=== PATIENT | male | born 1955 | race Caucasian/White ===

== ENCOUNTER 2016-07-15 00:33 | Inpatient (IN) | payer OTHER ==
[~2016-07-15] VITALS: Ht 180.3 cm; Wt 75.6 kg
[~2016-07-15 00:33] MED LIST: DOCU-216; FURO40TA4; HUMALOG; LANTUS; LORA1TAB; LOSA100T7; PANT40TA4; ZOLP10TA5
[2016-07-15 04:20] VITALS: BP 115/73; PULSE 69; RESP 20
[2016-07-15 04:40] VITALS: Ht 180.3 cm; Wt 75.6 kg
--- NOTE | 2016-07-15 04:53 | HP ---
Date/Time of Note Date/Time of Note DATE: 07/15/16 TIME: 04:50 Assessment/Plan VTE Prophylaxis VTE Prophylaxis Intervention: heparin Assessment/Plan Assessment/Plan 61 yo male with a past medical history of Type II DM, Essential Hypertension, Hepatitis C, Stage IV CKD, BPH, SCC previous, Plaque Psoriasis, ETOH abuse, Inguinal hernia, who presents with intractable diarrhea and malaise. 1. Diarrhea - infectious vs other - will admit the patient to med/surg, consult GI - no white count, will hold off on antibiotics, check stool blood, leukocytes , culture, ova and parasites, c diff. 2. Hyponatremia - 2/2 to liver cirrhosis and dehydration - gentle hydration 3. Acute on Chronic renal failure - dehydration - continue with IVF, consult nephro 4. Liver mass with METS - check CT chest, consult hem/onc, surgery, will check AFP, Hepatitis panel, ca 125, ca 19-9, CEA levels, possible bx for definitive diagnosis 5. Type II DM - ISS, lantus/novolog, check hgba1c 6. Essential HTN - hold losartan, IV hydralazine, if cleared by GI - consider aldactone 7. Hepatitis C - standard precautions, viral load 8. Right inguinal hernia - reducible, surgery consult 9. Liver Cirrhosis - with abnormal LFT's - RUQ US, monitor trend 10. GI ppx - protonix 11. DVT ppx - heparin answered all of his questions. as per clinical course. this history and physical took greater then 45 minutes to complete HPI/ROS Admit Date/Time Admit Date/Time Jul 15, 2016 at 04:07 Hx of Present Illness 61 yo male with a past medical history of Type II DM, Essential Hypertension, Hepatitis C, Stage IV CKD, BPH, SCC previous, Plaque Psoriasis, ETOH abuse, Inguinal hernia, who presents with intractable diarrhea and malaise. He states that over the last 3 weeks, he has had > 10 episodes of diarrhea, non bloody, no recent antibiotic use, with 25 lb weight loss, decreased appetite, and generalized abdominal pain. Does have malaise, dizziness, 2 episodes of vomitus NBNB, with nausea. He denies any recent travel, but lives in a sober living, and states that other residents have similar symptoms. He denies any chest pain , shortness of breath, loss of consciousness, fevers/chills, or other constitutional symptoms. He had gone to [facility] for initial work- up, but was transferred here for insurance purposes. Labs: Na+: 130, BUN/Cr: 60/2.85, AST: 79/ALT:28, Alk Phos: 306, T bili :0.6 CT abd/pelvis: Multiple nodules within the lung bases most likely compatible with metastatic disease. Mass-like lesion within the right hepatic lobe which is not well seen without contrast. The density is most suggestive of a solid lesion. Cirrhotic liver with associated upper abdominal varices and splenomegaly as well as moderate intra-abdominal ascites. Large right inguinal hernia which contains ascites. ROS 14 point review of systems completed, please refer to HPI for any positive findings PMH/Family/Social Past Medical History Hep C, BPH, SCC, psoriasis Medical History: diabetes, hypertension, renal disease Past Surgical History multiple skin grafts Family History Significant Family History: diabetes (mother), hypertension (mother) Social History Alcohol Use: sober Smoking Status: Current every day smoker (50 ppd hx) Drug Use: cocaine (previously) Exam/Review of Systems Vital Signs Vitals Vital Signs Date Time Temp Pulse Resp B/P Pulse Ox O2 Delivery O2 Flow Rate FiO2 07/15/16 04:20 97.6 69 20 115/73 98 Room Air Exam Exam Gen Jatin: mild distress 2/2 to abdominal pain, AAOx4 HEENT: left frontotemporal region skin graft noted, PERRLA, EOMI, no pharyngeal erythema, no tonsillar exudates, no lymphadenopathy, no JVD, no carotid bruits NECK: supple, no thyromegaly THORAX: symmetrical, no obvious deformities CV: S1S2, RRR, no M/G/R Lungs: bibasilar crackles, no wheezing or rhonchi appreciated Abd: soft, tenderness diffusely to deep palpation, hyperactive bowel sounds, no rebound, no guarding, distended, + fluid wave noted EXT: trace bilateral lower extremity edema, no ecchymosis, no clubbing, FROM Neuro: CN II-XII grossly intact, no focal deficits Psych: good mentation, alert and oriented, good mood and affect Skin: scattered skin grafts PEG GUNTER MD Jul 15, 2016 04:53
[2016-07-15] MEDS ORDERED: SOD CHLORIDE 0.9% 1,000 ML IV SCH (04:57)
[2016-07-15] MEDS ORDERED: DOCUSATE SODIUM 100 MG CAP PO PRN (05:00)
[2016-07-15] MEDS ORDERED: ONDANSETRON 4 MG INJ IV PRN (05:00)
[2016-07-15] MEDS ORDERED: NACL 0.9% 3 ML SYG IV SCH (05:00)
[2016-07-15] MEDS ORDERED: morphine 2 MG INJ IV PRN (05:00)
[2016-07-15] MEDS ORDERED: hydrALAzine 20 MG INJ IV PRN (05:30)
[2016-07-15] MEDS ORDERED: GLUCOSE GEL 15 GRAM TUBE BUCCAL PRN (06:30)
[2016-07-15] MEDS ORDERED: GLUCOSE GEL 15 GRAM TUBE PO PRN ×2 (06:30)
[2016-07-15] MEDS ORDERED: GLUCAGON 1 MG INJ IM PRN (06:30)
[2016-07-15] MEDS ORDERED: DEXTROSE 50% 50 ML SYRINGE IV PRN ×2 (06:30)
[2016-07-15 06:39] LABS: HAAIG REFLEX REFLEX FILED
[2016-07-15 06:49] LABS: ALBUMIN 3.2 g/dl (3.3-4.9); POTASSIUM 4.6 mmol/L (3.5-5.1)
[2016-07-15 06:52] LABS: ALBUMIN/GLOBULIN RATIO 0.68; BILIRUBIN,INDIRECT 0.2 mg/dl (0-1.1); BILIRUBIN,TOTAL 0.2 mg/dl (0.2-1.3); CALCIUM 8.3 mg/dl (8.4-10.2); CREATININE 2.87 mg/dl (0.61-1.24); TOTAL PROTEIN 7.9 g/dl (6.1-8.1)
[2016-07-15 07:04] LABS: CHOLESTEROL 113 mg/dl (100-200)
[2016-07-15 07:05] LABS: CHOL/HDL RATIO 5.6 RATIO; HDL CHOLESTEROL 20 mg/dl (30-78); MAGNESIUM 3.1 mg/dl (1.7-2.5); TRIGLYCERIDES 200 mg/dl (0-149)
[2016-07-15 07:10] LABS: BASOPHILS % 0.5 % (0.0-2.0); EOSINOPHILS # 0.2 10^3/ul (0.0-0.5); EOSINOPHILS % 2.4 % (0.0-7.0); HEMATOCRIT 39.9 % (42.0-52.0); LYMPHOCYTES # 2.1 10^3/ul (0.8-2.9); LYMPHOCYTES % 23.9 % (15.0-51.0); MEAN CORPUSCULAR HEMOGLOBIN 30.1 pg (29.0-33.0); MEAN CORPUSCULAR HGB CONC 35.1 g/dl (32.0-37.0); MEAN CORPUSCULAR VOLUME 85.9 fl (82.0-101.0); MEAN PLATELET VOLUME 8.5 fl (7.4-10.4); MONOCYTE # 0.7 10^3/ul (0.3-0.9); MONOCYTES % 7.8 % (0.0-11.0); NEUTROPHIL # 5.8 10^3/ul (1.6-7.5); NEUTROPHILS % 65.4 % (39.0-77.0); PLATELET COUNT 135 10^3/UL (140-440); RED BLOOD COUNT 4.65 10^6/ul (4.70-6.10); RED CELL DISTRIBUTION WIDTH 13.8 % (11.5-14.5); UNCORRECTED WBC 8.8 10^3/ul (4.8-10.8); WHITE BLOOD COUNT 8.8 10^3/ul (4.8-10.8)
[2016-07-15 07:14] LABS: CONDITION 1
[2016-07-15 07:28] LABS: CARCINOEMBRYONIC ANTIGEN 4.1 ng/ml (0.0-5.0)
[2016-07-15 07:29] VITALS: BP 113/64; RESP 18
[2016-07-15 07:32] LABS: CANCER ANTIGEN 19-9 30.6 U/ml (0.0-37.0)
[2016-07-15 07:48] LABS: HEPATITIS B CORE ANTIBODY REACTIVE (NEGATIVE)
[2016-07-15] MEDS: INSULIN ASPART [NOVOLOG] 3 ML PEN SC SCH ×7 (08:15→20:39)
[2016-07-15] MEDS: FAMOTIDINE 20 MG INJ IV SCH ×2 (10:09→20:27)
[2016-07-15] MEDS: HEPARIN 5,000 UNIT/0.5 ML SYG SC SCH ×2 (10:11→20:27)
--- NOTE | 2016-07-15 11:22 | EN ---
Date/Time of Note Date/Time of Note DATE: 07/15/16 TIME: 11:16 Event Note Medicine [facility] Denies chest pain palpitations No shortness of breath but no significant vomiting Vital signs within normal limits GENERAL: Elderly gentleman awake alert oriented comfortable at rest VITAL SIGNS: per chart NECK: Supple. No JVD or lymphadenopathy. CARDIAC EXAM: S1, S2. No added sounds or murmurs. CHEST: clear bilaterally, No added sounds, rales or wheezes ABDOMEN: Soft, nontender. No guarding or rebound. Mildly distended EXTREMITIES: No cyanosis, clubbing or edema. NEUROLOGIC: Generalized weakness. No focal deficits. Assessment and plan 1. Diarrhea - infectious vs other - - Infectious etiology workup in place. Antibiotics on hold. GI evaluation with Dr. Hoffman and Dr. Ohara. Possible underlying malignant process given her description of CT findings of liver metastases and pulmonary lesions. Patient reports over 30 pound weight loss. Will likely need CT-guided biopsy of liver mass for staging and diagnosis. We'll check coags prior to biopsy. 2. Hyponatremia - - 2/2 to liver cirrhosis and dehydration - gentle hydration repeat labs in a.m. 3. Acute on Chronic renal failure - dehydration - continue with IVF, Dr. Acosta contacted. 4. Liver mass with METS - check CT chest, consult hem/onc, surgery, will check AFP, Hepatitis panel, ca 125, ca 19-9, CEA levels, possible bx for definitive diagnosis 5. Type II DM - ISS, lantus/novolog, check hgba1c 6. Essential HTN - hold losartan, IV hydralazine, if cleared by GI - consider aldactone 7. Hepatitis C - standard precautions, viral load 8. Right inguinal hernia - reducible, surgery consult 9. GI ppx - protonix 10.. DVT ppx - heparin KINJAL CR MD[facility] Jul 15, 2016 11:22
--- NOTE | 2016-07-15 13:13 | CONS ---
Date/Time of Note Date/Time of Note DATE: 07/15/16 TIME: 13:03 Assessment/Plan Assessment/Plan Problems: (1) Liver mass Comment: With underlying cirrhosis will need to evaluate for primary liver HCC vs metastatic disease and will complete tumor marker analysis. check ldh, psa as well. Agree with either liver or lung lesion biopsy by IR for tissue diagnosis (2) Lesion of lung Comment: doing CT chest today to better evaluate extent of disease and to determine lesion that can be safely biopsied. (3) Cirrhosis Comment: likely secondary to etoh and hepatitis C Qualifiers: (4) Thrombocytopenia Comment: mild, secondary to BM suppression with underlying hep C cirrhosis and safe for biopsy but check pt/inr and fibrinogen because of liver cirrhosis. Consultation Date/Type/Reason Admit Date/Time Jul 15, 2016 at 04:07 Date of Consultation: Jul 15, 2016 Type of Consultation: oncology for Dr Bearden Reason for Consultation liver mass with lung lesions Referring Provider: PEG GUNTER MD Hx of Present Illness Patient 61 y/o with hx of etoh, liver cirrhosis and hepatitis C was admitted for malaise, decreased po, diarrhea and weight loss and was evaluated with CT scan. CT abdomen showed multiple nodules within the lung bases most likely compatible with metastatic disease. Mass-like lesion within the right hepatic lobe and cirrhotic liver with associated upper abdominal varices and splenomegaly as well as moderate intra-abdominal ascites. Pulmonary has already seen patient and heme/onc evaluation to r/o malignancy. Constitutional: poor po Respiratory: shortness of breath Cardiovascular: lightheadedness Gastrointestinal: decreased appetite, diarrhea, pain Musculoskeletal: bone/joint pain Past Medical History Medical History: diabetes, hypertension, renal disease Family History Significant Family History: no pertinent family hx Social History Alcohol Use: sober Smoking Status: Current every day smoker (50 ppd hx) Drug Use: cocaine (previously) Exam/Review of Systems Vital Signs Vitals Vital Signs Date Time Temp Pulse Resp B/P Pulse Ox O2 Delivery O2 Flow Rate FiO2 07/15/16 07:29 97.7 67 18 113/64 97 07/15/16 04:20 Room Air Intake and Output 07/14/16 07/14/16 07/15/16 15:00 23:00 07:00 Output Total 151 ml Balance -151 ml Exam Constitutional: alert, oriented Psych: nl mood/affect Eyes: icteric, nl conjunctiva Neck: supple Respiratory: normal air movement Cardiovascular: regular rate and rhythm Gastrointestinal: hepatomegaly, soft Musculoskeletal: nl extremities to inspection Results Result Diagram: 07/15/16 0540 07/15/16 0540 Results 24 hrs Laboratory Tests Test 07/15/16 04:22 07/15/16 05:20 07/15/16 05:40 07/15/16 08:06 Bedside Glucose 103 109 Stool Occult Blood NEGATIVE Alanine Aminotransferase (ALT/SGPT) 42 Albumin 3.2 L Albumin/Globulin Ratio 0.68 Alkaline Phosphatase 287 H Alpha Fetoprotein 36.40 H Anion Gap 17 H Aspartate Amino Transf (AST/SGOT) 122 H Basophils # 0.0 Basophils % 0.5 Blood Urea Nitrogen 57 H CA 125 Antigen 763.0 H CA 19-9 Antigen 30.6 Calcium Level 8.3 L Carbon Dioxide Level 22 Carcinoembryonic Antigen 4.1 Chloride Level 103 Cholesterol Level 113 Cholesterol/HDL Ratio 5.6 Creatinine 2.87 H Direct Bilirubin 0.00 Eosinophils # 0.2 Eosinophils % 2.4 Globulin 4.70 H Glucose Level 98 HDL Cholesterol 20 L Hematocrit 39.9 L Hemoglobin 14.0 Hemoglobin A1c 7.4 H Hepatitis B Core Total Antibody REACTIVE H Hepatitis B Surface Antigen NEGATIVE Hepatitis C Antibody REACTIVE H Indirect Bilirubin 0.2 LDL Cholesterol, Calculated 53 Lymphocytes # 2.1 Lymphocytes % 23.9 Magnesium Level 3.1 H Mean Corpuscular Hemoglobin 30.1 Mean Corpuscular Hemoglobin Concent 35.1 Mean Corpuscular Volume 85.9 Mean Platelet Volume 8.5 Monocytes # 0.7 Monocytes % 7.8 Neutrophils # 5.8 Neutrophils % 65.4 Nucleated Red Blood Cells # 0.0 Nucleated Red Blood Cells % 0.0 Platelet Count 135 L Potassium Level 4.6 Red Blood Count 4.65 L Red Cell Distribution Width 13.8 Sodium Level 137 Thyroid Stimulating Hormone (TSH) 7.030 H Total Bilirubin 0.2 Total Protein 7.9 Triglycerides Level 200 H White Blood Count 8.8 Test 07/15/16 10:07 07/15/16 12:15 Bedside Glucose 111 110 Medications Medications Current Medications Sodium Chloride (NS) 1,000 ml @ 50 mls/hr Q20H IV Last administered on t 05:51; Admin Dose 50 MLS/HR; Start 07/15/16 at 04:57; Stop 07/16/16 at 00: 56 Ondansetron HCl (Zofran Inj) 4 mg Q6H PRN IV NAUSEA AND/OR VOMITING; Start at 05:00 Acetaminophen (Tylenol Tab) 650 mg Q6H PRN PO PAIN LEVEL 1-3 OR FEVER; Start at 05:00 Morphine Sulfate (morphine) 2 mg Q4H PRN IV SEVERE PAIN LEVEL 7-10; Start 07/15 at 05:00 Docusate Sodium (Colace) 100 mg Q12H PRN PO CONSTIPATION; Start 07/15/16 at 05: 00 Famotidine (Pepcid Iv) 20 mg Q12 IV Last administered on 07/15/16 10:09; Admin Dose 20 MG; Start 07/15/16 at 09:00 Heparin Sodium (Porcine) (Heparin (5000 Units/0.5 ml)) 5,000 unit Q12 SC Last administered on 07/15/16 10:11; Admin Dose 5,000 UNIT; Start 07/15/16 at 09:00 Hydralazine HCl (Apresoline) 10 mg Q6H PRN IV sbp > 160; Start 07/15/16 at 05: 30 Insulin Glargine (Lantus) 10 unit HS SC ; Start 07/15/16 at 21:00 Diagnostic Test (Pha) (Accucheck) 1 ea 02 XX ; Start 07/16/16 at 02:00 Miscellaneous Information 1 ea NOTE XX ; Start 07/15/16 at 06:30 Glucose (Glutose) 15 gm Q15M PRN PO DECREASED GLUCOSE; Start 07/15/16 at 06:30 Glucose (Glutose) 22.5 gm Q15M PRN PO DECREASED GLUCOSE; Start 07/15/16 at 06: 30 Dextrose (D50w Syringe) 25 ml Q15M PRN IV DECREASED GLUCOSE; Start 07/15/16 at 06:30 Dextrose (D50w Syringe) 50 ml Q15M PRN IV DECREASED GLUCOSE; Start 07/15/16 at 06:30 Glucagon (Glucagen) 1 mg Q15M PRN IM DECREASED GLUCOSE; Start 07/15/16 at 06:30 Glucose (Glutose) 15 gm Q15M PRN BUCCAL DECREASED GLUCOSE; Start 07/15/16 at 06 :30 DEACON TENORIO MD Jul 15, 2016 13:13
--- NOTE | 2016-07-15 13:29 | CONS ---
Date/Time of Note Date/Time of Note DATE: 07/15/16 TIME: 13:15 Assessment/Plan Assessment/Plan Additional Assessment/Plan Assessment: * Liver mass on cirrhotic liver * Rule out hepatocellular carcinoma versus metastatic disease * Lung masses rule out metastatic disease/ * Cirrhosis of the liver/ Alcohol/HCV * Small amount of ascites * Rule out esophageal varices * Mild thrombocytopenia * Chronic diarrhea * Rule out inflammatory versus visceral diabetic neuropathy * Malnutrition/likely underlying malignancy * Diabetes mellitus type 2 * Hypertension * Alcohol abuse Plan: * IR tissue diagnosis * Stool studies * Close observation * May need colonoscopy and endoscopy Consultation Date/Type/Reason Admit Date/Time Jul 15, 2016 at 04:07 Date of Consultation: Jul 15, 2016 Hx of Present Illness 61-year-old male with significant history of HCV infection. The patient presented to the hospital complaining of episodes of diarrhea which are nonbloody significant weight loss decreased appetite, increasing abdominal girth. Evaluation included a CT of the abdomen and pelvis showing multiple nodules in the lung bases consistent with metastatic disease, cirrhotic liver with a masslike lesion in the right lobe. There is splenomegaly, ascites and evidence of intra-abdominal varices. The patient has seen wardrobe consultant and recommendation for INR tissue diagnosis either long or liver has been advised. The patient is evasive as to the source of his HCV infection and initially he denied alcohol use but later on admitted to alcohol abuse. At the present time the patient appears comfortable he has had no episodes of diarrhea and reported today. I would at this point agree with the need for tissue diagnosis clearly hepatitis C and a mass in the liver even though alpha-fetoprotein is only mildly elevated suggest possibility of hepatocellular carcinoma. I will also request stool studies to rule out inflammatory diarrhea. Constitutional: poor po Eyes: no complaints ENT: no complaints Respiratory: shortness of breath Cardiovascular: lightheadedness Gastrointestinal: decreased appetite, diarrhea, pain Genitourinary: no complaints Musculoskeletal: bone/joint pain Skin: no complaints Neurologic: no complaints Endocrine: no complaints Lymphatic: no complaints Psychological: nl mood/affect Immunologic: no complaints Past Medical History * Diabetes mellitus type 2 * Hypertension * Chronic HCV infection * BPH * Alcohol abuse * Renal failure Medical History: diabetes, hypertension, renal disease Past Surgical History Past Surgical Hx: no surgical history Family History Significant Family History: no pertinent family hx Social History Alcohol Use: sober Smoking Status: Current every day smoker (50 ppd hx) Drug Use: cocaine (previously) Exam/Review of Systems Vital Signs Vitals Vital Signs Date Time Temp Pulse Resp B/P Pulse Ox O2 Delivery O2 Flow Rate FiO2 07/15/16 07:29 97.7 67 18 113/64 97 07/15/16 04:20 Room Air Intake and Output 07/14/16 07/14/16 07/15/16 15:00 23:00 07:00 Output Total 151 ml Balance -151 ml Exam Constitutional: alert, oriented, No well developed (Undernourished cachectic/) Psych: anxiety, nl mood/affect, no complaints Head: atraumatic, normocephalic Eyes: EOMI, PERRL, nl conjunctiva, nl lids, nl sclera ENMT: nl external ears & nose, nl lips & teeth, nl nasal mucosa & septum Neck: non-tender, supple Respiratory: clear to auscultation, normal air movement Cardiovascular: nl pulses, regular rate and rhythm Gastrointestinal: ascites (Small amount of ascites), bowel sounds, distended, nl liver, spleen, non-tender, soft Musculoskeletal: nl extremities to inspection Extremities: normal pulses Skin: nl turgor, other (Stigmata of liver disease), No rash or lesions Lymph: nl lymph nodes Results Result Diagram: 07/15/16 0540 07/15/16 0540 Results 24 hrs Laboratory Tests Test 07/15/16 04:22 07/15/16 05:20 07/15/16 05:40 07/15/16 08:06 Bedside Glucose 103 109 Stool Occult Blood NEGATIVE Alanine Aminotransferase (ALT/SGPT) 42 Albumin 3.2 L Albumin/Globulin Ratio 0.68 Alkaline Phosphatase 287 H Alpha Fetoprotein 36.40 H Anion Gap 17 H Aspartate Amino Transf (AST/SGOT) 122 H Basophils # 0.0 Basophils % 0.5 Blood Urea Nitrogen 57 H CA 125 Antigen 763.0 H CA 19-9 Antigen 30.6 Calcium Level 8.3 L Carbon Dioxide Level 22 Carcinoembryonic Antigen 4.1 Chloride Level 103 Cholesterol Level 113 Cholesterol/HDL Ratio 5.6 Creatinine 2.87 H Direct Bilirubin 0.00 Eosinophils # 0.2 Eosinophils % 2.4 Globulin 4.70 H Glucose Level 98 HDL Cholesterol 20 L Hematocrit 39.9 L Hemoglobin 14.0 Hemoglobin A1c 7.4 H Hepatitis B Core Total Antibody REACTIVE H Hepatitis B Surface Antigen NEGATIVE Hepatitis C Antibody REACTIVE H Indirect Bilirubin 0.2 LDL Cholesterol, Calculated 53 Lymphocytes # 2.1 Lymphocytes % 23.9 Magnesium Level 3.1 H Mean Corpuscular Hemoglobin 30.1 Mean Corpuscular Hemoglobin Concent 35.1 Mean Corpuscular Volume 85.9 Mean Platelet Volume 8.5 Monocytes # 0.7 Monocytes % 7.8 Neutrophils # 5.8 Neutrophils % 65.4 Nucleated Red Blood Cells # 0.0 Nucleated Red Blood Cells % 0.0 Platelet Count 135 L Potassium Level 4.6 Red Blood Count 4.65 L Red Cell Distribution Width 13.8 Sodium Level 137 Thyroid Stimulating Hormone (TSH) 7.030 H Total Bilirubin 0.2 Total Protein 7.9 Triglycerides Level 200 H White Blood Count 8.8 Test 07/15/16 10:07 07/15/16 12:15 Bedside Glucose 111 110 Medications Medications Current Medications Sodium Chloride (NS) 1,000 ml @ 50 mls/hr Q20H IV Last administered on 05:51; Admin Dose 50 MLS/HR; Start 07/15/16 at 04:57; Stop 07/16/16 at 00: 56 Ondansetron HCl (Zofran Inj) 4 mg Q6H PRN IV NAUSEA AND/OR VOMITING; Start at 05:00 Acetaminophen (Tylenol Tab) 650 mg Q6H PRN PO PAIN LEVEL 1-3 OR FEVER; Start at 05:00 Morphine Sulfate (morphine) 2 mg Q4H PRN IV SEVERE PAIN LEVEL 7-10; Start 07/15 at 05:00 Docusate Sodium (Colace) 100 mg Q12H PRN PO CONSTIPATION; Start 07/15/16 at 05: 00 Famotidine (Pepcid Iv) 20 mg Q12 IV Last administered on 07/15/16 10:09; Admin Dose 20 MG; Start 07/15/16 at 09:00 Heparin Sodium (Porcine) (Heparin (5000 Units/0.5 ml)) 5,000 unit Q12 SC Last administered on 07/15/16 10:11; Admin Dose 5,000 UNIT; Start 07/15/16 at 09:00 Hydralazine HCl (Apresoline) 10 mg Q6H PRN IV sbp > 160; Start 07/15/16 at 05: 30 Insulin Glargine (Lantus) 10 unit HS SC ; Start 07/15/16 at 21:00 Diagnostic Test (Pha) (Accucheck) 1 ea 02 XX ; Start 07/16/16 at 02:00 Miscellaneous Information 1 ea NOTE XX ; Start 07/15/16 at 06:30 Glucose (Glutose) 15 gm Q15M PRN PO DECREASED GLUCOSE; Start 07/15/16 at 06:30 Glucose (Glutose) 22.5 gm Q15M PRN PO DECREASED GLUCOSE; Start 07/15/16 at 06: 30 Dextrose (D50w Syringe) 25 ml Q15M PRN IV DECREASED GLUCOSE; Start 07/15/16 at 06:30 Dextrose (D50w Syringe) 50 ml Q15M PRN IV DECREASED GLUCOSE; Start 07/15/16 at 06:30 Glucagon (Glucagen) 1 mg Q15M PRN IM DECREASED GLUCOSE; Start 07/15/16 at 06:30 Glucose (Glutose) 15 gm Q15M PRN BUCCAL DECREASED GLUCOSE; Start 07/15/16 at 06 :30 TIMMY SORIANO MD Jul 15, 2016 13:26
--- NOTE | 2016-07-15 14:33 | RADRPT ---
PROCEDURE: CT Chest without contrast. CLINICAL INDICATION: Hepatitis C with liver mass. Cough. TECHNIQUE: Helical axial sections were obtained through the chest without intravenous contrast enh ancement. Coronal and sagittal reformatted images were obtained from the axial source images. Total exam DLP is 531.16 mGy-cm. CTDIvol is 13.25 mGy. One or more of the following dose reduction servando hniques were used: Automated exposure control, adjustment of the mA and/or kV according to patient s ize, use of iterative reconstruction technique. COMPARISON: None FINDINGS: There is mild atelectasis in the left lower lobe posteriorly and laterally. There is no other pulmo nary airspace or interstitial disease. There are multiple bilateral pulmonary nodules ranging in size from the smallest in the left lower l obe posteriorly measuring 0.4 cm and the largest in the right lower lobe posteriorly measuring 1.5 c m. These number approximately 10 on the right and 9 on the left. The nodules are noncalcified or ca vitated. There is mediastinal lymphadenopathy posterior to the esophagus measuring approximately 2.1 x 2.5 cm . There is no hilar lymphadenopathy. There is right retrocrural lymphadenopathy measuring 0.9 x 1. 8 cm. There is no axillary, supraclavicular, or internal mammary lymphadenopathy. The thoracic aorta is not dilated. There is calcification in the aorta consistent with atherosclero sis. The heart size is normal. There is no pleural effusion or pericardial effusion. Images through the upper abdomen demonstrate moderate ascites. There is a mass in the segment 7 or 8 superiorly in the liver measuring approximately 5.3 x 5.8 cm. The liver has a nodular surface con sistent with cirrhosis and there is enlargement of the caudate lobe and left lobe consistent with ci rrhosis. There is probable recanalization of the umbilical vein. Multiple dilated veins are presen t in the upper abdomen, also consistent with portal hypertension. The spleen is enlarged. There are mild degenerative changes of the spine. There is no fracture or lytic lesion. IMPRESSION: 1. Mild atelectasis at the left lung base. 2. Multiple bilateral pulmonary nodules, suspicious for neoplasm. 3. Mediastinal lymphadenopathy anterior to the mid esophagus, suspicious for neoplasm. 4. Right retrocrural lymphadenopathy, suspicious for neoplasm. 5. Atherosclerosis. 6. Ascites. 7. Cirrhotic liver with portal hypertension. 8. Splenomegaly. 9. Mild degenerative changes of the spine. RPTAT: QQ .Jose F Knox MD, MD Date Time Electronically viewed and signed by .Jose F Knox MD, on 07/15/2016 14:33 .R/
--- NOTE | 2016-07-15 15:26 | RADRPT ---
PROCEDURE: US Abdomen (right upper quadrant). CLINICAL INDICATION: Right upper quadrant abdomen pain. TECHNIQUE: Multiple real-time longitudinal and transverse images of the right upper quadrant of th e abdomen were acquired utilizing a curved array transducer. Images were reviewed on a high-resoluti on PACS workstation. COMPARISON: None FINDINGS: The liver is diffusely heterogeneous and has a nodular surface consistent with cirrhosis. There is a solid hyperechoic mass in the right hepatic lobe measuring 4.5 x 5.7 x 6.1 cm, suspicious for neoplasm. There is no other focal hepatic lesion. The main portal vein is completely thrombos ed with no flow visualized with color Doppler or pulsed Doppler sonography. The hepatic veins and he patic artery demonstrate normal flow with color Doppler and pulsed Doppler sonography. There is sludge in the gallbladder. There are no gallstones. The bile ducts are normal with the common bile duct measuring 6.9 mm in diameter. The visualized portions of the pancreas are unremarkable with obscuration of the tail of the pancrea s. There is moderate ascites. The right kidney measures 9.1 cm. There is normal echogenicity of the right kidney. There is no p erinephric fluid collection. No hydronephrosis, mass, or calculus is seen. IMPRESSION: 1. Cirrhotic liver. 2. Mass in the right hepatic lobe measuring up to 6.1 cm suspicious for neoplasm. 3. Portal vein thrombosis. 4. Sludge in the gallbladder. 5. Moderate ascites. 6. Otherwise unremarkable study. RPTAT: QQ .Jose F Knox MD, Date Time Electronically viewed and signed by .Jose F Knox MD, MD on 07/15/2016 15:26 .R/
--- NOTE | 2016-07-15 15:42 | CONS ---
Date/Time of Note Date/Time of Note DATE: 07/15/16 TIME: 15:33 Assessment/Plan Assessment/Plan Additional Assessment/Plan Unfortunate 61 m with MMP including dm/ htn/ long standing hep c with underlying cirrhosis/ polysubstance abuse and ckd 4 with baseline cr 2.5 presumably due to DN. he is admitted with increased wekaness/ diarrhea that is non bloddy and weight loss. his na was 130 on admission and has improved to [address] shows liver mass and he is currently undergoing w/u for underlying malgnancy as well as evaluation of ongoing diarrhea. I was asked to see him regarding evaluation of arf on ckd which is likley due to prerenal azotemia on ckd vs mild atn. he is euvolemic and lytes are better with ivf * cont ivf * check urine lytes and ptn:cr ratio * am labs * renal dose all meds * further recs pending above Consultation Date/Type/Reason Admit Date/Time Jul 15, 2016 at 04:07 Reason for Consultation evaluation of acute on chronic renal failure and hyponatremia Hx of Present Illness 61 m with mmp as outlined below. he has known hep c and resides in a sober living facility. he was admitted with a 2 week h/o severe diarrhea and weight loss. labs revealed cr 2.[address] done showed liver mass and w/u ongoing r/o ca/ he has been seeing dr aldana for ckd 4 for several months. his baseline cr 2.5. he states he feels better today and his diarrhea has improved with ivf hydartion. he denies any f/s/c/ abd pain/ n/ vomiting Constitutional: poor po Eyes: no complaints ENT: no complaints Respiratory: no complaints, shortness of breath Cardiovascular: lightheadedness, no complaints Gastrointestinal: decreased appetite, diarrhea, pain Genitourinary: no complaints Musculoskeletal: bone/joint pain, no complaints Skin: no complaints Neurologic: no complaints Endocrine: no complaints (weight loss) Lymphatic: no complaints Psychological: anxiety, nl mood/affect, no complaints Immunologic: no complaints Past Medical History Medical History: diabetes, hepatitis, hypertension, renal disease Past Surgical History Past Surgical Hx: no surgical history, noncontributory Family History Significant Family History: no pertinent family hx Social History Alcohol Use: sober Smoking Status: Current every day smoker (50 ppd hx) Drug Use: cocaine (previously) Exam/Review of Systems Vital Signs Vitals Vital Signs Date Time Temp Pulse Resp B/P Pulse Ox O2 Delivery O2 Flow Rate FiO2 07/15/16 07:29 97.7 67 18 113/64 97 07/15/16 04:20 Room Air Intake and Output 07/14/16 07/14/16 07/15/16 15:00 23:00 07:00 Output Total 151 ml Balance -151 ml Exam Constitutional: alert, frail Psych: no complaints Head: atraumatic, normocephalic Eyes: nl conjunctiva ENMT: nl external ears & nose Neck: non-tender, supple Respiratory: clear to auscultation, diminished breath sounds Cardiovascular: edema, nl pulses, regular rate and rhythm Gastrointestinal: distended, non-tender, soft Genitourinary - Male: nl scrotum Extremities: normal pulses Neurological: nl speech, nl strength Skin: nl turgor Results Result Diagram: 07/15/16 0540 07/15/16 0540 Results 24 hrs Laboratory Tests Test 07/15/16 04:22 07/15/16 05:20 07/15/16 05:40 07/15/16 08:06 Bedside Glucose 103 109 Stool Occult Blood NEGATIVE Alanine Aminotransferase (ALT/SGPT) 42 Albumin 3.2 L Albumin/Globulin Ratio 0.68 Alkaline Phosphatase 287 H Alpha Fetoprotein 36.40 H Anion Gap 17 H Aspartate Amino Transf (AST/SGOT) 122 H Basophils # 0.0 Basophils % 0.5 Blood Urea Nitrogen 57 H CA 125 Antigen 763.0 H CA 19-9 Antigen 30.6 Calcium Level 8.3 L Carbon Dioxide Level 22 Carcinoembryonic Antigen 4.1 Chloride Level 103 Cholesterol Level 113 Cholesterol/HDL Ratio 5.6 Creatinine 2.87 H Direct Bilirubin 0.00 Eosinophils # 0.2 Eosinophils % 2.4 Globulin 4.70 H Glucose Level 98 HDL Cholesterol 20 L Hematocrit 39.9 L Hemoglobin 14.0 Hemoglobin A1c 7.4 H Hepatitis B Core Total Antibody REACTIVE H Hepatitis B Surface Antigen NEGATIVE Hepatitis C Antibody REACTIVE H Indirect Bilirubin 0.2 LDL Cholesterol, Calculated 53 Lymphocytes # 2.1 Lymphocytes % 23.9 Magnesium Level 3.1 H Mean Corpuscular Hemoglobin 30.1 Mean Corpuscular Hemoglobin Concent 35.1 Mean Corpuscular Volume 85.9 Mean Platelet Volume 8.5 Monocytes # 0.7 Monocytes % 7.8 Neutrophils # 5.8 Neutrophils % 65.4 Nucleated Red Blood Cells # 0.0 Nucleated Red Blood Cells % 0.0 Platelet Count 135 L Potassium Level 4.6 Red Blood Count 4.65 L Red Cell Distribution Width 13.8 Sodium Level 137 Thyroid Stimulating Hormone (TSH) 7.030 H Total Bilirubin 0.2 Total Protein 7.9 Triglycerides Level 200 H White Blood Count 8.8 Test 07/15/16 10:07 07/15/16 12:15 Bedside Glucose 111 110 Medications Medications Current Medications Sodium Chloride (NS) 1,000 ml @ 50 mls/hr Q20H IV Last administered on 05:51; Admin Dose 50 MLS/HR; Start 07/15/16 at 04:57; Stop 07/16/16 at 00: 56 Ondansetron HCl (Zofran Inj) 4 mg Q6H PRN IV NAUSEA AND/OR VOMITING; Start at 05:00 Acetaminophen (Tylenol Tab) 650 mg Q6H PRN PO PAIN LEVEL 1-3 OR FEVER; Start at 05:00 Morphine Sulfate (morphine) 2 mg Q4H PRN IV SEVERE PAIN LEVEL 7-10; Start 07/15 at 05:00 Docusate Sodium (Colace) 100 mg Q12H PRN PO CONSTIPATION; Start 07/15/16 at 05: 00 Famotidine (Pepcid Iv) 20 mg Q12 IV Last administered on 07/15/16 10:09; Admin Dose 20 MG; Start 07/15/16 at 09:00 Heparin Sodium (Porcine) (Heparin (5000 Units/0.5 ml)) 5,000 unit Q12 SC Last administered on 07/15/16 10:11; Admin Dose 5,000 UNIT; Start 07/15/16 at 09:00 Hydralazine HCl (Apresoline) 10 mg Q6H PRN IV sbp > 160; Start 07/15/16 at 05: 30 Insulin Glargine (Lantus) 10 unit HS SC ; Start 07/15/16 at 21:00 Diagnostic Test (Pha) (Accucheck) 1 ea 02 XX ; Start 07/16/16 at 02:00 Miscellaneous Information 1 ea NOTE XX ; Start 07/15/16 at 06:30 Glucose (Glutose) 15 gm Q15M PRN PO DECREASED GLUCOSE; Start 07/15/16 at 06:30 Glucose (Glutose) 22.5 gm Q15M PRN PO DECREASED GLUCOSE; Start 07/15/16 at 06: 30 Dextrose (D50w Syringe) 25 ml Q15M PRN IV DECREASED GLUCOSE; Start 07/15/16 at 06:30 Dextrose (D50w Syringe) 50 ml Q15M PRN IV DECREASED GLUCOSE; Start 07/15/16 at 06:30 Glucagon (Glucagen) 1 mg Q15M PRN IM DECREASED GLUCOSE; Start 07/15/16 at 06:30 Glucose (Glutose) 15 gm Q15M PRN BUCCAL DECREASED GLUCOSE; Start 07/15/16 at 06 :30 SERGEI BARRAGAN MD Jul 15, 2016 15:42
[2016-07-15] MEDS: SOD CHLORIDE 0.9% 1,000 ML IV SCH (16:00)
[2016-07-15 18:49] LABS: ADD UMIC YES; URINE BILIRUBIN (Dip) NEGATIVE (NEGATIVE); URINE BLOOD (Dip) TRACE (NEGATIVE); URINE COLOR LT. YELLOW (YELLOW); URINE GLUCOSE (Dip) NEGATIVE (NEGATIVE); URINE KETONES (Dip) NEGATIVE (NEGATIVE); URINE LEUKOCYTE ESTERASE (Dip) NEGATIVE (NEGATIVE); URINE NITRITE (Dip) NEGATIVE (NEGATIVE); URINE TOTAL PROTEIN (Dip) TRACE (NEGATIVE); URINE UROBILINOGEN (Dip) 0.2 E.U./dL (0.1-1.0)
[2016-07-15 19:33] LABS: SQUAMOUS EPITHELIAL CELL,UR RARE; URINE RBCS 0-2 /HPF (0)
[2016-07-15 19:58] VITALS: BP 111/61; RESP 20
[2016-07-15] MEDS: ACETAMINOPHEN 325 MG TAB PO PRN (20:17)
[2016-07-15] MEDS: INSULIN GLARGINE [LANtus] 3 ML PEN SC SCH (20:26)
[2016-07-16] MEDS: ACCUCHECK XX SCH (02:00)
[2016-07-16] MEDS: ACETAMINOPHEN 325 MG TAB PO PRN (04:15)
[2016-07-16] MEDS: SOD CHLORIDE 0.9% 1,000 ML IV SCH ×2 (04:16→12:00)
[2016-07-16 05:36] LABS: ALBUMIN 2.8 g/dl (3.3-4.9)
[2016-07-16 05:37] LABS: POTASSIUM 4.6 mmol/L (3.5-5.1)
[2016-07-16 05:39] LABS: ALBUMIN/GLOBULIN RATIO 0.68; BILIRUBIN,INDIRECT 0.1 mg/dl (0-1.1); BILIRUBIN,TOTAL 0.1 mg/dl (0.2-1.3); CREATININE 2.68 mg/dl (0.61-1.24); TOTAL PROTEIN 6.9 g/dl (6.1-8.1)
[2016-07-16 05:40] LABS: CALCIUM 7.8 mg/dl (8.4-10.2)
[2016-07-16 05:47] LABS: INR 1.27; PT RATIO 1.3
[2016-07-16 05:48] LABS: INR 1.32; PARTIAL THROMBOPLASTIN TIME 38.3 Sec (25.0-35.0); PROTIME 16.5 Sec (12.2-14.2); PT RATIO 1.3
[2016-07-16 05:49] LABS: PARTIAL THROMBOPLASTIN TIME 36.6 Sec (25.0-35.0)
[2016-07-16 05:53] LABS: THROMBIN TIME 16.4 SEC (13.8-19.1)
[2016-07-16 06:12] LABS: PROSTATE SPECIFIC ANTIGEN 0.4 ng/ml (0.0-4.0)
[2016-07-16 06:26] LABS: BASOPHILS % 0.4 % (0.0-2.0); EOSINOPHILS # 0.1 10^3/ul (0.0-0.5); EOSINOPHILS % 2.1 % (0.0-7.0); HEMATOCRIT 36.2 % (42.0-52.0); HEMOGLOBIN 12.7 g/dl (14.0-18.0); LYMPHOCYTES # 1.6 10^3/ul (0.8-2.9); LYMPHOCYTES % 26.6 % (15.0-51.0); MEAN CORPUSCULAR HEMOGLOBIN 30.1 pg (29.0-33.0); MEAN CORPUSCULAR VOLUME 85.9 fl (82.0-101.0); MEAN PLATELET VOLUME 8.2 fl (7.4-10.4); MONOCYTE # 0.6 10^3/ul (0.3-0.9); MONOCYTES % 8.9 % (0.0-11.0); NEUTROPHIL # 3.9 10^3/ul (1.6-7.5); PLATELET COUNT 99 10^3/UL (140-440); RED BLOOD COUNT 4.21 10^6/ul (4.70-6.10); RED CELL DISTRIBUTION WIDTH 13.7 % (11.5-14.5); UNCORRECTED WBC 6.2 10^3/ul (4.8-10.8); WHITE BLOOD COUNT 6.2 10^3/ul (4.8-10.8)
[2016-07-16 06:38] LABS: CONDITION 1; LH ANALYZER COMMENTS 1; SUSPECT 1
[2016-07-16 07:20] VITALS: BP 111/63; RESP 18
[2016-07-16] MEDS: INSULIN ASPART [NOVOLOG] 3 ML PEN SC SCH ×7 (08:15→21:00)
[2016-07-16] MEDS: HEPARIN 5,000 UNIT/0.5 ML SYG SC SCH (09:00)
[2016-07-16] MEDS: FAMOTIDINE 20 MG INJ IV SCH (09:14)
--- NOTE | 2016-07-16 12:57 | PN ---
Date/Time of Note Date/Time of Note DATE: 07/16/16 TIME: 12:39 Assessment/Plan VTE Prophylaxis VTE Prophylaxis Intervention: SCD's Lines/Catheters IV Catheter Type (from Nrs): Peripheral IV Urinary Cath still in place: No Assessment/Plan Assessment/Plan 1. Liver mass with multiple lung mass/lymphadenopathy, consider malignancy, CT- guided liver mass biopsy 2. Hepatitis B and C, follow up with GI 3. Liver Cirrhosis, alcoholic and hep B and C 4. Alcohol abuse 5. Chronic Diarrhea, imodium prn 6. Hyponatremia, follow up with Na 7. Acute on Chronic renal failure, dehydration, follow up with BMP 8. Type II DM - ISS, lantus/novolog, check [id number] 9. Essential HTN, stable 10. Thrombocytopenia, due to splenomegaly from liver cirrhosis related 11. Right inguinal hernia - reducible, surgery consult 12. GI ppx - protonix 13. DVT ppx - heparin Subjective 24 Hr Interval Summary Free Text/Dictation no event Exam/Review of Systems Vital Signs Vitals Vital Signs Date Time Temp Pulse Resp B/P Pulse Ox O2 Delivery O2 Flow Rate FiO2 07/16/16 09:21 98 Room Air 07/16/16 07:20 97.8 61 18 111/63 Intake and Output 07/15/16 07/15/16 07/16/16 15:00 23:00 07:00 Intake Total 1530 ml 2240 ml Output Total 100 ml 670 ml Balance 1430 ml 1570 ml Exam Constitutional: alert, oriented, well developed Psych: nl mood/affect, no complaints Head: atraumatic, normocephalic Eyes: EOMI, nl conjunctiva, nl lids ENMT: mucosa pink and moist, nl external ears & nose, nl lips & teeth, nl nasal mucosa & septum Neck: non-tender, supple Respiratory: clear to auscultation, normal air movement, No congested cough, No crackles/rales, No diminished breath sounds, No intercostal retraction, No labored breathing, No respirations, No tactile fremitus, No wheezing Cardiovascular: nl pulses, regular rate and rhythm, No S3, No S4, No bruits, No diastolic murmur, No edema, No gallop, No irregular rhythm, No jugular venous distention (JVD), No murmurs/extra sounds, No rub, No systolic murmur Gastrointestinal: ascites, bowel sounds, distended, soft, splenomegaly, No firm, No hepatomegaly, No mass, No nl liver, spleen, No non-tender, No rebound or guarding, No surgical scars, No tender Musculoskeletal: nl extremities to inspection Extremities: normal pulses Neurological: SELF RISING FLOUR MIXER II-XII intact, nl mental status, nl speech, nl strength Skin: nl turgor, rash or lesions Lymph: nl lymph nodes Results Result Diagram: 07/16/161 07/16/16 0441 Results 24 hrs Laboratory Tests Test 07/15/16 17:22 07/15/16 17:25 07/15/16 20:19 07/16/16 04:41 Bedside Glucose 85 153 Urine Bilirubin NEGATIVE Urine Clarity CLEAR Urine Color LT. YELLOW Urine Glucose NEGATIVE Urine Hemoglobin TRACE Urine Ketones NEGATIVE Urine Leukocyte Esterase NEGATIVE Urine Microscopic RBC 0-2 Urine Microscopic WBC NONE SEEN Urine Nitrite NEGATIVE Urine Random Creatinine 78.53 Urine Random Sodium < 13 L Urine Specific [place] 1.015 Urine Squamous Epithelial Cells RARE Urine Total Protein Urine Urobilinogen 0.2 E.U./dL Urine pH 5.0 Activated Partial Thromboplast Time 36.6 H Alanine Aminotransferase (ALT/SGPT) 48 Albumin 2.8 L Albumin/Globulin Ratio 0.68 Alkaline Phosphatase 232 H Anion Gap 13 Aspartate Amino Transf (AST/SGOT) 196 #H Basophils # 0.0 Basophils % 0.4 Blood Morphology Comment Blood Urea Nitrogen 51 H Calcium Level 7.8 L Carbon Dioxide Level 22 Chloride Level 101 Creatinine 2.68 H Direct Bilirubin 0.00 Eosinophils # 0.1 Eosinophils % 2.1 Fibrinogen 324.0 Globulin 4.10 H Glucose Level 106 Hematocrit 36.2 L Hemoglobin 12.7 L INR International Normalized Ratio 1.32 Indirect Bilirubin 0.1 Lactate Dehydrogenase 1566 H Lymphocytes # 1.6 Lymphocytes % 26.6 Mean Corpuscular Hemoglobin 30.1 Mean Corpuscular Hemoglobin Concent 35.0 Mean Corpuscular Volume 85.9 Mean Platelet Volume 8.2 Monocytes # 0.6 Monocytes % 8.9 Neutrophils # 3.9 Neutrophils % 62.0 Nucleated Red Blood Cells # 0.0 Nucleated Red Blood Cells % 0.0 Platelet Count 96 L Potassium Level 4.6 Prostate Specific Antigen 0.4 Prothrombin Time 16.5 H Prothrombin Time Ratio 1.3 Red Blood Count 4.21 L Red Cell Distribution Width 13.7 Sodium Level 131 L Thrombin Time Pending Total Bilirubin 0.1 L Total Protein 6.9 # White Blood Count 6.2 # Test 07/16/16 07:54 07/16/16 12:03 Bedside Glucose 118 155 Medications Medications Current Medications Ondansetron HCl (Zofran Inj) 4 mg Q6H PRN IV NAUSEA AND/OR VOMITING; Start at 05:00 Acetaminophen (Tylenol Tab) 650 mg Q6H PRN PO PAIN LEVEL 1-3 OR FEVER Last administered on 07/16/16 04:15; Admin Dose 650 MG; Start 07/15/16 at 05:00 Morphine Sulfate (morphine) 2 mg Q4H PRN IV SEVERE PAIN LEVEL 7-10; Start 07/15 at 05:00 Docusate Sodium (Colace) 100 mg Q12H PRN PO CONSTIPATION; Start 07/15/16 at 05: 00 Famotidine (Pepcid Iv) 20 mg Q12 IV Last administered on 07/16/16 09:14; Admin Dose 20 MG; Start 07/15/16 at 09:00 Heparin Sodium (Porcine) (Heparin (5000 Units/0.5 ml)) 5,000 unit Q12 SC Last administered on 07/15/16 20:27; Admin Dose 5,000 UNIT; Start 07/15/16 at 09:00 Hydralazine HCl (Apresoline) 10 mg Q6H PRN IV sbp > 160; Start 07/15/16 at 05: 30 Insulin Glargine (Lantus) 10 unit HS SC Last administered on 07/15/16 20:26; Admin Dose 10 UNIT; Start 07/15/16 at 21:00 Diagnostic Test (Pha) (Accucheck) 1 ea 02 XX ; Start 07/16/16 at 02:00 Miscellaneous Information 1 ea NOTE XX ; Start 07/15/16 at 06:30 Glucose (Glutose) 15 gm Q15M PRN PO DECREASED GLUCOSE; Start 07/15/16 at 06:30 Glucose (Glutose) 22.5 gm Q15M PRN PO DECREASED GLUCOSE; Start 07/15/16 at 06: 30 Dextrose (D50w Syringe) 25 ml Q15M PRN IV DECREASED GLUCOSE; Start 07/15/16 at 06:30 Dextrose (D50w Syringe) 50 ml Q15M PRN IV DECREASED GLUCOSE; Start 07/15/16 at 06:30 Glucagon (Glucagen) 1 mg Q15M PRN IM DECREASED GLUCOSE; Start 07/15/16 at 06:30 Glucose 15 gm 15 gm Q15M PRN BUCCAL DECREASED GLUCOSE; Start 07/15/16 at 06:30 Sodium Chloride (NS) 1,000 ml @ 50 mls/hr Q20H IV Last administered on 04:16; Admin Dose 50 MLS/HR; Start 07/15/16 at 16:00 LIZ GUERRA MD Jul 16, 2016 12:51
--- NOTE | 2016-07-16 14:26 | CONS ---
Date/Time of Note Date/Time of Note DATE: 07/16/16 TIME: 14:23 Assessment/Plan Assessment/Plan Chief Complaint/Hosp Course 1) Liver mass - With underlying cirrhosis will need to evaluate for primary liver HCC vs metastatic disease and will complete tumor marker analysis. check ldh, psa as well. -pt to have paracentesis today. will order cytology (2) Lesion of lung -Chest CT demonstrates multiple lung nodules (3) Cirrhosis - likely secondary to etoh and hepatitis C (4) Thrombocytopenia mild, secondary to BM suppression with underlying hep C cirrhosis and safe for biopsy but check pt/inr and fibrinogen because of liver cirrhosis. Problems: Consultation Date/Type/Reason Admit Date/Time Jul 15, 2016 at 04:07 Initial Consult Date 07/15/16 Type of Consultation: oncology Reason for Consultation liver mass Referring Provider: PEG GUNTER MD 24 HR Interval Summary Free Text/Dictation no acute overnight events. pt to get ultrasound guided paracentesis today. Exam/Review of Systems Vital Signs Vitals Vital Signs Date Time Temp Pulse Resp B/P Pulse Ox O2 Delivery O2 Flow Rate FiO2 07/16/16 09:21 98 Room Air 07/16/16 07:20 97.8 61 18 111/63 Intake and Output 07/15/16 07/15/16 07/16/16 15:00 23:00 07:00 Intake Total 1530 ml 2240 ml Output Total 100 ml 670 ml Balance 1430 ml 1570 ml Exam Constitutional: alert, oriented Psych: no complaints Head: atraumatic, normocephalic Eyes: nl conjunctiva ENMT: nl external ears & nose Neck: non-tender, supple Respiratory: clear to auscultation Cardiovascular: regular rate and rhythm Gastrointestinal: ascites Musculoskeletal: nl extremities to inspection, nl gait and stance Extremities: normal pulses Results Result Diagram: 07/16/16 0441 07/16/16 0441 Results 24 hrs Laboratory Tests Test 07/15/16 17:22 07/15/16 17:25 07/15/16 20:19 07/16/16 04:41 Bedside Glucose 85 153 Urine Bilirubin NEGATIVE Urine Clarity CLEAR Urine Color LT. YELLOW Urine Glucose NEGATIVE Urine Hemoglobin TRACE Urine Ketones NEGATIVE Urine Leukocyte Esterase NEGATIVE Urine Microscopic RBC 0-2 Urine Microscopic WBC NONE SEEN Urine Nitrite NEGATIVE Urine Random Creatinine 78.53 Urine Random Sodium < 13 L Urine Specific [place] 1.015 Urine Squamous Epithelial Cells RARE Urine Total Protein Urine Urobilinogen 0.2 E.U./dL Urine pH 5.0 Activated Partial Thromboplast Time 36.6 H Alanine Aminotransferase (ALT/SGPT) 48 Albumin 2.8 L Albumin/Globulin Ratio 0.68 Alkaline Phosphatase 232 H Anion Gap 13 Aspartate Amino Transf (AST/SGOT) 196 #H Basophils # 0.0 Basophils % 0.4 Blood Morphology Comment Blood Urea Nitrogen 51 H Calcium Level 7.8 L Carbon Dioxide Level 22 Chloride Level 101 Creatinine 2.68 H Direct Bilirubin 0.00 Eosinophils # 0.1 Eosinophils % 2.1 Fibrinogen 324.0 Globulin 4.10 H Glucose Level 106 Hematocrit 36.2 L Hemoglobin 12.7 L INR International Normalized Ratio 1.32 Indirect Bilirubin 0.1 Lactate Dehydrogenase 1566 H Lymphocytes # 1.6 Lymphocytes % 26.6 Mean Corpuscular Hemoglobin 30.1 Mean Corpuscular Hemoglobin Concent 35.0 Mean Corpuscular Volume 85.9 Mean Platelet Volume 8.2 Monocytes # 0.6 Monocytes % 8.9 Neutrophils # 3.9 Neutrophils % 62.0 Nucleated Red Blood Cells # 0.0 Nucleated Red Blood Cells % 0.0 Platelet Count 96 L Potassium Level 4.6 Prostate Specific Antigen 0.4 Prothrombin Time 16.5 H Prothrombin Time Ratio 1.3 Red Blood Count 4.21 L Red Cell Distribution Width 13.7 Sodium Level 131 L Thrombin Time Pending Total Bilirubin 0.1 L Total Protein 6.9 # White Blood Count 6.2 # Test 07/16/16 07:54 07/16/16 12:03 Bedside Glucose 118 155 Medications Medications Current Medications Ondansetron HCl (Zofran Inj) 4 mg Q6H PRN IV NAUSEA AND/OR VOMITING; Start at 05:00 Acetaminophen (Tylenol Tab) 650 mg Q6H PRN PO PAIN LEVEL 1-3 OR FEVER Last administered on 07/16/16 04:15; Admin Dose 650 MG; Start 07/15/16 at 05:00 Morphine Sulfate (morphine) 2 mg Q4H PRN IV SEVERE PAIN LEVEL 7-10; Start 07/15 at 05:00 Docusate Sodium (Colace) 100 mg Q12H PRN PO CONSTIPATION; Start 07/15/16 at 05: 00 Famotidine (Pepcid Iv) 20 mg Q12 IV Last administered on 07/16/16 09:14; Admin Dose 20 MG; Start 07/15/16 at 09:00 Hydralazine HCl (Apresoline) 10 mg Q6H PRN IV sbp > 160; Start 07/15/16 at 05: 30 Insulin Glargine (Lantus) 10 unit HS SC Last administered on 07/15/16 20:26; Admin Dose 10 UNIT; Start 07/15/16 at 21:00 Diagnostic Test (Pha) (Accucheck) 1 ea 02 XX ; Start 07/16/16 at 02:00 Miscellaneous Information 1 ea NOTE XX ; Start 07/15/16 at 06:30 Glucose (Glutose) 15 gm Q15M PRN PO DECREASED GLUCOSE; Start 07/15/16 at 06:30 Glucose (Glutose) 22.5 gm Q15M PRN PO DECREASED GLUCOSE; Start 07/15/16 at 06: 30 Dextrose (D50w Syringe) 25 ml Q15M PRN IV DECREASED GLUCOSE; Start 07/15/16 at 06:30 Dextrose (D50w Syringe) 50 ml Q15M PRN IV DECREASED GLUCOSE; Start 07/15/16 at 06:30 Glucagon (Glucagen) 1 mg Q15M PRN IM DECREASED GLUCOSE; Start 07/15/16 at 06:30 Glucose 15 gm 15 gm Q15M PRN BUCCAL DECREASED GLUCOSE; Start 07/15/16 at 06:30 Sodium Chloride (NS) 1,000 ml @ 50 mls/hr Q20H IV Last administered on 04:16; Admin Dose 50 MLS/HR; Start 07/15/16 at 16:00 ROWAN GARCIA M.D. Jul 16, 2016 14:26
[2016-07-16] MEDS ORDERED: LIDOCAINE 1% (MPF) 5 ML VIAL ONE (14:57)
--- NOTE | 2016-07-16 16:01 | RADRPT ---
PROCEDURE: Ultrasound guided paracentesis. CLINICAL INDICATION: Ascites and shortness of breath. COMPARISON: No prior studies are available for comparison. TECHNIQUE: The risks, benefits, and alternatives were explained to the patient, including but not limited to bl eeding, infection, pain, visceral or vascular damage, shock, and . The patient understood the risks and the alternatives and wished to proceed with the procedure. Informed written consent was o btained. A procedural time out was performed. The patient's name, date of , and procedure to b e performed were verified. Utilizing ultrasound guidance, optimal location for entry to the peritoneal cavity was ascertained. The overlying skin was prepped and draped in the usual sterile fashion. Approximately 10 ml of 1% Xylocaine was injected locally for pain control. Using ultrasound guidance, an 8 [place] catheter wa s introduced into the peritoneal cavity in the right lower quadrant without difficulty. FINDINGS: Initial images demonstrate ascites. Approximately 6.25 liters of serous fluid was aspirated and dis carded. The patient tolerated the procedure well without complication. IMPRESSION: 1. Successful ultrasound-guided paracentesis. RPTAT: QQ .Jose F Knox MD, Date Time Electronically viewed and signed by .Jose F Knox MD, MD on 07/16/2016 16:01 .R/
[2016-07-16] MEDS: AL HYDROX/MG HYDROX/SIMETH 30 ML CUP PO PRN (16:14)
[2016-07-16 16:24] LABS: BASOPHILS % 0.4 % (0.0-2.0); EOSINOPHILS # 0.1 10^3/ul (0.0-0.5); EOSINOPHILS % 1.3 % (0.0-7.0); HEMATOCRIT 41.4 % (42.0-52.0); HEMOGLOBIN 13.8 g/dl (14.0-18.0); LYMPHOCYTES # 1.6 10^3/ul (0.8-2.9); LYMPHOCYTES % 23.6 % (15.0-51.0); MEAN CORPUSCULAR HEMOGLOBIN 29.6 pg (29.0-33.0); MEAN CORPUSCULAR HGB CONC 33.2 g/dl (32.0-37.0); MEAN CORPUSCULAR VOLUME 89.1 fl (82.0-101.0); MONOCYTE # 0.6 10^3/ul (0.3-0.9); MONOCYTES % 8.9 % (0.0-11.0); NEUTROPHIL # 4.4 10^3/ul (1.6-7.5); NEUTROPHILS % 65.8 % (39.0-77.0); PLATELET COUNT 93 10^3/UL (140-440); RED BLOOD COUNT 4.65 10^6/ul (4.70-6.10); RED CELL DISTRIBUTION WIDTH 13.7 % (11.5-14.5); UNCORRECTED WBC 6.7 10^3/ul (4.8-10.8); WHITE BLOOD COUNT 6.7 10^3/ul (4.8-10.8)
[2016-07-16 16:30] LABS: CONDITION 1
--- NOTE | 2016-07-16 16:33 | CONS ---
Date/Time of Note Date/Time of Note DATE: 07/16/16 TIME: 13:28 Assessment/Plan Assessment/Plan Additional Assessment/Plan I attempted to see the patient today, but similar to yesterday's attempt, was unable to connect (not in his room; ? downstairs for a study). D/w Dr. Bearden. Given his renal insufficiency, would be unlikely that we can obtain good quality liver CT. His rather low AFP will also make the need for a liver biopsy more of a requirement in the course of evaluation and management of this nice gentleman. Most likely diagnosis is HCC with metastasis to the lungs given the clinical findings. Treatment options are limited and do not include surgical intervention. We will consider localized treatment to the liver (e.g. TACE) if patient is adequately symptomatic from his liver lesions (doubt it will be needed soon); systemic chemo efficacy is also limited (unless different etiology ; e.g. colon). Will attempt to see the patient again tomorrow. Appreciate the consult. Consultation Date/Type/Reason Admit Date/Time Jul 15, 2016 at 04:07 Constitutional: poor po Eyes: no complaints ENT: no complaints Respiratory: no complaints, shortness of breath Cardiovascular: lightheadedness, no complaints Gastrointestinal: decreased appetite, diarrhea, pain Genitourinary: no complaints Musculoskeletal: bone/joint pain, no complaints Skin: no complaints Neurologic: no complaints Endocrine: no complaints (weight loss) Lymphatic: no complaints Psychological: no complaints Immunologic: no complaints Past Medical History Medical History: diabetes, hepatitis, hypertension, renal disease Past Surgical History Past Surgical Hx: no surgical history, noncontributory Social History Alcohol Use: sober Smoking Status: Current every day smoker (50 ppd hx) Drug Use: cocaine (previously) Exam/Review of Systems Vital Signs Vitals Vital Signs Date Time Temp Pulse Resp B/P Pulse Ox O2 Delivery O2 Flow Rate FiO2 07/16/16 09:21 98 Room Air 07/16/16 07:20 97.8 61 18 111/63 Intake and Output 07/15/16 07/15/16 07/16/16 15:00 23:00 07:00 Intake Total 1530 ml 2240 ml Output Total 100 ml 670 ml Balance 1430 ml 1570 ml Results Result Diagram: 07/16/16 0441 07/16/16 0441 Results 24 hrs Laboratory Tests Test 07/15/16 17:22 07/15/16 17:25 07/15/16 20:19 07/16/16 04:41 Bedside Glucose 85 153 Urine Bilirubin NEGATIVE Urine Clarity CLEAR Urine Color LT. YELLOW Urine Glucose NEGATIVE Urine Hemoglobin TRACE Urine Ketones NEGATIVE Urine Leukocyte Esterase NEGATIVE Urine Microscopic RBC 0-2 Urine Microscopic WBC NONE SEEN Urine Nitrite NEGATIVE Urine Random Creatinine 78.53 Urine Random Sodium < 13 L Urine Specific [place] 1.015 Urine Squamous Epithelial Cells RARE Urine Total Protein Urine Urobilinogen 0.2 E.U./dL Urine pH 5.0 Activated Partial Thromboplast Time 36.6 H Alanine Aminotransferase (ALT/SGPT) 48 Albumin 2.8 L Albumin/Globulin Ratio 0.68 Alkaline Phosphatase 232 H Anion Gap 13 Aspartate Amino Transf (AST/SGOT) 196 #H Basophils # 0.0 Basophils % 0.4 Blood Morphology Comment Blood Urea Nitrogen 51 H Calcium Level 7.8 L Carbon Dioxide Level 22 Chloride Level 101 Creatinine 2.68 H Direct Bilirubin 0.00 Eosinophils # 0.1 Eosinophils % 2.1 Fibrinogen 324.0 Globulin 4.10 H Glucose Level 106 Hematocrit 36.2 L Hemoglobin 12.7 L INR International Normalized Ratio 1.32 Indirect Bilirubin 0.1 Lactate Dehydrogenase 1566 H Lymphocytes # 1.6 Lymphocytes % 26.6 Mean Corpuscular Hemoglobin 30.1 Mean Corpuscular Hemoglobin Concent 35.0 Mean Corpuscular Volume 85.9 Mean Platelet Volume 8.2 Monocytes # 0.6 Monocytes % 8.9 Neutrophils # 3.9 Neutrophils % 62.0 Nucleated Red Blood Cells # 0.0 Nucleated Red Blood Cells % 0.0 Platelet Count 96 L Potassium Level 4.6 Prostate Specific Antigen 0.4 Prothrombin Time 16.5 H Prothrombin Time Ratio 1.3 Red Blood Count 4.21 L Red Cell Distribution Width 13.7 Sodium Level 131 L Thrombin Time 16.4 Total Bilirubin 0.1 L Total Protein 6.9 # White Blood Count 6.2 # Test 07/16/16 07:54 07/16/16 12:03 Bedside Glucose 118 155 Medications Medications Current Medications Ondansetron HCl (Zofran Inj) 4 mg Q6H PRN IV NAUSEA AND/OR VOMITING; Start at 05:00 Acetaminophen (Tylenol Tab) 650 mg Q6H PRN PO PAIN LEVEL 1-3 OR FEVER Last administered on 07/16/16t 04:15; Admin Dose 650 MG; Start 07/15/16 at 05:00 Morphine Sulfate (morphine) 2 mg Q4H PRN IV SEVERE PAIN LEVEL 7-10; Start 07/15 at 05:00 Docusate Sodium (Colace) 100 mg Q12H PRN PO CONSTIPATION; Start 07/15/16 at 05: 00 Hydralazine HCl (Apresoline) 10 mg Q6H PRN IV sbp > 160; Start 07/15/16 at 05: 30 Insulin Glargine (Lantus) 10 unit HS SC Last administered on 07/15/16 20:26; Admin Dose 10 UNIT; Start 07/15/16 at 21:00 Diagnostic Test (Pha) (Accucheck) 1 ea 02 XX ; Start 07/16/16 at 02:00 Miscellaneous Information 1 ea NOTE XX ; Start 07/15/16 at 06:30 Glucose (Glutose) 15 gm Q15M PRN PO DECREASED GLUCOSE; Start 07/15/16 at 06:30 Glucose (Glutose) 22.5 gm Q15M PRN PO DECREASED GLUCOSE; Start 07/15/16 at 06: 30 Dextrose (D50w Syringe) 25 ml Q15M PRN IV DECREASED GLUCOSE; Start 07/15/16 at 06:30 Dextrose (D50w Syringe) 50 ml Q15M PRN IV DECREASED GLUCOSE; Start 07/15/16 at 06:30 Glucagon (Glucagen) 1 mg Q15M PRN IM DECREASED GLUCOSE; Start 07/15/16 at 06:30 Glucose 15 gm 15 gm Q15M PRN BUCCAL DECREASED GLUCOSE; Start 07/15/16 at 06:30 Sodium Chloride (NS) 1,000 ml @ 50 mls/hr Q20H IV Last administered on 04:16; Admin Dose 50 MLS/HR; Start 07/15/16 at 16:00 Famotidine (Pepcid) 20 mg Q12 PO ; Start 07/16/16 at 21:00 Al Hydrox/Mg Hydrox/Simethicone (Mag-Al Plus) 30 ml Q4H PRN PO GASTROINTESTINAL UPSET Last administered on 07/16/16 16:14; Admin Dose 30 ML; Start 07/16/16 at 16:00 YNES PARDO M.D. Jul 16, 2016 16:33
--- NOTE | 2016-07-16 18:52 | CONS ---
Date/Time of Note Date/Time of Note DATE: 07/16/16 TIME: 18:40 Assessment/Plan Assessment/Plan Chief Complaint/Hosp Course 1. Acute Renal failure superimposed on CKD .there was some component of dehydration and his renal function his improved with IV fluids . 2. hyponatremia , will adjust IV fluids . 3. hepatitis C with cirrhosis of the liver 4. liver mass with metastatic disease disease to lungs . Question as to primary source of malignancy 5. HTN 6. type 2 DM 7. diarrhea 8. ascites, he had a paracentesis done today with 6.5 liters of fluid removed Problems: Consultation Date/Type/Reason Admit Date/Time Jul 15, 2016 at 04:07 Initial Consult Date 07/15/16 Type of Consultation: renal Referring Provider: PEG GUNTER MD 24 HR Interval Summary Constitutional: no complaints Exam/Review of Systems Vital Signs Vitals Vital Signs Date Time Temp Pulse Resp B/P Pulse Ox O2 Delivery O2 Flow Rate FiO2 07/16/16 09:21 98 Room Air 07/16/16 07:20 97.8 61 18 111/63 Intake and Output 07/15/16 07/15/16 07/16/16 15:00 23:00 07:00 Intake Total 1530 ml 2240 ml Output Total 100 ml 670 ml Balance 1430 ml 1570 ml Exam Constitutional: alert, oriented, well developed Psych: nl mood/affect, no complaints Respiratory: clear to auscultation, normal air movement Cardiovascular: nl pulses, regular rate and rhythm Gastrointestinal: ascites, distended, soft Extremities: normal pulses Results Result Diagram: 07/16/16 1550 07/16/16 0441 Results 24 hrs Laboratory Tests Test 07/15/16 20:19 07/16/16 04:41 07/16/16 07:54 07/16/16 12:03 Bedside Glucose 153 118 155 Activated Partial Thromboplast Time 36.6 H Alanine Aminotransferase (ALT/SGPT) 48 Albumin 2.8 L Albumin/Globulin Ratio 0.68 Alkaline Phosphatase 232 H Anion Gap 13 Aspartate Amino Transf (AST/SGOT) 196 #H Basophils # 0.0 Basophils % 0.4 Blood Morphology Comment Blood Urea Nitrogen 51 H Calcium Level 7.8 L Carbon Dioxide Level 22 Chloride Level 101 Creatinine 2.68 H Direct Bilirubin 0.00 Eosinophils # 0.1 Eosinophils % 2.1 Fibrinogen 324.0 Globulin 4.10 H Glucose Level 106 Hematocrit 36.2 L Hemoglobin 12.7 L INR International Normalized Ratio 1.32 Indirect Bilirubin 0.1 Lactate Dehydrogenase 1566 H Lymphocytes # 1.6 Lymphocytes % 26.6 Mean Corpuscular Hemoglobin 30.1 Mean Corpuscular Hemoglobin Concent 35.0 Mean Corpuscular Volume 85.9 Mean Platelet Volume 8.2 Monocytes # 0.6 Monocytes % 8.9 Neutrophils # 3.9 Neutrophils % 62.0 Nucleated Red Blood Cells # 0.0 Nucleated Red Blood Cells % 0.0 Platelet Count 96 L Potassium Level 4.6 Prostate Specific Antigen 0.4 Prothrombin Time 16.5 H Prothrombin Time Ratio 1.3 Red Blood Count 4.21 L Red Cell Distribution Width 13.7 Sodium Level 131 L Thrombin Time 16.4 Total Bilirubin 0.1 L Total Protein 6.9 # White Blood Count 6.2 # Test 07/16/16 15:50 07/16/16 17:08 Basophils # 0.0 Basophils % 0.4 Blood Morphology Comment Eosinophils # 0.1 Eosinophils % 1.3 Hematocrit 41.4 L Hemoglobin 13.8 L Lymphocytes # 1.6 Lymphocytes % 23.6 Mean Corpuscular Hemoglobin 29.6 Mean Corpuscular Hemoglobin Concent 33.2 Mean Corpuscular Volume 89.1 Mean Platelet Volume 8.0 Monocytes # 0.6 Monocytes % 8.9 Neutrophils # 4.4 Neutrophils % 65.8 Nucleated Red Blood Cells # 0.0 Nucleated Red Blood Cells % 0.0 Platelet Count 93 L Red Blood Count 4.65 L Red Cell Distribution Width 13.7 White Blood Count 6.7 Bedside Glucose 157 Medications Medications Current Medications Ondansetron HCl (Zofran Inj) 4 mg Q6H PRN IV NAUSEA AND/OR VOMITING; Start at 05:00 Acetaminophen (Tylenol Tab) 650 mg Q6H PRN PO PAIN LEVEL 1-3 OR FEVER Last administered on 07/16/16t 04:15; Admin Dose 650 MG; Start 07/15/16 at 05:00 Morphine Sulfate (morphine) 2 mg Q4H PRN IV SEVERE PAIN LEVEL 7-10; Start 07/15 at 05:00 Docusate Sodium (Colace) 100 mg Q12H PRN PO CONSTIPATION; Start 07/15/16 at 05: 00 Hydralazine HCl (Apresoline) 10 mg Q6H PRN IV sbp > 160; Start 07/15/16 at 05: 30 Insulin Glargine (Lantus) 10 unit HS SC Last administered on 07/15/16 20:26; Admin Dose 10 UNIT; Start 07/15/16 at 21:00 Diagnostic Test (Pha) (Accucheck) 1 ea 02 XX ; Start 07/16/16 at 02:00 Miscellaneous Information 1 ea NOTE XX ; Start 07/15/16 at 06:30 Glucose (Glutose) 15 gm Q15M PRN PO DECREASED GLUCOSE; Start 07/15/16 at 06:30 Glucose (Glutose) 22.5 gm Q15M PRN PO DECREASED GLUCOSE; Start 07/15/16 at 06: 30 Dextrose (D50w Syringe) 25 ml Q15M PRN IV DECREASED GLUCOSE; Start 07/15/16 at 06:30 Dextrose (D50w Syringe) 50 ml Q15M PRN IV DECREASED GLUCOSE; Start 07/15/16 at 06:30 Glucagon (Glucagen) 1 mg Q15M PRN IM DECREASED GLUCOSE; Start 07/15/16 at 06:30 Glucose 15 gm 15 gm Q15M PRN BUCCAL DECREASED GLUCOSE; Start 07/15/16 at 06:30 Sodium Chloride (NS) 1,000 ml @ 50 mls/hr Q20H IV Last administered on 04:16; Admin Dose 50 MLS/HR; Start 07/15/16 at 16:00 Famotidine (Pepcid) 20 mg Q12 PO ; Start 07/16/16 at 21:00 Al Hydrox/Mg Hydrox/Simethicone (Mag-Al Plus) 30 ml Q4H PRN PO GASTROINTESTINAL UPSET Last administered on 07/16/16 16:14; Admin Dose 30 ML; Start 07/16/16 at 16:00 HOPE MARKS MD Jul 16, 2016 18:51
[2016-07-16 19:27] VITALS: BP 144/79; RESP 20
[2016-07-16 19:54] LABS: FLUID APPEARANCE HAZY; FLUID TYPE ASCITES
[2016-07-16 19:55] LABS: FLUID LYMPHOCYTES 79 %; FLUID MONOCYTES 11 %; FLUID NEUTROPHILS 5 %; FLUID RBC EST 2+; FLUID WBC'S 164 /cmm
[2016-07-16] MEDS: FAMOTIDINE 20 MG TAB PO SCH (21:05)
[2016-07-16] MEDS: INSULIN GLARGINE [LANtus] 3 ML PEN SC SCH (21:14)
[2016-07-17] MEDS: ACCUCHECK XX SCH (02:00)
[2016-07-17] MEDS: SOD CHLORIDE 0.9% 1,000 ML IV SCH ×2 (03:39→08:00)
[2016-07-17 05:53] LABS: ALBUMIN 2.8 g/dl (3.3-4.9)
[2016-07-17 05:54] LABS: POTASSIUM 4.3 mmol/L (3.5-5.1)
[2016-07-17 05:56] LABS: ALBUMIN/GLOBULIN RATIO 0.71; BILIRUBIN,INDIRECT 0.2 mg/dl (0-1.1); BILIRUBIN,TOTAL 0.2 mg/dl (0.2-1.3); CREATININE 2.63 mg/dl (0.61-1.24); TOTAL PROTEIN 6.7 g/dl (6.1-8.1)
[2016-07-17 05:57] LABS: CALCIUM 7.8 mg/dl (8.4-10.2)
[2016-07-17 06:20] LABS: BASOPHILS % 0.4 % (0.0-2.0); EOSINOPHILS # 0.1 10^3/ul (0.0-0.5); EOSINOPHILS % 1.3 % (0.0-7.0); HEMATOCRIT 36.4 % (42.0-52.0); HEMOGLOBIN 12.5 g/dl (14.0-18.0); LYMPHOCYTES # 1.6 10^3/ul (0.8-2.9); LYMPHOCYTES % 29.8 % (15.0-51.0); MEAN CORPUSCULAR HEMOGLOBIN 30.4 pg (29.0-33.0); MEAN CORPUSCULAR HGB CONC 34.4 g/dl (32.0-37.0); MEAN CORPUSCULAR VOLUME 88.3 fl (82.0-101.0); MONOCYTE # 0.6 10^3/ul (0.3-0.9); MONOCYTES % 10.5 % (0.0-11.0); PLATELET COUNT 84 10^3/UL (140-440); RED BLOOD COUNT 4.13 10^6/ul (4.70-6.10); RED CELL DISTRIBUTION WIDTH 13.4 % (11.5-14.5); UNCORRECTED WBC 5.2 10^3/ul (4.8-10.8); WHITE BLOOD COUNT 5.2 10^3/ul (4.8-10.8)
[2016-07-17 06:53] LABS: CONDITION 1
[2016-07-17 07:37] VITALS: BP 104/61; RESP 20
[2016-07-17] MEDS: FAMOTIDINE 20 MG TAB PO SCH ×2 (08:03→21:40)
[2016-07-17] MEDS: INSULIN ASPART [NOVOLOG] 3 ML PEN SC SCH ×7 (08:05→21:00)
--- NOTE | 2016-07-17 10:30 | CONS ---
Date/Time of Note Date/Time of Note DATE: 07/17/16 TIME: 10:21 Assessment/Plan Assessment/Plan Additional Assessment/Plan * Liver mass on cirrhotic liver * Rule out hepatocellular carcinoma versus metastatic disease * Lung masses rule out metastatic disease/ * Cirrhosis of the liver/ Alcohol/HCV * Small amount of ascites * Rule out esophageal varices * Mild thrombocytopenia * Chronic diarrhea, improving * Rule out inflammatory versus visceral diabetic neuropathy * Malnutrition/likely underlying malignancy * Diabetes mellitus type 2 * Hypertension * Alcohol abuse Plan: * IR tissue diagnosis * Stool studies * Close observation * May need colonoscopy and endosc Consultation Date/Type/Reason Admit Date/Time Jul 15, 2016 at 04:07 Initial Consult Date 07/15/16 Type of Consultation: Gastroenterology Referring Provider: PEG GUNTER MD 24 HR Interval Summary Free Text/Dictation Tolerating diet HCV serology in process No bedside report of diarrhea C diff and stool OB negative s/p paracentesis 6.25 07-16-16 Exam/Review of Systems Vital Signs Vitals Vital Signs Date Time Temp Pulse Resp B/P Pulse Ox O2 Delivery O2 Flow Rate FiO2 07/17/16 07:37 98.2 61 20 104/61 98 07/16/16 09:21 Room Air Intake and Output 07/16/16 07/16/16 07/17/16 15:00 23:00 07:00 Intake Total 1200 ml 1585 ml Output Total 290 ml Balance 910 ml 1585 ml Exam Constitutional: alert, oriented, well developed Psych: nl mood/affect Head: atraumatic Eyes: EOMI ENMT: nl external ears & nose, nl lips & teeth, nl nasal mucosa & septum Respiratory: normal air movement Cardiovascular: regular rate and rhythm Gastrointestinal: non-tender, soft Neurological: [employer] EDUCATION DIRECTOR II-XII intact Results Result Diagram: 07/17/16 0441 07/17/16 0451 Results 24 hrs Laboratory Tests Test 07/16/16 12:03 07/16/16 14:20 07/16/16 15:50 07/16/16 17:08 Bedside Glucose 155 157 Body Fluid Appearance HAZY Body Fluid Color MELANY Body Fluid Lymphocytes (%) 79 Body Fluid Monocytes % 11 Body Fluid Neutrophils % 5 Body Fluid Other Cells (%) Body Fluid RBC 2+ Body Fluid Type ASCITES Body Fluid Volume 1100.0 Body Fluid WBC 164 Basophils # 0.0 Basophils % 0.4 Blood Morphology Comment Eosinophils # 0.1 Eosinophils % 1.3 Hematocrit 41.4 L Hemoglobin 13.8 L Lymphocytes # 1.6 Lymphocytes % 23.6 Mean Corpuscular Hemoglobin 29.6 Mean Corpuscular Hemoglobin Concent 33.2 Mean Corpuscular Volume 89.1 Mean Platelet Volume 8.0 Monocytes # 0.6 Monocytes % 8.9 Neutrophils # 4.4 Neutrophils % 65.8 Nucleated Red Blood Cells # 0.0 Nucleated Red Blood Cells % 0.0 Platelet Count 93 L Red Blood Count 4.65 L Red Cell Distribution Width 13.7 White Blood Count 6.7 Test 07/16/16 21:06 07/17/16 04:41 07/17/16 04:51 07/17/16 07:46 Bedside Glucose 156 144 Basophils # 0.0 Basophils % 0.4 Blood Morphology Comment Eosinophils # 0.1 Eosinophils % 1.3 Hematocrit 36.4 L Hemoglobin 12.5 L Lymphocytes # 1.6 Lymphocytes % 29.8 Mean Corpuscular Hemoglobin 30.4 Mean Corpuscular Hemoglobin Concent 34.4 Mean Corpuscular Volume 88.3 Mean Platelet Volume 8.0 Monocytes # 0.6 Monocytes % 10.5 Neutrophils # 3.0 Neutrophils % 58.0 Nucleated Red Blood Cells # 0.0 Nucleated Red Blood Cells % 0.0 Platelet Count 84 L Red Blood Count 4.13 L Red Cell Distribution Width 13.4 White Blood Count 5.2 # Alanine Aminotransferase (ALT/SGPT) 47 Albumin 2.8 L Albumin/Globulin Ratio 0.71 Alkaline Phosphatase 283 H Anion Gap 15 Aspartate Amino Transf (AST/SGOT) 229 H Blood Urea Nitrogen 45 H Calcium Level 7.8 L Carbon Dioxide Level 18 L Chloride Level 105 Creatinine 2.63 H Direct Bilirubin 0.00 Globulin 3.90 H Glucose Level 112 Indirect Bilirubin 0.2 Potassium Level 4.3 Sodium Level 134 L Total Bilirubin 0.2 Total Protein 6.7 Medications Medications Current Medications Ondansetron HCl (Zofran Inj) 4 mg Q6H PRN IV NAUSEA AND/OR VOMITING; Start at 05:00 Acetaminophen (Tylenol Tab) 650 mg Q6H PRN PO PAIN LEVEL 1-3 OR FEVER Last administered on 07/16/16t 04:15; Admin Dose 650 MG; Start 07/15/16 at 05:00 Morphine Sulfate (morphine) 2 mg Q4H PRN IV SEVERE PAIN LEVEL 7-10; Start 07/15 at 05:00 Docusate Sodium (Colace) 100 mg Q12H PRN PO CONSTIPATION; Start 07/15/16 at 05: 00 Hydralazine HCl (Apresoline) 10 mg Q6H PRN IV sbp > 160; Start 07/15/16 at 05: 30 Insulin Glargine (Lantus) 10 unit HS SC Last administered on 07/16/16 21:14; Admin Dose 10 UNIT; Start 07/15/16 at 21:00 Diagnostic Test (Pha) (Accucheck) 1 ea 02 XX ; Start 07/16/16 at 02:00 Miscellaneous Information 1 ea NOTE XX ; Start 07/15/16 at 06:30 Glucose (Glutose) 15 gm Q15M PRN PO DECREASED GLUCOSE; Start 07/15/16 at 06:30 Glucose (Glutose) 22.5 gm Q15M PRN PO DECREASED GLUCOSE; Start 07/15/16 at 06: 30 Dextrose (D50w Syringe) 25 ml Q15M PRN IV DECREASED GLUCOSE; Start 07/15/16 at 06:30 Dextrose (D50w Syringe) 50 ml Q15M PRN IV DECREASED GLUCOSE; Start 07/15/16 at 06:30 Glucagon (Glucagen) 1 mg Q15M PRN IM DECREASED GLUCOSE; Start 07/15/16 at 06:30 Glucose 15 gm 15 gm Q15M PRN BUCCAL DECREASED GLUCOSE; Start 07/15/16 at 06:30 Sodium Chloride (NS) 1,000 ml @ 50 mls/hr Q20H IV Last administered on 03:39; Admin Dose 50 MLS/HR; Start 07/15/16 at 16:00 Famotidine (Pepcid) 20 mg Q12 PO Last administered on 07/17/16 08:03; Admin Dose 20 MG; Start 07/16/16 at 21:00 Al Hydrox/Mg Hydrox/Simethicone (Mag-Al Plus) 30 ml Q4H PRN PO GASTROINTESTINAL UPSET Last administered on 07/16/16 16:14; Admin Dose 30 ML; Start 07/16/16 at 16:00 KEVIN CARRINGTON Jul 17, 2016 10:30
--- NOTE | 2016-07-17 10:52 | CONS ---
[facility] INITIAL INPATIENT CONSULTATION NOTE PLACE OF SERVICE: [facility], 6th floor DATE OF CONSULTATION: 07/17/2016 ASSESSMENT AND PLAN: A very pleasant but unfortunate 61-year-old gentleman with multiple comorbid issues including hepatitis C as well as prior exposure to hepatitis B, possibly contributed on by alcohol intake that has led to what appears to be cirrhosis complicated by ascites and portal hypertension and renal insufficiency, and unfortunately what appears to be a primary hepatocellular carcinoma with metastasis to the lungs. Metastatic disease is also in the differential, but not as likely given the clinical picture. Given the patient's renal insufficiency we are unable to do a contrast study to be able to definitively diagnose him for HCC and for this reason, I am recommending a liver biopsy as part of his workup. Regardless of the findings on the biopsy, the patient is not eligible for any surgical intervention given the amount of cirrhosis that he has and likely metastatic disease process. The options of local treatment of liver include transarterial chemoembolization, but should be reserved only if the patient is severely symptomatic from his liver alone. In my opinion, he is not currently. Systemic chemotherapy can be considered, although the efficacy of sorafenib is only approximately 8 weeks of survival advantage in the randomized trial that was done to approve the drug. I explained some of the above to the patient given our lack of full confidence in the diagnosis as of yet and I plan on discussing this in detail with him once we have the biopsy results. I answered all the patient's questions to the best of my ability and I believe that he understands and agrees with the plan. With above assessment, I recommend the followin. Liver biopsy under ultrasound or CT guidance. 2. Supportive care with medical management. 3. Appreciate Dr. Bearden's oncologic input regarding patient's care. 4. We will wait until biopsy results are available prior to revisit with the patient. Thank you again for allowing us to participate in the care of this very pleasant gentleman and I am certain his wonderful family. If there are any questions, please feel free to call me at [phone]. TOTAL VISIT TIME: 45 minutes of which more than half was spent in [id number] discussion with the patient as well as coordination of care between multiple physicians and providers. DATE OF ADMISSION: 07/15/2016 HISTORY OF PRESENT ILLNESS: The patient is a very pleasant 61-year-old gentleman with multiple comorbid issues including hepatitis C and perhaps hepatitis B infection, previous history of drinking, diabetes mellitus, hypertension, and chronic kidney disease and also other problems who was admitted after transfer from an outside hospital that was prompted due to abdominal pain. A mass was seen in the noncontrast CT scan and masses were seen in the lungs concerning for malignant process. I was kindly asked to consult. I attempted to visit with the patient the last 2 days, but both days he was undergoing procedures. Today, I had a chance to meet with him and do a complete history and physical myself. I also had a chance to carefully review all available information and to discuss his case with Dr. Bearden from oncology as well as Dr. Seymour from internal medicine. The patient reports knowing about hepatitis C and recently about perhaps having hepatitis B as well, but is not sure approximately how long ago he might have been infected. He also has a history of alcohol intake that started around 2002 and ended around 2010. Currently, he has no pain complaints. He believes his abdominal pain that led to his initial visit to the hospital was due to ascites and is better after removal of the fluid. No other major complaints. His appetite has been fair to poor and he no longer can eat full meals. PAST MEDICAL HISTORY: 1. History of hepatitis C and perhaps hepatitis B. 2. Diabetes mellitus type 2. 3. Essential hypertension. 4. Stage IV chronic kidney disease. 5. Benign prostatic hypertrophy. 6. Squamous cell carcinoma of the skin previously. 7. Plaque psoriasis. 8. Above-mentioned history of alcohol abuse (potential). 9. Status post inguinal hernia repair. 10. Status post multiple skin grafts. ALLERGIES: NO KNOWN DRUG ALLERGIES. HOME MEDICATIONS: 1. Docusate. 2. Furosemide. 3. Lorazepam. 4. Losartan. 5. Pantoprazole 6. Zolpidem. 7. Humalog. 8. Lantus. SOCIAL HISTORY: The patient reports no current drinking, but did drink in the past. He is an everyday smoker 50-pack per day history and used cocaine previously. FAMILY HISTORY: Mother has diabetes and hypertension. REVIEW OF SYSTEMS: Other than the above-mentioned, there are no other pertinent positives or pertinent negatives in a complete 14-point review of systems. PHYSICAL EXAMINATION: GENERAL: The patient appears to be a very pleasant gentleman of non- descent, appearing older than stated age, lying in bed comfortably and in no acute distress. VITAL SIGNS: BMI is 23.2. He is afebrile and his vital signs are stable. HEENT: Normocephalic and atraumatic. Extraocular muscles and hearing are grossly intact bilaterally and symmetrically. Sclerae are nonicteric. Oral cavity is clear; oral mucosa appeared to be pink and moist. Dentition: fair. NECK: Supple. There is no lymphadenopathy or JVD. There is no submental, submandibular or supraclavicular lymphadenopathy. CHEST: Rises symmetrically with each breath; patient is breathing comfortably. There are no audible wheezes, rales or rhonchi on the gross exam. HEART: HPulse is regular and palpable on the *right wrist. Capillary refill was normal. Carotid pulses are palpable bilaterally and symmetrically in the neck. EXTREMITIES: Lower extremities contain no pitting edema around the ankles bilaterally and symmetrically. ABDOMEN: Soft, somewhat protuberant, but nondistended. No organomegaly noted. Mild evidence of ascites noted. Nontender. No peritoneal signs or guarding. SKIN: Appears to be pink and feels warm to touch. NEUROLOGIC: Awake, alert, and follows commands appropriately. LABORATORY DATA: Platelet count 84 and it was 135 on admission. Creatinine 2.63. Albumin 2.8 after hydration. Alkaline phosphatase 283, bilirubin 0.2. CO2 18. PSA 0.4. Alpha-fetoprotein 36.4. CA 19-9 of 30.6, CA 125 of 763. INR 1.32. Hepatitis B core total antibody reactive. Hepatitis B core immunoglobulin M antibody is pending. Hepatitis C antibody is reactive. Rest of hepatitis C workup pending. Hepatitis A immunoglobulin M is nonreactive. IMAGING: The patient's outside abdominal CT demonstrated above findings. A chest CT was done that showed multiple bilateral pulmonary nodules that were suspicious for neoplasm. There was also mediastinal lymphadenopathy anterior to the mid esophagus, suspicious for neoplasm as well as right retrocrural lymphadenopathy again suspicious for neoplasm. Evidence of ascites noted, cirrhotic liver noted with portal hypertension and splenomegaly, and mild degenerative changes of the spine. Dictated By: YNES VASQUEZ/RAFAEL Conf#: [id number] DID#: [id number] [facility] [place] DIVISIONRadha
--- NOTE | 2016-07-17 12:36 | CONS ---
Date/Time of Note Date/Time of Note DATE: 07/17/16 TIME: 12:32 Assessment/Plan Assessment/Plan Chief Complaint/Hosp Course 1) Liver mass - With underlying cirrhosis will need to evaluate for primary liver HCC vs metastatic disease. AFP not that helpful in diagnosis as it is only 36. Furthermore, given his renal function a contrast study is not able to be done -will discuss doing a liver biopsy with radiology. This is also a risky procedure in this cirrhotic patient with portal hypertension (2) Lesion of lung -Chest CT demonstrates multiple lung nodules (3) Cirrhosis - likely secondary to etoh and hepatitis C (4) Thrombocytopenia mild, secondary to BM suppression with underlying hep C cirrhosis and safe for biopsy. PT INR ok at 1.3 Problems: Consultation Date/Type/Reason Admit Date/Time Jul 15, 2016 at 04:07 Initial Consult Date 07/15/16 Type of Consultation: Hematology Reason for Consultation metastatic cancer Referring Provider: PEG GUNTER MD 24 HR Interval Summary Free Text/Dictation pt had paracentesis done yesterday. pt will small about of pain over the liver Exam/Review of Systems Vital Signs Vitals Vital Signs Date Time Temp Pulse Resp B/P Pulse Ox O2 Delivery O2 Flow Rate FiO2 07/17/16 07:37 98.2 61 20 104/61 98 07/16/16 09:21 Room Air Intake and Output 07/16/16 07/16/16 07/17/16 15:00 23:00 07:00 Intake Total 1200 ml 1585 ml Output Total 290 ml Balance 910 ml 1585 ml Exam Constitutional: alert, frail, oriented Head: atraumatic, normocephalic Eyes: nl conjunctiva ENMT: nl external ears & nose, nl lips & teeth Neck: non-tender, supple Respiratory: clear to auscultation, normal air movement Cardiovascular: regular rate and rhythm Gastrointestinal: ascites, soft Musculoskeletal: nl extremities to inspection, nl gait and stance Extremities: normal pulses Results Result Diagram: 07/17/16 0441 07/17/16 0451 Results 24 hrs Laboratory Tests Test 07/16/16 14:20 07/16/16 15:50 07/16/16 17:08 07/16/16 21:06 Body Fluid Appearance HAZY Body Fluid Color MELANY Body Fluid Lymphocytes (%) 79 Body Fluid Monocytes % 11 Body Fluid Neutrophils % 5 Body Fluid Other Cells (%) Body Fluid RBC 2+ Body Fluid Type ASCITES Body Fluid Volume 1100.0 Body Fluid WBC 164 Basophils # 0.0 Basophils % 0.4 Blood Morphology Comment Eosinophils # 0.1 Eosinophils % 1.3 Hematocrit 41.4 L Hemoglobin 13.8 L Lymphocytes # 1.6 Lymphocytes % 23.6 Mean Corpuscular Hemoglobin 29.6 Mean Corpuscular Hemoglobin Concent 33.2 Mean Corpuscular Volume 89.1 Mean Platelet Volume 8.0 Monocytes # 0.6 Monocytes % 8.9 Neutrophils # 4.4 Neutrophils % 65.8 Nucleated Red Blood Cells # 0.0 Nucleated Red Blood Cells % 0.0 Platelet Count 93 L Red Blood Count 4.65 L Red Cell Distribution Width 13.7 White Blood Count 6.7 Bedside Glucose 157 156 Test 07/17/16 04:41 07/17/16 04:51 07/17/16 07:46 07/17/16 12:01 Basophils # 0.0 Basophils % 0.4 Blood Morphology Comment Eosinophils # 0.1 Eosinophils % 1.3 Hematocrit 36.4 L Hemoglobin 12.5 L Lymphocytes # 1.6 Lymphocytes % 29.8 Mean Corpuscular Hemoglobin 30.4 Mean Corpuscular Hemoglobin Concent 34.4 Mean Corpuscular Volume 88.3 Mean Platelet Volume 8.0 Monocytes # 0.6 Monocytes % 10.5 Neutrophils # 3.0 Neutrophils % 58.0 Nucleated Red Blood Cells # 0.0 Nucleated Red Blood Cells % 0.0 Platelet Count 84 L Red Blood Count 4.13 L Red Cell Distribution Width 13.4 White Blood Count 5.2 # Alanine Aminotransferase (ALT/SGPT) 47 Albumin 2.8 L Albumin/Globulin Ratio 0.71 Alkaline Phosphatase 283 H Anion Gap 15 Aspartate Amino Transf (AST/SGOT) 229 H Blood Urea Nitrogen 45 H Calcium Level 7.8 L Carbon Dioxide Level 18 L Chloride Level 105 Creatinine 2.63 H Direct Bilirubin 0.00 Globulin 3.90 H Glucose Level 112 Indirect Bilirubin 0.2 Potassium Level 4.3 Sodium Level 134 L Total Bilirubin 0.2 Total Protein 6.7 Bedside Glucose 144 207 Medications Medications Current Medications Ondansetron HCl (Zofran Inj) 4 mg Q6H PRN IV NAUSEA AND/OR VOMITING; Start at 05:00 Acetaminophen (Tylenol Tab) 650 mg Q6H PRN PO PAIN LEVEL 1-3 OR FEVER Last administered on 07/16/16 04:15; Admin Dose 650 MG; Start 07/15/16 at 05:00 Morphine Sulfate (morphine) 2 mg Q4H PRN IV SEVERE PAIN LEVEL 7-10; Start 07/15 at 05:00 Docusate Sodium (Colace) 100 mg Q12H PRN PO CONSTIPATION; Start 07/15/16 at 05: 00 Hydralazine HCl (Apresoline) 10 mg Q6H PRN IV sbp > 160; Start 07/15/16 at 05: 30 Insulin Glargine (Lantus) 10 unit HS SC Last administered on 07/16/16 21:14; Admin Dose 10 UNIT; Start 07/15/16 at 21:00 Diagnostic Test (Pha) (Accucheck) 1 ea 02 XX ; Start 07/16/16 at 02:00 Miscellaneous Information 1 ea NOTE XX ; Start 07/15/16 at 06:30 Glucose (Glutose) 15 gm Q15M PRN PO DECREASED GLUCOSE; Start 07/15/16 at 06:30 Glucose (Glutose) 22.5 gm Q15M PRN PO DECREASED GLUCOSE; Start 07/15/16 at 06: 30 Dextrose (D50w Syringe) 25 ml Q15M PRN IV DECREASED GLUCOSE; Start 07/15/16 at 06:30 Dextrose (D50w Syringe) 50 ml Q15M PRN IV DECREASED GLUCOSE; Start 07/15/16 at 06:30 Glucagon (Glucagen) 1 mg Q15M PRN IM DECREASED GLUCOSE; Start 07/15/16 at 06:30 Glucose 15 gm 15 gm Q15M PRN BUCCAL DECREASED GLUCOSE; Start 07/15/16 at 06:30 Sodium Chloride (NS) 1,000 ml @ 50 mls/hr Q20H IV Last administered on 03:39; Admin Dose 50 MLS/HR; Start 07/15/16 at 16:00 Famotidine (Pepcid) 20 mg Q12 PO Last administered on 07/17/16 08:03; Admin Dose 20 MG; Start 07/16/16 at 21:00 Al Hydrox/Mg Hydrox/Simethicone (Mag-Al Plus) 30 ml Q4H PRN PO GASTROINTESTINAL UPSET Last administered on 07/16/16 16:14; Admin Dose 30 ML; Start 07/16/16 at 16:00 ROWAN GARCIA M.D. Jul 17, 2016 12:36
--- NOTE | 2016-07-17 13:05 | PN ---
Date/Time of Note Date/Time of Note DATE: 07/17/16 TIME: 12:58 Assessment/Plan VTE Prophylaxis VTE Prophylaxis Intervention: SCD's Lines/Catheters IV Catheter Type (from Nrs): Peripheral IV Urinary Cath still in place: No Assessment/Plan Assessment/Plan 1. Liver mass with multiple lung mass/lymphadenopathy, consider malignancy, Case was discussed in detail with Dr. Knox yesterday about liver mass biopsy. Dr. Knox is concerned about the risk of bleeding since the lesion is on surface. He recommends check ascites fluid cytology first 2. Hepatitis B and C, follow up with GI 3. Liver Cirrhosis, alcoholic and hep B and C 4. Ascites, s/p paracentesis with removal of 1100 cc fluid on 07/16/2016 5. Chronic Diarrhea, imodium prn 6. Hyponatremia, follow up with Na 7. Acute on Chronic renal failure, dehydration, follow up with BMP 8. Type II DM - ISS, lantus/novolog, check [id number] 9. Essential HTN, stable 10. Thrombocytopenia, due to splenomegaly from liver cirrhosis related 11. Right inguinal hernia - reducible, surgery consult 12. h/o Alcohol abuse 13. GI ppx - protonix 14. DVT ppx - SCD Subjective 24 Hr Interval Summary Free Text/Dictation feels better no diarrhea Exam/Review of Systems Vital Signs Vitals Vital Signs Date Time Temp Pulse Resp B/P Pulse Ox O2 Delivery O2 Flow Rate FiO2 07/17/16 07:37 98.2 61 20 104/61 98 07/16/16 09:21 Room Air Intake and Output 07/16/16 07/16/16 07/17/16 15:00 23:00 07:00 Intake Total 1200 ml 1585 ml Output Total 290 ml Balance 910 ml 1585 ml Exam Constitutional: alert, oriented, well developed Psych: nl mood/affect, no complaints Head: atraumatic, normocephalic Eyes: EOMI, PERRL, nl conjunctiva, nl lids, nl sclera ENMT: mucosa pink and moist, nl external ears & nose, nl lips & teeth, nl nasal mucosa & septum Neck: non-tender, supple Respiratory: clear to auscultation, normal air movement, No congested cough, No crackles/rales, No diminished breath sounds, No intercostal retraction, No labored breathing, No respirations, No tactile fremitus, No wheezing Cardiovascular: nl pulses, regular rate and rhythm, No S3, No S4, No bruits, No diastolic murmur, No edema, No gallop, No irregular rhythm, No jugular venous distention (JVD), No murmurs/extra sounds, No rub, No systolic murmur Gastrointestinal: nl liver, spleen, non-tender, soft, No ascites, No bowel sounds, No distended, No firm, No hepatomegaly, No mass , No rebound or guarding, No splenomegaly, No surgical scars, No tender Musculoskeletal: nl extremities to inspection Extremities: normal pulses, No calf tenderness, No clubbing, No cyanosis, No edema, No palpable cord, No pitting pedal edema, No tenderness Neurological: CLAY BURNER II-XII intact, nl mental status, nl speech, nl strength Skin: nl turgor, rash or lesions Lymph: nl lymph nodes Results Result Diagram: 07/17/16 0441 07/17/16 0451 Results 24 hrs Laboratory Tests Test 07/16/16 14:20 07/16/16 15:50 07/16/16 17:08 07/16/16 21:06 Body Fluid Appearance HAZY Body Fluid Color MELANY Body Fluid Lymphocytes (%) 79 Body Fluid Monocytes % 11 Body Fluid Neutrophils % 5 Body Fluid Other Cells (%) Body Fluid RBC 2+ Body Fluid Type ASCITES Body Fluid Volume 1100.0 Body Fluid WBC 164 Basophils # 0.0 Basophils % 0.4 Blood Morphology Comment Eosinophils # 0.1 Eosinophils % 1.3 Hematocrit 41.4 L Hemoglobin 13.8 L Lymphocytes # 1.6 Lymphocytes % 23.6 Mean Corpuscular Hemoglobin 29.6 Mean Corpuscular Hemoglobin Concent 33.2 Mean Corpuscular Volume 89.1 Mean Platelet Volume 8.0 Monocytes # 0.6 Monocytes % 8.9 Neutrophils # 4.4 Neutrophils % 65.8 Nucleated Red Blood Cells # 0.0 Nucleated Red Blood Cells % 0.0 Platelet Count 93 L Red Blood Count 4.65 L Red Cell Distribution Width 13.7 White Blood Count 6.7 Bedside Glucose 157 156 Test 07/17/16 04:41 07/17/16 04:51 07/17/16 07:46 07/17/16 12:01 Basophils # 0.0 Basophils % 0.4 Blood Morphology Comment Eosinophils # 0.1 Eosinophils % 1.3 Hematocrit 36.4 L Hemoglobin 12.5 L Lymphocytes # 1.6 Lymphocytes % 29.8 Mean Corpuscular Hemoglobin 30.4 Mean Corpuscular Hemoglobin Concent 34.4 Mean Corpuscular Volume 88.3 Mean Platelet Volume 8.0 Monocytes # 0.6 Monocytes % 10.5 Neutrophils # 3.0 Neutrophils % 58.0 Nucleated Red Blood Cells # 0.0 Nucleated Red Blood Cells % 0.0 Platelet Count 84 L Red Blood Count 4.13 L Red Cell Distribution Width 13.4 White Blood Count 5.2 # Alanine Aminotransferase (ALT/SGPT) 47 Albumin 2.8 L Albumin/Globulin Ratio 0.71 Alkaline Phosphatase 283 H Anion Gap 15 Aspartate Amino Transf (AST/SGOT) 229 H Blood Urea Nitrogen 45 H Calcium Level 7.8 L Carbon Dioxide Level 18 L Chloride Level 105 Creatinine 2.63 H Direct Bilirubin 0.00 Globulin 3.90 H Glucose Level 112 Indirect Bilirubin 0.2 Potassium Level 4.3 Sodium Level 134 L Total Bilirubin 0.2 Total Protein 6.7 Bedside Glucose 144 207 Medications Medications Current Medications Ondansetron HCl (Zofran Inj) 4 mg Q6H PRN IV NAUSEA AND/OR VOMITING; Start at 05:00 Acetaminophen (Tylenol Tab) 650 mg Q6H PRN PO PAIN LEVEL 1-3 OR FEVER Last administered on 07/16/16 04:15; Admin Dose 650 MG; Start 07/15/16 at 05:00 Morphine Sulfate (morphine) 2 mg Q4H PRN IV SEVERE PAIN LEVEL 7-10; Start 07/15 at 05:00 Docusate Sodium (Colace) 100 mg Q12H PRN PO CONSTIPATION; Start 07/15/16 at 05: 00 Hydralazine HCl (Apresoline) 10 mg Q6H PRN IV sbp > 160; Start 07/15/16 at 05: 30 Insulin Glargine (Lantus) 10 unit HS SC Last administered on 07/16/16 21:14; Admin Dose 10 UNIT; Start 07/15/16 at 21:00 Diagnostic Test (Pha) (Accucheck) 1 ea 02 XX ; Start 07/16/16 at 02:00 Miscellaneous Information 1 ea NOTE XX ; Start 07/15/16 at 06:30 Glucose (Glutose) 15 gm Q15M PRN PO DECREASED GLUCOSE; Start 07/15/16 at 06:30 Glucose (Glutose) 22.5 gm Q15M PRN PO DECREASED GLUCOSE; Start 07/15/16 at 06: 30 Dextrose (D50w Syringe) 25 ml Q15M PRN IV DECREASED GLUCOSE; Start 07/15/16 at 06:30 Dextrose (D50w Syringe) 50 ml Q15M PRN IV DECREASED GLUCOSE; Start 07/15/16 at 06:30 Glucagon (Glucagen) 1 mg Q15M PRN IM DECREASED GLUCOSE; Start 07/15/16 at 06:30 Glucose 15 gm 15 gm Q15M PRN BUCCAL DECREASED GLUCOSE; Start 07/15/16 at 06:30 Sodium Chloride (NS) 1,000 ml @ 50 mls/hr Q20H IV Last administered on 03:39; Admin Dose 50 MLS/HR; Start 07/15/16 at 16:00 Famotidine (Pepcid) 20 mg Q12 PO Last administered on 07/17/16 08:03; Admin Dose 20 MG; Start 07/16/16 at 21:00 Al Hydrox/Mg Hydrox/Simethicone (Mag-Al Plus) 30 ml Q4H PRN PO GASTROINTESTINAL UPSET Last administered on 07/16/16 16:14; Admin Dose 30 ML; Start 07/16/16 at 16:00 LIZ GUERRA MD Jul 17, 2016 13:05
--- NOTE | 2016-07-17 14:28 | CONS ---
Date/Time of Note Date/Time of Note DATE: 07/17/16 TIME: 14:24 Assessment/Plan Assessment/Plan Chief Complaint/Hosp Course 1. Acute Renal failure superimposed on CKD .there was some component of dehydration and his renal function continues to improve . I will D/C IV fluids . 2. hyponatremia , sodium is correcting . 3. hepatitis C with cirrhosis of the liver 4. liver mass with metastatic disease to lungs . Question as to primary source of malignancy 5. HTN 6. type 2 DM 7. diarrhea 8. ascites, he had a paracentesis done yesterday with 6.5 liters of fluid removed Problems: Consultation Date/Type/Reason Admit Date/Time Jul 15, 2016 at 04:07 Initial Consult Date 07/15/16 Type of Consultation: Hematology Referring Provider: PEG GUNTER MD 24 HR Interval Summary Free Text/Dictation He is 1 day post a paracentesis . He had 6 liters of fluid removed from his abdomen . Constitutional: improved, no complaints Exam/Review of Systems Vital Signs Vitals Vital Signs Date Time Temp Pulse Resp B/P Pulse Ox O2 Delivery O2 Flow Rate FiO2 07/17/16 07:37 98.2 61 20 104/61 98 07/16/16 09:21 Room Air Intake and Output 07/16/16 07/16/16 07/17/16 15:00 23:00 07:00 Intake Total 1200 ml 1585 ml Output Total 290 ml Balance 910 ml 1585 ml Exam Constitutional: alert, oriented Psych: no complaints Respiratory: clear to auscultation, normal air movement Cardiovascular: regular rate and rhythm Gastrointestinal: ascites, soft Musculoskeletal: nl extremities to inspection Results Result Diagram: 07/17/16 0441 07/17/16 0451 Results 24 hrs Laboratory Tests Test 07/16/16 15:50 07/16/16 17:08 07/16/16 21:06 07/17/16 04:41 Basophils # 0.0 0.0 Basophils % 0.4 0.4 Blood Morphology Comment Eosinophils # 0.1 0.1 Eosinophils % 1.3 1.3 Hematocrit 41.4 L 36.4 L Hemoglobin 13.8 L 12.5 L Lymphocytes # 1.6 1.6 Lymphocytes % 23.6 29.8 Mean Corpuscular Hemoglobin 29.6 30.4 Mean Corpuscular Hemoglobin Concent 33.2 34.4 Mean Corpuscular Volume 89.1 88.3 Mean Platelet Volume 8.0 8.0 Monocytes # 0.6 0.6 Monocytes % 8.9 10.5 Neutrophils # 4.4 3.0 Neutrophils % 65.8 58.0 Nucleated Red Blood Cells # 0.0 0.0 Nucleated Red Blood Cells % 0.0 0.0 Platelet Count 93 L 84 L Red Blood Count 4.65 L 4.13 L Red Cell Distribution Width 13.7 13.4 White Blood Count 6.7 5.2 # Bedside Glucose 157 156 Test 07/17/16 04:51 07/17/16 07:46 07/17/16 12:01 Alanine Aminotransferase (ALT/SGPT) 47 Albumin 2.8 L Albumin/Globulin Ratio 0.71 Alkaline Phosphatase 283 H Anion Gap 15 Aspartate Amino Transf (AST/SGOT) 229 H Blood Urea Nitrogen 45 H Calcium Level 7.8 L Carbon Dioxide Level 18 L Chloride Level 105 Creatinine 2.63 H Direct Bilirubin 0.00 Globulin 3.90 H Glucose Level 112 Indirect Bilirubin 0.2 Potassium Level 4.3 Sodium Level 134 L Total Bilirubin 0.2 Total Protein 6.7 Bedside Glucose 144 207 Medications Medications Current Medications Ondansetron HCl (Zofran Inj) 4 mg Q6H PRN IV NAUSEA AND/OR VOMITING; Start at 05:00 Acetaminophen (Tylenol Tab) 650 mg Q6H PRN PO PAIN LEVEL 1-3 OR FEVER Last administered on 07/16/16 04:15; Admin Dose 650 MG; Start 07/15/16 at 05:00 Morphine Sulfate (morphine) 2 mg Q4H PRN IV SEVERE PAIN LEVEL 7-10; Start 07/15 at 05:00 Docusate Sodium (Colace) 100 mg Q12H PRN PO CONSTIPATION; Start 07/15/16 at 05: 00 Hydralazine HCl (Apresoline) 10 mg Q6H PRN IV sbp > 160; Start 07/15/16 at 05: 30 Insulin Glargine (Lantus) 10 unit HS SC Last administered on 07/16/16 21:14; Admin Dose 10 UNIT; Start 07/15/16 at 21:00 Diagnostic Test (Pha) (Accucheck) 1 ea 02 XX ; Start 07/16/16 at 02:00 Miscellaneous Information 1 ea NOTE XX ; Start 07/15/16 at 06:30 Glucose (Glutose) 15 gm Q15M PRN PO DECREASED GLUCOSE; Start 07/15/16 at 06:30 Glucose (Glutose) 22.5 gm Q15M PRN PO DECREASED GLUCOSE; Start 07/15/16 at 06: 30 Dextrose (D50w Syringe) 25 ml Q15M PRN IV DECREASED GLUCOSE; Start 07/15/16 at 06:30 Dextrose (D50w Syringe) 50 ml Q15M PRN IV DECREASED GLUCOSE; Start 07/15/16 at 06:30 Glucagon (Glucagen) 1 mg Q15M PRN IM DECREASED GLUCOSE; Start 07/15/16 at 06:30 Glucose 15 gm 15 gm Q15M PRN BUCCAL DECREASED GLUCOSE; Start 07/15/16 at 06:30 Sodium Chloride (NS) 1,000 ml @ 50 mls/hr Q20H IV Last administered on 03:39; Admin Dose 50 MLS/HR; Start 07/15/16 at 16:00 Famotidine (Pepcid) 20 mg Q12 PO Last administered on 07/17/16 08:03; Admin Dose 20 MG; Start 07/16/16 at 21:00 Al Hydrox/Mg Hydrox/Simethicone (Mag-Al Plus) 30 ml Q4H PRN PO GASTROINTESTINAL UPSET Last administered on 07/16/16 16:14; Admin Dose 30 ML; Start 07/16/16 at 16:00 HOPE MARKS MD Jul 17, 2016 14:28
[2016-07-17 19:35] VITALS: BP 127/73; RESP 20
[2016-07-17] MEDS: AL HYDROX/MG HYDROX/SIMETH 30 ML CUP PO PRN (19:46)
[2016-07-17] MEDS: INSULIN GLARGINE [LANtus] 3 ML PEN SC SCH (21:43)
[2016-07-18] MEDS: ACCUCHECK XX SCH (02:00)
[2016-07-18 06:44] LABS: POTASSIUM 4.7 mmol/L (3.5-5.1)
[2016-07-18 06:47] LABS: CREATININE 2.63 mg/dl (0.61-1.24)
[2016-07-18 06:48] LABS: CALCIUM 7.8 mg/dl (8.4-10.2)
[2016-07-18 07:37] VITALS: BP 118/71; RESP 18
[2016-07-18] MEDS: FAMOTIDINE 20 MG TAB PO SCH ×2 (08:04→20:54)
[2016-07-18] MEDS: INSULIN ASPART [NOVOLOG] 3 ML PEN SC SCH ×7 (08:15→20:58)
--- NOTE | 2016-07-18 09:23 | CONS ---
Date/Time of Note Date/Time of Note DATE: 07/18/16 TIME: 09:18 Assessment/Plan Assessment/Plan Chief Complaint/Hosp Course 1. Acute Renal failure superimposed on CKD . his renal function has stabilized . I will sign off at this point and see again on request . 2. hyponatremia , sodium is stable . 3. hepatitis C with cirrhosis of the liver 4. liver mass with metastatic disease to lungs . Question as to primary source of malignancy 5. HTN 6. type 2 DM 7. diarrhea 8. ascites Problems: Consultation Date/Type/Reason Admit Date/Time Jul 15, 2016 at 04:07 Initial Consult Date 07/15/16 Type of Consultation: renal Referring Provider: PEG GUNTER MD 24 HR Interval Summary Free Text/Dictation He feels like his abdomen is starting to swell again . Exam/Review of Systems Vital Signs Vitals Vital Signs Date Time Temp Pulse Resp B/P Pulse Ox O2 Delivery O2 Flow Rate FiO2 07/18/16 07:37 97.5 61 18 118/71 97 07/16/16 09:21 Room Air Intake and Output 07/17/16 07/17/16 07/18/16 15:00 23:00 07:00 Intake Total 1720 ml 1040 ml Output Total 800 ml Balance 920 ml 1040 ml Exam Constitutional: alert, oriented Psych: no complaints Respiratory: clear to auscultation, normal air movement Cardiovascular: regular rate and rhythm Gastrointestinal: distended, soft Musculoskeletal: nl extremities to inspection Results Result Diagram: 07/17/16 0441 07/18/16 0521 Results 24 hrs Laboratory Tests Test 07/17/16 12:01 07/17/16 16:51 07/17/16 21:37 07/18/16 05:21 Bedside Glucose 207 137 174 Anion Gap 16 Blood Urea Nitrogen 47 H Calcium Level 7.8 L Carbon Dioxide Level 18 L Chloride Level 102 Creatinine 2.63 H Glucose Level 145 Potassium Level 4.7 Sodium Level 131 L Test 07/18/16 07:45 Bedside Glucose 139 Medications Medications Current Medications Ondansetron HCl (Zofran Inj) 4 mg Q6H PRN IV NAUSEA AND/OR VOMITING; Start at 05:00 Acetaminophen (Tylenol Tab) 650 mg Q6H PRN PO PAIN LEVEL 1-3 OR FEVER Last administered on 07/16/16t 04:15; Admin Dose 650 MG; Start 07/15/16 at 05:00 Morphine Sulfate (morphine) 2 mg Q4H PRN IV SEVERE PAIN LEVEL 7-10; Start 07/15 at 05:00 Docusate Sodium (Colace) 100 mg Q12H PRN PO CONSTIPATION; Start 07/15/16 at 05: 00 Hydralazine HCl (Apresoline) 10 mg Q6H PRN IV sbp > 160; Start 07/15/16 at 05: 30 Insulin Glargine (Lantus) 10 unit HS SC Last administered on 07/17/16 21:43; Admin Dose 10 UNIT; Start 07/15/16 at 21:00 Diagnostic Test (Pha) (Accucheck) 1 ea 02 XX ; Start 07/16/16 at 02:00 Miscellaneous Information 1 ea NOTE XX ; Start 07/15/16 at 06:30 Glucose (Glutose) 15 gm Q15M PRN PO DECREASED GLUCOSE; Start 07/15/16 at 06:30 Glucose (Glutose) 22.5 gm Q15M PRN PO DECREASED GLUCOSE; Start 07/15/16 at 06: 30 Dextrose (D50w Syringe) 25 ml Q15M PRN IV DECREASED GLUCOSE; Start 07/15/16 at 06:30 Dextrose (D50w Syringe) 50 ml Q15M PRN IV DECREASED GLUCOSE; Start 07/15/16 at 06:30 Glucagon (Glucagen) 1 mg Q15M PRN IM DECREASED GLUCOSE; Start 07/15/16 at 06:30 Glucose (Glutose) 15 gm Q15M PRN BUCCAL DECREASED GLUCOSE; Start 07/15/16 at 06 :30 Famotidine (Pepcid) 20 mg Q12 PO Last administered on 07/18/16 08:04; Admin Dose 20 MG; Start 07/16/16 at 21:00 Al Hydrox/Mg Hydrox/Simethicone (Mag-Al Plus) 30 ml Q4H PRN PO GASTROINTESTINAL UPSET Last administered on 07/17/16 19:46; Admin Dose 30 ML; Start 07/16/16 at 16:00 HOPE MARKS MD Jul 18, 2016 09:23
--- NOTE | 2016-07-18 09:28 | CONS ---
Date/Time of Note Date/Time of Note DATE: 07/18/16 TIME: 09:26 Assessment/Plan Assessment/Plan Additional Assessment/Plan * Liver mass on cirrhotic liver * Rule out hepatocellular carcinoma versus metastatic disease * Lung masses rule out metastatic disease/ * Cirrhosis of the liver/ Alcohol/HCV * Small amount of ascites * Rule out esophageal varices * Mild thrombocytopenia * Chronic diarrhea, improving * Rule out inflammatory versus visceral diabetic neuropathy * Malnutrition/likely underlying malignancy * Diabetes mellitus type 2 * Hypertension * Alcohol abuse Plan: * IR tissue diagnosis * Stool studies * Close observation * May need colonoscopy and endoscopy * Further considerations depend on clinical course * Patient seen in collaboration with Dr. Hoffman Consultation Date/Type/Reason Admit Date/Time Jul 15, 2016 at 04:07 Initial Consult Date 07/15/16 Type of Consultation: Gastroenterology Referring Provider: PEG GUNTER MD 24 HR Interval Summary Free Text/Dictation Asymptomatic ascites Tolerating diet Denies abdominal pain HCV serology in process No reports of diarrhea Exam/Review of Systems Vital Signs Vitals Vital Signs Date Time Temp Pulse Resp B/P Pulse Ox O2 Delivery O2 Flow Rate FiO2 07/18/16 07:37 97.5 61 18 118/71 97 07/16/16 09:21 Room Air Intake and Output 07/17/16 07/17/16 07/18/16 15:00 23:00 07:00 Intake Total 1720 ml 1040 ml Output Total 800 ml Balance 920 ml 1040 ml Exam Constitutional: alert, oriented, well developed Psych: nl mood/affect Head: atraumatic Eyes: EOMI ENMT: nl external ears & nose, nl lips & teeth, nl nasal mucosa & septum Respiratory: normal air movement Cardiovascular: regular rate and rhythm Gastrointestinal: non-tender, soft Neurological: PHYSICAL BIOCHEMIST II-XII intact Results Result Diagram: 07/17/16 0441 07/18/16 0521 Results 24 hrs Laboratory Tests Test 07/17/16 12:01 07/17/16 16:51 07/17/16 21:37 07/18/16 05:21 Bedside Glucose 207 137 174 Anion Gap 16 Blood Urea Nitrogen 47 H Calcium Level 7.8 L Carbon Dioxide Level 18 L Chloride Level 102 Creatinine 2.63 H Glucose Level 145 Potassium Level 4.7 Sodium Level 131 L Test 07/18/16 07:45 Bedside Glucose 139 Medications Medications Current Medications Ondansetron HCl (Zofran Inj) 4 mg Q6H PRN IV NAUSEA AND/OR VOMITING; Start at 05:00 Acetaminophen (Tylenol Tab) 650 mg Q6H PRN PO PAIN LEVEL 1-3 OR FEVER Last administered on 07/16/16 04:15; Admin Dose 650 MG; Start 07/15/16 at 05:00 Morphine Sulfate (morphine) 2 mg Q4H PRN IV SEVERE PAIN LEVEL 7-10; Start 07/15 at 05:00 Docusate Sodium (Colace) 100 mg Q12H PRN PO CONSTIPATION; Start 07/15/16 at 05: 00 Hydralazine HCl (Apresoline) 10 mg Q6H PRN IV sbp > 160; Start 07/15/16 at 05: 30 Insulin Glargine (Lantus) 10 unit HS SC Last administered on 07/17/16 21:43; Admin Dose 10 UNIT; Start 07/15/16 at 21:00 Diagnostic Test (Pha) (Accucheck) 1 ea 02 XX ; Start 07/16/16 at 02:00 Miscellaneous Information 1 ea NOTE XX ; Start 07/15/16 at 06:30 Glucose (Glutose) 15 gm Q15M PRN PO DECREASED GLUCOSE; Start 07/15/16 at 06:30 Glucose (Glutose) 22.5 gm Q15M PRN PO DECREASED GLUCOSE; Start 07/15/16 at 06: 30 Dextrose (D50w Syringe) 25 ml Q15M PRN IV DECREASED GLUCOSE; Start 07/15/16 at 06:30 Dextrose (D50w Syringe) 50 ml Q15M PRN IV DECREASED GLUCOSE; Start 07/15/16 at 06:30 Glucagon (Glucagen) 1 mg Q15M PRN IM DECREASED GLUCOSE; Start 07/15/16 at 06:30 Glucose (Glutose) 15 gm Q15M PRN BUCCAL DECREASED GLUCOSE; Start 07/15/16 at 06 :30 Famotidine (Pepcid) 20 mg Q12 PO Last administered on 07/18/16 08:04; Admin Dose 20 MG; Start 07/16/16 at 21:00 Al Hydrox/Mg Hydrox/Simethicone (Mag-Al Plus) 30 ml Q4H PRN PO GASTROINTESTINAL UPSET Last administered on 07/17/16 19:46; Admin Dose 30 ML; Start 07/16/16 at 16:00 KEVIN CARRINGTON Jul 18, 2016 09:28
--- NOTE | 2016-07-18 11:37 | CONS ---
Date/Time of Note Date/Time of Note DATE: 07/18/16 TIME: 10:03 Assessment/Plan Assessment/Plan Chief Complaint/Hosp Course 1) Liver mass - With underlying cirrhosis will need to evaluate for primary liver HCC vs metastatic disease. AFP not that helpful in diagnosis as it is only 36. Furthermore, given his renal function a contrast study is not able to be done -will discuss doing a liver biopsy with radiology. This is also a risky procedure in this cirrhotic patient with portal hypertension (2) Lesion of lung -Chest CT demonstrates multiple lung nodules (3) Cirrhosis - likely secondary to etoh and hepatitis C (4) Thrombocytopenia mild, secondary to BM suppression with underlying hep C cirrhosis and safe for biopsy. PT INR ok at 1.3 Problems: Consultation Date/Type/Reason Admit Date/Time Jul 15, 2016 at 04:07 Initial Consult Date 07/15/16 Type of Consultation: Hematology Referring Provider: PEG GUNTER MD Exam/Review of Systems Vital Signs Vitals Vital Signs Date Time Temp Pulse Resp B/P Pulse Ox O2 Delivery O2 Flow Rate FiO2 07/18/16 07:37 97.5 61 18 118/71 97 07/16/16 09:21 Room Air Intake and Output 07/17/16 07/17/16 07/18/16 15:00 23:00 07:00 Intake Total 1720 ml 1040 ml Output Total 800 ml Balance 920 ml 1040 ml Results Result Diagram: 07/17/16 0441 07/18/16 0521 Results 24 hrs Laboratory Tests Test 07/17/16 12:01 07/17/16 16:51 07/17/16 21:37 07/18/16 05:21 Bedside Glucose 207 137 174 Anion Gap 16 Blood Urea Nitrogen 47 H Calcium Level 7.8 L Carbon Dioxide Level 18 L Chloride Level 102 Creatinine 2.63 H Glucose Level 145 Potassium Level 4.7 Sodium Level 131 L Test 07/18/16 07:45 Bedside Glucose 139 Medications Medications Current Medications Ondansetron HCl (Zofran Inj) 4 mg Q6H PRN IV NAUSEA AND/OR VOMITING; Start at 05:00 Acetaminophen (Tylenol Tab) 650 mg Q6H PRN PO PAIN LEVEL 1-3 OR FEVER Last administered on 07/16/16t 04:15; Admin Dose 650 MG; Start 07/15/16 at 05:00 Morphine Sulfate (morphine) 2 mg Q4H PRN IV SEVERE PAIN LEVEL 7-10; Start 07/15 at 05:00 Docusate Sodium (Colace) 100 mg Q12H PRN PO CONSTIPATION; Start 07/15/16 at 05: 00 Hydralazine HCl (Apresoline) 10 mg Q6H PRN IV sbp > 160; Start 07/15/16 at 05: 30 Insulin Glargine (Lantus) 10 unit HS SC Last administered on 07/17/16 21:43; Admin Dose 10 UNIT; Start 07/15/16 at 21:00 Diagnostic Test (Pha) (Accucheck) 1 ea 02 XX ; Start 07/16/16 at 02:00 Miscellaneous Information 1 ea NOTE XX ; Start 07/15/16 at 06:30 Glucose (Glutose) 15 gm Q15M PRN PO DECREASED GLUCOSE; Start 07/15/16 at 06:30 Glucose (Glutose) 22.5 gm Q15M PRN PO DECREASED GLUCOSE; Start 07/15/16 at 06: 30 Dextrose (D50w Syringe) 25 ml Q15M PRN IV DECREASED GLUCOSE; Start 07/15/16 at 06:30 Dextrose (D50w Syringe) 50 ml Q15M PRN IV DECREASED GLUCOSE; Start 07/15/16 at 06:30 Glucagon (Glucagen) 1 mg Q15M PRN IM DECREASED GLUCOSE; Start 07/15/16 at 06:30 Glucose (Glutose) 15 gm Q15M PRN BUCCAL DECREASED GLUCOSE; Start 07/15/16 at 06 :30 Famotidine (Pepcid) 20 mg Q12 PO Last administered on 07/18/16 08:04; Admin Dose 20 MG; Start 07/16/16 at 21:00 Al Hydrox/Mg Hydrox/Simethicone (Mag-Al Plus) 30 ml Q4H PRN PO GASTROINTESTINAL UPSET Last administered on 07/17/16 19:46; Admin Dose 30 ML; Start 07/16/16 at 16:00 ROWAN GARCIA M.D. Jul 18, 2016 10:13
--- NOTE | 2016-07-18 12:57 | CONS ---
Date/Time of Note Date/Time of Note DATE: 07/18/16 TIME: 12:55 Assessment/Plan Assessment/Plan Chief Complaint/Hosp Course 1) Liver mass - With underlying cirrhosis will need to evaluate for primary liver HCC vs metastatic disease. AFP not that helpful in diagnosis as it is only 36. Furthermore, given his renal function a contrast study is not able to be done -will discuss doing a liver biopsy with radiology. This is also a risky procedure in this cirrhotic patient with portal hypertension. if the liver is too risky we will discuss a potential lymph node or lung biopsy (2) Lesion of lung -Chest CT demonstrates multiple lung nodules (3) Cirrhosis - likely secondary to etoh and hepatitis C (4) Thrombocytopenia mild, secondary to BM suppression with underlying hep C cirrhosis and safe for biopsy. PT INR ok at 1.3 Problems: Consultation Date/Type/Reason Admit Date/Time Jul 15, 2016 at 04:07 Initial Consult Date 07/15/16 Type of Consultation: Hematology Reason for Consultation metastatic cancer Referring Provider: PEG GUNTER MD 24 HR Interval Summary Free Text/Dictation no acute overnight events. cytology from ascites fluid was negative Exam/Review of Systems Vital Signs Vitals Vital Signs Date Time Temp Pulse Resp B/P Pulse Ox O2 Delivery O2 Flow Rate FiO2 07/18/16 07:37 97.5 61 18 118/71 97 07/16/16 09:21 Room Air Intake and Output 07/17/16 07/17/16 07/18/16 15:00 23:00 07:00 Intake Total 1720 ml 1040 ml Output Total 800 ml Balance 920 ml 1040 ml Exam Constitutional: alert, oriented Psych: no complaints Head: atraumatic, normocephalic Eyes: nl conjunctiva ENMT: nl external ears & nose Neck: non-tender, supple Respiratory: clear to auscultation Cardiovascular: regular rate and rhythm Gastrointestinal: ascites, distended Musculoskeletal: nl extremities to inspection, nl gait and stance Extremities: normal pulses Results Result Diagram: 07/17/16 0441 07/18/16 0521 Results 24 hrs Laboratory Tests Test 07/17/16 16:51 07/17/16 21:37 07/18/16 05:21 07/18/16 07:45 Bedside Glucose 137 174 139 Anion Gap 16 Blood Urea Nitrogen 47 H Calcium Level 7.8 L Carbon Dioxide Level 18 L Chloride Level 102 Creatinine 2.63 H Glucose Level 145 Potassium Level 4.7 Sodium Level 131 L Test 07/18/16 11:29 07/18/16 11:32 07/18/16 11:48 Lab Scanned Report REFERENCE LAB REFERENCE LAB Bedside Glucose 191 Medications Medications Current Medications Ondansetron HCl (Zofran Inj) 4 mg Q6H PRN IV NAUSEA AND/OR VOMITING; Start at 05:00 Acetaminophen (Tylenol Tab) 650 mg Q6H PRN PO PAIN LEVEL 1-3 OR FEVER Last administered on 07/16/16 04:15; Admin Dose 650 MG; Start 07/15/16 at 05:00 Morphine Sulfate (morphine) 2 mg Q4H PRN IV SEVERE PAIN LEVEL 7-10; Start 07/15 at 05:00 Docusate Sodium (Colace) 100 mg Q12H PRN PO CONSTIPATION; Start 07/15/16 at 05: 00 Hydralazine HCl (Apresoline) 10 mg Q6H PRN IV sbp > 160; Start 07/15/16 at 05: 30 Insulin Glargine (Lantus) 10 unit HS SC Last administered on 07/17/16 21:43; Admin Dose 10 UNIT; Start 07/15/16 at 21:00 Diagnostic Test (Pha) (Accucheck) 1 ea 02 XX ; Start 07/16/16 at 02:00 Miscellaneous Information 1 ea NOTE XX ; Start 07/15/16 at 06:30 Glucose (Glutose) 15 gm Q15M PRN PO DECREASED GLUCOSE; Start 07/15/16 at 06:30 Glucose (Glutose) 22.5 gm Q15M PRN PO DECREASED GLUCOSE; Start 07/15/16 at 06: 30 Dextrose (D50w Syringe) 25 ml Q15M PRN IV DECREASED GLUCOSE; Start 07/15/16 at 06:30 Dextrose (D50w Syringe) 50 ml Q15M PRN IV DECREASED GLUCOSE; Start 07/15/16 at 06:30 Glucagon (Glucagen) 1 mg Q15M PRN IM DECREASED GLUCOSE; Start 07/15/16 at 06:30 Glucose (Glutose) 15 gm Q15M PRN BUCCAL DECREASED GLUCOSE; Start 07/15/16 at 06 :30 Famotidine (Pepcid) 20 mg Q12 PO Last administered on 07/18/16 08:04; Admin Dose 20 MG; Start 07/16/16 at 21:00 Al Hydrox/Mg Hydrox/Simethicone (Mag-Al Plus) 30 ml Q4H PRN PO GASTROINTESTINAL UPSET Last administered on 07/17/16 19:46; Admin Dose 30 ML; Start 07/16/16 at 16:00 ROWAN GARCIA M.D. Jul 18, 2016 12:57
--- NOTE | 2016-07-18 13:56 | PN ---
Date/Time of Note Date/Time of Note DATE: 07/18/16 TIME: 13:53 Assessment/Plan VTE Prophylaxis VTE Prophylaxis Intervention: SCD's Lines/Catheters IV C[facility]ter Type (from [facility]): Saline Lock Urinary Cath still in place: No Assessment/Plan Assessment/Plan 1. Liver mass with multiple lung mass/lymphadenopathy, consider malignancy, ascites fluid cytology negative, will discussed with radiology. I discussed the case with oncology this morning 2. Hepatitis B and C, follow up with GI 3. Liver Cirrhosis, alcoholic and hep B and C 4. Ascites, s/p paracentesis with removal of 1100 cc fluid on 07/16/2016 5. Chronic Diarrhea, imodium prn 6. Hyponatremia, follow up with Na 7. Acute on Chronic renal failure, dehydration, follow up with BMP 8. Type II DM - ISS, lantus/novolog, check [id number] 9. Essential HTN, stable 10. Thrombocytopenia, due to splenomegaly from liver cirrhosis related 11. Right inguinal hernia - reducible, surgery consult 12. h/o Alcohol abuse 13. GI ppx - protonix 14. DVT ppx - SCD Subjective 24 Hr Interval Summary Free Text/Dictation weakness and dizzy Exam/Review of Systems Vital Signs Vitals Vital Signs Date Time Temp Pulse Resp B/P Pulse Ox O2 Delivery O2 Flow Rate FiO2 07/18/16 07:37 97.5 61 18 118/71 97 07/16/16 09:21 Room Air Intake and Output 07/17/16 07/17/16 07/18/16 15:00 23:00 07:00 Intake Total 1720 ml 1040 ml Output Total 800 ml Balance 920 ml 1040 ml Exam Constitutional: alert, oriented, well developed Psych: nl mood/affect, no complaints Head: atraumatic, normocephalic Eyes: EOMI, PERRL, nl conjunctiva, nl lids, nl sclera ENMT: mucosa pink and moist, nl external ears & nose, nl lips & teeth, nl nasal mucosa & septum Neck: non-tender, supple Respiratory: clear to auscultation, normal air movement, No congested cough, No crackles/rales, No diminished breath sounds, No intercostal retraction, No labored breathing, No respirations, No tactile fremitus, No wheezing Cardiovascular: nl pulses, regular rate and rhythm, No S3, No S4, No bruits, No diastolic murmur, No edema, No gallop, No irregular rhythm, No jugular venous distention (JVD), No murmurs/extra sounds, No rub, No systolic murmur Gastrointestinal: ascites, distended, soft, splenomegaly Musculoskeletal: nl extremities to inspection Extremities: normal pulses, No calf tenderness, No clubbing, No cyanosis, No edema, No palpable cord, No pitting pedal edema, No tenderness Neurological: DEPUTY K 9 II-XII intact, nl mental status, nl speech, nl strength Skin: nl turgor, rash or lesions Lymph: nl lymph nodes Results Result Diagram: 07/17/16 0441 07/18/16 0521 Results 24 hrs Laboratory Tests Test 07/17/16 16:51 07/17/16 21:37 07/18/16 05:21 07/18/16 07:45 Bedside Glucose 137 174 139 Anion Gap 16 Blood Urea Nitrogen 47 H Calcium Level 7.8 L Carbon Dioxide Level 18 L Chloride Level 102 Creatinine 2.63 H Glucose Level 145 Potassium Level 4.7 Sodium Level 131 L Test 07/18/16 11:29 07/18/16 11:32 07/18/16 11:48 Lab Scanned Report REFERENCE LAB REFERENCE LAB Bedside Glucose 191 Medications Medications Current Medications Ondansetron HCl (Zofran Inj) 4 mg Q6H PRN IV NAUSEA AND/OR VOMITING; Start at 05:00 Acetaminophen (Tylenol Tab) 650 mg Q6H PRN PO PAIN LEVEL 1-3 OR FEVER Last administered on 07/16/16 04:15; Admin Dose 650 MG; Start 07/15/16 at 05:00 Morphine Sulfate (morphine) 2 mg Q4H PRN IV SEVERE PAIN LEVEL 7-10; Start 07/15 at 05:00 Docusate Sodium (Colace) 100 mg Q12H PRN PO CONSTIPATION; Start 07/15/16 at 05: 00 Hydralazine HCl (Apresoline) 10 mg Q6H PRN IV sbp > 160; Start 07/15/16 at 05: 30 Insulin Glargine (Lantus) 10 unit HS SC Last administered on 07/17/16 21:43; Admin Dose 10 UNIT; Start 07/15/16 at 21:00 Diagnostic Test (Pha) (Accucheck) 1 ea 02 XX ; Start 07/16/16 at 02:00 Miscellaneous Information 1 ea NOTE XX ; Start 07/15/16 at 06:30 Glucose (Glutose) 15 gm Q15M PRN PO DECREASED GLUCOSE; Start 07/15/16 at 06:30 Glucose (Glutose) 22.5 gm Q15M PRN PO DECREASED GLUCOSE; Start 07/15/16 at 06: 30 Dextrose (D50w Syringe) 25 ml Q15M PRN IV DECREASED GLUCOSE; Start 07/15/16 at 06:30 Dextrose (D50w Syringe) 50 ml Q15M PRN IV DECREASED GLUCOSE; Start 07/15/16 at 06:30 Glucagon (Glucagen) 1 mg Q15M PRN IM DECREASED GLUCOSE; Start 07/15/16 at 06:30 Glucose (Glutose) 15 gm Q15M PRN BUCCAL DECREASED GLUCOSE; Start 07/15/16 at 06 :30 Famotidine (Pepcid) 20 mg Q12 PO Last administered on 07/18/16 08:04; Admin Dose 20 MG; Start 07/16/16 at 21:00 Al Hydrox/Mg Hydrox/Simethicone (Mag-Al Plus) 30 ml Q4H PRN PO GASTROINTESTINAL UPSET Last administered on 07/17/16 19:46; Admin Dose 30 ML; Start 07/16/16 at 16:00 LIZ GUERRA MD Jul 18, 2016 13:56
[2016-07-18 19:33] VITALS: BP 135/79; RESP 18
[2016-07-18] MEDS: ZOLPIDEM 5 MG TAB PO PRN (20:55)
[2016-07-18] MEDS: INSULIN GLARGINE [LANtus] 3 ML PEN SC SCH (20:56)
--- NOTE | 2016-07-18 21:02 | PN ---
Date/Time of Note Date/Time of Note DATE: 07/18/16 TIME: 18:53 Assessment/Plan Lines/Catheters IV Catheter Type (from [facility]): Saline Lock [place] in Place (from [facility]): No Assessment/Plan Assessment/Plan [facility] Progress Note Date of Service: 07/18/16 Today's Impression & Plan: Overall stable with likely stage IV HCC. If liver biopsy is not possible, would agree with attempt at lung lesion biopsy. No indication for acute surgical intervention and surgery should be avoided in this clinical setting. With above assessment, I've recommended the following for today: 1. Lung lesion biopsy under ultrasound or CT guidance. 2. Supportive care with medical management. 3. Appreciate Dr. Bearden's oncologic input regarding patient's care. 4. We will wait until biopsy results are available prior to further plans Thank you again for allowing us to participate in the care of this very pleasant gentleman and I am certain his wonderful family. If there are any questions, please feel free to call me at [phone]. TOTAL VISIT TIME: 20 minutes of which more than half was spent in [id number] discussion with the patient as well as coordination of care between multiple physicians and providers. Disclaimer: Inadvertent spelling or grammatical errors are likely due to EHR/ dictation software use and do not reflect on the overall quality of patient care. Updated Clinical Summary: A very pleasant but unfortunate 61-year-old gentleman with multiple comorbid issues including hepatitis C as well as prior exposure to hepatitis B, possibly contributed on by alcohol intake, admitted to [facility] through ED 07/15/16 with what appeared to be cirrhosis complicated by ascites and portal hypertension and renal insufficiency, and unfortunately with primary hepatocellular carcinoma with metastasis to the lungs. Metastatic disease was also in the differential, but not as likely given the clinical picture. Given the patient's renal insufficiency we were unable to do a contrast study to be able to definitively diagnose him for HCC and for this reason, I recommended a liver biopsy, which later was felt to be not possible. Lung lesion biopsy was therefore considered. Regardless of the findings on the biopsy, the patient was not eligible for any surgical intervention given the amount of his cirrhosis and likely metastatic disease process. The options of local treatment of liver included transarterial chemoembolization, but should be reserved only if the patient was severely symptomatic from his liver alone. In my opinion, he was not at the time of his admission. Systemic chemotherapy could also be considered, although the efficacy of sorafenib was only approximately 8 weeks of survival advantage with significant cost to patient. Comorbidities: 1. History of hepatitis C and perhaps hepatitis B. 2. Diabetes mellitus type 2. 3. Essential hypertension. 4. Stage IV chronic kidney disease. 5. Benign prostatic hypertrophy. 6. Squamous cell carcinoma of the skin previously. 7. Plaque psoriasis. 8. Above-mentioned history of alcohol abuse (potential). 9. Status post inguinal hernia repair. 10. Status post multiple skin grafts. Subjective: No major events or complaints; no abd pain and under control with medications; no n/v/d; no sob or cp; + flatus; + BM and normal; + activity Objective: Vitals: See below Exam: GENERAL: On exam, the patient was sitting laying in bed and appeared to be comfortable and in no acute distress. ABDOMEN: Soft, nontender and nondistended. + ascites. There are no peritoneal signs or guarding. SKIN: Skin appears to be pink and feels warm to touch. NEUROLOGIC: Patient is awake, alert, and follows commands appropriately. Exam/Review of Systems Vital Signs Vitals Vital Signs Date Time Temp Pulse Resp B/P Pulse Ox O2 Delivery O2 Flow Rate FiO2 07/18/16 19:33 98.9 70 18 135/79 98 07/16/16 09:21 Room Air Intake and Output 07/17/16 07/17/16 07/18/16 15:00 23:00 07:00 Intake Total 1720 ml 1040 ml Output Total 800 ml Balance 920 ml 1040 ml Results Result Diagram: 07/17/16 0441 07/18/16 0521 YNES PARDO M.D. Jul 18, 2016 21:02
[2016-07-19] MEDS: ACCUCHECK XX SCH (02:00)
[2016-07-19 07:23] VITALS: BP 107/70; RESP 16
[2016-07-19] MEDS: FAMOTIDINE 20 MG TAB PO SCH ×2 (08:26→21:29)
--- NOTE | 2016-07-19 08:32 | CONS ---
Date/Time of Note Date/Time of Note DATE: 07/19/16 TIME: 08:23 Assessment/Plan Assessment/Plan Additional Assessment/Plan Liver mass on cirrhotic liver * Rule out hepatocellular carcinoma versus metastatic disease * Lung masses rule out metastatic disease/ * Cirrhosis of the liver/ Alcohol/HCV * Recurrent ascites, status post paracentesis July 16, fluid drainage at site, collect fluid in the colostomy bag and monitor * Rule out esophageal varices * Mild thrombocytopenia * Chronic diarrhea, improving * Rule out inflammatory versus visceral diabetic neuropathy * Malnutrition/likely underlying malignancy * Diabetes mellitus type 2 * Hypertension * Alcohol abuse Plan: * IR tissue diagnosis * Close observation * May need colonoscopy and endoscopy * Further considerations depend on clinical course * Patient seen in collaboration with Dr. Hoffman Consultation Date/Type/Reason Admit Date/Time Jul 15, 2016 at 04:07 Initial Consult Date 07/15/16 Type of Consultation: Gastroenterology Referring Provider: PEG GUNTER MD 24 HR Interval Summary Free Text/Dictation Hepatitis serology and communicated patient Tolerating diet Colostomy bag currently collecting acetic fluid Will keep colostomy bag in place until site heals Exam/Review of Systems Vital Signs Vitals Vital Signs Date Time Temp Pulse Resp B/P Pulse Ox O2 Delivery O2 Flow Rate FiO2 07/19/16 07:23 97.6 62 16 107/70 98 07/16/16 09:21 Room Air Intake and Output 07/18/16 07/18/16 07/19/16 15:00 23:00 07:00 Intake Total 1080 ml 200 ml Output Total 25 ml 1000 ml Balance 1055 ml -800 ml Exam Constitutional: alert, oriented, well developed Psych: nl mood/affect Head: atraumatic Eyes: EOMI ENMT: nl external ears & nose, nl lips & teeth, nl nasal mucosa & septum Respiratory: normal air movement Cardiovascular: regular rate and rhythm Gastrointestinal: non-tender, soft Neurological: NIGHT COORDINATOR II-XII intact Results Result Diagram: 07/17/16 0441 07/18/16 0521 Results 24 hrs Laboratory Tests Test 07/18/16 11:29 07/18/16 11:32 07/18/16 11:48 07/18/16 17:05 Lab Scanned Report REFERENCE LAB REFERENCE LAB Bedside Glucose 191 151 Test 07/18/16 20:52 07/19/16 01:29 Bedside Glucose 224 H 148 Medications Medications Current Medications Ondansetron HCl (Zofran Inj) 4 mg Q6H PRN IV NAUSEA AND/OR VOMITING; Start at 05:00 Acetaminophen (Tylenol Tab) 650 mg Q6H PRN PO PAIN LEVEL 1-3 OR FEVER Last administered on 07/16/16 04:15; Admin Dose 650 MG; Start 07/15/16 at 05:00 Morphine Sulfate (morphine) 2 mg Q4H PRN IV SEVERE PAIN LEVEL 7-10; Start 07/15 at 05:00 Docusate Sodium (Colace) 100 mg Q12H PRN PO CONSTIPATION; Start 07/15/16 at 05: 00 Hydralazine HCl (Apresoline) 10 mg Q6H PRN IV sbp > 160; Start 07/15/16 at 05: 30 Insulin Glargine (Lantus) 10 unit HS SC Last administered on 07/18/16 20:56; Admin Dose 10 UNIT; Start 07/15/16 at 21:00 Diagnostic Test (Pha) (Accucheck) 1 ea 02 XX ; Start 07/16/16 at 02:00 Miscellaneous Information 1 ea NOTE XX ; Start 07/15/16 at 06:30 Glucose (Glutose) 15 gm Q15M PRN PO DECREASED GLUCOSE; Start 07/15/16 at 06:30 Glucose (Glutose) 22.5 gm Q15M PRN PO DECREASED GLUCOSE; Start 07/15/16 at 06: 30 Dextrose (D50w Syringe) 25 ml Q15M PRN IV DECREASED GLUCOSE; Start 07/15/16 at 06:30 Dextrose (D50w Syringe) 50 ml Q15M PRN IV DECREASED GLUCOSE; Start 07/15/16 at 06:30 Glucagon (Glucagen) 1 mg Q15M PRN IM DECREASED GLUCOSE; Start 07/15/16 at 06:30 Glucose (Glutose) 15 gm Q15M PRN BUCCAL DECREASED GLUCOSE; Start 07/15/16 at 06 :30 Famotidine (Pepcid) 20 mg Q12 PO Last administered on 07/18/16 20:54; Admin Dose 20 MG; Start 07/16/16 at 21:00 Al Hydrox/Mg Hydrox/Simethicone (Mag-Al Plus) 30 ml Q4H PRN PO GASTROINTESTINAL UPSET Last administered on 1/31/17at 19:46; Admin Dose 30 ML; Start 07/16/16 at 16:00 Zolpidem Tartrate (Ambien) 5 mg HS PRN PO INSOMNIA Last administered on t 20:55; Admin Dose 5 MG; Start 07/18/16 at 14:30 KEVIN CARRINGTON Jul 19, 2016 08:32
[2016-07-19] MEDS: INSULIN ASPART [NOVOLOG] 3 ML PEN SC SCH ×7 (08:34→21:00)
--- NOTE | 2016-07-19 09:30 | PN ---
Date/Time of Note Date/Time of Note DATE: 07/19/16 TIME: 09:26 Assessment/Plan VTE Prophylaxis VTE Prophylaxis Intervention: SCD's Lines/Catheters IV Catheter Type (from [facility]): Saline Lock Urinary Cath still in place: No Assessment/Plan Chief Complaint/Hosp Course Assessment/Plan 61 M with: 1. Liver mass with multiple lung mass/lymphadenopathy, consider malignancy, ascites fluid cytology negative -for possible liver (or lung) biopsy to r/o HCC. - f/u Heme/Onc, GI, and surgery rec's 2. Hepatitis B and C, follow up with GI 3. Liver Cirrhosis, alcoholic and hep B and C 4. Ascites, s/p paracentesis with removal of 6000 cc fluid on 07/16/2016 5. Chronic Diarrhea, imodium prn 6. Hyponatremia, follow up with Na 7. Acute on Chronic renal failure, dehydration, follow up with BMP 8. Type II DM - ISS, lantus/novolog, check hgba1c 9. Essential HTN, stable 10. Thrombocytopenia, due to splenomegaly from liver cirrhosis related 11. Right inguinal hernia - reducible, surgery consult 12. h/o Alcohol abuse 13. GI ppx - protonix 14. DVT ppx - SCD Problems: Subjective 24 Hr Interval Summary Free Text/Dictation Pt complaining about renal diet (portions too small), otherwise no acute events overnight. Exam/Review of Systems Vital Signs Vitals Vital Signs Date Time Temp Pulse Resp B/P Pulse Ox O2 Delivery O2 Flow Rate FiO2 07/19/16 07:23 97.6 62 16 107/70 98 07/16/16 09:21 Room Air Intake and Output 07/18/16 07/18/16 07/19/16 15:00 23:00 07:00 Intake Total 1080 ml 200 ml Output Total 25 ml 1000 ml Balance 1055 ml -800 ml Exam Constitutional: alert, oriented, well developed Psych: nl mood/affect, no complaints Head: atraumatic, normocephalic Eyes: EOMI, PERRL, nl conjunctiva, nl lids, nl sclera ENMT: mucosa pink and moist, nl external ears & nose, nl lips & teeth, nl nasal mucosa & septum Neck: non-tender, supple Respiratory: clear to auscultation, normal air movement, No congested cough, No crackles/rales, No diminished breath sounds, No intercostal retraction, No labored breathing, No respirations, No tactile fremitus, No wheezing Cardiovascular: nl pulses, regular rate and rhythm, No S3, No S4, No bruits, No diastolic murmur, No edema, No gallop, No irregular rhythm, No jugular venous distention (JVD), No murmurs/extra sounds, No rub, No systolic murmur Gastrointestinal: ascites, distended, soft, splenomegaly Musculoskeletal: nl extremities to inspection Extremities: normal pulses, No calf tenderness, No clubbing, No cyanosis, No edema, No palpable cord, No pitting pedal edema, No tenderness Neurological: DIGITAL COMMENTATOR II-XII intact, nl mental status, nl speech, nl strength Results Result Diagram: 07/17/16 0441 07/18/16 0521 Results 24 hrs Laboratory Tests Test 07/18/16 11:29 07/18/16 11:32 07/18/16 11:48 07/18/16 17:05 Lab Scanned Report REFERENCE LAB REFERENCE LAB Bedside Glucose 191 151 Test 07/18/16 20:52 07/19/16 01:29 07/19/16 08:24 Bedside Glucose 224 H 148 204 Medications Medications Current Medications Ondansetron HCl (Zofran Inj) 4 mg Q6H PRN IV NAUSEA AND/OR VOMITING; Start at 05:00 Acetaminophen (Tylenol Tab) 650 mg Q6H PRN PO PAIN LEVEL 1-3 OR FEVER Last administered on 07/16/16 04:15; Admin Dose 650 MG; Start 07/15/16 at 05:00 Morphine Sulfate (morphine) 2 mg Q4H PRN IV SEVERE PAIN LEVEL 7-10; Start 07/15 at 05:00 Docusate Sodium (Colace) 100 mg Q12H PRN PO CONSTIPATION; Start 07/15/16 at 05: 00 Hydralazine HCl (Apresoline) 10 mg Q6H PRN IV sbp > 160; Start 07/15/16 at 05: 30 Insulin Glargine (Lantus) 10 unit HS SC Last administered on 07/18/16t 20:56; Admin Dose 10 UNIT; Start 07/15/16 at 21:00 Diagnostic Test (Pha) (Accucheck) 1 ea 02 XX ; Start 07/16/16 at 02:00 Miscellaneous Information 1 ea NOTE XX ; Start 07/15/16 at 06:30 Glucose (Glutose) 15 gm Q15M PRN PO DECREASED GLUCOSE; Start 07/15/16 at 06:30 Glucose (Glutose) 22.5 gm Q15M PRN PO DECREASED GLUCOSE; Start 07/15/16 at 06: 30 Dextrose (D50w Syringe) 25 ml Q15M PRN IV DECREASED GLUCOSE; Start 07/15/16 at 06:30 Dextrose (D50w Syringe) 50 ml Q15M PRN IV DECREASED GLUCOSE; Start 07/15/16 at 06:30 Glucagon (Glucagen) 1 mg Q15M PRN IM DECREASED GLUCOSE; Start 07/15/16 at 06:30 Glucose (Glutose) 15 gm Q15M PRN BUCCAL DECREASED GLUCOSE; Start 07/15/16 at 06 :30 Famotidine (Pepcid) 20 mg Q12 PO Last administered on 07/19/16 08:26; Admin Dose 20 MG; Start 07/16/16 at 21:00 Al Hydrox/Mg Hydrox/Simethicone (Mag-Al Plus) 30 ml Q4H PRN PO GASTROINTESTINAL UPSET Last administered on 07/17/16 19:46; Admin Dose 30 ML; Start 07/16/16 at 16:00 Zolpidem Tartrate (Ambien) 5 mg HS PRN PO INSOMNIA Last administered on 20:55; Admin Dose 5 MG; Start 07/18/16 at 14:30 AMADOR MONGE Jul 19, 2016 09:30
[2016-07-19 12:08] LABS: BASOPHILS % 0.5 % (0.0-2.0); EOSINOPHILS # 0.1 10^3/ul (0.0-0.5); EOSINOPHILS % 2.3 % (0.0-7.0); HEMOGLOBIN 13.6 g/dl (14.0-18.0); LYMPHOCYTES # 1.5 10^3/ul (0.8-2.9); LYMPHOCYTES % 24.5 % (15.0-51.0); MEAN CORPUSCULAR HGB CONC 34.1 g/dl (32.0-37.0); MEAN CORPUSCULAR VOLUME 88.2 fl (82.0-101.0); MEAN PLATELET VOLUME 8.6 fl (7.4-10.4); MONOCYTE # 0.7 10^3/ul (0.3-0.9); MONOCYTES % 11.1 % (0.0-11.0); NEUTROPHIL # 3.9 10^3/ul (1.6-7.5); NEUTROPHILS % 61.6 % (39.0-77.0); PLATELET COUNT 88 10^3/UL (140-440); RED BLOOD COUNT 4.54 10^6/ul (4.70-6.10); RED CELL DISTRIBUTION WIDTH 13.6 % (11.5-14.5); UNCORRECTED WBC 6.3 10^3/ul (4.8-10.8); WHITE BLOOD COUNT 6.3 10^3/ul (4.8-10.8)
[2016-07-19 12:14] LABS: CONDITION 1
[2016-07-19 12:16] LABS: ALBUMIN 2.9 g/dl (3.3-4.9); POTASSIUM 4.5 mmol/L (3.5-5.1)
[2016-07-19 12:18] LABS: BILIRUBIN,INDIRECT 0.4 mg/dl (0-1.1); BILIRUBIN,TOTAL 0.4 mg/dl (0.2-1.3); CREATININE 2.63 mg/dl (0.61-1.24)
[2016-07-19 12:19] LABS: ALBUMIN/GLOBULIN RATIO 0.74; CALCIUM 8.1 mg/dl (8.4-10.2); TOTAL PROTEIN 6.8 g/dl (6.1-8.1)
[2016-07-19 12:41] LABS: INR 1.04; PARTIAL THROMBOPLASTIN TIME 30.5 Sec (25.0-35.0); PROTIME 13.6 Sec (12.2-14.2); PT RATIO 1.1
--- NOTE | 2016-07-19 15:09 | CONS ---
Date/Time of Note Date/Time of Note DATE: 07/19/16 TIME: 15:04 Assessment/Plan Assessment/Plan Chief Complaint/Hosp Course 1) Liver mass - With underlying cirrhosis will need to evaluate for primary liver HCC vs metastatic disease. AFP not that helpful in diagnosis as it is only 36. Furthermore, given his renal function a contrast study is not able to be done -will discuss doing a liver biopsy with radiology. This is also a risky procedure in this cirrhotic patient with portal hypertension. if the liver is too risky we will discuss a potential lymph node or lung biopsy. lung biopsy has been ordered (2) Lesion of lung -Chest CT demonstrates multiple lung nodules (3) Cirrhosis - likely secondary to etoh and hepatitis C (4) Thrombocytopenia mild, secondary to BM suppression with underlying hep C cirrhosis and safe for biopsy. PT INR ok at 1.3 Problems: Consultation Date/Type/Reason Admit Date/Time Jul 15, 2016 at 04:07 Initial Consult Date 07/15/16 Type of Consultation: Gastroenterology Reason for Consultation metastatic cancer Referring Provider: PEG GUNTER MD 24 HR Interval Summary Free Text/Dictation no acute overnight events Exam/Review of Systems Vital Signs Vitals Vital Signs Date Time Temp Pulse Resp B/P Pulse Ox O2 Delivery O2 Flow Rate FiO2 07/19/16 07:23 97.6 62 16 107/70 98 07/16/16 09:21 Room Air Intake and Output 07/18/16 07/18/16 07/19/16 15:00 23:00 07:00 Intake Total 1080 ml 200 ml Output Total 25 ml 1000 ml Balance 1055 ml -800 ml Exam Constitutional: alert, frail, oriented Psych: nl mood/affect, no complaints ENMT: nl external ears & nose, nl lips & teeth Neck: non-tender, supple Respiratory: clear to auscultation Cardiovascular: regular rate and rhythm Gastrointestinal: ascites, distended, firm Musculoskeletal: nl extremities to inspection Results Result Diagram: 07/19/16 1130 07/19/16 1130 Results 24 hrs Laboratory Tests Test 07/18/16 17:05 07/18/16 20:52 07/19/16 01:29 07/19/16 08:24 Bedside Glucose 151 224 H 148 204 Test 07/19/16 11:30 07/19/16 12:04 Activated Partial Thromboplast Time 30.5 Alanine Aminotransferase (ALT/SGPT) 38 Albumin 2.9 L Albumin/Globulin Ratio 0.74 Alkaline Phosphatase 325 H Anion Gap 15 Aspartate Amino Transf (AST/SGOT) 129 H Basophils # 0.0 Basophils % 0.5 Blood Morphology Comment Blood Urea Nitrogen 51 H Calcium Level 8.1 L Carbon Dioxide Level 21 Chloride Level 102 Creatinine 2.63 H Direct Bilirubin 0.00 Eosinophils # 0.1 Eosinophils % 2.3 Globulin 3.90 H Glucose Level 131 Hematocrit 40.0 L Hemoglobin 13.6 L INR International Normalized Ratio 1.04 Indirect Bilirubin 0.4 Lymphocytes # 1.5 Lymphocytes % 24.5 Mean Corpuscular Hemoglobin 30.0 Mean Corpuscular Hemoglobin Concent 34.1 Mean Corpuscular Volume 88.2 Mean Platelet Volume 8.6 Monocytes # 0.7 Monocytes % 11.1 H Neutrophils # 3.9 Neutrophils % 61.6 Nucleated Red Blood Cells # 0.0 Nucleated Red Blood Cells % 0.0 Platelet Count 88 L Potassium Level 4.5 Prothrombin Time 13.6 Prothrombin Time Ratio 1.1 Red Blood Count 4.54 L Red Cell Distribution Width 13.6 Sodium Level 133 L Total Bilirubin 0.4 Total Protein 6.8 White Blood Count 6.3 # Bedside Glucose 127 Medications Medications Current Medications Ondansetron HCl (Zofran Inj) 4 mg Q6H PRN IV NAUSEA AND/OR VOMITING; Start at 05:00 Acetaminophen (Tylenol Tab) 650 mg Q6H PRN PO PAIN LEVEL 1-3 OR FEVER Last administered on 07/16/16 04:15; Admin Dose 650 MG; Start 07/15/16 at 05:00 Morphine Sulfate (morphine) 2 mg Q4H PRN IV SEVERE PAIN LEVEL 7-10; Start 07/15 at 05:00 Docusate Sodium (Colace) 100 mg Q12H PRN PO CONSTIPATION; Start 07/15/16 at 05: 00 Hydralazine HCl (Apresoline) 10 mg Q6H PRN IV sbp > 160; Start 07/15/16 at 05: 30 Insulin Glargine (Lantus) 10 unit HS SC Last administered on 07/18/16 20:56; Admin Dose 10 UNIT; Start 07/15/16 at 21:00 Diagnostic Test (Pha) (Accucheck) 1 ea 02 XX ; Start 07/16/16 at 02:00 Miscellaneous Information 1 ea NOTE XX ; Start 07/15/16 at 06:30 Glucose (Glutose) 15 gm Q15M PRN PO DECREASED GLUCOSE; Start 07/15/16 at 06:30 Glucose (Glutose) 22.5 gm Q15M PRN PO DECREASED GLUCOSE; Start 07/15/16 at 06: 30 Dextrose (D50w Syringe) 25 ml Q15M PRN IV DECREASED GLUCOSE; Start 07/15/16 at 06:30 Dextrose (D50w Syringe) 50 ml Q15M PRN IV DECREASED GLUCOSE; Start 07/15/16 at 06:30 Glucagon (Glucagen) 1 mg Q15M PRN IM DECREASED GLUCOSE; Start 07/15/16 at 06:30 Glucose (Glutose) 15 gm Q15M PRN BUCCAL DECREASED GLUCOSE; Start 07/15/16 at 06 :30 Famotidine (Pepcid) 20 mg Q12 PO Last administered on 07/19/16 08:26; Admin Dose 20 MG; Start 07/16/16 at 21:00 Al Hydrox/Mg Hydrox/Simethicone (Mag-Al Plus) 30 ml Q4H PRN PO GASTROINTESTINAL UPSET Last administered on 07/17/16 19:46; Admin Dose 30 ML; Start 07/16/16 at 16:00 Zolpidem Tartrate (Ambien) 5 mg HS PRN PO INSOMNIA Last administered on 20:55; Admin Dose 5 MG; Start 07/18/16 at 14:30 ROWAN GARCIA M.D. Jul 19, 2016 15:09
[2016-07-19 19:00] VITALS: BP 117/65; RESP 18
[2016-07-19] MEDS: ZOLPIDEM 5 MG TAB PO PRN (21:29)
[2016-07-19] MEDS: INSULIN GLARGINE [LANtus] 3 ML PEN SC SCH (21:39)
[2016-07-20] MEDS: ACCUCHECK XX SCH (01:51)
[2016-07-20 06:09] LABS: BASOPHILS % 0.6 % (0.0-2.0); EOSINOPHILS # 0.2 10^3/ul (0.0-0.5); EOSINOPHILS % 2.7 % (0.0-7.0); HEMATOCRIT 39.1 % (42.0-52.0); HEMOGLOBIN 13.5 g/dl (14.0-18.0); LYMPHOCYTES % 28.3 % (15.0-51.0); MEAN CORPUSCULAR HEMOGLOBIN 30.1 pg (29.0-33.0); MEAN CORPUSCULAR HGB CONC 34.5 g/dl (32.0-37.0); MEAN CORPUSCULAR VOLUME 87.4 fl (82.0-101.0); MEAN PLATELET VOLUME 8.5 fl (7.4-10.4); MONOCYTE # 0.8 10^3/ul (0.3-0.9); MONOCYTES % 10.9 % (0.0-11.0); NEUTROPHILS % 57.5 % (39.0-77.0); RED BLOOD COUNT 4.47 10^6/ul (4.70-6.10); RED CELL DISTRIBUTION WIDTH 13.4 % (11.5-14.5); UNCORRECTED WBC 6.9 10^3/ul (4.8-10.8); WHITE BLOOD COUNT 6.9 10^3/ul (4.8-10.8)
[2016-07-20 06:15] LABS: ALBUMIN 2.9 g/dl (3.3-4.9)
[2016-07-20 06:16] LABS: POTASSIUM 4.4 mmol/L (3.5-5.1)
[2016-07-20 06:18] LABS: ALBUMIN/GLOBULIN RATIO 0.76; BILIRUBIN,INDIRECT 0.5 mg/dl (0-1.1); BILIRUBIN,TOTAL 0.5 mg/dl (0.2-1.3); CREATININE 2.54 mg/dl (0.61-1.24); TOTAL PROTEIN 6.7 g/dl (6.1-8.1)
[2016-07-20 06:19] LABS: CALCIUM 8.1 mg/dl (8.4-10.2)
[2016-07-20 06:46] LABS: CONDITION 1; PLATELET COUNT 97 10^3/UL (140-440)
[2016-07-20 07:52] VITALS: BP 105/66; RESP 18
[2016-07-20] MEDS: FAMOTIDINE 20 MG TAB PO SCH (08:01)
[2016-07-20] MEDS: INSULIN ASPART [NOVOLOG] 3 ML PEN SC SCH ×2 (08:15→08:35)
--- NOTE | 2016-07-20 09:23 | PDOCDIS ---
Discharge Instructions CONDITION Patient Condition: Stable HOME CARE INSTRUCTIONS: Special Diet: Renal/Carb ACTIVITY: Activity Restrictions: Slowly Increase Activity FOLLOW UP/APPOINTMENTS Appointments Please take your meds and see your doctor in the clinic in 1 week. AMADOR MONGE Jul 20, 2016 09:22
[2016-07-20] MEDS ORDERED: GLYB2.5T2 PO (09:24)
[2016-07-20] MEDS ORDERED: FURO40TA4 PO (09:35)
[2016-07-20] MEDS ORDERED: LOSA100T7 ORAL (09:35)
[2016-07-20] MEDS ORDERED: PANT40TA4 PO (09:35)
[2016-07-20] MEDS ORDERED: SODIUM CHLORIDE 1 GM TAB PO ONE (10:00)
--- NOTE | 2016-07-20 10:45 | DS ---
DATE OF ADMISSION: 07/15/2016 DATE OF DISCHARGE: 07/20/2016 A 61-year-old male originally admitted on 07/15/2014 being discharged home on 07/20/2014. HOSPITAL COURSE: The patient came in initially with intractable diarrhea and malaise. He was found with hyponatremia. He has a diagnosis of liver cirrhosis as well, so he was admitted and seen by re nal team, hematology/oncology team and general surgery team during this hospital stay. The patient was found with a liver mass, multiple lung masses and lymphadenopathy and there was a concern for ma lignancy; however, the patient was not stable to undergo a liver biopsy. There was a high suspicion of hepatocellular carcinoma, so the patient had a paracentesis with removal of 6 liters of fluid on 07/16/2016 as well. He was also seen by GI team and although his AST was found to be high, it was not helpful in the diagnosis for possible cancer given recommendations from hematology/oncology team and then even he also had some thrombocytopenia, but he had no signs of any further bleeding episod es. The patient's renal insufficiency improved, although his baseline creatinine now is around the 2 .5 range. It stabilized. He was also found with an A1c of 7.9 and treated with appropriate insulin regimen. He was able to ambulate and tolerate a p.o. diet and because the liver biopsy cannot be do ne the recommendations are to be done as an outpatient. The patient to continue medicines for cirrho sis. The patient will be discharged today in improved condition. He will be sent with the followin g medications: MEDICATIONS: 1. Glyburide 2.5 mg b.i.d. 2. Colace 100 mg b.i.d. 3. Ativan 0.5 mg p.o. daily p.r.n. 4. Lasix 40 mg p.o. every day. 5. Losartan 100 mg daily. 6. Protonix 40 mg daily. Again, he will need to follow up as an outpatient in the next 1 week with hematology/oncology team a nd general surgery team and be evaluated for liver biopsy then. FINAL DIAGNOSES: 1. Malaise and diarrhea, improved. 2. Liver mass with multiple lung mases and lymphadenopathy, concerning for possible hepatocellular carcinoma, awaiting possible liver biopsy as an outpatient. 3. History of hepatitis C. 4. History of alcohol use in the past. 5. Thrombocytopenia secondary to liver disease. 6. Essential hypertension. 7. Type 2 diabetes. 8. Acute on chronic renal insufficiency, resolved. 9. Right inguinal hernia, stable. 10. Liver cirrhosis. TIME SPENT: Time spent discharging patient 40 minutes. Dictated By: AMADOR RAHMAN Conf#: [id number] DID#: [id number]
--- NOTE | 2016-07-20 14:02 | CONS ---
Date/Time of Note Date/Time of Note DATE: 07/20/16 TIME: 14:00 Assessment/Plan Assessment/Plan Chief Complaint/Hosp Course 1) Liver mass - With underlying cirrhosis will need to evaluate for primary liver HCC vs metastatic disease. AFP not that helpful in diagnosis as it is only 36. Furthermore, given his renal function a contrast study is not able to be done -will discuss doing a liver biopsy with radiology. This is also a risky procedure in this cirrhotic patient with portal hypertension. if the liver is too risky we will discuss a potential lymph node or lung biopsy. this can also be done as an out patient (2) Lesion of lung -Chest CT demonstrates multiple lung nodules (3) Cirrhosis - likely secondary to etoh and hepatitis C (4) Thrombocytopenia mild, secondary to BM suppression with underlying hep C cirrhosis and safe for biopsy. PT INR ok at 1.3 Problems: Consultation Date/Type/Reason Admit Date/Time Jul 15, 2016 at 04:07 Initial Consult Date 07/15/16 Type of Consultation: Hematology Reason for Consultation metastatic cancer Referring Provider: PEG GUNTER MD 24 HR Interval Summary Free Text/Dictation no acute overnight events Exam/Review of Systems Vital Signs Vitals Vital Signs Date Time Temp Pulse Resp B/P Pulse Ox O2 Delivery O2 Flow Rate FiO2 07/20/16 07:52 97.6 60 18 105/66 98 07/16/16 09:21 Room Air Intake and Output 07/19/16 07/19/16 07/20/16 15:00 23:00 07:00 Intake Total 1920 ml 960 ml Output Total 100 ml 600 ml 300 ml Balance -100 ml 1320 ml 660 ml Exam Constitutional: alert, oriented Head: atraumatic, normocephalic Eyes: nl conjunctiva ENMT: nl external ears & nose, nl lips & teeth Neck: non-tender, supple Respiratory: clear to auscultation, normal air movement Cardiovascular: regular rate and rhythm Gastrointestinal: soft Musculoskeletal: nl extremities to inspection, nl gait and stance Extremities: normal pulses Results Result Diagram: 07/20/1651707/20/16517 Results 24 hrs Laboratory Tests Test 07/19/16 17:21 07/19/16 21:35 07/20/16 05:18 07/20/16 07:55 Bedside Glucose 173 170 128 Alanine Aminotransferase (ALT/SGPT) 37 Albumin 2.9 L Albumin/Globulin Ratio 0.76 Alkaline Phosphatase 339 H Anion Gap 14 Aspartate Amino Transf (AST/SGOT) 111 H Basophils # 0.0 Basophils % 0.6 Blood Morphology Comment Blood Urea Nitrogen 54 H Calcium Level 8.1 L Carbon Dioxide Level 17 L Chloride Level 102 Creatinine 2.54 H Direct Bilirubin 0.00 Eosinophils # 0.2 Eosinophils % 2.7 Globulin 3.80 H Glucose Level 125 Hematocrit 39.1 L Hemoglobin 13.5 L Indirect Bilirubin 0.5 Lymphocytes # 2.0 Lymphocytes % 28.3 Mean Corpuscular Hemoglobin 30.1 Mean Corpuscular Hemoglobin Concent 34.5 Mean Corpuscular Volume 87.4 Mean Platelet Volume 8.5 Monocytes # 0.8 Monocytes % 10.9 Neutrophils # 4.0 Neutrophils % 57.5 Nucleated Red Blood Cells # 0.0 Nucleated Red Blood Cells % 0.0 Platelet Count 97 L Potassium Level 4.4 Red Blood Count 4.47 L Red Cell Distribution Width 13.4 Sodium Level 129 L Total Bilirubin 0.5 Total Protein 6.7 White Blood Count 6.9 ROWAN GARCIA M.D. Jul 20, 2016 14:02
--- NOTE | 2016-07-20 14:27 | PN ---
Date/Time of Note Date/Time of Note DATE: 07/20/16 TIME: 14:26 Assessment/Plan Lines/Catheters IV Catheter Type (from [facility]): Saline Lock [place] in Place (from [facility]): No Assessment/Plan Assessment/Plan [facility] Progress Note Date of Service: 07/20/16 Today's Impression & Plan: Overall stable with likely stage IV HCC. Awaiting lung lesion biopsy. No indication for acute surgical intervention and surgery should be avoided in this clinical setting. With above assessment, I've recommended the following for today: 1. Lung lesion biopsy under ultrasound or CT guidance. 2. Supportive care with medical management. 3. Appreciate Dr. Bearden's oncologic input regarding patient's care. 4. We will wait until biopsy results are available prior to further plans Thank you again for allowing us to participate in the care of this very pleasant gentleman and I am certain his wonderful family. If there are any questions, please feel free to call me at [phone]. TOTAL VISIT TIME: 20 minutes of which more than half was spent in [id number] discussion with the patient as well as coordination of care between multiple physicians and providers. Disclaimer: Inadvertent spelling or grammatical errors are likely due to EHR/ dictation software use and do not reflect on the overall quality of patient care. Updated Clinical Summary: A very pleasant but unfortunate 61-year-old gentleman with multiple comorbid issues including hepatitis C as well as prior exposure to hepatitis B, possibly contributed on by alcohol intake, admitted to [facility] through ED 07/15/16 with what appeared to be cirrhosis complicated by ascites and portal hypertension and renal insufficiency, and unfortunately with primary hepatocellular carcinoma with metastasis to the lungs. Metastatic disease was also in the differential, but not as likely given the clinical picture. Given the patient's renal insufficiency we were unable to do a contrast study to be able to definitively diagnose him for HCC and for this reason, I recommended a liver biopsy, which later was felt to be not possible. Lung lesion biopsy was therefore considered. Regardless of the findings on the biopsy, the patient was not eligible for any surgical intervention given the amount of his cirrhosis and likely metastatic disease process. The options of local treatment of liver included transarterial chemoembolization, but should be reserved only if the patient was severely symptomatic from his liver alone. In my opinion, he was not at the time of his admission. Systemic chemotherapy could also be considered, although the efficacy of sorafenib was only approximately 8 weeks of survival advantage with significant cost to patient. Comorbidities: 1. History of hepatitis C and perhaps hepatitis B. 2. Diabetes mellitus type 2. 3. Essential hypertension. 4. Stage IV chronic kidney disease. 5. Benign prostatic hypertrophy. 6. Squamous cell carcinoma of the skin previously. 7. Plaque psoriasis. 8. Above-mentioned history of alcohol abuse (potential). 9. Status post inguinal hernia repair. 10. Status post multiple skin grafts. Subjective: No major events or complaints; no abd pain and under control with medications; no n/v/d; no sob or cp; + flatus; + BM and normal; + activity Objective: Vitals: See below Exam: GENERAL: On exam, the patient was sitting laying in bed and appeared to be comfortable and in no acute distress. ABDOMEN: Soft, nontender and nondistended. + ascites. There are no peritoneal signs or guarding. SKIN: Skin appears to be pink and feels warm to touch. NEUROLOGIC: Patient is awake, alert, and follows commands appropriately. Exam/Review of Systems Vital Signs Vitals Vital Signs Date Time Temp Pulse Resp B/P Pulse Ox O2 Delivery O2 Flow Rate FiO2 07/20/16 07:52 97.6 60 18 105/66 98 07/16/16 09:21 Room Air Intake and Output 07/19/16 07/19/16 07/20/16 15:00 23:00 07:00 Intake Total 1920 ml 960 ml Output Total 100 ml 600 ml 300 ml Balance -100 ml 1320 ml 660 ml Results Result Diagram: 07/20/16 0518 07/20/16 0518 YNES PARDO M.D. Jul 20, 2016 14:27
[2016-07-21] MEDS ORDERED: FAMOTIDINE 20 MG TAB PO SCH (09:00)
== END 2016-07-20 11:10 | disposition left against medical advice (07) | DRG 433 ==
LOC: MS2 04:07
PROVIDERS: ADMIT Student in an Organized Health Care Education/Training Program; ATTEND Student in an Organized Health Care Education/Training Program
PROC: 0W9G3ZZ Drainage of Peritoneal Cavity, Percutaneous Approach (ICD-10-PCS; principal; 2016-07-16)
DX: K70.31 Alcoholic cirrhosis of liver with ascites (principal); C22.0 Liver cell carcinoma; K76.6 Portal hypertension; N18.4 Chronic kidney disease, stage 4 (severe); D69.6 Thrombocytopenia, unspecified; C78.00 Secondary malignant neoplasm of unspecified lung; N17.9 Acute kidney failure, unspecified; E46 Unspecified protein-calorie malnutrition; B19.10 Unspecified viral hepatitis B without hepatic coma; E87.1 Hypo-osmolality and hyponatremia; E86.0 Dehydration; R19.7 Diarrhea, unspecified; R53.81 Other malaise; I12.9 Hypertensive chronic kidney disease with stage 1 through stage 4 chronic kidney disease, or unspecified chronic kidney disease; E11.9 Type 2 diabetes mellitus without complications; K40.90 Unilateral inguinal hernia, without obstruction or gangrene, not specified as recurrent; Z72.0 Tobacco use; B19.20 Unspecified viral hepatitis C without hepatic coma; I86.8 Varicose veins of other specified sites; D73.2 Chronic congestive splenomegaly; R59.1 Generalized enlarged lymph nodes; Z68.23 Body mass index [BMI] 23.0-23.9, adult; R63.4 Abnormal weight loss
CPT/HCPCS: 71250; 76705; 80048; 80053; 80061; 81001; 81003; 82042; 82105; 82270; 82378; 82962; 83036; 83615; 83735; 84153; 84154; 84155; 84300; 84443; 85025; 85049; 85384; 85610; 85670; 85730; 86301; 86304; 86704; 86709; 86803; 87045; 87070; 87075; 87102; 87116; 87177; 87205; 87340; 88104; 88312; 89050; J1815; J2270; J7030

== ENCOUNTER 2016-08-04 08:50 | Inpatient (IN) | payer OTHER ==
[~2016-08-04] VITALS: Ht 180.3 cm; Wt 75.0 kg
[~2016-08-04 08:50] MED LIST changes: -FURO40TA4; +FURO40TA4 PO; +GLYB2.5T2 PO; -LOSA100T7; +LOSA100T7 ORAL; -PANT40TA4; +PANT40TA4 PO
--- NOTE | 2016-08-04 09:05 | ERA ---
ER Documentation Chief Complaint Date/Time DATE: 08/04/16 TIME: 09:05 Chief Complaint HPI 61-year-old male history of diabetes mellitus type 2, hypertension, hepatitis C , liver cirrhosis and multiple liver and lung masses transferred from [place] for admission due to dehydration and hypovolemic shock however there are no beds and the patient is sent to the ED for further evaluation. Patient complains of increasing generalized weakness and malaise for the last several weeks. Ongoing watery, nonbloody, nonmucoid diarrhea 3-4 times per day. Also complaining of worsening of his peripheral neuropathy with pain to the lower extremities. Denies chest pain or palpitations. No abdominal pain, nausea or vomiting. Denies hematemesis, hematochezia or melanotic stools. No headache or neck pain. Denies visual changes, focal weakness or numbness. No fevers or chills. ROS All systems reviewed and are negative except as per history of present illness. Medications Home Meds Active Scripts Losartan Potassium* (Losartan Potassium*) 100 Mg Tablet, 100 MG ORAL DAILY, #30 5 Refills Prov:AMADOR MONGE S. 07/20/16 Pantoprazole* (Pantoprazole*) 40 Mg Tablet.dr, 40 MG PO DAILY, #30 3 Refills Prov:AMADOR MONGE S. 07/20/16 Furosemide* (Furosemide*) 40 Mg Tablet, 40 MG PO DAILY, #30 2 Refills Prov:AMADOR MONGE S. 07/20/16 Reported Medications Docusate Sodium* (Docusate Sodium*) 100 Mg Capsule, 100 MG PO BID, #60 CAP 08/04/16 Insulin Glargine* (Lantus*) 100 Unit/Ml Soln, 20 UNIT SC QAM, #1 VIAL 08/04/16 Insulin Lispro (Humalog Kwikpen) 200 Unit/1 Ml Insuln.pen, 3 UNIT SQ TID, EA 08/04/16 Discontinued Reported Medications Zolpidem Tartrate* (Zolpidem Tartrate*) 10 Mg Tablet, #30 10/12/15 Lorazepam* (Lorazepam*) 1 Mg Tablet, #30 10/12/15 Docusate Sodium (Dok) 100 Mg Capsule, #60 10/12/15 [Lantus] No Conflict Check, #10 10/12/15 [Humalog] No Conflict Check, #10 10/12/15 Discontinued Scripts Glyburide* (Glyburide*) 2.5 Mg Tablet, 2.5 MG PO BID for 30 Days, #60 TAB Prov:AMADOR MONGE 07/20/16 Allergies Allergies: Coded Allergies: No Known Allergy (Unverified , 08/04/16) PMhx/Soc Reviewed in chart. As per HPI. History of Surgery: Yes (Skin Graft Head ) Anesthesia Reaction: No Hx Neurological Disorder: No Hx Respiratory Disorders: No Hx Cardiac Disorders: Yes (HTN) Hx Psychiatric Problems: Yes (Anxiety) Hx Miscellaneous Medical Probl: Yes (recent diagnosis liver, lung, lymph cancer ) Hx Alcohol Use: Yes (Quit 4 months ago) Hx Substance Use: Yes Hx Tobacco Use: Yes FmHx Not relevant to presenting complaint. No stroke or cancer. Mother: Diabetes and hypertension. Physical Exam Vitals Vital Signs Date Time Temp Pulse Resp B/P Pulse Ox O2 Delivery O2 Flow Rate FiO2 08/04/16 14:00 98.0 78 18 93/68 99 Room Air 08/04/16 11:00 65 18 106/74 98 Room Air 08/04/16 09:26 97.6 62 20 104/75 100 Physical Exam Const: Ill-appearing, cachectic but in no acute distress. Head: Atraumatic Eyes: Normal Conjunctiva. Pupils equal reactive to light, extraocular movements are intact. ENT: Normal External Ears, Nose and Mouth. Mucous membranes are dry. Neck: Full range of motion. Nontender. No JVD. Resp: Breath sounds are equal and clear to auscultation bilaterally Cardio: Regular rate and rhythm, no murmurs Abd: Soft, non tender, non distended. Normal bowel sounds Skin: No petechiae or rashes Back: No midline or flank tenderness Ext: No cyanosis, or edema. Calf swelling or tenderness. Neur: Awake and alert. Cranial nerves II through XII are grossly intact. Psych: Normal Mood and Affect Result Diagram: 08/04/16 0940 08/04/16 0940 Results 24 hrs Laboratory Tests Test 08/04/16 09:40 08/04/16 12:40 Activated Partial Thromboplast Time 29.2Sec Alanine Aminotransferase (ALT/SGPT) 39IU/L Albumin 2.7g/dl Albumin/Globulin Ratio 0.77 Alkaline Phosphatase 216IU/L Ammonia 17umol/l Anion Gap 16 Aspartate Amino Transf (AST/SGOT) 155IU/L Basophils # 0.010^3/ul Basophils % 0.4% Blood Morphology Comment Blood Urea Nitrogen 97mg/dl Calcium Level 7.6mg/dl Carbon Dioxide Level 17mmol/L Chloride Level 107mmol/L Creatinine 2.83mg/dl Direct Bilirubin 0.00mg/dl Eosinophils # 0.110^3/ul Eosinophils % 0.9% Ethyl Alcohol Level < 10.0mg/dl Globulin 3.50g/dl Glucose Level 107mg/dl Hematocrit 39.8% Hemoglobin 13.5g/dl INR International Normalized Ratio 1.21 Indirect Bilirubin 0.5mg/dl Lymphocytes # 1.610^3/ul Lymphocytes % 22.4% Mean Corpuscular Hemoglobin 29.3pg Mean Corpuscular Hemoglobin Concent 33.9g/dl Mean Corpuscular Volume 86.5fl Mean Platelet Volume 7.8fl Monocytes # 0.510^3/ul Monocytes % 7.5% Neutrophils # 5.010^3/ul Neutrophils % 68.8% Nucleated Red Blood Cells # 0.010^3/ul Nucleated Red Blood Cells % 0.0/100WBC Platelet Count 9210^3/UL Potassium Level 4.2mmol/L Prothrombin Time 15.4Sec Prothrombin Time Ratio 1.2 Red Blood Count 4.6110^6/ul Red Cell Distribution Width 15.2% Sodium Level 136mmol/L Total Bilirubin 0.5mg/dl Total Protein 6.2g/dl Troponin I 0.015ng/ml White Blood Count 7.210^3/ul Urine Amphetamines Screen Negative Urine Barbiturates Negative Urine Benzodiazepines Screen Negative Urine Bilirubin NEGATIVE Urine Cannabinoids Negative Urine Clarity CLEAR Urine Cocaine Screen Negative Urine Color LT. YELLOW Urine Glucose NEGATIVE% Urine Hemoglobin NEGATIVE Urine Ketones NEGATIVE Urine Leukocyte Esterase NEGATIVE Urine Nitrite NEGATIVE Urine Opiates Screen Negative Urine Random Sodium 20mmol/L Urine Specific [place] 1.015 Urine Total Protein NEGATIVE Urine Urobilinogen 0.2 E.U./dL Urine pH 5.0 Current Medications Medications (Trade) Dose Ordered Sig/Mitchell Route PRN Reason Start Time Stop Time Status Last Admin Dose Admin Ondansetron HCl (Zofran Inj) 4 mg BRIDGE ORDER PRN IV NAUSEA AND/OR VOMITING 08/04/16 13:30 08/05/16 13:29 Acetaminophen (Tylenol Tab) 650 mg ER BRIDGE PRN PO MILD PAIN/FEVER 08/04/16 13:30 08/05/16 13:29 IV Flush (NS 3 ml) 3 ml PER PROTOCOL IV 08/04/16 14:00 Ondansetron HCl (Zofran Inj) 4 mg Q6H PRN IV NAUSEA AND/OR VOMITING 08/04/16 14:00 Acetaminophen (Tylenol Tab) 650 mg Q6H PRN PO PAIN LEVEL 1-3 OR FEVER 08/04/16 14:00 Acetaminophen/ Hydrocodone Bitart ([place] (5/325)) 1 tab Q6H PRN PO MODERATE PAIN LEVEL 4-6 08/04/16 14:00 Morphine Sulfate (morphine) 2 mg Q4H PRN IV SEVERE PAIN LEVEL 7-10 08/04/16 14:00 Docusate Sodium (Colace) 100 mg Q12H PRN PO CONSTIPATION 08/04/16 14:00 Magnesium Hydroxide (Milk Of Mag) 30 ml DAILY PRN PO CONSTIPATION 08/04/16 14:00 Sodium Biphosphate/ Sodium Phosphate 133 ml 133 ml DAILY PRN [place] CONSTIPATION 08/04/16 14:00 Sodium Chloride (1/2 NS) 1,000 ml @ 75 mls/hr [id number] IV 08/04/16 13:57 Lorazepam (Ativan) 0.5 mg Q6H PRN IV ANXIETY 08/04/16 14:00 Albuterol/ Ipratropium (Duoneb) 3 ml Q4H RESP THERAPY PRN HHN SHORTNESS OF BREATH 08/04/16 14:00 Hydralazine HCl (Apresoline) 10 mg Q6H PRN IV ELEVATED BLOOD PRESSURE 08/04/16 14:00 Nitroglycerin (Nitroglycerin (Sl Tab) 0.4 Mg) 1 tab Q5M PRN SL ANGINA 08/04/16 14:00 Insulin Glargine (Lantus) 20 unit QAM SC 08/05/16 09:00 Losartan Potassium (Cozaar) 100 mg DAILY PO 08/05/16 09:00 Pantoprazole (Protonix Tab) 40 mg DAILY@06 PO 08/05/16 06:00 Miscellaneous Information 3 unit TID XX 08/04/16 21:00 08/04/16 21:00 DC Insulin Aspart (Novolog Insulin Pen) NOVOLOG *MILD* ALGORI... Q4 SC 08/04/16 17:00 Miscellaneous Information (* Miscellaneous Pharmacy Order) HYPOGLYCEMIA PROTOCOL w... ONCE ONCE XX 08/04/16 14:30 08/04/16 14:31 DC Miscellaneous Information (* Miscellaneous Pharmacy Order) Discontinue Glyburide, Glipizide,... ONCE ONCE XX 08/04/16 14:30 08/04/16 14:31 DC Miscellaneous Information (* Miscellaneous Pharmacy Order) Discontinue all previ... ONCE ONCE XX 08/04/16 14:30 08/04/16 14:31 DC Miscellaneous Information 1 ea NOTE XX 08/04/16 14:30 Glucose (Glutose) 15 gm Q15M PRN PO DECREASED GLUCOSE 08/04/16 14:30 Glucose (Glutose) 22.5 gm Q15M PRN PO DECREASED GLUCOSE 08/04/16 14:30 Dextrose (D50w Syringe) 25 ml Q15M PRN IV DECREASED GLUCOSE 08/04/16 14:30 Dextrose (D50w Syringe) 50 ml Q15M PRN IV DECREASED GLUCOSE 08/04/16 14:30 Glucagon (Glucagen) 1 mg Q15M PRN IM DECREASED GLUCOSE 08/04/16 14:30 Glucose 15 gm 15 gm Q15M PRN BUCCAL DECREASED GLUCOSE 08/04/16 14:30 Sodium Chloride (1/2 NS) 1,000 ml @ 75 mls/hr [id number] ONCE IV 08/04/16 14:32 08/05/16 03:51 EKG: TIME: 09:19. Sinus rhythm. Ventricular rate 64. Normal UT and QRS. Prolonged corrected QT of [address]-T wave changes. No axis deviation or ectopy. EP Interpretation: Abnormal EKG. IMAGING: PROCEDURE: XR Chest. CLINICAL INDICATION: Shortness of breath. TECHNIQUE: A single portable view of the chest was obtained. COMPARISON: None FINDINGS: The aorta is tortuous and atherosclerotic. The cardiomediastinal silhouette is otherwise within normal limits. The lung volumes are low with bibasilar compressive atelectasis. The remaining lungs and pleural spaces are clear. The soft tissues and osseous structures demonstrate benign age related senescent changes. IMPRESSION: Low lung volumes with bibasilar compressive atelectasis. RPTAT: HPNM Physician Beverly Date Time Electronically viewed and signed by Nitesh Omalley Physician on 08/04/2016 09 :32 / Procedures/MDM DOCUMENTS REVIEWED: ED nurse, prior ED, prior records ED COURSE: Normal saline at 75 cc an hour MEDICAL DECISION MAKIN-year-old male history of diabetes mellitus type 2, hypertension, hepatitis C, liver cirrhosis and multiple liver and lung masses transferred from [place] for admission due to dehydration and hypovolemic shock however there are no beds and the patient is sent to the ED for further evaluation. Patient complains of increasing generalized weakness and malaise for the last several weeks. Patient presents with dehydration, worsening prerenal azotemia and acute on chronic renal failure. No criteria for SIRS or sepsis. Considering his previous workup and occult malignancy is considered. Hyponatremia which improved after IV hydration. Chronic diarrhea. Possible SIADH. Patient will be admitted to [facility] for further evaluation and management. Counseled patient regarding diagnosis, diagnostic results and plan for admission. CALLS/CONSULTS: Time 09:50, Dr. Monge, Recommends admission to [facility]. PATIENT CARE TRANSITIONED: Time: 09:50, Dr. Monge. Departure Diagnosis: Primary Impression: Dehydration Additional Impressions: Acute weakness Liver cirrhosis Qualified Code: K74.60 - Cirrhosis of liver with ascites, unspecified hepatic cirrhosis type Acute on chronic renal failure Diabetes mellitus type 2 in nonobese Hepatitis C Qualified Code: B19.20 - Hepatitis C virus infection without hepatic coma, unspecified chronicity Condition: Serious JARED MOY MD Aug 04, 2016 09:05
--- NOTE | 2016-08-04 09:33 | RADRPT ---
PROCEDURE: XR Chest. CLINICAL INDICATION: Shortness of breath. TECHNIQUE: A single portable view of the chest was obtained. COMPARISON: None FINDINGS: The aorta is tortuous and atherosclerotic. The cardiomediastinal silhouette is otherwise within nor mal limits. The lung volumes are low with bibasilar compressive atelectasis. The remaining lungs and pleural spaces are clear. The soft tissues and osseous structures demonstrate benign age related s enescent changes. IMPRESSION: Low lung volumes with bibasilar compressive atelectasis. RPTAT: HPNM Physician Beverly Date Time Electronically viewed and signed by Physician Beverly on 08/04/2016 09:32 /
[2016-08-04] MEDS ORDERED: LANT3I SC (09:59)
[2016-08-04] MEDS ORDERED: INSU200I SQ (09:59)
[2016-08-04] MEDS ORDERED: DOCU-159 PO (10:00)
[2016-08-04 10:08] LABS: BASOPHILS % 0.4 % (0.0-2.0); EOSINOPHILS # 0.1 10^3/ul (0.0-0.5); EOSINOPHILS % 0.9 % (0.0-7.0); HEMATOCRIT 39.8 % (42.0-52.0); HEMOGLOBIN 13.5 g/dl (14.0-18.0); LYMPHOCYTES # 1.6 10^3/ul (0.8-2.9); LYMPHOCYTES % 22.4 % (15.0-51.0); MEAN CORPUSCULAR HEMOGLOBIN 29.3 pg (29.0-33.0); MEAN CORPUSCULAR HGB CONC 33.9 g/dl (32.0-37.0); MEAN CORPUSCULAR VOLUME 86.5 fl (82.0-101.0); MEAN PLATELET VOLUME 7.8 fl (7.4-10.4); MONOCYTE # 0.5 10^3/ul (0.3-0.9); MONOCYTES % 7.5 % (0.0-11.0); NEUTROPHILS % 68.8 % (39.0-77.0); PLATELET COUNT 92 10^3/UL (140-440); RED BLOOD COUNT 4.61 10^6/ul (4.70-6.10); RED CELL DISTRIBUTION WIDTH 15.2 % (11.5-14.5); UNCORRECTED WBC 7.2 10^3/ul (4.8-10.8); WHITE BLOOD COUNT 7.2 10^3/ul (4.8-10.8)
[2016-08-04 10:10] LABS: ALBUMIN 2.7 g/dl (3.3-4.9); CHLORIDE 107 mmol/L (97-110); INR 1.21; PROTIME 15.4 Sec (12.2-14.2); PT RATIO 1.2
[2016-08-04 10:11] LABS: PARTIAL THROMBOPLASTIN TIME 29.2 Sec (25.0-35.0); POTASSIUM 4.2 mmol/L (3.5-5.1); SODIUM 136 mmol/L (135-144)
[2016-08-04 10:13] LABS: ALBUMIN/GLOBULIN RATIO 0.77; ALKALINE PHOSPHATASE 216 IU/L (42-121); ANION GAP 16 (8-16); ASPARTATE AMINO TRANSFERASE 155 IU/L (15-46); BILIRUBIN,INDIRECT 0.5 mg/dl (0-1.1); BILIRUBIN,TOTAL 0.5 mg/dl (0.2-1.3); CARBON DIOXIDE 17 mmol/L (21-31); CREATININE 2.83 mg/dl (0.61-1.24); TOTAL PROTEIN 6.2 g/dl (6.1-8.1)
[2016-08-04 10:14] LABS: ALANINE AMINOTRANSFERASE 39 IU/L (13-69); BLOOD UREA NITROGEN 97 mg/dl (7-20); CALCIUM 7.6 mg/dl (8.4-10.2); GLUCOSE 107 mg/dl (70-220)
[2016-08-04 10:15] LABS: CONDITION 1; LH ANALYZER COMMENTS 1
[2016-08-04 10:25] LABS: TROPONIN-I 0.015 ng/ml (0.00-0.12)
[2016-08-04 10:28] LABS: ETHANOL < 10.0 mg/dl
[2016-08-04 13:08] LABS: ADD UMIC NO; URINE BILIRUBIN (Dip) NEGATIVE (NEGATIVE); URINE BLOOD (Dip) NEGATIVE (NEGATIVE); URINE COLOR LT. YELLOW (YELLOW); URINE GLUCOSE (Dip) NEGATIVE (NEGATIVE); URINE KETONES (Dip) NEGATIVE (NEGATIVE); URINE LEUKOCYTE ESTERASE (Dip) NEGATIVE (NEGATIVE); URINE NITRITE (Dip) NEGATIVE (NEGATIVE); URINE TOTAL PROTEIN (Dip) NEGATIVE (NEGATIVE); URINE UROBILINOGEN (Dip) 0.2 E.U./dL (0.1-1.0)
[2016-08-04 13:29] LABS: BARBITURATES Negative (NEGATIVE); BENZODIAZEPINES Negative (NEGATIVE); CANNABINOIDS Negative (NEGATIVE); COCAINE Negative (NEGATIVE); OPIATES Negative (NEGATIVE)
[2016-08-04] MEDS ORDERED: ACETAMINOPHEN 325 MG TAB PO PRN ×2 (13:30→14:00)
[2016-08-04] MEDS ORDERED: ONDANSETRON 4 MG INJ IV PRN ×2 (13:30→14:00)
[2016-08-04] MEDS ORDERED: SOD CHLORIDE 0.45% 1,000 ML IV SCH (13:57)
[2016-08-04 14:00] VITALS: TEMP 98
[2016-08-04] MEDS ORDERED: MAGNESIUM HYDROXIDE 30ML CUP PO PRN (14:00)
[2016-08-04] MEDS ORDERED: morphine 2 MG INJ IV PRN (14:00)
[2016-08-04] MEDS ORDERED: NA PHOSPHATE/BIPHOS 133 ML ENEMA PR PRN (14:00)
[2016-08-04] MEDS ORDERED: DOCUSATE SODIUM 100 MG CAP PO PRN (14:00)
[2016-08-04] MEDS ORDERED: NITROGLYCERIN (SL) 0.4 MG TAB SL PRN (14:00)
[2016-08-04] MEDS ORDERED: hydrALAzine 20 MG INJ IV PRN (14:00)
[2016-08-04] MEDS ORDERED: NACL 0.9% 3 ML SYG IV SCH (14:00)
[2016-08-04] MEDS ORDERED: ALBUTEROL/IPRATROPIUM (NEB) 3 ML AMP HHN PRN (14:00)
[2016-08-04] MEDS ORDERED: DEXTROSE 50% 50 ML SYRINGE IV PRN ×2 (14:30)
[2016-08-04] MEDS ORDERED: GLUCAGON 1 MG INJ IM PRN (14:30)
[2016-08-04] MEDS ORDERED: GLUCOSE GEL 15 GRAM TUBE PO PRN ×2 (14:30)
[2016-08-04] MEDS ORDERED: GLUCOSE GEL 15 GRAM TUBE BUCCAL PRN (14:30)
[2016-08-04] MEDS ORDERED: SOD CHLORIDE 0.45% 1,000 ML IV ONE (14:32)
[2016-08-04] MEDS ORDERED: LOPERAMIDE 2 MG CAP PO PRN (15:00)
--- NOTE | 2016-08-04 15:41 | CONS ---
Date/Time of Note Date/Time of Note DATE: 08/04/16 TIME: 15:40 Assessment/Plan Assessment/Plan Additional Assessment/Plan Remote check note done 08/04/16. Patient unfortunately not a surgical candidate. No indication for acute TACE. No urgent HPB surgical issues. Hope that the patient will improve with aggressive medical management. Agree with GI and Onc involvement. Will monitor through weekend and will plan on seeing on Saturday. Appreciate the consult. Disclaimer: Inadvertent spelling or grammatical errors are likely due to EHR/ dictation software use and do not reflect on the overall quality of patient care. Updated Clinical Summary: A very pleasant but unfortunate 61-year-old gentleman with multiple comorbid issues including hepatitis C as well as prior exposure to hepatitis B, possibly contributed on by alcohol intake, admitted to [facility] through ED 07/15/16 with what appeared to be cirrhosis complicated by ascites and portal hypertension and renal insufficiency, and unfortunately with primary hepatocellular carcinoma with metastasis to the lungs. Metastatic disease was also in the differential, but not as likely given the clinical picture. Given the patient's renal insufficiency we were unable to do a contrast study to be able to definitively diagnose him for HCC and for this reason, I recommended a liver biopsy, which later was felt to be not possible. Lung lesion biopsy was therefore considered. Regardless of the findings on the biopsy, the patient was not eligible for any surgical intervention given the amount of his cirrhosis and likely metastatic disease process. The options of local treatment of liver included transarterial chemoembolization, but should be reserved only if the patient was severely symptomatic from his liver alone. In my opinion, he was not at the time of his admission. Systemic chemotherapy could also be considered, although the efficacy of sorafenib was only approximately 8 weeks of survival advantage with significant cost to patient. Comorbidities: 1. History of hepatitis C and perhaps hepatitis B. 2. Diabetes mellitus type 2. 3. Essential hypertension. 4. Stage IV chronic kidney disease. 5. Benign prostatic hypertrophy. 6. Squamous cell carcinoma of the skin previously. 7. Plaque psoriasis. 8. Above-mentioned history of alcohol abuse (potential). 9. Status post inguinal hernia repair. 10. Status post multiple skin grafts. Consultation Date/Type/Reason Admit Date/Time Initial Consult Date Exam/Review of Systems Vital Signs Vitals Vital Signs Date Time Temp Pulse Resp B/P Pulse Ox O2 Delivery O2 Flow Rate FiO2 08/04/16 14:00 98.0 78 18 93/68 99 Room Air Results Result Diagram: 08/04/16 0940 08/04/16 0940 Results 24 hrs Laboratory Tests Test 08/04/16 09:40 08/04/16 12:40 Activated Partial Thromboplast Time 29.2 Alanine Aminotransferase (ALT/SGPT) 39 Albumin 2.7 L Albumin/Globulin Ratio 0.77 Alkaline Phosphatase 216 H Ammonia 17 Anion Gap 16 Aspartate Amino Transf (AST/SGOT) 155 H Basophils # 0.0 Basophils % 0.4 Blood Morphology Comment Blood Urea Nitrogen 97 H Calcium Level 7.6 L Carbon Dioxide Level 17 L Chloride Level 107 Creatinine 2.83 H Direct Bilirubin 0.00 Eosinophils # 0.1 Eosinophils % 0.9 Ethyl Alcohol Level < 10.0 Globulin 3.50 H Glucose Level 107 Hematocrit 39.8 L Hemoglobin 13.5 L INR International Normalized Ratio 1.21 Indirect Bilirubin 0.5 Lymphocytes # 1.6 Lymphocytes % 22.4 Mean Corpuscular Hemoglobin 29.3 Mean Corpuscular Hemoglobin Concent 33.9 Mean Corpuscular Volume 86.5 Mean Platelet Volume 7.8 Monocytes # 0.5 Monocytes % 7.5 Neutrophils # 5.0 Neutrophils % 68.8 Nucleated Red Blood Cells # 0.0 Nucleated Red Blood Cells % 0.0 Platelet Count 92 L Potassium Level 4.2 Prothrombin Time 15.4 H Prothrombin Time Ratio 1.2 Red Blood Count 4.61 L Red Cell Distribution Width 15.2 H Sodium Level 136 Total Bilirubin 0.5 Total Protein 6.2 Troponin I 0.015 White Blood Count 7.2 Urine Amphetamines Screen Negative Urine Barbiturates Negative Urine Benzodiazepines Screen Negative Urine Bilirubin NEGATIVE Urine Cannabinoids Negative Urine Clarity CLEAR Urine Cocaine Screen Negative Urine Color LT. YELLOW Urine Glucose NEGATIVE Urine Hemoglobin NEGATIVE Urine Ketones NEGATIVE Urine Leukocyte Esterase NEGATIVE Urine Nitrite NEGATIVE Urine Opiates Screen Negative Urine Random Sodium 20 L Urine Specific [place] 1.015 Urine Total Protein NEGATIVE Urine Urobilinogen 0.2 E.U./dL Urine pH 5.0 Medications Medications Current Medications Ondansetron HCl (Zofran Inj) 4 mg Q6H PRN IV NAUSEA AND/OR VOMITING; Start at 14:00 Acetaminophen (Tylenol Tab) 650 mg Q6H PRN PO PAIN LEVEL 1-3 OR FEVER; Start at 14:00 Acetaminophen/ Hydrocodone Bitart ([place] (5/325)) 1 tab Q6H PRN PO MODERATE PAIN LEVEL 4-6; Start 08/04/16 at 14:00 Morphine Sulfate (morphine) 2 mg Q4H PRN IV SEVERE PAIN LEVEL 7-10; Start 08/04 at 14:00 Docusate Sodium (Colace) 100 mg Q12H PRN PO CONSTIPATION; Start 08/04/16 at 14: 00 Magnesium Hydroxide (Milk Of Mag) 30 ml DAILY PRN PO CONSTIPATION; Start at 14:00 Sodium Biphosphate/ Sodium Phosphate 133 ml 133 ml DAILY PRN [place] CONSTIPATION; Start 08/04/16 at 14:00 Sodium Chloride (1/2 NS) 1,000 ml @ 75 mls/hr [id number] IV ; Start 08/04/16 at 13 :57; Stop 08/04/16 at 22:00 Lorazepam (Ativan) 0.5 mg Q6H PRN IV ANXIETY; Start 08/04/16 at 14:00 Hydralazine HCl (Apresoline) 10 mg Q6H PRN IV ELEVATED BLOOD PRESSURE; Start at 14:00 Nitroglycerin (Nitroglycerin (Sl Tab) 0.4 Mg) 1 tab Q5M PRN SL ANGINA; Start at 14:00 Insulin Glargine (Lantus) 20 unit QAM SC ; Start 08/05/16 at 09:00 Losartan Potassium (Cozaar) 100 mg DAILY PO ; Start 08/05/16 at 09:00 Pantoprazole (Protonix Tab) 40 mg DAILY@06 PO ; Start 08/05/16 at 06:00 Insulin Aspart (Novolog Insulin Pen) NOVOLOG *MILD* ALGORI... Q4 SC ; Start at 17:00 Miscellaneous Information 1 ea NOTE XX ; Start 08/04/16 at 14:30 Glucose (Glutose) 15 gm Q15M PRN PO DECREASED GLUCOSE; Start 08/04/16 at 14:30 Glucose (Glutose) 22.5 gm Q15M PRN PO DECREASED GLUCOSE; Start 08/04/16 at 14: 30 Dextrose (D50w Syringe) 25 ml Q15M PRN IV DECREASED GLUCOSE; Start 08/04/16 at 14:30 Dextrose (D50w Syringe) 50 ml Q15M PRN IV DECREASED GLUCOSE; Start 08/04/16 at 14:30 Glucagon (Glucagen) 1 mg Q15M PRN IM DECREASED GLUCOSE; Start 08/04/16 at 14:30 Glucose 15 gm 15 gm Q15M PRN BUCCAL DECREASED GLUCOSE; Start 08/04/16 at 14:30 Sodium Chloride (1/2 NS) 1,000 ml @ 75 mls/hr [id number] ONCE IV ; Start 08/04/16 at 14:32; Stop 08/05/16 at 03:51 Loperamide HCl (Imodium Cap) 2 mg QID PRN PO DIARRHEA; Start 08/04/16 at 15:00 Gabapentin (Neurontin) 200 mg TID PO ; Start 08/04/16 at 21:00 YNES PARDO M.D. Aug 04, 2016 15:41
--- NOTE | 2016-08-04 15:57 | HP ---
DATE OF ADMISSION: 08/04/2016 CHIEF COMPLAINT: A 61-year-old male transferred from outside hospital due to generalized weakness a nd diarrhea. HISTORY OF PRESENT ILLNESS: A 61-year-old male with past medical history of prior malaise and diarr hea, liver masses with multiple lung masses and lymphadenopathy concerning for HCC, history of hepat itis C and alcohol abuse, questionable hepatitis B, thrombocytopenia secondary to liver disease, ess ential hypertension, type 2 diabetes, renal insufficiency, right inguinal hernia and liver cirrhosis , who was transferred from outside hospital earlier today. The patient presented there after compla ining of 2 weeks of generalized weakness. He has also been having diarrhea 3 to 4 times per day. A lso complaining of peripheral neuropathy. He went to his primary care doctor apparently 2 days ago and was told he had metabolic acidosis. He goes to [facility] locally. He does not remember his doctor's name. When he presented to the outside hospital today, his sodium was 130. H e was hypotensive as well. He was given IV fluid boluses and due to insurance purposes was transfer red over here. When the patient came in, he also was found with elevated BUN of 110 and elevated cr eatinine of 3.5. The patient was last here at our hospital from 07/15/2016 to 07/20/2016. At that time, he was suppo sed to undergo liver biopsy, but was discharged and was scheduled for an outpatient liver biopsy [facility] apparently he never got. PAST MEDICAL HISTORY: As stated above, and psoriasis. ALLERGIES: NO KNOWN DRUG ALLERGIES. HOME MEDICATIONS: Based on last medication reconciliation: 1. Losartan 100 mg daily. 2. Lasix 40 mg daily. 3. Colace 100 mg b.i.d. 4. Protonix 40 mg daily. 5. Lantus 20 units in the morning. 6. Lispro insulin 3 units t.i.d. PAST SURGICAL HISTORY: He has had multiple skin grafts in the past. FAMILY HISTORY: Positive for hypertension and diabetes. SOCIAL HISTORY: Currently sober, but former longstanding alcohol use, former cocaine use and smokes 50 packs per day. PHYSICAL EXAMINATION: VITAL SIGNS: Temperature max 98.0, pulse 65 to 78, respirations 18, blood pressure 93 to 106/68 to 74, saturating at 99% on room air. GENERAL: The patient is lying in bed, answering questions appropriately, slightly cranky but otherw ise alert. HEENT: Pupils equal, round, react to light. Extraocular muscles intact. NECK: Supple, no thyromegaly. LUNGS: Clear to auscultation bilaterally. CARDIOVASCULAR: S1, S2 heard. No rubs or gallops. ABDOMEN: Slightly distended but otherwise soft. Normal bowel sounds. No rebound or guarding. MUSCULOSKELETAL: No lower extremity edema bilaterally. NEUROLOGIC: No focal deficits. LABORATORY DATA: He had a WBC 10.4, hemoglobin 14, hematocrit 41.4, platelets 135. Sodium 130, pot assium 4.6, chloride 101, CO2 of 19, BUN 110, creatinine 3.55. His LFTs show total bilirubin of 1.4 , alkaline phosphatase of 214, ALT of 30, AST of 101. Lipase of 35. ASSESSMENT AND PLAN: A 61-year-old male who comes in with weakness and diarrhea with a past history of cirrhosis and alcohol abuse, and questionable hepatocellular carcinoma and possible cancer metas tasis. 1. Weakness and diarrhea. The patient had this presentation last time when he was here back in june. He was seen by hematology/oncology, renal team, GI team and general surgery team at that time. Again, we are going to admit him. We are going to cautiously give him IV fluids for 12 hour s given his renal insufficiency and his weakness. We will give loperamide for now for any diarrhea symptoms. Consider checking stool studies as well. 2. Renal insufficiency appears to be acute on chronic. His baseline creatinine appears to be in e 2.7 to 2.8 range. Today on admission it was 3.5. Again, cautious IV fluids. Will get a renal co nsult as well. 3. History of cirrhosis. He does have some ascites presently. We will put him back on Aldactone, hold his Lasix given his renal insufficiency. Consider a paracentesis and check the fluid fo r studies to rule out like spontaneous bacterial peritonitis, although low in clinical indication at this point. Low sodium diet. 4. Type 2 diabetes. Put him on sliding scale insulin. Continue mild insulin sliding scale. We wi ll order Lantus. 5. Liver and lung masses. Again, last time his AFP and CA-125 levels were elevated. General surge ry team and hematology/oncology team saw him last time, and he was supposed to undergo a liver biops y which was scheduled as an outpatient. The patient before, so it is unclear if his underlyin g potential cancer could be contributing to his current condition. So in any event, we will reconsu lt hematology/oncology and general surgery teams as well, may be able to try to schedule the liver b iopsy if he is medically stable at this point. 6. Thrombocytopenia secondary to liver disease. No signs of any bleeding. Continue to monitor for now. Hold anticoagulants. 7. History of alcohol use and hepatitis C in the past with cirrhosis. Again, continue Aldactone, h olding Lasix for now. Monitor liver function tests. 8. Gastrointestinal prophylaxis: Proton pump inhibitor. 9. Deep venous thrombosis prophylaxis: Sequential compression devices. Consider PT consultation. Dictated By: AMADOR RAHMAN Conf#: [id number] DID#: [id number]
--- NOTE | 2016-08-04 16:17 | RADRPT ---
PROCEDURE: Limited abdominal ultrasound CLINICAL INDICATION: Ascites TECHNIQUE: Ultrasound targeted to the 4 quadrants of the abdomen is performed COMPARISON: 07/16/2016 FINDINGS: Moderate to large ascites seen throughout the abdomen. IMPRESSION: Moderate to large ascites in the abdomen. RPTAT: HJPL .Eddie Romero MD, Date Time Electronically viewed and signed by .Eddie Romero MD, MD on 08/04/2016 16:16 .L/
[2016-08-04] MEDS: INSULIN ASPART [NOVOLOG] 3 ML PEN SC SCH ×2 (17:00→21:00)
[2016-08-04 18:00] VITALS: BP 120/70; PULSE 88; RESP 18; Ht 180.3 cm; Wt 75.0 kg
[2016-08-04] MEDS ORDERED: SODIUM BICARBONATE (IV ADD) 50 MEQ in SOD CHLORIDE 0.45% 950 ML IV SCH (18:30)
--- NOTE | 2016-08-04 18:50 | CONS ---
Date/Time of Note Date/Time of Note DATE: 08/04/16 TIME: 18:49 Assessment/Plan Assessment/Plan Chief Complaint/Hosp Course Impression: 1. History of hepatitis C and perhaps hepatitis B. 2. 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 Diarrhea 4. Stage IV chronic kidney disease. 5. Benign prostatic hypertrophy. 6. Squamous cell carcinoma of the skin previously. 7. Plaque psoriasis. 8. Above-mentioned history of alcohol abuse (potential). 9. Status post inguinal hernia repair. 10. Status post multiple skin grafts. Recommendations: 1. ascitic fluid tap and cytology to start with and if nondiagnostic consider liver biopsy per Dr. Ohara and heme/onc consultants 2. As it is likely metastatic HCC, will defer to heme/onc whether palliative care eval is appropriate 3. stool studies for diarrhea Problems: Consultation Date/Type/Reason Admit Date/Time Type of Consultation: GI Reason for Consultation management of liver mass Hx of Present Illness 61-year-old male with past medical history of prior malaise and diarrhea, liver masses with multiple lung masses and lymphadenopathy concerning for HCC, history of hepatitis C and alcohol abuse, questionable hepatitis B, thrombocytopenia secondary to liver disease, essential hypertension, type 2 diabetes, renal insufficiency, right inguinal hernia and liver cirrhosis, who was transferred from outside hospital earlier today for further management of his likely metastatic HCC. The patient presented there after complaining of 2 weeks of generalized weakness. He has also been having diarrhea 3 to 4 times per day. Also complaining of peripheral neuropathy. He went to his primary care doctor apparently 2 days ago and was told he had metabolic acidosis. He presented to the outside hospital and found he had elevated BUN of 110 and elevated creatinine of 3.5. At this time, I counseled him on paracentesis and liver biopsy but he told me that his doctors at last hospitalization did not think it was indicated. All point ROS administered, pertinent positives and negatives in HPI otherwise negative. Past Medical History benign prostatic hypertrophy, squamous cell carcinoma of skin, plaque psoriasis Medical History: diabetes, hepatitis (b and c), hypertension, renal disease Past Surgical History s/p inguinal hernia repair, s/p multiple skin grafts Family History Significant Family History: no pertinent family hx Social History Alcohol Use: sober Smoking Status: Current every day smoker Drug Use: none Exam/Review of Systems Vital Signs Vitals Vital Signs Date Time Temp Pulse Resp B/P Pulse Ox O2 Delivery O2 Flow Rate FiO2 08/04/16 16:00 74 74 116/77 100 Room Air 08/04/16 14:00 98.0 Exam Constitutional: alert, frail, oriented Psych: nl mood/affect, no complaints Head: atraumatic, normocephalic Eyes: EOMI, nl conjunctiva, nl lids, nl sclera ENMT: mucosa pink and moist, nl external ears & nose, nl lips & teeth, nl nasal mucosa & septum Neck: non-tender, supple Respiratory: clear to auscultation, normal air movement Cardiovascular: nl pulses, regular rate and rhythm Gastrointestinal: ascites, bowel sounds, distended, soft Neurological: nl mental status, nl speech, nl strength Results Result Diagram: 08/04/16 0940 08/04/16 0940 Results 24 hrs Laboratory Tests Test 08/04/16 09:40 08/04/16 12:00 08/04/16 12:40 08/04/16 18:25 Activated Partial Thromboplast Time 29.2 Alanine Aminotransferase (ALT/SGPT) 39 Albumin 2.7 L Albumin/Globulin Ratio 0.77 Alkaline Phosphatase 216 H Ammonia 17 Anion Gap 16 Aspartate Amino Transf (AST/SGOT) 155 H Basophils # 0.0 Basophils % 0.4 Blood Morphology Comment Blood Urea Nitrogen 97 H Calcium Level 7.6 L Carbon Dioxide Level 17 L Chloride Level 107 Creatinine 2.83 H Direct Bilirubin 0.00 Eosinophils # 0.1 Eosinophils % 0.9 Ethyl Alcohol Level < 10.0 < 10.0 Globulin 3.50 H Glucose Level 107 Hematocrit 39.8 L Hemoglobin 13.5 L INR International Normalized Ratio 1.21 Indirect Bilirubin 0.5 Lymphocytes # 1.6 Lymphocytes % 22.4 Mean Corpuscular Hemoglobin 29.3 Mean Corpuscular Hemoglobin Concent 33.9 Mean Corpuscular Volume 86.5 Mean Platelet Volume 7.8 Monocytes # 0.5 Monocytes % 7.5 Neutrophils # 5.0 Neutrophils % 68.8 Nucleated Red Blood Cells # 0.0 Nucleated Red Blood Cells % 0.0 Platelet Count 92 L Potassium Level 4.2 Prothrombin Time 15.4 H Prothrombin Time Ratio 1.2 Red Blood Count 4.61 L Red Cell Distribution Width 15.2 H Sodium Level 136 Total Bilirubin 0.5 Total Protein 6.2 Troponin I 0.015 White Blood Count 7.2 Free Thyroxine 1.78 Urine Amphetamines Screen Negative Urine Barbiturates Negative Urine Benzodiazepines Screen Negative Urine Bilirubin NEGATIVE Urine Cannabinoids Negative Urine Clarity CLEAR Urine Cocaine Screen Negative Urine Color LT. YELLOW Urine Glucose NEGATIVE Urine Hemoglobin NEGATIVE Urine Ketones NEGATIVE Urine Leukocyte Esterase NEGATIVE Urine Nitrite NEGATIVE Urine Opiates Screen Negative Urine Random Sodium 20 L Urine Specific [place] 1.015 Urine Total Protein NEGATIVE Urine Urobilinogen 0.2 E.U./dL Urine pH 5.0 Bedside Glucose 141 Medications Medications Current Medications Ondansetron HCl (Zofran Inj) 4 mg Q6H PRN IV NAUSEA AND/OR VOMITING; Start at 14:00 Acetaminophen (Tylenol Tab) 650 mg Q6H PRN PO PAIN LEVEL 1-3 OR FEVER; Start at 14:00 Acetaminophen/ Hydrocodone Bitart ([place] (5/325)) 1 tab Q6H PRN PO MODERATE PAIN LEVEL 4-6; Start 08/04/16 at 14:00 Morphine Sulfate (morphine) 2 mg Q4H PRN IV SEVERE PAIN LEVEL 7-10; Start 08/04 at 14:00 Docusate Sodium (Colace) 100 mg Q12H PRN PO CONSTIPATION; Start 08/04/16 at 14: 00 Magnesium Hydroxide (Milk Of Mag) 30 ml DAILY PRN PO CONSTIPATION; Start at 14:00 Sodium Biphosphate/ Sodium Phosphate 133 ml 133 ml DAILY PRN [place] CONSTIPATION; Start 08/04/16 at 14:00 Sodium Chloride (1/2 NS) 1,000 ml @ 75 mls/hr [id number] IV ; Start 08/04/16 at 13 :57; Stop 08/04/16 at 22:00 Lorazepam (Ativan) 0.5 mg Q6H PRN IV ANXIETY; Start 08/04/16 at 14:00 Hydralazine HCl (Apresoline) 10 mg Q6H PRN IV ELEVATED BLOOD PRESSURE; Start at 14:00 Nitroglycerin (Nitroglycerin (Sl Tab) 0.4 Mg) 1 tab Q5M PRN SL ANGINA; Start at 14:00 Insulin Glargine (Lantus) 20 unit QAM SC ; Start 08/05/16 at 09:00 Pantoprazole (Protonix Tab) 40 mg DAILY@06 PO ; Start 08/05/16 at 06:00 Insulin Aspart (Novolog Insulin Pen) NOVOLOG *MILD* ALGORI... Q4 SC ; Start at 17:00 Miscellaneous Information 1 ea NOTE XX ; Start 08/04/16 at 14:30 Glucose (Glutose) 15 gm Q15M PRN PO DECREASED GLUCOSE; Start 08/04/16 at 14:30 Glucose (Glutose) 22.5 gm Q15M PRN PO DECREASED GLUCOSE; Start 08/04/16 at 14: 30 Dextrose (D50w Syringe) 25 ml Q15M PRN IV DECREASED GLUCOSE; Start 08/04/16 at 14:30 Dextrose (D50w Syringe) 50 ml Q15M PRN IV DECREASED GLUCOSE; Start 08/04/16 at 14:30 Glucagon (Glucagen) 1 mg Q15M PRN IM DECREASED GLUCOSE; Start 08/04/16 at 14:30 Glucose 15 gm 15 gm Q15M PRN BUCCAL DECREASED GLUCOSE; Start 08/04/16 at 14:30 Sodium Chloride (1/2 NS) 1,000 ml @ 75 mls/hr [id number] ONCE IV ; Start 08/04/16 at 14:32; Stop 08/05/16 at 03:51 Loperamide HCl (Imodium Cap) 2 mg QID PRN PO DIARRHEA; Start 08/04/16 at 15:00 Gabapentin 200 mg 200 mg TID PO ; Start 08/04/16 at 21:00 Sodium Bicarbonate/ Sodium Chloride (Na Bicarb/1/2 NS) 1,000 ml @ 80 mls/hr [id number] IV ; Start 08/04/16 at 18:30 ROMELIA MONTOYA MD Aug 04, 2016 18:50
[2016-08-04 19:17] LABS: BARBITURATES Negative (NEGATIVE); BENZODIAZEPINES Negative (NEGATIVE); CANNABINOIDS Negative (NEGATIVE); COCAINE Negative (NEGATIVE); OPIATES Negative (NEGATIVE)
[2016-08-04 19:42] LABS: PHOSPHORUS 4.8 mg/dl (2.5-4.9)
[2016-08-04 19:43] LABS: MAGNESIUM 3.1 mg/dl (1.7-2.5)
[2016-08-04 20:27] VITALS: BP 104/59; RESP 20
[2016-08-04] MEDS ORDERED: NON-FORMULARY/PATIENT OWN MED (Insulin Lispro (Humalog Kwikpen) 3 UNIT) XX SCH (21:00)
[2016-08-04] MEDS: GABAPENTIN 100 MG CAP PO SCH (21:03)
[2016-08-05] MEDS: INSULIN ASPART [NOVOLOG] 3 ML PEN SC SCH ×6 (01:00→20:33)
[2016-08-05] MEDS: SODIUM BICARBONATE (IV ADD) 50 MEQ in SOD CHLORIDE 0.45% 950 ML IV SCH ×2 (02:57→15:00)
--- NOTE | 2016-08-05 05:05 | CONS ---
DATE OF ADMISSION: 08/04/2016 DATE OF CONSULTATION: 08/04/2016 RENAL CONSULTATION CHIEF COMPLAINT: Thank you very much for allowing me to evaluate this 61-year-old male admitted to the hospital via the ER with weakness, tingling and numbness in his hands and feet, and inability to walk with known renal insufficiency, a lung mass, and pulmonary adenopathy. HISTORICAL EVENTS: As you well know, this patient was hospitalized here in early July and at th at time had evidence of ascites, renal insufficiency, a liver mass with related bilateral mediastina l adenopathy. The patient states upon discharge he was supposed to get a biopsy of the liver mass, but this did not occur. During his hospitalization, his creatinine ranged between 2.54 and 2.63, an d imaging studies revealed no evidence of upper tract obstruction. Because of numbness, tingling, a nd inability to walk, he elected to come to [facility] ER. His appetite has been poor at best. He has not been vomiting. He has noted some difficulty initiating his urinary stream without dysuria, flank pain, fever, or chills. He has continued to take his ARB (Cozaar) and has n ot been taking nonsteroidals. PAST MEDICAL HISTORY: Includes known 1. Hepatitis C. 2. History of cirrhosis. 3. History of diabetes. 4. History of alcohol abuse. SOCIAL HISTORY: He does smoke. MEDICATIONS: Prior to admission 1. Losartan 100. 2. Lasix 40. 3. Colace 100 b.i.d. 4. Protonix 40. 5. Lantus 20 units in the morning. 6. Short-acting insulin 33 units before meals. PHYSICAL EXAMINATION: GENERAL: Revealed a chronically ill male. VITAL SIGNS: BP 116/77, respirations were 18. He was afebrile. O2 sat was 100% on room air. NECK: No JVD. LUNGS: Reduced breath sounds. HEART: Rhythm regular I to II/ systolic murmur. No third or fourth sound. ABDOMEN: Distended, ascites present. Organomegaly was not appreciated. There was no tenderness or masses. EXTREMITIES: Revealed no edema. LABORATORY AND DIAGNOSTIC STUDIES: Urinalysis was unrevealing. Urine sodium was 20. Electrolytes were unrevealing except for CO2 of 17, BUN 97, creatinine 2.83. Ammonia level was normal. Hematocr it 39.8, white count 7200, platelet count 92,000. IMPRESSION: 1. Mild worsening of his underlying chronic renal insufficiency secondary to probably intravascular volume contraction, continued third spacing, and his ARB may be contributing. 2. Underlying chronic renal insufficiency, probably related to arteriolar and hypertensive nephrosc lerosis as his urinalysis is unrevealing for proteinuria. PLAN: Obtain protein creatinine ratio, change his IV to hypotonic fluid with bicarbonate added, be sure there is no post-bladder obstruction, proceed with biopsy of this liver mass as soon as [place]. Of course, we will follow with you. Dictated By: PARI SHANE/RAFAEL Conf#: [id number] DID#: [id number]
[2016-08-05 05:19] LABS: CHOL/HDL RATIO 5.3 RATIO
[2016-08-05 05:47] LABS: THYROID STIMULATING HORMONE 2.67 MIU/L (0.465-4.680)
[2016-08-05] MEDS: PANTOPRAZOLE (EC) 40 MG TAB PO SCH (06:14)
[2016-08-05 06:38] LABS: POTASSIUM 4.7 mmol/L (3.5-5.1)
[2016-08-05 06:41] LABS: CREATININE 2.77 mg/dl (0.61-1.24); PHOSPHORUS 4.9 mg/dl (2.5-4.9)
[2016-08-05 06:42] LABS: CALCIUM 7.8 mg/dl (8.4-10.2)
[2016-08-05 06:44] LABS: BASOPHILS % 0.2 % (0.0-2.0); EOSINOPHILS # 0.1 10^3/ul (0.0-0.5); EOSINOPHILS % 0.6 % (0.0-7.0); HEMATOCRIT 39.4 % (42.0-52.0); HEMOGLOBIN 13.5 g/dl (14.0-18.0); LYMPHOCYTES # 1.9 10^3/ul (0.8-2.9); LYMPHOCYTES % 19.8 % (15.0-51.0); MEAN CORPUSCULAR HEMOGLOBIN 29.9 pg (29.0-33.0); MEAN CORPUSCULAR HGB CONC 34.4 g/dl (32.0-37.0); MEAN CORPUSCULAR VOLUME 87.1 fl (82.0-101.0); MEAN PLATELET VOLUME 8.4 fl (7.4-10.4); MONOCYTE # 0.8 10^3/ul (0.3-0.9); MONOCYTES % 8.1 % (0.0-11.0); NEUTROPHIL # 6.7 10^3/ul (1.6-7.5); NEUTROPHILS % 71.3 % (39.0-77.0); PLATELET COUNT 99 10^3/UL (140-440); RED BLOOD COUNT 4.52 10^6/ul (4.70-6.10); RED CELL DISTRIBUTION WIDTH 15.3 % (11.5-14.5); UNCORRECTED WBC 9.5 10^3/ul (4.8-10.8); WHITE BLOOD COUNT 9.5 10^3/ul (4.8-10.8)
[2016-08-05 07:10] LABS: CONDITION 1; LH ANALYZER COMMENTS 1
[2016-08-05 08:19] VITALS: BP 98/59; RESP 17
[2016-08-05] MEDS: GABAPENTIN 100 MG CAP PO SCH ×3 (08:35→20:31)
[2016-08-05] MEDS: INSULIN GLARGINE [LANtus] 3 ML PEN SC SCH (08:38)
[2016-08-05] MEDS ORDERED: LOSARTAN 50 MG TAB PO SCH (09:00)
--- NOTE | 2016-08-05 10:41 | PN ---
Date/Time of Note Date/Time of Note DATE: 08/05/16 TIME: 10:41 Assessment/Plan VTE Prophylaxis VTE Prophylaxis Intervention: SCD's Lines/Catheters IV [facility]ter Type [facility]from [facility] Peripheral IV Urinary Cath still in place: Yes Reason Cath still needed: urinary retention Assessment/Plan Chief Complaint/Hosp Course ASSESSMENT AND PLAN: 61-year-old male who comes in with weakness and diarrhea with a past history of cirrhosis and alcohol abuse, and questionable hepatocellular carcinoma and possible cancer metastasis. 1. Weakness and diarrhea. The patient had this presentation last time when he was here back in late June. He was seen by hematology/oncology, renal team, GI team and general surgery team at that time. A - continue IV fluids 1/2 NS w/ bicarb for now given his renal insufficiency and his weakness, f/u ABG - loperamide for now for any diarrhea symptoms. - however, f/u stool studies as well. 2. Renal insufficiency appears to be acute on chronic. His baseline creatinine appears to be in the 2.7 to 2.8 range. On admission it was 3.5., but down today to 2.7 - Again, cautious IV fluids. - f/u renal consult rec's 3. History of cirrhosis. He does have some ascites presently. - continue Aldactone, hold his Lasix given his renal insufficiency. - Consider a paracentesis and check the fluid for studies to rule out like spontaneous bacterial peritonitis, although low in clinical indication at this point. - Low sodium diet. 4. Type 2 diabetes - A1c = 7.1 - continue sliding scale insulin, Lantus. 5. Liver and lung masses. Again, last time his AFP and CA-125 levels were elevated. General surgery team and hematology/oncology team saw him last time, and he was supposed to undergo a liver biopsy which was scheduled as an outpatient. It is unclear if his underlying potential cancer could be contributing to his current condition. - f/u hematology/oncology and general surgery team rec's, will consider ordering again liver biopsy 6. Thrombocytopenia secondary to liver disease. No signs of any bleeding. - Continue to monitor for now. Hold anticoagulants. 7. History of alcohol use and hepatitis C in the past with cirrhosis. Again, continue Aldactone, holding Lasix for now. Monitor liver function tests. 8. Gastrointestinal prophylaxis: Proton pump inhibitor. 9. Deep venous thrombosis prophylaxis: Sequential compression devices. Consider PT consultation. Problems: Subjective 24 Hr Interval Summary Free Text/Dictation More alert, aweaiting stool tests, seen by renal team, awaiting ABG as well. Exam/Review of Systems Vital Signs Vitals Vital Signs Date Time Temp Pulse Resp B/P Pulse Ox O2 Delivery O2 Flow Rate FiO2 08/05/16 08:19 97.9 75 17 98/59 95 08/04/16 18:00 Room Air Intake and Output 08/04/16 08/04/16 08/05/16 15:00 23:00 07:00 Intake Total 760 ml Output Total 450 ml Balance 310 ml Exam GENERAL: The patient is lying in bed, answering questions appropriately, slightly cranky but otherwise alert. HEENT: Pupils equal, round, react to light. Extraocular muscles intact. NECK: Supple, no thyromegaly. LUNGS: Clear to auscultation bilaterally. CARDIOVASCULAR: S1, S2 heard. No rubs or gallops. ABDOMEN: Slightly distended but otherwise soft. Normal bowel sounds. No rebound or guarding. MUSCULOSKELETAL: No lower extremity edema bilaterally. NEUROLOGIC: No focal deficits. Results Result Diagram: 08/05/16 0433 08/05/16 0433 Results 24 hrs Laboratory Tests Test 08/04/16 12:00 08/04/16 12:40 08/04/16 18:25 08/04/16 19:15 Ethyl Alcohol Level < 10.0 Free Thyroxine 1.78 Urine Amphetamines Screen Negative Urine Barbiturates Negative Urine Benzodiazepines Screen Negative Urine Bilirubin NEGATIVE Urine Cannabinoids Negative Urine Clarity CLEAR Urine Cocaine Screen Negative Urine Color LT. YELLOW Urine Glucose NEGATIVE Urine Hemoglobin NEGATIVE Urine Ketones NEGATIVE Urine Leukocyte Esterase NEGATIVE Urine Nitrite NEGATIVE Urine Opiates Screen Negative Urine Protein/Creatinine Ratio Urine Random Creatinine 53.98 Urine Random Sodium 20 L Urine Specific [place] 1.015 Urine Total Protein Urine Urobilinogen 0.2 E.U./dL Urine pH 5.0 Bedside Glucose 141 Magnesium Level 3.1 H Phosphorus Level 4.8 Test 08/04/16 21:10 08/05/16 02:21 08/05/16 04:33 08/05/16 05:27 Bedside Glucose 139 113 110 Anion Gap 18 H Basophils # 0.0 Basophils % 0.2 Blood Morphology Comment Blood Urea Nitrogen 94 H Calcium Level 7.8 L Carbon Dioxide Level 13 L Chloride Level 108 Cholesterol Level 113 Cholesterol/HDL Ratio 5.3 Creatinine 2.77 H Eosinophils # 0.1 Eosinophils % 0.6 Glucose Level 108 HDL Cholesterol 21 L Hematocrit 39.4 L Hemoglobin 13.5 L Hemoglobin A1c 7.1 H LDL Cholesterol, Calculated 54 Lymphocytes # 1.9 Lymphocytes % 19.8 Magnesium Level 3.0 H Mean Corpuscular Hemoglobin 29.9 Mean Corpuscular Hemoglobin Concent 34.4 Mean Corpuscular Volume 87.1 Mean Platelet Volume 8.4 Monocytes # 0.8 Monocytes % 8.1 Neutrophils # 6.7 Neutrophils % 71.3 Nucleated Red Blood Cells # 0.0 Nucleated Red Blood Cells % 0.0 Phosphorus Level 4.9 Platelet Count 99 L Potassium Level 4.7 Red Blood Count 4.52 L Red Cell Distribution Width 15.3 H Sodium Level 134 L Thyroid Stimulating Hormone (TSH) 2.670 Triglycerides Level 192 H White Blood Count 9.5 # Test 08/05/16 08:34 Bedside Glucose 141 Medications Medications Current Medications Ondansetron HCl (Zofran Inj) 4 mg Q6H PRN IV NAUSEA AND/OR VOMITING; Start at 14:00 Acetaminophen (Tylenol Tab) 650 mg Q6H PRN PO PAIN LEVEL 1-3 OR FEVER; Start at 14:00 Acetaminophen/ Hydrocodone Bitart ([place] (5/325)) 1 tab Q6H PRN PO MODERATE PAIN LEVEL 4-6; Start 08/04/16 at 14:00 Morphine Sulfate (morphine) 2 mg Q4H PRN IV SEVERE PAIN LEVEL 7-10; Start 08/04 at 14:00 Docusate Sodium (Colace) 100 mg Q12H PRN PO CONSTIPATION; Start 08/04/16 at 14: 00 Magnesium Hydroxide (Milk Of Mag) 30 ml DAILY PRN PO CONSTIPATION; Start at 14:00 Sodium Biphosphate/ Sodium Phosphate (Fleet Enema) 133 ml DAILY PRN [place] CONSTIPATION; Start 08/04/16 at 14:00 Lorazepam (Ativan) 0.5 mg Q6H PRN IV ANXIETY; Start 08/04/16 at 14:00 Hydralazine HCl (Apresoline) 10 mg Q6H PRN IV ELEVATED BLOOD PRESSURE; Start at 14:00 Nitroglycerin (Nitroglycerin (Sl Tab) 0.4 Mg) 1 tab Q5M PRN SL ANGINA; Start at 14:00 Insulin Glargine (Lantus) 20 unit QAM SC Last administered on 08/05/16 08:38; Admin Dose 20 UNIT; Start 08/05/16 at 09:00 Pantoprazole (Protonix Tab) 40 mg DAILY@06 PO Last administered on 08/05/16 06 :14; Admin Dose 40 MG; Start 08/05/16 at 06:00 Insulin Aspart (Novolog Insulin Pen) NOVOLOG *MILD* ALGORI... Q4 SC Last administered on 08/05/16 08:47; Admin Dose 1 UNIT; Start 08/04/16 at 17:00 Miscellaneous Information 1 ea NOTE XX ; Start 08/04/16 at 14:30 Glucose (Glutose) 15 gm Q15M PRN PO DECREASED GLUCOSE; Start 08/04/16 at 14:30 Glucose (Glutose) 22.5 gm Q15M PRN PO DECREASED GLUCOSE; Start 08/04/16 at 14: 30 Dextrose (D50w Syringe) 25 ml Q15M PRN IV DECREASED GLUCOSE; Start 08/04/16 at 14:30 Dextrose (D50w Syringe) 50 ml Q15M PRN IV DECREASED GLUCOSE; Start 08/04/16 at 14:30 Glucagon (Glucagen) 1 mg Q15M PRN IM DECREASED GLUCOSE; Start 08/04/16 at 14:30 Glucose (Glutose) 15 gm Q15M PRN BUCCAL DECREASED GLUCOSE; Start 08/04/16 at 14 :30 Loperamide HCl (Imodium Cap) 2 mg QID PRN PO DIARRHEA; Start 08/04/16 at 15:00 Gabapentin 200 mg 200 mg TID PO Last administered on 08/05/16 08:35; Admin Dose 200 MG; Start 08/04/16 at 21:00 Sodium Bicarbonate/ Sodium Chloride (Na Bicarb/1/2 NS) 1,000 ml @ 80 mls/hr [id number] IV Last administered on 08/05/16 02:57; Admin Dose 80 MLS/HR; Start at 02:30 AMADOR MONGE Aug 05, 2016 10:41
--- NOTE | 2016-08-05 11:44 | CONS ---
Date/Time of Note Date/Time of Note DATE: 08/05/16 TIME: 11:42 Assessment/Plan Assessment/Plan Additional Assessment/Plan 1. CKD, stable 2. Low bicarb, ABG ordered 3. GI note rev, ?? repeat paracentesis for cytology, liver bx or other to make dx Consultation Date/Type/Reason Admit Date/Time Aug 04, 2016 at 13:11 Initial Consult Date Detailed Summary Respiratory: No cough, No shortness of breath Cardiovascular: chest pain Gastrointestinal: other (bloated without n or v) Genitourinary: other (foleyh in place, residual >400 cc) Exam/Review of Systems Vital Signs Vitals Vital Signs Date Time Temp Pulse Resp B/P Pulse Ox O2 Delivery O2 Flow Rate FiO2 08/05/16 08:19 97.9 75 17 98/59 95 08/04/16 18:00 Room Air Intake and Output 08/04/16 08/04/16 08/05/16 15:00 23:00 07:00 Intake Total 760 ml Output Total 450 ml Balance 310 ml Exam Neck: non-tender, No jvd Respiratory: clear to auscultation Cardiovascular: regular rate and rhythm Gastrointestinal: distended, No tender Extremities: No edema Results Result Diagram: 08/05/16 0433 08/05/16 0433 Results 24 hrs Laboratory Tests Test 08/04/16 12:00 08/04/16 12:40 08/04/16 18:25 08/04/16 19:15 Ethyl Alcohol Level < 10.0 Free Thyroxine 1.78 Urine Amphetamines Screen Negative Urine Barbiturates Negative Urine Benzodiazepines Screen Negative Urine Bilirubin NEGATIVE Urine Cannabinoids Negative Urine Clarity CLEAR Urine Cocaine Screen Negative Urine Color LT. YELLOW Urine Glucose NEGATIVE Urine Hemoglobin NEGATIVE Urine Ketones NEGATIVE Urine Leukocyte Esterase NEGATIVE Urine Nitrite NEGATIVE Urine Opiates Screen Negative Urine Protein/Creatinine Ratio Urine Random Creatinine 53.98 Urine Random Sodium 20 L Urine Specific [place] 1.015 Urine Total Protein Urine Urobilinogen 0.2 E.U./dL Urine pH 5.0 Bedside Glucose 141 Magnesium Level 3.1 H Phosphorus Level 4.8 Test 08/04/16 21:10 08/05/16 02:21 08/05/16 04:33 08/05/16 05:27 Bedside Glucose 139 113 110 Anion Gap 18 H Basophils # 0.0 Basophils % 0.2 Blood Morphology Comment Blood Urea Nitrogen 94 H Calcium Level 7.8 L Carbon Dioxide Level 13 L Chloride Level 108 Cholesterol Level 113 Cholesterol/HDL Ratio 5.3 Creatinine 2.77 H Eosinophils # 0.1 Eosinophils % 0.6 Glucose Level 108 HDL Cholesterol 21 L Hematocrit 39.4 L Hemoglobin 13.5 L Hemoglobin A1c 7.1 H LDL Cholesterol, Calculated 54 Lymphocytes # 1.9 Lymphocytes % 19.8 Magnesium Level 3.0 H Mean Corpuscular Hemoglobin 29.9 Mean Corpuscular Hemoglobin Concent 34.4 Mean Corpuscular Volume 87.1 Mean Platelet Volume 8.4 Monocytes # 0.8 Monocytes % 8.1 Neutrophils # 6.7 Neutrophils % 71.3 Nucleated Red Blood Cells # 0.0 Nucleated Red Blood Cells % 0.0 Phosphorus Level 4.9 Platelet Count 99 L Potassium Level 4.7 Red Blood Count 4.52 L Red Cell Distribution Width 15.3 H Sodium Level 134 L Thyroid Stimulating Hormone (TSH) 2.670 Triglycerides Level 192 H White Blood Count 9.5 # Test 08/05/16 08:34 Bedside Glucose 141 Medications Medications Current Medications Ondansetron HCl (Zofran Inj) 4 mg Q6H PRN IV NAUSEA AND/OR VOMITING; Start at 14:00 Acetaminophen (Tylenol Tab) 650 mg Q6H PRN PO PAIN LEVEL 1-3 OR FEVER; Start at 14:00 Acetaminophen/ Hydrocodone Bitart ([place] (5/325)) 1 tab Q6H PRN PO MODERATE PAIN LEVEL 4-6; Start 08/04/16 at 14:00 Morphine Sulfate (morphine) 2 mg Q4H PRN IV SEVERE PAIN LEVEL 7-10; Start 08/04 at 14:00 Docusate Sodium (Colace) 100 mg Q12H PRN PO CONSTIPATION; Start 08/04/16 at 14: 00 Magnesium Hydroxide (Milk Of Mag) 30 ml DAILY PRN PO CONSTIPATION; Start at 14:00 Sodium Biphosphate/ Sodium Phosphate (Fleet Enema) [address] CONSTIPATION; Start 08/04/16 at 14:00 Lorazepam (Ativan) 0.5 mg Q6H PRN IV ANXIETY; Start 08/04/16 at 14:00 Hydralazine HCl (Apresoline) 10 mg Q6H PRN IV ELEVATED BLOOD PRESSURE; Start at 14:00 Nitroglycerin (Nitroglycerin (Sl Tab) 0.4 Mg) 1 tab Q5M PRN SL ANGINA; Start at 14:00 Insulin Glargine (Lantus) 20 unit QAM SC Last administered on 08/05/16 08:38; Admin Dose 20 UNIT; Start 08/05/16 at 09:00 Pantoprazole (Protonix Tab) 40 mg DAILY@06 PO Last administered on 08/05/16 06 :14; Admin Dose 40 MG; Start 08/05/16 at 06:00 Insulin Aspart (Novolog Insulin Pen) NOVOLOG *MILD* ALGORI... Q4 SC Last administered on 08/05/16 08:47; Admin Dose 1 UNIT; Start 08/04/16 at 17:00 Miscellaneous Information 1 ea NOTE XX ; Start 08/04/16 at 14:30 Glucose (Glutose) 15 gm Q15M PRN PO DECREASED GLUCOSE; Start 08/04/16 at 14:30 Glucose (Glutose) 22.5 gm Q15M PRN PO DECREASED GLUCOSE; Start 08/04/16 at 14: 30 Dextrose (D50w Syringe) 25 ml Q15M PRN IV DECREASED GLUCOSE; Start 08/04/16 at 14:30 Dextrose (D50w Syringe) 50 ml Q15M PRN IV DECREASED GLUCOSE; Start 08/04/16 at 14:30 Glucagon (Glucagen) 1 mg Q15M PRN IM DECREASED GLUCOSE; Start 08/04/16 at 14:30 Glucose (Glutose) 15 gm Q15M PRN BUCCAL DECREASED GLUCOSE; Start 08/04/16 at 14 :30 Loperamide HCl (Imodium Cap) 2 mg QID PRN PO DIARRHEA; Start 08/04/16 at 15:00 Gabapentin 200 mg 200 mg TID PO Last administered on 08/05/16 08:35; Admin Dose 200 MG; Start 08/04/16 at 21:00 Sodium Bicarbonate/ Sodium Chloride (Na Bicarb/1/2 NS) 1,000 ml @ 80 mls/hr [id number] IV Last administered on 08/05/16 02:57; Admin Dose 80 MLS/HR; Start at 02:30 PARI SIEGEL MD Aug 05, 2016 11:44
--- NOTE | 2016-08-05 13:15 | CONS ---
Date/Time of Note Date/Time of Note DATE: 08/05/16 TIME: 13:02 Assessment/Plan Assessment/Plan Problems: (1) Liver mass Comment: concerning for HCC with slight high AFP. ascitic fluid tap and cytology to start with and if nondiagnostic consider liver biopsy if safe,. Will sign out to Dr machuca to determine best course for tissue diagnosis. May need palliative care involved because of multiple comorbid issues and deteriorating PS. (2) Lesion of lung Comment: multiple nodules concerning for mets. if liver lesion cannot be biopsied and if no ascitic fluid cytology available then consider lung lesions for tissue dx. (3) Thrombocytopenia Comment: secondary to liver failure, no intervention unless needed for a procedure. (4) Liver cirrhosis Status: Acute Comment: secondary to Hepatitis Qualifiers: Qualified Code: K74.60 - Cirrhosis of liver with ascites, unspecified hepatic cirrhosis type (5) Acute on chronic renal failure Status: Acute Comment: baseline creat around 2.7 and has been hydrated overnight with improvement. Consultation Date/Type/Reason Admit Date/Time Aug 04, 2016 at 13:11 Date of Consultation: Aug 05, 2016 Type of Consultation: Heme/Onc Reason for Consultation workup for malignancy Referring Provider: AMADOR MONGE of Present Illness Patient 61 y/o transferred from outside hospital for diarrhea, weakness, fatigue and renal failure. Was seen at [facility] and transferred 3 weeks ago with liver mass, LAD and lung nodules concerning for metastatic disease. Imaging studies are limited with no contrast possible because of renal failure. -He has underlying cirrhosis with Hep b/C. Tumor markers ca 125 high at 750s, normal CEA, pSA, unremarkable ca 19-9 but high AFP at 36. -Outpatient liver/lung biopsy was planned for tissue diagnosis but was not done. Constitutional: poor po, requiring IVF ENT: no complaints Respiratory: shortness of breath, No cough Cardiovascular: chest pain Gastrointestinal: decreased appetite, diarrhea, nausea, other (bloated without n or v) Genitourinary: other (foleyh in place, residual >400 cc) Musculoskeletal: back pain Neurologic: dizziness Psychological: anxiety Past Medical History psoriasis Medical History: hepatitis, renal disease Past Surgical History Past Surgical Hx: no surgical history, noncontributory Family History Significant Family History: diabetes Social History Smoking Status: Current every day smoker Exam/Review of Systems Vital Signs Vitals Vital Signs Date Time Temp Pulse Resp B/P Pulse Ox O2 Delivery O2 Flow Rate FiO2 08/05/16 08:19 97.9 75 17 98/59 95 08/04/16 18:00 Room Air Intake and Output 08/04/16 08/04/16 08/05/16 15:00 23:00 07:00 Intake Total 760 ml Output Total 450 ml Balance 310 ml Exam pallor, no icterus Constitutional: frail, oriented Psych: anxiety Neck: supple Respiratory: diminished breath sounds Cardiovascular: regular rate and rhythm Gastrointestinal: ascites, distended Extremities: edema Results Result Diagram: 08/05/16 0433 08/05/16 0433 Results 24 hrs Laboratory Tests Test 08/04/16 18:25 08/04/16 19:15 08/04/16 21:10 08/05/16 02:21 Bedside Glucose 141 139 113 Magnesium Level 3.1 H Phosphorus Level 4.8 Test 08/05/16 04:33 08/05/16 05:27 08/05/16 08:34 08/05/16 12:47 Anion Gap 18 H Basophils # 0.0 Basophils % 0.2 Blood Morphology Comment Blood Urea Nitrogen 94 H Calcium Level 7.8 L Carbon Dioxide Level 13 L Chloride Level 108 Cholesterol Level 113 Cholesterol/HDL Ratio 5.3 Creatinine 2.77 H Eosinophils # 0.1 Eosinophils % 0.6 Glucose Level 108 HDL Cholesterol 21 L Hematocrit 39.4 L Hemoglobin 13.5 L Hemoglobin A1c 7.1 H LDL Cholesterol, Calculated 54 Lymphocytes # 1.9 Lymphocytes % 19.8 Magnesium Level 3.0 H Mean Corpuscular Hemoglobin 29.9 Mean Corpuscular Hemoglobin Concent 34.4 Mean Corpuscular Volume 87.1 Mean Platelet Volume 8.4 Monocytes # 0.8 Monocytes % 8.1 Neutrophils # 6.7 Neutrophils % 71.3 Nucleated Red Blood Cells # 0.0 Nucleated Red Blood Cells % 0.0 Phosphorus Level 4.9 Platelet Count 99 L Potassium Level 4.7 Red Blood Count 4.52 L Red Cell Distribution Width 15.3 H Sodium Level 134 L Thyroid Stimulating Hormone (TSH) 2.670 Triglycerides Level 192 H White Blood Count 9.5 # Bedside Glucose 110 141 200 Medications Medications Current Medications Ondansetron HCl (Zofran Inj) 4 mg Q6H PRN IV NAUSEA AND/OR VOMITING; Start at 14:00 Acetaminophen (Tylenol Tab) 650 mg Q6H PRN PO PAIN LEVEL 1-3 OR FEVER; Start at 14:00 Acetaminophen/ Hydrocodone Bitart ([place] (5/325)) 1 tab Q6H PRN PO MODERATE PAIN LEVEL 4-6; Start 08/04/16 at 14:00 Morphine Sulfate (morphine) 2 mg Q4H PRN IV SEVERE PAIN LEVEL 7-10; Start 08/04 at 14:00 Docusate Sodium (Colace) 100 mg Q12H PRN PO CONSTIPATION; Start 08/04/16 at 14: 00 Magnesium Hydroxide (Milk Of Mag) 30 ml DAILY PRN PO CONSTIPATION; Start at 14:00 Sodium Biphosphate/ Sodium Phosphate (Fleet Enema) [address] CONSTIPATION; Start 08/04/16 at 14:00 Lorazepam (Ativan) 0.5 mg Q6H PRN IV ANXIETY; Start 08/04/16 at 14:00 Hydralazine HCl (Apresoline) 10 mg Q6H PRN IV ELEVATED BLOOD PRESSURE; Start at 14:00 Nitroglycerin (Nitroglycerin (Sl Tab) 0.4 Mg) 1 tab Q5M PRN SL ANGINA; Start at 14:00 Insulin Glargine (Lantus) 20 unit QAM SC Last administered on 08/05/16 08:38; Admin Dose 20 UNIT; Start 08/05/16 at 09:00 Pantoprazole (Protonix Tab) 40 mg DAILY@06 PO Last administered on 08/05/16 06 :14; Admin Dose 40 MG; Start 08/05/16 at 06:00 Insulin Aspart (Novolog Insulin Pen) NOVOLOG *MILD* ALGORI... Q4 SC Last administered on 08/05/16 13:01; Admin Dose 2 UNIT; Start 08/04/16 at 17:00 Miscellaneous Information 1 ea NOTE XX ; Start 08/04/16 at 14:30 Glucose (Glutose) 15 gm Q15M PRN PO DECREASED GLUCOSE; Start 08/04/16 at 14:30 Glucose (Glutose) 22.5 gm Q15M PRN PO DECREASED GLUCOSE; Start 08/04/16 at 14: 30 Dextrose (D50w Syringe) 25 ml Q15M PRN IV DECREASED GLUCOSE; Start 08/04/16 at 14:30 Dextrose (D50w Syringe) 50 ml Q15M PRN IV DECREASED GLUCOSE; Start 08/04/16 at 14:30 Glucagon (Glucagen) 1 mg Q15M PRN IM DECREASED GLUCOSE; Start 08/04/16 at 14:30 Glucose (Glutose) 15 gm Q15M PRN BUCCAL DECREASED GLUCOSE; Start 08/04/16 at 14 :30 Loperamide HCl (Imodium Cap) 2 mg QID PRN PO DIARRHEA; Start 08/04/16 at 15:00 Gabapentin 200 mg 200 mg TID PO Last administered on 08/05/16 12:48; Admin Dose 200 MG; Start 08/04/16 at 21:00 Sodium Bicarbonate/ Sodium Chloride (Na Bicarb/1/2 NS) 1,000 ml @ 80 mls/hr [id number] IV Last administered on 08/05/16 02:57; Admin Dose 80 MLS/HR; Start at 02:30 DEACON TENORIO MD Aug 05, 2016 13:13
[2016-08-05 14:28] LABS: AADO2 Arterial 47.3 mmHg (7.0-24.0); Arterial Base Excess -9.4 mmol/L (-3.0-3); Arterial COHb 0.7 % (0.0-3.0); Arterial Fraction of Oxyhgb 93.3 % (93.0-99.0); Arterial HCO3 14.2 mmol/L (22.0-26.0); Arterial MetHb 0.5 % (0.0-1.5); Arterial Total Hemglobin 14.8 g/dl (12.0-18.0); MODE ROOM AIR
--- NOTE | 2016-08-05 15:26 | CONS ---
Date/Time of Note Date/Time of Note DATE: 08/05/16 TIME: 15:24 Assessment/Plan Assessment/Plan Chief Complaint/Hosp Course Impression: 1. History of hepatitis C and perhaps hepatitis B. 2. 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 Likely metastatic HCC 4. Stage IV chronic kidney disease. 5. Diarrhea 6. Squamous cell carcinoma of the skin previously. 7. Plaque psoriasis. 8. Above-mentioned history of alcohol abuse (potential). 9. Status post inguinal hernia repair. 10. Status post multiple skin grafts. Recommendations: 1. ascitic fluid tap and cytology to start with and if nondiagnostic consider liver biopsy per Dr. Ohara and heme/onc consultants 2. As it is likely metastatic HCC, will defer to heme/onc whether palliative care eval is appropriate 3. f/u stool studies for diarrhea 4. will follow along Problems: Consultation Date/Type/Reason Admit Date/Time Aug 04, 2016 at 13:11 Initial Consult Date 08/05/16 Type of Consultation: GI Referring Provider: AMADOR MONGE 24 HR Interval Summary Free Text/Dictation no n/v, tolerating po Exam/Review of Systems Vital Signs Vitals Vital Signs Date Time Temp Pulse Resp B/P Pulse Ox O2 Delivery O2 Flow Rate FiO2 08/05/16 08:19 97.9 75 17 98/59 95 08/04/16 18:00 Room Air Intake and Output 08/04/16 08/04/16 08/05/16 15:00 23:00 07:00 Intake Total 760 ml Output Total 450 ml Balance 310 ml Exam Constitutional: alert, frail, oriented Psych: nl mood/affect, no complaints Head: atraumatic, normocephalic Eyes: EOMI, nl conjunctiva, nl lids, nl sclera ENMT: mucosa pink and moist, nl external ears & nose, nl lips & teeth, nl nasal mucosa & septum Neck: non-tender, supple Respiratory: clear to auscultation, normal air movement Cardiovascular: nl pulses, regular rate and rhythm Gastrointestinal: ascites, bowel sounds, soft Results Result Diagram: 08/05/16 0433 08/05/16 0433 Results 24 hrs Laboratory Tests Test 08/04/16 18:25 08/04/16 19:15 08/04/16 21:10 08/05/16 02:21 Bedside Glucose 141 139 113 Magnesium Level 3.1 H Phosphorus Level 4.8 Test 08/05/16 04:33 08/05/16 05:27 08/05/16 08:34 08/05/16 12:47 Anion Gap 18 H Basophils # 0.0 Basophils % 0.2 Blood Morphology Comment Blood Urea Nitrogen 94 H Calcium Level 7.8 L Carbon Dioxide Level 13 L Chloride Level 108 Cholesterol Level 113 Cholesterol/HDL Ratio 5.3 Creatinine 2.77 H Eosinophils # 0.1 Eosinophils % 0.6 Glucose Level 108 HDL Cholesterol 21 L Hematocrit 39.4 L Hemoglobin 13.5 L Hemoglobin A1c 7.1 H LDL Cholesterol, Calculated 54 Lymphocytes # 1.9 Lymphocytes % 19.8 Magnesium Level 3.0 H Mean Corpuscular Hemoglobin 29.9 Mean Corpuscular Hemoglobin Concent 34.4 Mean Corpuscular Volume 87.1 Mean Platelet Volume 8.4 Monocytes # 0.8 Monocytes % 8.1 Neutrophils # 6.7 Neutrophils % 71.3 Nucleated Red Blood Cells # 0.0 Nucleated Red Blood Cells % 0.0 Phosphorus Level 4.9 Platelet Count 99 L Potassium Level 4.7 Red Blood Count 4.52 L Red Cell Distribution Width 15.3 H Sodium Level 134 L Thyroid Stimulating Hormone (TSH) 2.670 Triglycerides Level 192 H White Blood Count 9.5 # Bedside Glucose 110 141 200 Test 08/05/16 13:00 Arterial Blood HCO3 14.2 L Arterial Blood Base Excess -9.4 L Arterial Blood Oxygen Saturation 94.4 L Sanjeev Test N/A Arterial Blood Gas Puncture Site LB Arterial Blood Carboxyhemoglobin 0.7 Arterial Blood Date Drawn 08/05/2016 2:22:05 PM Arterial Blood Methemoglobin 0.5 Arterial Blood pCO2 (Temp correct) 26.1 L Arterial Blood pH (Temp corrected) 7.355 Arterial Blood pO2 (Temp corrected) 71.2 L Blood Gas A-a O2 Differential 47.3 H Blood Gas Modality ROOM AIR Blood Gas Notified Time 08/05/2016 2:28:08 PM Blood Gas Notified Whom ab Blood Gas Specimen Source Blood arterial Blood Gas Temperature 37.0 FiO2 21.0 Oxyhemoglobin Percent 93.3 Total Hemoglobin 14.8 Medications Medications Current Medications Ondansetron HCl (Zofran Inj) 4 mg Q6H PRN IV NAUSEA AND/OR VOMITING; Start at 14:00 Acetaminophen (Tylenol Tab) 650 mg Q6H PRN PO PAIN LEVEL 1-3 OR FEVER; Start at 14:00 Acetaminophen/ Hydrocodone Bitart ([place] (5/325)) 1 tab Q6H PRN PO MODERATE PAIN LEVEL 4-6; Start 08/04/16 at 14:00 Morphine Sulfate (morphine) 2 mg Q4H PRN IV SEVERE PAIN LEVEL 7-10; Start 08/04 at 14:00 Docusate Sodium (Colace) 100 mg Q12H PRN PO CONSTIPATION; Start 08/04/16 at 14: 00 Magnesium Hydroxide (Milk Of Mag) 30 ml DAILY PRN PO CONSTIPATION; Start at 14:00 Sodium Biphosphate/ Sodium Phosphate (Fleet Enema) 133 ml DAILY PRN [place] CONSTIPATION; Start 08/04/16 at 14:00 Lorazepam (Ativan) 0.5 mg Q6H PRN IV ANXIETY; Start 08/04/16 at 14:00 Hydralazine HCl (Apresoline) 10 mg Q6H PRN IV ELEVATED BLOOD PRESSURE; Start at 14:00 Nitroglycerin (Nitroglycerin (Sl Tab) 0.4 Mg) 1 tab Q5M PRN SL ANGINA; Start at 14:00 Insulin Glargine (Lantus) 20 unit QAM SC Last administered on 08/05/16 08:38; Admin Dose 20 UNIT; Start 08/05/16 at 09:00 Pantoprazole (Protonix Tab) 40 mg DAILY@06 PO Last administered on 08/05/16 06 :14; Admin Dose 40 MG; Start 08/05/16 at 06:00 Insulin Aspart (Novolog Insulin Pen) NOVOLOG *MILD* ALGORI... Q4 SC Last administered on 08/05/16 13:01; Admin Dose 2 UNIT; Start 08/04/16 at 17:00 Miscellaneous Information 1 ea NOTE XX ; Start 08/04/16 at 14:30 Glucose (Glutose) 15 gm Q15M PRN PO DECREASED GLUCOSE; Start 08/04/16 at 14:30 Glucose (Glutose) 22.5 gm Q15M PRN PO DECREASED GLUCOSE; Start 08/04/16 at 14: 30 Dextrose (D50w Syringe) 25 ml Q15M PRN IV DECREASED GLUCOSE; Start 08/04/16 at 14:30 Dextrose (D50w Syringe) 50 ml Q15M PRN IV DECREASED GLUCOSE; Start 08/04/16 at 14:30 Glucagon (Glucagen) 1 mg Q15M PRN IM DECREASED GLUCOSE; Start 08/04/16 at 14:30 Glucose (Glutose) 15 gm Q15M PRN BUCCAL DECREASED GLUCOSE; Start 08/04/16 at 14 :30 Loperamide HCl (Imodium Cap) 2 mg QID PRN PO DIARRHEA; Start 08/04/16 at 15:00 Gabapentin 200 mg 200 mg TID PO Last administered on 08/05/16 12:48; Admin Dose 200 MG; Start 08/04/16 at 21:00 Sodium Bicarbonate/ Sodium Chloride (Na Bicarb/1/2 NS) 1,000 ml @ 80 mls/hr [id number] IV Last administered on 08/05/16 02:57; Admin Dose 80 MLS/HR; Start at 02:30 ROMELIA MONTOYA MD Aug 05, 2016 15:26
[2016-08-05 20:39] VITALS: BP 92/57; RESP 18
[2016-08-06] MEDS: INSULIN ASPART [NOVOLOG] 3 ML PEN SC SCH ×6 (01:00→21:00)
[2016-08-06] MEDS: SODIUM BICARBONATE (IV ADD) 50 MEQ in SOD CHLORIDE 0.45% 950 ML IV SCH ×2 (03:30→04:28)
[2016-08-06] MEDS: PANTOPRAZOLE (EC) 40 MG TAB PO SCH (04:30)
[2016-08-06 05:47] LABS: INR 1.16; PROTIME 14.9 Sec (12.2-14.2); PT RATIO 1.2
--- NOTE | 2016-08-06 05:55 | CONS ---
Date/Time of Note Date/Time of Note DATE: 08/06/16 TIME: 05:52 Assessment/Plan Assessment/Plan Chief Complaint/Hosp Course Impression: 1. History of hepatitis C and perhaps hepatitis B. 2. 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 Likely metastatic HCC 4. Stage IV chronic kidney disease. 5. Diarrhea 6. Squamous cell carcinoma of the skin previously. 7. Plaque psoriasis. 8. Above-mentioned history of alcohol abuse (potential). 9. Status post inguinal hernia repair. 10. Status post multiple skin grafts. Recommendations: 1. consider ascitic fluid tap and cytology and if nondiagnostic consider liver biopsy by Dr. Ohara if heme/onc consultants deem indicated 2. As it is likely metastatic HCC, will defer to heme/onc whether palliative care eval is appropriate 3. f/u stool studies for diarrhea 4. Dr. Hoffman to resume care tomorrow. Problems: Consultation Date/Type/Reason Admit Date/Time Aug 04, 2016 at 13:11 Initial Consult Date 08/05/16 Type of Consultation: GI Referring Provider: AMADOR MONGE 24 HR Interval Summary Free Text/Dictation resting peacefully, no overnight events, no n/v Exam/Review of Systems Vital Signs Vitals Vital Signs Date Time Temp Pulse Resp B/P Pulse Ox O2 Delivery O2 Flow Rate FiO2 08/05/16 20:39 97.6 77 18 92/57 98 08/04/16 18:00 Room Air Intake and Output 08/05/16 08/05/16 08/06/16 15:00 23:00 07:00 Intake Total 840 ml 560 ml 960 ml Output Total 600 ml Balance 840 ml -40 ml 960 ml Exam Constitutional: frail Psych: nl mood/affect, no complaints Head: atraumatic, normocephalic Eyes: EOMI, nl conjunctiva, nl lids, nl sclera ENMT: mucosa pink and moist, nl external ears & nose, nl lips & teeth, nl nasal mucosa & septum Neck: non-tender, supple Respiratory: clear to auscultation, normal air movement Cardiovascular: nl pulses, regular rate and rhythm Gastrointestinal: ascites, bowel sounds, soft Results Result Diagram: 08/05/16 0433 08/05/16 0433 Results 24 hrs Laboratory Tests Test 08/05/16 08:34 08/05/16 12:47 08/05/16 13:00 08/05/16 17:15 Bedside Glucose 141 200 191 Arterial Blood HCO3 14.2 L Arterial Blood Base Excess -9.4 L Arterial Blood Oxygen Saturation 94.4 L Sanjeev Test N/A Arterial Blood Gas Puncture Site LB Arterial Blood Carboxyhemoglobin 0.7 Arterial Blood Date Drawn 08/05/2016 2:22:05 PM Arterial Blood Methemoglobin 0.5 Arterial Blood pCO2 (Temp correct) 26.1 L Arterial Blood pH (Temp corrected) 7.355 Arterial Blood pO2 (Temp corrected) 71.2 L Blood Gas A-a O2 Differential 47.3 H Blood Gas Modality ROOM AIR Blood Gas Notified Time 08/05/2016 2:28:08 PM Blood Gas Notified Whom ab Blood Gas Specimen Source Blood arterial Blood Gas Temperature 37.0 FiO2 21.0 Oxyhemoglobin Percent 93.3 Total Hemoglobin 14.8 Test 08/05/16 20:29 08/06/16 00:54 08/06/16 04:31 08/06/16 04:34 Bedside Glucose 215 138 126 INR International Normalized Ratio 1.16 Prothrombin Time 14.9 H Prothrombin Time Ratio 1.2 Medications Medications Current Medications Ondansetron HCl (Zofran Inj) 4 mg Q6H PRN IV NAUSEA AND/OR VOMITING; Start at 14:00 Acetaminophen (Tylenol Tab) 650 mg Q6H PRN PO PAIN LEVEL 1-3 OR FEVER; Start at 14:00 Acetaminophen/ Hydrocodone Bitart ([place] (5/325)) 1 tab Q6H PRN PO MODERATE PAIN LEVEL 4-6; Start 08/04/16 at 14:00 Morphine Sulfate (morphine) 2 mg Q4H PRN IV SEVERE PAIN LEVEL 7-10; Start 08/04 at 14:00 Docusate Sodium (Colace) 100 mg Q12H PRN PO CONSTIPATION; Start 08/04/16 at 14: 00 Magnesium Hydroxide (Milk Of Mag) 30 ml DAILY PRN PO CONSTIPATION; Start at 14:00 Sodium Biphosphate/ Sodium Phosphate (Fleet Enema) 133 ml DAILY PRN [place] CONSTIPATION; Start 08/04/16 at 14:00 Lorazepam (Ativan) 0.5 mg Q6H PRN IV ANXIETY; Start 08/04/16 at 14:00 Hydralazine HCl (Apresoline) 10 mg Q6H PRN IV ELEVATED BLOOD PRESSURE; Start at 14:00 Nitroglycerin (Nitroglycerin (Sl Tab) 0.4 Mg) 1 tab Q5M PRN SL ANGINA; Start at 14:00 Insulin Glargine (Lantus) 20 unit QAM SC Last administered on 08/05/16 08:38; Admin Dose 20 UNIT; Start 08/05/16 at 09:00 Pantoprazole (Protonix Tab) 40 mg DAILY@06 PO Last administered on 08/06/16 04 :30; Admin Dose 40 MG; Start 08/05/16 at 06:00 Insulin Aspart (Novolog Insulin Pen) NOVOLOG *MILD* ALGORI... Q4 SC Last administered on 08/05/16 20:33; Admin Dose 2 UNIT; Start 08/04/16 at 17:00 Miscellaneous Information 1 ea NOTE XX ; Start 08/04/16 at 14:30 Glucose (Glutose) 15 gm Q15M PRN PO DECREASED GLUCOSE; Start 08/04/16 at 14:30 Glucose (Glutose) 22.5 gm Q15M PRN PO DECREASED GLUCOSE; Start 08/04/16 at 14: 30 Dextrose (D50w Syringe) 25 ml Q15M PRN IV DECREASED GLUCOSE; Start 08/04/16 at 14:30 Dextrose (D50w Syringe) 50 ml Q15M PRN IV DECREASED GLUCOSE; Start 08/04/16 at 14:30 Glucagon (Glucagen) 1 mg Q15M PRN IM DECREASED GLUCOSE; Start 08/04/16 at 14:30 Glucose (Glutose) 15 gm Q15M PRN BUCCAL DECREASED GLUCOSE; Start 08/04/16 at 14 :30 Loperamide HCl (Imodium Cap) 2 mg QID PRN PO DIARRHEA; Start 08/04/16 at 15:00 Gabapentin 200 mg 200 mg TID PO Last administered on 08/05/16 20:31; Admin Dose 200 MG; Start 08/04/16 at 21:00 Sodium Bicarbonate/ Sodium Chloride (Na Bicarb/1/2 NS) 1,000 ml @ 80 mls/hr [id number] IV Last administered on 08/06/16 04:28; Admin Dose 80 MLS/HR; Start at 02:30 Influenza Virus Vaccine (Fluzone) 0.5 ml ONCE ONCE IM* ; Start 08/07/16 at 09:00 ; Stop 08/07/16 at 09:01 ROMELIA MONTOYA MD Aug 06, 2016 05:55
[2016-08-06 06:32] LABS: EOSINOPHILS # 0.1 10^3/ul (0.0-0.5); EOSINOPHILS % 0.5 % (0.0-7.0); HEMOGLOBIN 13.8 g/dl (14.0-18.0); LYMPHOCYTES # 2.4 10^3/ul (0.8-2.9); LYMPHOCYTES % 21.7 % (15.0-51.0); MEAN CORPUSCULAR HEMOGLOBIN 30.3 pg (29.0-33.0); MEAN CORPUSCULAR HGB CONC 34.5 g/dl (32.0-37.0); MEAN CORPUSCULAR VOLUME 87.6 fl (82.0-101.0); MEAN PLATELET VOLUME 8.8 fl (7.4-10.4); MONOCYTE # 0.8 10^3/ul (0.3-0.9); MONOCYTES % 7.4 % (0.0-11.0); NEUTROPHIL # 7.7 10^3/ul (1.6-7.5); NEUTROPHILS % 70.4 % (39.0-77.0); PLATELET COUNT 99 10^3/UL (140-440); RED BLOOD COUNT 4.57 10^6/ul (4.70-6.10); RED CELL DISTRIBUTION WIDTH 15.3 % (11.5-14.5); UNCORRECTED WBC 10.9 10^3/ul (4.8-10.8); WHITE BLOOD COUNT 10.9 10^3/ul (4.8-10.8)
[2016-08-06 06:33] LABS: CONDITION 1
[2016-08-06 06:34] LABS: LH ANALYZER COMMENTS 1
--- NOTE | 2016-08-06 08:58 | CONS ---
Date/Time of Note Date/Time of Note DATE: 08/06/16 TIME: 08:50 Assessment/Plan Assessment/Plan Additional Assessment/Plan 1. CKD, labs pending as mild metabolic acidosis noted yesterday and IV changed. 2. Liver mass, work up in progress, paracentesis/liver bx ordered. Consultation Date/Type/Reason Admit Date/Time Aug 04, 2016 at 13:11 Type of Consultation: GI Referring Provider: AMADOR MONGE Detailed Summary Respiratory: No cough, No shortness of breath Cardiovascular: No chest pain Gastrointestinal: other (mild abd discomfort) Genitourinary: other (cheek in place) Exam/Review of Systems Vital Signs Vitals Vital Signs Date Time Temp Pulse Resp B/P Pulse Ox O2 Delivery O2 Flow Rate FiO2 08/05/16 20:39 97.6 77 18 92/57 98 08/04/16 18:00 Room Air Intake and Output 08/05/16 08/05/16 08/06/16 15:00 23:00 07:00 Intake Total 840 ml 560 ml 960 ml Output Total 600 ml 550 ml Balance 840 ml -40 ml 410 ml Exam Neck: No jvd Respiratory: clear to auscultation Cardiovascular: regular rate and rhythm Gastrointestinal: ascites, No tender Genitourinary - Male: other (cheek in place) Results Result Diagram: 08/06/16 0434 08/05/16 0433 Results 24 hrs Laboratory Tests Test 08/05/16 12:47 08/05/16 13:00 08/05/16 17:15 08/05/16 20:29 Bedside Glucose 200 191 215 Arterial Blood HCO3 14.2 L Arterial Blood Base Excess -9.4 L Arterial Blood Oxygen Saturation 94.4 L Sanjeev Test N/A Arterial Blood Gas Puncture Site LB Arterial Blood Carboxyhemoglobin 0.7 Arterial Blood Date Drawn 08/05/2016 2:22:05 PM Arterial Blood Methemoglobin 0.5 Arterial Blood pCO2 (Temp correct) 26.1 L Arterial Blood pH (Temp corrected) 7.355 Arterial Blood pO2 (Temp corrected) 71.2 L Blood Gas A-a O2 Differential 47.3 H Blood Gas Modality ROOM AIR Blood Gas Notified Time 08/05/2016 2:28:08 PM Blood Gas Notified Whom ab Blood Gas Specimen Source Blood arterial Blood Gas Temperature 37.0 FiO2 21.0 Oxyhemoglobin Percent 93.3 Total Hemoglobin 14.8 Test 08/06/16 00:54 08/06/16 04:31 08/06/16 04:34 Bedside Glucose 138 126 Basophils # 0.0 Basophils % 0.0 Blood Morphology Comment Eosinophils # 0.1 Eosinophils % 0.5 Hematocrit 40.0 L Hemoglobin 13.8 L INR International Normalized Ratio 1.16 Lymphocytes # 2.4 Lymphocytes % 21.7 Mean Corpuscular Hemoglobin 30.3 Mean Corpuscular Hemoglobin Concent 34.5 Mean Corpuscular Volume 87.6 Mean Platelet Volume 8.8 Monocytes # 0.8 Monocytes % 7.4 Neutrophils # 7.7 H Neutrophils % 70.4 Nucleated Red Blood Cells # 0.0 Nucleated Red Blood Cells % 0.0 Platelet Count 99 L Prothrombin Time 14.9 H Prothrombin Time Ratio 1.2 Red Blood Count 4.57 L Red Cell Distribution Width 15.3 H White Blood Count 10.9 H Medications Medications Current Medications Ondansetron HCl (Zofran Inj) 4 mg Q6H PRN IV NAUSEA AND/OR VOMITING; Start at 14:00 Acetaminophen (Tylenol Tab) 650 mg Q6H PRN PO PAIN LEVEL 1-3 OR FEVER; Start at 14:00 Acetaminophen/ Hydrocodone Bitart ([place] (5/325)) 1 tab Q6H PRN PO MODERATE PAIN LEVEL 4-6; Start 08/04/16 at 14:00 Morphine Sulfate (morphine) 2 mg Q4H PRN IV SEVERE PAIN LEVEL 7-10; Start 08/04 at 14:00 Docusate Sodium (Colace) 100 mg Q12H PRN PO CONSTIPATION; Start 08/04/16 at 14: 00 Magnesium Hydroxide (Milk Of Mag) 30 ml DAILY PRN PO CONSTIPATION; Start at 14:00 Sodium Biphosphate/ Sodium Phosphate (Fleet Enema) 133 ml DAILY PRN [place] CONSTIPATION; Start 08/04/16 at 14:00 Lorazepam (Ativan) 0.5 mg Q6H PRN IV ANXIETY; Start 08/04/16 at 14:00 Hydralazine HCl (Apresoline) 10 mg Q6H PRN IV ELEVATED BLOOD PRESSURE; Start at 14:00 Nitroglycerin (Nitroglycerin (Sl Tab) 0.4 Mg) 1 tab Q5M PRN SL ANGINA; Start at 14:00 Insulin Glargine (Lantus) 20 unit QAM SC Last administered on 08/05/16 08:38; Admin Dose 20 UNIT; Start 08/05/16 at 09:00 Pantoprazole (Protonix Tab) 40 mg DAILY@06 PO Last administered on 08/06/16 04 :30; Admin Dose 40 MG; Start 08/05/16 at 06:00 Insulin Aspart (Novolog Insulin Pen) NOVOLOG *MILD* ALGORI... Q4 SC Last administered on 08/05/16 20:33; Admin Dose 2 UNIT; Start 08/04/16 at 17:00 Miscellaneous Information 1 ea NOTE XX ; Start 08/04/16 at 14:30 Glucose (Glutose) 15 gm Q15M PRN PO DECREASED GLUCOSE; Start 08/04/16 at 14:30 Glucose (Glutose) 22.5 gm Q15M PRN PO DECREASED GLUCOSE; Start 08/04/16 at 14: 30 Dextrose (D50w Syringe) 25 ml Q15M PRN IV DECREASED GLUCOSE; Start 08/04/16 at 14:30 Dextrose (D50w Syringe) 50 ml Q15M PRN IV DECREASED GLUCOSE; Start 08/04/16 at 14:30 Glucagon (Glucagen) 1 mg Q15M PRN IM DECREASED GLUCOSE; Start 08/04/16 at 14:30 Glucose (Glutose) 15 gm Q15M PRN BUCCAL DECREASED GLUCOSE; Start 08/04/16 at 14 :30 Loperamide HCl (Imodium Cap) 2 mg QID PRN PO DIARRHEA; Start 08/04/16 at 15:00 Gabapentin 200 mg 200 mg TID PO Last administered on 08/05/16 20:31; Admin Dose 200 MG; Start 08/04/16 at 21:00 Sodium Bicarbonate/ Sodium Chloride (Na Bicarb/1/2 NS) 1,000 ml @ 80 mls/hr [id number] IV Last administered on 08/06/16 04:28; Admin Dose 80 MLS/HR; Start at 02:30 Influenza Virus Vaccine (Fluzone) 0.5 ml ONCE ONCE IM* ; Start 08/07/16 at 09:00 ; Stop 08/07/16 at 09:01 PARI SIEGEL MD Aug 06, 2016 08:58
[2016-08-06 09:00] VITALS: BP 93/56; PULSE 77; RESP 18
[2016-08-06] MEDS: GABAPENTIN 100 MG CAP PO SCH ×3 (09:04→20:37)
[2016-08-06] MEDS: INSULIN GLARGINE [LANtus] 3 ML PEN SC SCH (09:07)
[2016-08-06 09:52] LABS: POTASSIUM 4.6 mmol/L (3.5-5.1)
[2016-08-06 09:55] LABS: CREATININE 2.89 mg/dl (0.61-1.24)
[2016-08-06 09:56] LABS: CALCIUM 7.5 mg/dl (8.4-10.2)
--- NOTE | 2016-08-06 12:29 | PN ---
Date/Time of Note Date/Time of Note DATE: 08/06/16 TIME: 12:19 Assessment/Plan VTE Prophylaxis VTE Prophylaxis Intervention: SCD's VTE Contraindication Reason: thrombocytopenia Lines/Catheters IV Catheter Type (from Nrsg): Peripheral IV Urinary Cath still in place: Yes Reason Cath still needed: other (indicate) Assessment/Plan Assessment/Plan 61-year-old male who comes in with weakness and diarrhea with a past history of cirrhosis and alcohol abuse, and questionable hepatocellular carcinoma and possible cancer metastasis. 1. Weakness and diarrhea. * Stool studies pending / ?improved 2. Acute on chronic renal insufficiency : resolved * His baseline creatinine appears to be in the 2.7 to 2.8 range 3. 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 Type 2 diabetes - A1c = 7.1 5. Liver and lung masses with elevated AFP and CA-125 PLAN: * Continue pain control/ antiemetics/ antipyretics/ supportive care * Continue gentle IV hydration * Continue Lantus / SSI / 2g NA diet * Per Oncology, patient is an extremely poor candidate for Chemo d/t debility and lack of support if Liver mass is diagnosed as cancer and hence will not be started on chemo if no change in current state of affairs * However Diagnostic and therapeutic paracentesis has been ordered and Liver biopsy also previously ordered * Oncology recommends Hospice eval and patient is agreeable / Palliative Care consult as well PROPHYLAXIS: PPI / SCDs Subjective 24 Hr Interval Summary Free Text/Dictation Patient seen and examined. Spoke with oncology and palliative care Exam/Review of Systems Vital Signs Vitals Vital Signs Date Time Temp Pulse Resp B/P Pulse Ox O2 Delivery O2 Flow Rate FiO2 08/06/16 09:00 97.9 77 18 93/56 93 Room Air Intake and Output 08/05/16 08/05/16 08/06/16 15:00 23:00 07:00 Intake Total 840 ml 560 ml 960 ml Output Total 600 ml 550 ml Balance 840 ml -40 ml 410 ml Exam Constitutional: frail Psych: nl mood/affect, no complaints Head: atraumatic, normocephalic Eyes: EOMI, nl conjunctiva, nl lids, nl sclera ENMT: mucosa pink and moist Neck: non-tender, supple Respiratory: clear to auscultation, normal air movement Cardiovascular: nl pulses, regular rate and rhythm Gastrointestinal: ascites, bowel sounds, soft Results Result Diagram: 08/06/16 0434 08/06/16 0434 Results 24 hrs Laboratory Tests Test 08/05/16 12:47 08/05/16 13:00 08/05/16 17:15 08/05/16 20:29 Bedside Glucose 200 191 215 Arterial Blood HCO3 14.2 L Arterial Blood Base Excess -9.4 L Arterial Blood Oxygen Saturation 94.4 L Sanjeev Test N/A Arterial Blood Gas Puncture Site LB Arterial Blood Carboxyhemoglobin 0.7 Arterial Blood Date Drawn 08/05/2016 2:22:05 PM Arterial Blood Methemoglobin 0.5 Arterial Blood pCO2 (Temp correct) 26.1 L Arterial Blood pH (Temp corrected) 7.355 Arterial Blood pO2 (Temp corrected) 71.2 L Blood Gas A-a O2 Differential 47.3 H Blood Gas Modality ROOM AIR Blood Gas Notified Time 08/05/2016 2:28:08 PM Blood Gas Notified Whom ab Blood Gas Specimen Source Blood arterial Blood Gas Temperature 37.0 FiO2 21.0 Oxyhemoglobin Percent 93.3 Total Hemoglobin 14.8 Test 08/06/16 00:54 08/06/16 04:31 08/06/16 04:34 08/06/16 09:03 Bedside Glucose 138 126 126 Anion Gap 15 Basophils # 0.0 Basophils % 0.0 Blood Morphology Comment Blood Urea Nitrogen 96 H Calcium Level 7.5 L Carbon Dioxide Level 17 L Chloride Level 103 Creatinine 2.89 H Eosinophils # 0.1 Eosinophils % 0.5 Glucose Level 119 Hematocrit 40.0 L Hemoglobin 13.8 L INR International Normalized Ratio 1.16 Lymphocytes # 2.4 Lymphocytes % 21.7 Mean Corpuscular Hemoglobin 30.3 Mean Corpuscular Hemoglobin Concent 34.5 Mean Corpuscular Volume 87.6 Mean Platelet Volume 8.8 Monocytes # 0.8 Monocytes % 7.4 Neutrophils # 7.7 H Neutrophils % 70.4 Nucleated Red Blood Cells # 0.0 Nucleated Red Blood Cells % 0.0 Platelet Count 99 L Potassium Level 4.6 Prothrombin Time 14.9 H Prothrombin Time Ratio 1.2 Red Blood Count 4.57 L Red Cell Distribution Width 15.3 H Sodium Level 130 L White Blood Count 10.9 H Medications Medications Current Medications Ondansetron HCl (Zofran Inj) 4 mg Q6H PRN IV NAUSEA AND/OR VOMITING; Start at 14:00 Acetaminophen (Tylenol Tab) 650 mg Q6H PRN PO PAIN LEVEL 1-3 OR FEVER; Start at 14:00 Acetaminophen/ Hydrocodone Bitart ([place] (5/325)) 1 tab Q6H PRN PO MODERATE PAIN LEVEL 4-6; Start 08/04/16 at 14:00 Morphine Sulfate (morphine) 2 mg Q4H PRN IV SEVERE PAIN LEVEL 7-10; Start 08/04 at 14:00 Docusate Sodium (Colace) 100 mg Q12H PRN PO CONSTIPATION; Start 08/04/16 at 14: 00 Magnesium Hydroxide (Milk Of Mag) 30 ml DAILY PRN PO CONSTIPATION; Start at 14:00 Sodium Biphosphate/ Sodium Phosphate (Fleet Enema) 133 ml DAILY PRN [place] CONSTIPATION; Start 08/04/16 at 14:00 Lorazepam (Ativan) 0.5 mg Q6H PRN IV ANXIETY; Start 08/04/16 at 14:00 Hydralazine HCl (Apresoline) 10 mg Q6H PRN IV ELEVATED BLOOD PRESSURE; Start at 14:00 Nitroglycerin (Nitroglycerin (Sl Tab) 0.4 Mg) 1 tab Q5M PRN SL ANGINA; Start at 14:00 Insulin Glargine (Lantus) 20 unit QAM SC Last administered on 08/06/16 09:07; Admin Dose 20 UNIT; Start 08/05/16 at 09:00 Pantoprazole (Protonix Tab) 40 mg DAILY@06 PO Last administered on 08/06/16 04 :30; Admin Dose 40 MG; Start 08/05/16 at 06:00 Insulin Aspart (Novolog Insulin Pen) NOVOLOG *MILD* ALGORI... Q4 SC Last administered on 08/05/16 20:33; Admin Dose 2 UNIT; Start 08/04/16 at 17:00 Miscellaneous Information 1 ea NOTE XX ; Start 08/04/16 at 14:30 Glucose (Glutose) 15 gm Q15M PRN PO DECREASED GLUCOSE; Start 08/04/16 at 14:30 Glucose (Glutose) 22.5 gm Q15M PRN PO DECREASED GLUCOSE; Start 08/04/16 at 14: 30 Dextrose (D50w Syringe) 25 ml Q15M PRN IV DECREASED GLUCOSE; Start 08/04/16 at 14:30 Dextrose (D50w Syringe) 50 ml Q15M PRN IV DECREASED GLUCOSE; Start 08/04/16 at 14:30 Glucagon (Glucagen) 1 mg Q15M PRN IM DECREASED GLUCOSE; Start 08/04/16 at 14:30 Glucose (Glutose) 15 gm Q15M PRN BUCCAL DECREASED GLUCOSE; Start 08/04/16 at 14 :30 Loperamide HCl (Imodium Cap) 2 mg QID PRN PO DIARRHEA; Start 08/04/16 at 15:00 Gabapentin 200 mg 200 mg TID PO Last administered on 08/06/16 09:04; Admin Dose 200 MG; Start 08/04/16 at 21:00 Sodium Bicarbonate/ Sodium Chloride (Na Bicarb/1/2 NS) 1,000 ml @ 60 mls/hr [id number] IV Last administered on 08/06/16 04:28; Admin Dose 80 MLS/HR; Start at 02:30 Influenza Virus Vaccine (Fluzone) 0.5 ml ONCE ONCE IM* ; Start 08/07/16 at 09:00 ; Stop 08/07/16 at 09:01 Procedures Procedures PROCEDURE: XR Chest. CLINICAL INDICATION: Shortness of breath. TECHNIQUE: A single portable view of the chest was obtained. COMPARISON: None FINDINGS: The aorta is tortuous and atherosclerotic. The cardiomediastinal silhouette is otherwise within normal limits. The lung volumes are low with bibasilar compressive atelectasis. The remaining lungs and pleural spaces are clear. The soft tissues and osseous structures demonstrate benign age related senescent changes. IMPRESSION: Low lung volumes with bibasilar compressive atelectasis. RPTAT: [facility] Physician [place] Date Time Electronically viewed and signed by Nitesh Omalley Physician on 08/04/2016 09 :32 / CC: JARED MOY MD PROCEDURE: Limited abdominal ultrasound CLINICAL INDICATION: Ascites TECHNIQUE: Ultrasound targeted to the 4 quadrants of the abdomen is performed COMPARISON: 07/16/2016 FINDINGS: Moderate to large ascites seen throughout the abdomen. IMPRESSION: Moderate to large ascites in the abdomen. RPTAT: [facility] .Eddie Romero MD, MD Date Time Electronically viewed and signed by .Eddie Romero MD, on 08/04/2016 16:16 .L/ CC: AMADOR MONGE BOLATITO M. Aug 06, 2016 12:29
[2016-08-06 13:03] VITALS: BP 121/86; PULSE 77; RESP 18
[2016-08-06] MEDS ORDERED: NA BICARBONATE 8.4% 50 ML SYG IV SCH (14:00)
[2016-08-06] MEDS ORDERED: LIDOCAINE 1% (MPF) 5 ML VIAL ONE (15:11)
--- NOTE | 2016-08-06 15:15 | CONS ---
Date/Time of Note Date/Time of Note DATE: 08/06/16 TIME: 15:01 Assessment/Plan Assessment/Plan Chief Complaint/Hosp Course 61 yo with # Liver mass - concerning for HCC with slight high AFP. During last admission, per radiology it was determined that a liver or lung biopsy would be unsafe in this cirrhotic patient. At that time a paracentesis was done which was negative for malignancy and therefore non diagnostic. WE will therefore re attempt to make a diagnosis with a paracentesis and cytology evaluation of pleural fluid. If we are not able to make a diagnosis would not pursue a risky liver or lung biopsy. Pt is extremely weak and cachetic and would not tolerate aggressive chemotherapy. Furthermore, patient has stated he has no family near by to help him and is amenable to supportive care and hospice. He understands that he would likely not tolerate chemotherapy -ascitic fluid tap and cytology to start with -agree with palliative care involved because of multiple comorbid issues and deteriorating PS. -pt will likely need hospice evaluation in near future #Thrombocytopenia -secondary to liver failure, no intervention unless needed for a procedure. .Platelets of 99 ok for thoracentesis # Liver cirrhosis- secondary to Hepatitis -continue to monitor counts #Acute on chronic renal failure -baseline creat around 2.7 and has been hydrated overnight with improvement. Approximately 40 min were spent at patient's bedside and in coordination of his care Problems: Consultation Date/Type/Reason Admit Date/Time Aug 04, 2016 at 13:11 Initial Consult Date 08/05/16 Type of Consultation: Oncology Reason for Consultation metastatic cancer unknown primary Referring Provider: AMADOR MONGE 24 HR Interval Summary Free Text/Dictation pt to have paracentesis today, therapeutic and diagnostic Exam/Review of Systems Vital Signs Vitals Vital Signs Date Time Temp Pulse Resp B/P Pulse Ox O2 Delivery O2 Flow Rate FiO2 08/06/16 13:03 77 18 121/86 08/06/16 09:00 97.9 93 Room Air Intake and Output 08/05/16 08/05/16 08/06/16 15:00 23:00 07:00 Intake Total 840 ml 560 ml 960 ml Output Total 600 ml 550 ml Balance 840 ml -40 ml 410 ml Exam Constitutional: alert, frail Psych: depression Head: atraumatic, normocephalic Eyes: nl conjunctiva ENMT: nl external ears & nose Neck: non-tender, supple Respiratory: clear to auscultation Cardiovascular: nl pulses, regular rate and rhythm Gastrointestinal: soft Musculoskeletal: nl extremities to inspection, nl gait and stance Extremities: normal pulses Results Result Diagram: 08/06/16 0434 08/06/16 0434 Results 24 hrs Laboratory Tests Test 08/05/16 17:15 08/05/16 20:29 08/06/16 00:54 08/06/16 04:31 Bedside Glucose 191 215 138 126 Test 08/06/16 04:34 08/06/16 09:03 08/06/16 12:56 Anion Gap 15 Basophils # 0.0 Basophils % 0.0 Blood Morphology Comment Blood Urea Nitrogen 96 H Calcium Level 7.5 L Carbon Dioxide Level 17 L Chloride Level 103 Creatinine 2.89 H Eosinophils # 0.1 Eosinophils % 0.5 Glucose Level 119 Hematocrit 40.0 L Hemoglobin 13.8 L INR International Normalized Ratio 1.16 Lymphocytes # 2.4 Lymphocytes % 21.7 Mean Corpuscular Hemoglobin 30.3 Mean Corpuscular Hemoglobin Concent 34.5 Mean Corpuscular Volume 87.6 Mean Platelet Volume 8.8 Monocytes # 0.8 Monocytes % 7.4 Neutrophils # 7.7 H Neutrophils % 70.4 Nucleated Red Blood Cells # 0.0 Nucleated Red Blood Cells % 0.0 Platelet Count 99 L Potassium Level 4.6 Prothrombin Time 14.9 H Prothrombin Time Ratio 1.2 Red Blood Count 4.57 L Red Cell Distribution Width 15.3 H Sodium Level 130 L White Blood Count 10.9 H Bedside Glucose 126 243 H Medications Medications Current Medications Ondansetron HCl (Zofran Inj) 4 mg Q6H PRN IV NAUSEA AND/OR VOMITING; Start at 14:00 Acetaminophen (Tylenol Tab) 650 mg Q6H PRN PO PAIN LEVEL 1-3 OR FEVER; Start at 14:00 Acetaminophen/ Hydrocodone Bitart ([place] (5/325)) 1 tab Q6H PRN PO MODERATE PAIN LEVEL 4-6; Start 08/04/16 at 14:00 Morphine Sulfate (morphine) 2 mg Q4H PRN IV SEVERE PAIN LEVEL 7-10; Start 08/04 at 14:00 Docusate Sodium (Colace) 100 mg Q12H PRN PO CONSTIPATION; Start 08/04/16 at 14: 00 Magnesium Hydroxide (Milk Of Mag) 30 ml DAILY PRN PO CONSTIPATION; Start at 14:00 Sodium Biphosphate/ Sodium Phosphate (Fleet Enema) 133 ml DAILY PRN [place] CONSTIPATION; Start 08/04/16 at 14:00 Lorazepam (Ativan) 0.5 mg Q6H PRN IV ANXIETY; Start 08/04/16 at 14:00 Hydralazine HCl (Apresoline) 10 mg Q6H PRN IV ELEVATED BLOOD PRESSURE; Start at 14:00 Nitroglycerin (Nitroglycerin (Sl Tab) 0.4 Mg) 1 tab Q5M PRN SL ANGINA; Start at 14:00 Insulin Glargine (Lantus) 20 unit QAM SC Last administered on 08/06/16 09:07; Admin Dose 20 UNIT; Start 08/05/16 at 09:00 Pantoprazole (Protonix Tab) 40 mg DAILY@06 PO Last administered on 08/06/16 04 :30; Admin Dose 40 MG; Start 08/05/16 at 06:00 Insulin Aspart (Novolog Insulin Pen) NOVOLOG *MILD* ALGORI... Q4 SC Last administered on 08/06/16 13:20; Admin Dose 3 UNIT; Start 08/04/16 at 17:00 Miscellaneous Information 1 ea NOTE XX ; Start 08/04/16 at 14:30 Glucose (Glutose) 15 gm Q15M PRN PO DECREASED GLUCOSE; Start 08/04/16 at 14:30 Glucose (Glutose) 22.5 gm Q15M PRN PO DECREASED GLUCOSE; Start 08/04/16 at 14: 30 Dextrose (D50w Syringe) 25 ml Q15M PRN IV DECREASED GLUCOSE; Start 08/04/16 at 14:30 Dextrose (D50w Syringe) 50 ml Q15M PRN IV DECREASED GLUCOSE; Start 08/04/16 at 14:30 Glucagon (Glucagen) 1 mg Q15M PRN IM DECREASED GLUCOSE; Start 08/04/16 at 14:30 Glucose (Glutose) 15 gm Q15M PRN BUCCAL DECREASED GLUCOSE; Start 08/04/16 at 14 :30 Loperamide HCl (Imodium Cap) 2 mg QID PRN PO DIARRHEA; Start 08/04/16 at 15:00 Gabapentin (Neurontin) 200 mg TID PO Last administered on 08/06/16t 12:56; Admin Dose 200 MG; Start 08/04/16 at 21:00 Influenza Virus Vaccine 0.5 ml 0.5 ml ONCE ONCE IM* ; Start 08/07/16 at 09:00; Stop 08/07/16 at 09:01 Sodium Bicarbonate/ Sodium Chloride (Na Bicarb/1/2 NS) 1,000 ml @ 100 mls/hr Q10H IV ; Start 08/06/16 at 15:00 ROWAN GARCIA M.D. Aug 06, 2016 15:12
--- NOTE | 2016-08-06 15:59 | RADRPT ---
PROCEDURE: Ultrasound guided paracentesis. CLINICAL INDICATION: Ascites and shortness of breath. COMPARISON: 07/16/2016. TECHNIQUE: The risks, benefits, and alternatives were explained to the patient and/or the patient's family, inc luding but not limited to bleeding, infection, pain, visceral or vascular damage, shock, and . The patient and/or the patient's family understood the risks and the alternatives and wished to pro ceed with the procedure. Informed written consent was obtained. A procedural time out was performed . The patient's name, date of , and procedure to be performed were verified. Utilizing ultrasound guidance, optimal location for entry to the peritoneal cavity was ascertained. The overlying skin was prepped and draped in the usual sterile fashion. Approximately 10 ml of 1% Xylocaine was injected locally for pain control. Using ultrasound guidance, an 8 [place] catheter wa s introduced into the peritoneal cavity in the right lower quadrant without difficulty. FINDINGS: Initial images demonstrate ascites. Approximately 10.0 liters of serous fluid was aspirated and sen t for laboratory analysis. The patient tolerated the procedure well without complication. IMPRESSION: 1. Successful ultrasound-guided paracentesis. RPTAT: QQ .Jose F Knox MD, Date Time Electronically viewed and signed by .Jose F Knox MD, on 08/06/2016 15:58 .R/
[2016-08-06 16:11] VITALS: BP 114/76; PULSE 71; RESP 18
[2016-08-06] MEDS: SODIUM BICARBONATE (IV ADD) 75 MEQ in SOD CHLORIDE 0.45% 925 ML IV SCH (17:20)
--- NOTE | 2016-08-06 18:46 | CONS ---
Date/Time of Note Date/Time of Note DATE: 08/06/16 TIME: 18:36 Assessment/Plan Assessment/Plan Additional Assessment/Plan [facility] SUBSEQUENT INPATIENT CONSULTATION NOTE PLACE OF SERVICE: [facility], 4th floor DATE OF CONSULTATION: 08/06/2016 ASSESSMENT AND PLAN: A very pleasant but unfortunate 61-year-old gentleman, well known to me from prior admission to [facility] in Jun 2016, with multiple comorbid issues including hepatitis C as well as prior exposure to hepatitis B, possibly contributed on by alcohol intake that has led to what appears to be cirrhosis complicated by ascites and portal hypertension and renal insufficiency, and primary hepatocellular carcinoma with metastasis to the lungs, readmitted with medical deterioration. Patient unfortunately not a surgical candidate. No indication for acute TACE. No urgent HPB surgical issues. Hope that the patient will improve with aggressive medical management. Agree with GI and Onc involvement. Metastatic disease is considered in the differential, but not as likely given the clinical picture. Given the patient's renal insufficiency we are unable to do a contrast study to be able to definitively diagnose him for HCC and for this reason, I am recommending a liver biopsy as part of his workup. Regardless of the findings on the biopsy, the patient is not eligible for any surgical intervention given the amount of cirrhosis that he has and likely metastatic disease process. The options of local treatment of liver include transarterial chemoembolization, but should be reserved only if the patient is severely symptomatic from his liver alone. In my opinion, he is not currently. Systemic chemotherapy can be considered, although the efficacy of sorafenib is only approximately 8 weeks of survival advantage in the randomized trial that was done to approve the drug. I explained the above to the patient and answered all of his questions to the best of my ability and I believe that he understands and agrees with the plan. With above assessment, I recommend the followin.Cont current management 2. Will follow from periphery Thank you again for allowing us to participate in the care of this very pleasant gentleman and I am certain his wonderful family. If there are any questions, please feel free to call me at [phone]. TOTAL VISIT TIME: 45 minutes of which more than half was spent in [id number] discussion with the patient as well as coordination of care between multiple physicians and providers. Updated Clinical Summary: A very pleasant but unfortunate 61-year-old gentleman with multiple comorbid issues including hepatitis C as well as prior exposure to hepatitis B, possibly contributed on by alcohol intake, admitted to [facility] through ED 07/15/16 with what appeared to be cirrhosis complicated by ascites and portal hypertension and renal insufficiency, and unfortunately with primary hepatocellular carcinoma with metastasis to the lungs. Metastatic disease was also in the differential, but not as likely given the clinical picture. Given the patient's renal insufficiency we were unable to do a contrast study to be able to definitively diagnose him for HCC and for this reason, I recommended a liver biopsy, which later was felt to be not possible. Lung lesion biopsy was therefore considered. Regardless of the findings on the biopsy, the patient was not eligible for any surgical intervention given the amount of his cirrhosis and likely metastatic disease process. The options of local treatment of liver included transarterial chemoembolization, but should be reserved only if the patient was severely symptomatic from his liver alone. In my opinion, he was not at the time of his admission. Systemic chemotherapy could also be considered, although the efficacy of sorafenib was only approximately 8 weeks of survival advantage with significant cost to patient. Comorbidities: 1. History of hepatitis C and perhaps hepatitis B. 2. Diabetes mellitus type 2. 3. Essential hypertension. 4. Stage IV chronic kidney disease. 5. Benign prostatic hypertrophy. 6. Squamous cell carcinoma of the skin previously. 7. Plaque psoriasis. 8. Above-mentioned history of alcohol abuse (potential). 9. Status post inguinal hernia repair. 10. Status post multiple skin grafts. DATE OF ADMISSION: 07/15/2016 HISTORY OF PRESENT ILLNESS: The patient is a very pleasant but unfortunate 61- year-old gentleman with multiple comorbid issues including hepatitis C as well as prior exposure to hepatitis B, possibly contributed on by alcohol intake, admitted to [facility] through ED 07/15/16 with what appeared to be cirrhosis complicated by ascites and portal hypertension and renal insufficiency, and unfortunately with primary hepatocellular carcinoma with metastasis to the lungs. I was kindly asked to re-consult. Today, I had a chance to meet with him and do a complete history and physical myself. I also had a chance to carefully review all available information. Currently, he has no pain complaints. No other major complaints. His appetite has been fair to poor and he no longer can eat full meals. ALLERGIES: NO KNOWN DRUG ALLERGIES. HOME MEDICATIONS: 1. Docusate. 2. Furosemide. 3. Lorazepam. 4. Losartan. 5. Pantoprazole 6. Zolpidem. 7. Humalog. 8. Lantus. SOCIAL HISTORY: The patient reports no current drinking, but did drink in the past. He is an everyday smoker 50-pack per day history and used cocaine previously. FAMILY HISTORY: Mother has diabetes and hypertension. REVIEW OF SYSTEMS: Other than the above-mentioned, there are no other pertinent positives or pertinent negatives in a complete 14-point review of systems. PHYSICAL EXAMINATION: GENERAL: The patient appears to be a very pleasant gentleman of non- descent, appearing older than stated age, lying in bed comfortably and in no acute distress. VITAL SIGNS: BMI is 23.1 (previously 23.18 Jun 2016). He is afebrile and his vital signs are stable. HEENT: Normocephalic and atraumatic. Extraocular muscles and hearing are grossly intact bilaterally and symmetrically. Sclerae are nonicteric. Oral cavity is clear; oral mucosa appeared to be pink and moist. Dentition: fair. NECK: Supple. There is no lymphadenopathy or JVD. There is no submental, submandibular or supraclavicular lymphadenopathy. CHEST: Rises symmetrically with each breath; patient is breathing comfortably. There are no audible wheezes, rales or rhonchi on the gross exam. HEART: HPulse is regular and palpable on the left wrist. Capillary refill was normal. Carotid pulses are palpable bilaterally and symmetrically in the neck. EXTREMITIES: Lower extremities contain no pitting edema around the ankles bilaterally and symmetrically. ABDOMEN: Soft, somewhat protuberant, but nondistended. No organomegaly noted. Mild evidence of ascites noted. Nontender. No peritoneal signs or guarding. SKIN: Appears to be pink and feels warm to touch. NEUROLOGIC: Awake, alert, and follows commands appropriately. LABORATORY DATA: Please see EHR for recent labs. Previously in Jun 2016: Platelet count 84 and it was 135 on admission. Creatinine 2.63. Albumin 2.8 after hydration. Alkaline phosphatase 283, bilirubin 0.2. CO2 18. PSA 0.4. Alpha-fetoprotein 36.4. CA 19-9 of 30.6, CA 125 of 763. INR 1.32. Hepatitis B core total antibody reactive. Hepatitis B core immunoglobulin M antibody is pending. Hepatitis C antibody is reactive. Rest of hepatitis C workup pending. Hepatitis A immunoglobulin M is nonreactive. IMAGING: The patient's outside abdominal CT demonstrated above findings. A chest CT was done Jun 2016 that showed multiple bilateral pulmonary nodules that were suspicious for neoplasm. There was also mediastinal lymphadenopathy anterior to the mid esophagus, suspicious for neoplasm as well as right retrocrural lymphadenopathy again suspicious for neoplasm. Evidence of ascites noted, cirrhotic liver noted with portal hypertension and splenomegaly, and mild degenerative changes of the spine. Consultation Date/Type/Reason Admit Date/Time Aug 04, 2016 at 13:11 Type of Consultation: Oncology Referring Provider: AMADOR MONGE Exam/Review of Systems Vital Signs Vitals Vital Signs Date Time Temp Pulse Resp B/P Pulse Ox O2 Delivery O2 Flow Rate FiO2 08/06/16 16:11 71 18 114/76 95 Room Air 08/06/16 09:00 97.9 Intake and Output 08/05/16 08/05/16 08/06/16 15:00 23:00 07:00 Intake Total 840 ml 560 ml 960 ml Output Total 600 ml 550 ml Balance 840 ml -40 ml 410 ml Results Result Diagram: 08/06/16 0434 08/06/16 0434 Results 24 hrs Laboratory Tests Test 08/05/16 20:29 08/06/16 00:54 08/06/16 04:31 08/06/16 04:34 Bedside Glucose 215 138 126 Anion Gap 15 Basophils # 0.0 Basophils % 0.0 Blood Morphology Comment Blood Urea Nitrogen 96 H Calcium Level 7.5 L Carbon Dioxide Level 17 L Chloride Level 103 Creatinine 2.89 H Eosinophils # 0.1 Eosinophils % 0.5 Glucose Level 119 Hematocrit 40.0 L Hemoglobin 13.8 L INR International Normalized Ratio 1.16 Lymphocytes # 2.4 Lymphocytes % 21.7 Mean Corpuscular Hemoglobin 30.3 Mean Corpuscular Hemoglobin Concent 34.5 Mean Corpuscular Volume 87.6 Mean Platelet Volume 8.8 Monocytes # 0.8 Monocytes % 7.4 Neutrophils # 7.7 H Neutrophils % 70.4 Nucleated Red Blood Cells # 0.0 Nucleated Red Blood Cells % 0.0 Platelet Count 99 L Potassium Level 4.6 Prothrombin Time 14.9 H Prothrombin Time Ratio 1.2 Red Blood Count 4.57 L Red Cell Distribution Width 15.3 H Sodium Level 130 L White Blood Count 10.9 H Test 08/06/16 09:03 08/06/16 12:56 08/06/16 17:19 Bedside Glucose 126 243 H 242 H Medications Medications Current Medications Ondansetron HCl (Zofran Inj) 4 mg Q6H PRN IV NAUSEA AND/OR VOMITING; Start at 14:00 Acetaminophen (Tylenol Tab) 650 mg Q6H PRN PO PAIN LEVEL 1-3 OR FEVER; Start at 14:00 Acetaminophen/ Hydrocodone Bitart (Redfox (5/325)) 1 tab Q6H PRN PO MODERATE PAIN LEVEL 4-6; Start 08/04/16 at 14:00 Morphine Sulfate (morphine) 2 mg Q4H PRN IV SEVERE PAIN LEVEL 7-10; Start 08/04 at 14:00 Docusate Sodium (Colace) 100 mg Q12H PRN PO CONSTIPATION; Start 08/04/16 at 14: 00 Magnesium Hydroxide (Milk Of Mag) 30 ml DAILY PRN PO CONSTIPATION; Start at 14:00 Sodium Biphosphate/ Sodium Phosphate (Fleet Enema) 133 ml DAILY PRN [place] CONSTIPATION; Start 08/04/16 at 14:00 Lorazepam (Ativan) 0.5 mg Q6H PRN IV ANXIETY; Start 08/04/16 at 14:00 Hydralazine HCl (Apresoline) 10 mg Q6H PRN IV ELEVATED BLOOD PRESSURE; Start at 14:00 Nitroglycerin (Nitroglycerin (Sl Tab) 0.4 Mg) 1 tab Q5M PRN SL ANGINA; Start at 14:00 Insulin Glargine (Lantus) 20 unit QAM SC Last administered on 08/06/16 09:07; Admin Dose 20 UNIT; Start 08/05/16 at 09:00 Pantoprazole (Protonix Tab) 40 mg DAILY@06 PO Last administered on 08/06/16 04 :30; Admin Dose 40 MG; Start 08/05/16 at 06:00 Insulin Aspart (Novolog Insulin Pen) NOVOLOG *MILD* ALGORI... Q4 SC Last administered on 08/06/16 17:24; Admin Dose 4 UNIT; Start 08/04/16 at 17:00 Miscellaneous Information 1 ea NOTE XX ; Start 08/04/16 at 14:30 Glucose (Glutose) 15 gm Q15M PRN PO DECREASED GLUCOSE; Start 08/04/16 at 14:30 Glucose (Glutose) 22.5 gm Q15M PRN PO DECREASED GLUCOSE; Start 08/04/16 at 14: 30 Dextrose (D50w Syringe) 25 ml Q15M PRN IV DECREASED GLUCOSE; Start 08/04/16 at 14:30 Dextrose (D50w Syringe) 50 ml Q15M PRN IV DECREASED GLUCOSE; Start 08/04/16 at 14:30 Glucagon (Glucagen) 1 mg Q15M PRN IM DECREASED GLUCOSE; Start 08/04/16 at 14:30 Glucose (Glutose) 15 gm Q15M PRN BUCCAL DECREASED GLUCOSE; Start 08/04/16 at 14 :30 Loperamide HCl (Imodium Cap) 2 mg QID PRN PO DIARRHEA; Start 08/04/16 at 15:00 Gabapentin (Neurontin) 200 mg TID PO Last administered on 08/06/16 12:56; Admin Dose 200 MG; Start 08/04/16 at 21:00 Influenza Virus Vaccine 0.5 ml 0.5 ml ONCE ONCE IM* ; Start 08/07/16 at 09:00; Stop 08/07/16 at 09:01 Sodium Bicarbonate/ Sodium Chloride (Na Bicarb/1/2 NS) 1,000 ml @ 100 mls/hr Q10H IV Last administered on 08/06/16 17:20; Admin Dose 100 MLS/HR; Start at 15:00 YNES PARDO M.D. Aug 06, 2016 18:46
[2016-08-06 19:36] VITALS: BP 90/55; RESP 20
[2016-08-07] VITALS (45 sets, daily range): BP systolic 67–132; BP diastolic 50–82; PULSE 66–90; RESP 15–28
[2016-08-07] MEDS: SODIUM BICARBONATE (IV ADD) 75 MEQ in SOD CHLORIDE 0.45% 925 ML IV SCH (00:39)
[2016-08-07] MEDS: INSULIN ASPART [NOVOLOG] 3 ML PEN SC SCH ×7 (00:42→21:02)
[2016-08-07] MEDS: PANTOPRAZOLE (EC) 40 MG TAB PO SCH (05:08)
[2016-08-07 05:49] LABS: MAGNESIUM 2.8 mg/dl (1.7-2.5); PHOSPHORUS 3.5 mg/dl (2.5-4.9); POTASSIUM 4.6 mmol/L (3.5-5.1)
[2016-08-07 05:52] LABS: CALCIUM 7.3 mg/dl (8.4-10.2); CREATININE 2.97 mg/dl (0.61-1.24)
[2016-08-07 05:59] LABS: BASOPHILS % 0.3 % (0.0-2.0); EOSINOPHILS % 0.3 % (0.0-7.0); HEMATOCRIT 42.9 % (42.0-52.0); HEMOGLOBIN 14.7 g/dl (14.0-18.0); LYMPHOCYTES # 2.2 10^3/ul (0.8-2.9); LYMPHOCYTES % 18.4 % (15.0-51.0); MEAN CORPUSCULAR HEMOGLOBIN 29.9 pg (29.0-33.0); MEAN CORPUSCULAR HGB CONC 34.3 g/dl (32.0-37.0); MEAN CORPUSCULAR VOLUME 87.3 fl (82.0-101.0); MEAN PLATELET VOLUME 9.1 fl (7.4-10.4); MONOCYTE # 0.9 10^3/ul (0.3-0.9); MONOCYTES % 7.5 % (0.0-11.0); NEUTROPHIL # 8.7 10^3/ul (1.6-7.5); NEUTROPHILS % 73.5 % (39.0-77.0); PLATELET COUNT 91 10^3/UL (140-440); RED BLOOD COUNT 4.92 10^6/ul (4.70-6.10); RED CELL DISTRIBUTION WIDTH 15.2 % (11.5-14.5); UNCORRECTED WBC 11.8 10^3/ul (4.8-10.8); WHITE BLOOD COUNT 11.8 10^3/ul (4.8-10.8)
[2016-08-07 06:09] LABS: CONDITION 1; LH ANALYZER COMMENTS 1
--- NOTE | 2016-08-07 08:51 | CONS ---
Date/Time of Note Date/Time of Note DATE: 08/07/16 TIME: 08:46 Assessment/Plan Assessment/Plan Additional Assessment/Plan 1. Despite large vol paracentesis and low bp kidney fx (impaired) remains stable 2. Chg in cognition, repeat ammonia level is pending, may need clerical car checker imaging. 3. Favor palliative care, await ascitic fluid cytology and if no dx is made, may NOT be reasonable to pursue liver bx given overall condition. Consider palliative care consult. 4. CKD, stable and clearly he is not a dialysis candidate if their is decline in his renal fx. Consultation Date/Type/Reason Admit Date/Time Aug 04, 2016 at 13:11 Type of Consultation: Oncology Referring Provider: AMADOR MONGE 24 HR Interval Summary Subjective hx not possible: pt non-verbal, other (transferred to icu as change in mental status and hypotensive (SBP-80+)) Exam/Review of Systems Vital Signs Vitals Vital Signs Date Time Temp Pulse Resp B/P Pulse Ox O2 Delivery O2 Flow Rate FiO2 08/07/16 08:30 91/60 98 Nasal Cannula 08/07/16 08:15 17 08/07/16 08:00 75 08/07/16 08:00 98.5 Intake and Output 08/06/16 08/06/16 08/07/16 15:00 23:00 07:00 Intake Total 1400 ml 1550 ml Output Total 400 ml 700 ml Balance 1000 ml 850 ml Exam Neck: No jvd Respiratory: clear to auscultation Cardiovascular: regular rate and rhythm Gastrointestinal: other (ascites is less, no masses apprec or organomegaly) Genitourinary - Male: No other (cheek in place) Results Result Diagram: 08/07/16 0450 08/07/16 0450 Results 24 hrs Laboratory Tests Test 08/06/16 09:03 08/06/16 12:56 08/06/16 17:19 08/06/16 20:36 Bedside Glucose 126 243 H 242 H 146 Test 08/07/16 00:41 08/07/16 04:50 08/07/16 05:08 08/07/16 07:07 Bedside Glucose 172 180 137 Anion Gap 16 Basophils # 0.0 Basophils % 0.3 Blood Morphology Comment Blood Urea Nitrogen 94 H Calcium Level 7.3 L Carbon Dioxide Level 20 L Chloride Level 102 Creatinine 2.97 H Eosinophils # 0.0 Eosinophils % 0.3 Glucose Level 119 Hematocrit 42.9 Hemoglobin 14.7 Lymphocytes # 2.2 Lymphocytes % 18.4 Magnesium Level 2.8 H Mean Corpuscular Hemoglobin 29.9 Mean Corpuscular Hemoglobin Concent 34.3 Mean Corpuscular Volume 87.3 Mean Platelet Volume 9.1 Monocytes # 0.9 Monocytes % 7.5 Neutrophils # 8.7 H Neutrophils % 73.5 Nucleated Red Blood Cells # 0.0 Nucleated Red Blood Cells % 0.0 Phosphorus Level 3.5 Platelet Count 91 L Potassium Level 4.6 Red Blood Count 4.92 Red Cell Distribution Width 15.2 H Sodium Level 133 L White Blood Count 11.8 H Medications Medications Current Medications Ondansetron HCl (Zofran Inj) 4 mg Q6H PRN IV NAUSEA AND/OR VOMITING; Start at 14:00 Acetaminophen (Tylenol Tab) 650 mg Q6H PRN PO PAIN LEVEL 1-3 OR FEVER; Start at 14:00 Acetaminophen/ Hydrocodone Bitart (Angora (5/325)) 1 tab Q6H PRN PO MODERATE PAIN LEVEL 4-6; Start 08/04/16 at 14:00 Morphine Sulfate (morphine) 2 mg Q4H PRN IV SEVERE PAIN LEVEL 7-10; Start 08/04 at 14:00 Docusate Sodium (Colace) 100 mg Q12H PRN PO CONSTIPATION; Start 08/04/16 at 14: 00 Magnesium Hydroxide (Milk Of Mag) 30 ml DAILY PRN PO CONSTIPATION; Start at 14:00 Sodium Biphosphate/ Sodium Phosphate (Fleet Enema) 133 ml DAILY PRN [place] CONSTIPATION; Start 08/04/16 at 14:00 Lorazepam (Ativan) 0.5 mg Q6H PRN IV ANXIETY; Start 08/04/16 at 14:00 Hydralazine HCl (Apresoline) 10 mg Q6H PRN IV ELEVATED BLOOD PRESSURE; Start at 14:00 Nitroglycerin (Nitroglycerin (Sl Tab) 0.4 Mg) 1 tab Q5M PRN SL ANGINA; Start at 14:00 Insulin Glargine (Lantus) 20 unit QAM SC Last administered on 08/06/16t 09:07; Admin Dose 20 UNIT; Start 08/05/16 at 09:00 Pantoprazole (Protonix Tab) 40 mg DAILY@06 PO Last administered on 08/07/16 05 :08; Admin Dose 40 MG; Start 08/05/16 at 06:00 Insulin Aspart (Novolog Insulin Pen) NOVOLOG *MILD* ALGORI... Q4 SC Last administered on 08/06/16 17:24; Admin Dose 4 UNIT; Start 08/04/16 at 17:00 Miscellaneous Information 1 ea NOTE XX ; Start 08/04/16 at 14:30 Glucose (Glutose) 15 gm Q15M PRN PO DECREASED GLUCOSE; Start 08/04/16 at 14:30 Glucose (Glutose) 22.5 gm Q15M PRN PO DECREASED GLUCOSE; Start 08/04/16 at 14: 30 Dextrose (D50w Syringe) 25 ml Q15M PRN IV DECREASED GLUCOSE; Start 08/04/16 at 14:30 Dextrose (D50w Syringe) 50 ml Q15M PRN IV DECREASED GLUCOSE; Start 08/04/16 at 14:30 Glucagon (Glucagen) 1 mg Q15M PRN IM DECREASED GLUCOSE; Start 08/04/16 at 14:30 Glucose (Glutose) 15 gm Q15M PRN BUCCAL DECREASED GLUCOSE; Start 08/04/16 at 14 :30 Loperamide HCl (Imodium Cap) 2 mg QID PRN PO DIARRHEA; Start 08/04/16 at 15:00 Gabapentin (Neurontin) 200 mg TID PO Last administered on 08/06/16 20:37; Admin Dose 200 MG; Start 08/04/16 at 21:00 Influenza Virus Vaccine 0.5 ml 0.5 ml ONCE ONCE IM* ; Start 08/07/16 at 09:00; Stop 08/07/16 at 09:01 Sodium Bicarbonate/ Sodium Chloride (Na Bicarb/1/2 NS) 1,000 ml @ 100 mls/hr Q10H IV Last administered on 08/07/16 00:39; Admin Dose 100 MLS/HR; Start at 15:00 PARI SIEGEL MD Aug 07, 2016 08:51
[2016-08-07] MEDS: DEXTROSE 5%-0.9% NACL 1,000 ML IV SCH ×2 (08:58→18:21)
[2016-08-07] MEDS ORDERED: SOD CHLORIDE 0.9% 1,000 ML IV SCH (09:00)
[2016-08-07] MEDS ORDERED: INFLUENZA VIRUS VACCINE 0.5 ML (DISPENSING) IM* ONE (09:00)
[2016-08-07 09:16] LABS: AADO2 Arterial 128.9 mmHg (7.0-24.0); Allen Test ACCEPTAB; Arterial Base Excess -4.6 mmol/L (-3.0-3); Arterial COHb 0.5 % (0.0-3.0); Arterial Fraction of Oxyhgb 95.1 % (93.0-99.0); Arterial HCO3 16.6 mmol/L (22.0-26.0); Arterial MetHb 0.4 % (0.0-1.5); Arterial Total Hemglobin 15.2 g/dl (12.0-18.0); MODE NASAL CANNULA
--- NOTE | 2016-08-07 09:59 | PN ---
Date/Time of Note Date/Time of Note DATE: 08/07/16 TIME: 09:49 Assessment/Plan VTE Prophylaxis VTE Prophylaxis Intervention: SCD's Lines/Catheters IV Catheter Type (from Nrsg): Peripheral IV Urinary Cath still in place: Yes Reason Cath still needed: other (indicate) (altered menatation) Assessment/Plan Assessment/Plan 61-year-old male who comes in with weakness and diarrhea with a past history of cirrhosis and alcohol abuse, and questionable hepatocellular carcinoma and possible cancer metastasis. 1 Acute encephalopathy: * Likely hepatic from exam 2. Weakness and diarrhea. * No further diarrhea so far 2. Acute on chronic renal insufficiency * His baseline creatinine appears to be in the 2.7 to 2.8 range 3. 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 Type 2 diabetes - A1c = 7.1 5. Liver and lung masses with elevated AFP and CA-125 PLAN: * F/u NH3 levels / EEG and head Ct also ordered / commence Lactulose tx / ? Rifaximin * F/u Path report from Ascitic fluid * Continue close ICU care and monitoring * Monitor Resp status for need for intubation if he declines * Maintain Aspiration precautions while altered * Continue pain control/ antiemetics/ antipyretics/ supportive care * Continue gentle IV hydration * Hold Lantus while NPO and use SSI Q4h to avoid hypoglycemia * Per Oncology, patient is an extremely poor candidate for Chemo d/t debility and lack of support if Liver mass is diagnosed as cancer and hence will not be started on chemo if no change in current state of affairs * Oncology recommends Hospice eval and patient was agreeable / Palliative Care consult as well PROPHYLAXIS: PPI / SCDs CRITICAL CARE TIME: >35 mins Subjective 24 Hr Interval Summary Free Text/Dictation Patient seen and examined. Patient was an [employer] last night because of an acute change in his mental status. The patient will was awake alert and oriented was found to be altered and unresponsive. He seemed to move all extremities, but he will not open his eyes spontaneously and will not respond to his name. He was found to have normal blood glucose levels, a stat ABG was normal, and has been transferred to the intensive care unit for further care. There has been no fever noted, and there was no history of fall or any other kind of head trauma. Subjective hx not possible: pt non-verbal Exam/Review of Systems Vital Signs Vitals Vital Signs Date Time Temp Pulse Resp B/P Pulse Ox O2 Delivery O2 Flow Rate FiO2 08/07/16 08:30 91/60 98 Nasal Cannula 08/07/16 08:15 17 08/07/16 08:00 75 08/07/16 08:00 98.5 Intake and Output 08/06/16 08/06/16 08/07/16 15:00 23:00 07:00 Intake Total 1400 ml 1550 ml Output Total 400 ml 700 ml Balance 1000 ml 850 ml Exam Constitutional: frail, non-verbal, No alert, No distress, No oriented Psych: other (unable to assess) Head: normocephalic, other (old scar defect in L frontoparietal region stable and well healed) Eyes: PERRL, icteric (mildly) ENMT: other (maintaining his airway), No intubated Neck: supple, No jvd Respiratory: clear to auscultation, diminished breath sounds Cardiovascular: regular rate and rhythm, No murmurs/extra sounds Gastrointestinal: bowel sounds, soft, No distended Extremities: No edema Neurological: unresponsive, No nl mental status, No nl speech, No nl strength Results Result Diagram: 08/07/16 0450 08/07/16 0450 Results 24 hrs Laboratory Tests Test 08/06/16 12:56 08/06/16 17:19 08/06/16 20:36 08/07/16 00:41 Bedside Glucose 243 H 242 H 146 172 Test 08/07/16 04:50 08/07/16 05:08 08/07/16 07:07 08/07/16 08:47 Anion Gap 16 Basophils # 0.0 Basophils % 0.3 Blood Morphology Comment Blood Urea Nitrogen 94 H Calcium Level 7.3 L Carbon Dioxide Level 20 L Chloride Level 102 Creatinine 2.97 H Eosinophils # 0.0 Eosinophils % 0.3 Glucose Level 119 Hematocrit 42.9 Hemoglobin 14.7 Lymphocytes # 2.2 Lymphocytes % 18.4 Magnesium Level 2.8 H Mean Corpuscular Hemoglobin 29.9 Mean Corpuscular Hemoglobin Concent 34.3 Mean Corpuscular Volume 87.3 Mean Platelet Volume 9.1 Monocytes # 0.9 Monocytes % 7.5 Neutrophils # 8.7 H Neutrophils % 73.5 Nucleated Red Blood Cells # 0.0 Nucleated Red Blood Cells % 0.0 Phosphorus Level 3.5 Platelet Count 91 L Potassium Level 4.6 Red Blood Count 4.92 Red Cell Distribution Width 15.2 H Sodium Level 133 L White Blood Count 11.8 H Bedside Glucose 180 137 145 Test 08/07/16 09:00 Arterial Blood HCO3 16.6 L Arterial Blood Base Excess -4.6 L Arterial Blood Oxygen Saturation 96.0 Sanjeev Test ACCEPTAB Arterial Blood Gas Puncture Site Right Radial Arterial Blood Carboxyhemoglobin 0.5 Arterial Blood Date Drawn 08/07/2016 9:04:32 AM Arterial Blood Methemoglobin 0.4 Arterial Blood pCO2 (Temp correct) 22.6 L Arterial Blood pH (Temp corrected) 7.483 H Arterial Blood pO2 (Temp corrected) 80.0 Blood Gas A-a O2 Differential 128.9 H Blood Gas Modality NASAL CANNULA Blood Gas Notified Time 08/07/2016 9:16:14 AM Blood Gas Notified Whom JLD Blood Gas Specimen Source Blood arterial Blood Gas Temperature 37.0 FiO2 33.0 Oxyhemoglobin Percent 95.1 Total Hemoglobin 15.2 Medications Medications Current Medications Ondansetron HCl (Zofran Inj) 4 mg Q6H PRN IV NAUSEA AND/OR VOMITING; Start at 14:00 Acetaminophen (Tylenol Tab) 650 mg Q6H PRN PO PAIN LEVEL 1-3 OR FEVER; Start at 14:00 Acetaminophen/ Hydrocodone Bitart ([place] (5/325)) 1 tab Q6H PRN PO MODERATE PAIN LEVEL 4-6; Start 08/04/16 at 14:00 Morphine Sulfate (morphine) 2 mg Q4H PRN IV SEVERE PAIN LEVEL 7-10; Start 08/04 at 14:00 Docusate Sodium (Colace) 100 mg Q12H PRN PO CONSTIPATION; Start 08/04/16 at 14: 00 Magnesium Hydroxide (Milk Of Mag) 30 ml DAILY PRN PO CONSTIPATION; Start at 14:00 Sodium Biphosphate/ Sodium Phosphate (Fleet Enema) 133 ml DAILY PRN [place] CONSTIPATION; Start 08/04/16 at 14:00 Lorazepam (Ativan) 0.5 mg Q6H PRN IV ANXIETY; Start 08/04/16 at 14:00 Hydralazine HCl (Apresoline) 10 mg Q6H PRN IV ELEVATED BLOOD PRESSURE; Start at 14:00 Nitroglycerin (Nitroglycerin (Sl Tab) 0.4 Mg) 1 tab Q5M PRN SL ANGINA; Start at 14:00 Insulin Glargine (Lantus) 20 unit QAM SC Last administered on 08/06/16 09:07; Admin Dose 20 UNIT; Start 08/05/16 at 09:00; Status Future Hold Pantoprazole (Protonix Tab) 40 mg DAILY@06 PO Last administered on 08/07/16 05 :08; Admin Dose 40 MG; Start 08/05/16 at 06:00 Insulin Aspart (Novolog Insulin Pen) NOVOLOG *MILD* ALGORI... Q4 SC Last administered on 08/06/16 17:24; Admin Dose 4 UNIT; Start 08/04/16 at 17:00 Miscellaneous Information 1 ea NOTE XX ; Start 08/04/16 at 14:30 Glucose (Glutose) 15 gm Q15M PRN PO DECREASED GLUCOSE; Start 08/04/16 at 14:30 Glucose (Glutose) 22.5 gm Q15M PRN PO DECREASED GLUCOSE; Start 08/04/16 at 14: 30 Dextrose (D50w Syringe) 25 ml Q15M PRN IV DECREASED GLUCOSE; Start 08/04/16 at 14:30 Dextrose (D50w Syringe) 50 ml Q15M PRN IV DECREASED GLUCOSE; Start 08/04/16 at 14:30 Glucagon (Glucagen) 1 mg Q15M PRN IM DECREASED GLUCOSE; Start 08/04/16 at 14:30 Glucose (Glutose) 15 gm Q15M PRN BUCCAL DECREASED GLUCOSE; Start 08/04/16 at 14 :30 Loperamide HCl (Imodium Cap) 2 mg QID PRN PO DIARRHEA; Start 08/04/16 at 15:00 Gabapentin 200 mg 200 mg TID PO Last administered on 08/06/16 20:37; Admin Dose 200 MG; Start 08/04/16 at 21:00 Dextrose/Sodium Chloride (D5-NS) 1,000 ml @ 100 mls/hr Q10H IV Last administered on 08/07/16 08:58; Admin Dose 100 MLS/HR; Start 08/07/16 at 09:00 Lactulose (Enulose) 20 gm Q6 NGT ; Start 08/07/16 at 12:00; Status UNV Procedures Procedures PROCEDURE: Ultrasound guided paracentesis. CLINICAL INDICATION: Ascites and shortness of breath. COMPARISON: 07/16/2016. TECHNIQUE: The risks, benefits, and alternatives were explained to the patient and/or the patient's family, including but not limited to bleeding, infection, pain, visceral or vascular damage, shock, and . The patient and/or the patient' s family understood the risks and the alternatives and wished to proceed with the procedure. Informed written consent was obtained. A procedural time out was performed. The patient's name, date of , and procedure to be performed were verified. Utilizing ultrasound guidance, optimal location for entry to the peritoneal cavity was ascertained. The overlying skin was prepped and draped in the usual sterile fashion. Approximately 10 ml of 1% Xylocaine was injected locally for pain control. Using ultrasound guidance, an 8 [place] catheter was introduced into the peritoneal cavity in the right lower quadrant without difficulty. FINDINGS: Initial images demonstrate ascites. Approximately 10.0 liters of serous fluid was aspirated and sent for laboratory analysis. The patient tolerated the procedure well without complication. IMPRESSION: 1. Successful ultrasound-guided paracentesis. RPTAT: QQ .Jose F Knox MD, MD Date Time Electronically viewed and signed by .Jose F Knox MD, on 08/06/2016 15:58 .R/ CC: AMADOR MONGE BOLATITO M. Aug 07, 2016 09:59
[2016-08-07] MEDS ORDERED: NORepinephrine 8MG/250 ML (PMX 250 ML ONE (11:25)
[2016-08-07] MEDS ORDERED: NORepinephrine 8MG/250 ML (PMX 250 ML IV SCH (12:00)
[2016-08-07] MEDS: LACTULOSE 30ML CUP NGT SCH ×3 (12:48→23:24)
[2016-08-07] MEDS: GABAPENTIN 100 MG CAP PO SCH ×2 (12:48→21:01)
--- NOTE | 2016-08-07 15:34 | CONS ---
Date/Time of Note Date/Time of Note DATE: 08/07/16 TIME: 15:27 Assessment/Plan Assessment/Plan Additional Assessment/Plan 1. History of hepatitis C and perhaps hepatitis B. 2. 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 Likely metastatic HCC 4. Stage IV chronic kidney disease. 5. Diarrhea, improving, C diff neg 6. Squamous cell carcinoma of the skin previously. 7. Plaque psoriasis. 8. Above-mentioned history of alcohol abuse (potential). 9. Status post inguinal hernia repair. 10. Status post multiple skin grafts. Recommendations: 1. consider ascitic fluid tap and cytology and if nondiagnostic consider liver biopsy by Dr. Ohara if heme/onc consultants deem indicated 2. As it is likely metastatic HCC, will defer to heme/onc whether palliative care eval is appropriate Further recommendations depend on clinical course Patient seen in collaboration with Dr. Hoffman Consultation Date/Type/Reason Admit Date/Time Aug 04, 2016 at 13:11 Initial Consult Date 08/05/16 Type of Consultation: Gastroenterology Referring Provider: AMADOR MONGE 24 HR Interval Summary Free Text/Dictation C. difficile neg Hemoglobin stable Pt non verbal at present Decrease LOC Exam/Review of Systems Vital Signs Vitals Vital Signs Date Time Temp Pulse Resp B/P Pulse Ox O2 Delivery O2 Flow Rate FiO2 08/07/16 14:15 78 15 87/60 99 Nasal Cannula 2.0 08/07/16 12:00 98.7 Intake and Output 08/06/16 08/06/16 08/07/16 15:00 23:00 07:00 Intake Total 1400 ml 1550 ml Output Total 400 ml 700 ml Balance 1000 ml 850 ml Exam Constitutional: alert, frail Psych: depression Head: atraumatic, normocephalic Eyes: nl conjunctiva ENMT: nl external ears & nose Neck: non-tender, supple Respiratory: clear to auscultation Cardiovascular: nl pulses, regular rate and rhythm Gastrointestinal: soft Musculoskeletal: nl extremities to inspection, nl gait and stance Extremities: normal pulses Results Result Diagram: 08/07/16 0450 08/07/16 0450 Results 24 hrs Laboratory Tests Test 08/06/16 17:19 08/06/16 20:36 08/07/16 00:41 08/07/16 04:50 Bedside Glucose 242 H 146 172 Anion Gap 16 Basophils # 0.0 Basophils % 0.3 Blood Morphology Comment Blood Urea Nitrogen 94 H Calcium Level 7.3 L Carbon Dioxide Level 20 L Chloride Level 102 Creatinine 2.97 H Eosinophils # 0.0 Eosinophils % 0.3 Glucose Level 119 Hematocrit 42.9 Hemoglobin 14.7 Lymphocytes # 2.2 Lymphocytes % 18.4 Magnesium Level 2.8 H Mean Corpuscular Hemoglobin 29.9 Mean Corpuscular Hemoglobin Concent 34.3 Mean Corpuscular Volume 87.3 Mean Platelet Volume 9.1 Monocytes # 0.9 Monocytes % 7.5 Neutrophils # 8.7 H Neutrophils % 73.5 Nucleated Red Blood Cells # 0.0 Nucleated Red Blood Cells % 0.0 Phosphorus Level 3.5 Platelet Count 91 L Potassium Level 4.6 Red Blood Count 4.92 Red Cell Distribution Width 15.2 H Sodium Level 133 L White Blood Count 11.8 H Test 08/07/16 05:08 08/07/16 07:07 08/07/16 08:47 08/07/16 09:00 Bedside Glucose 180 137 145 Arterial Blood HCO3 16.6 L Arterial Blood Base Excess -4.6 L Arterial Blood Oxygen Saturation 96.0 Sanjeev Test ACCEPTAB Arterial Blood Gas Puncture Site Right Radial Arterial Blood Carboxyhemoglobin 0.5 Arterial Blood Date Drawn 08/07/2016 9:04:32 AM Arterial Blood Methemoglobin 0.4 Arterial Blood pCO2 (Temp correct) 22.6 L Arterial Blood pH (Temp corrected) 7.483 H Arterial Blood pO2 (Temp corrected) 80.0 Blood Gas A-a O2 Differential 128.9 H Blood Gas Modality NASAL CANNULA Blood Gas Notified Time 08/07/2016 9:16:14 AM Blood Gas Notified Whom JLD Blood Gas Specimen Source Blood arterial Blood Gas Temperature 37.0 FiO2 33.0 Oxyhemoglobin Percent 95.1 Total Hemoglobin 15.2 Test 08/07/16 09:58 08/07/16 12:19 08/07/16 14:25 Lab Scanned Report REFERENCE LAB Bedside Glucose 209 Ammonia 53 #H Medications Medications Current Medications Ondansetron HCl (Zofran Inj) 4 mg Q6H PRN IV NAUSEA AND/OR VOMITING; Start at 14:00 Acetaminophen (Tylenol Tab) 650 mg Q6H PRN PO PAIN LEVEL 1-3 OR FEVER; Start at 14:00 Acetaminophen/ Hydrocodone Bitart ([place] (5/325)) 1 tab Q6H PRN PO MODERATE PAIN LEVEL 4-6; Start 08/04/16 at 14:00 Docusate Sodium (Colace) 100 mg Q12H PRN PO CONSTIPATION; Start 08/04/16 at 14: 00 Magnesium Hydroxide (Milk Of Mag) 30 ml DAILY PRN PO CONSTIPATION; Start at 14:00 Sodium Biphosphate/ Sodium Phosphate (Fleet Enema) 133 ml DAILY PRN [place] CONSTIPATION; Start 08/04/16 at 14:00 Lorazepam (Ativan) 0.5 mg Q6H PRN IV ANXIETY; Start 08/04/16 at 14:00 Hydralazine HCl (Apresoline) 10 mg Q6H PRN IV ELEVATED BLOOD PRESSURE; Start at 14:00 Nitroglycerin (Nitroglycerin (Sl Tab) 0.4 Mg) 1 tab Q5M PRN SL ANGINA; Start at 14:00 Insulin Glargine (Lantus) 20 unit QAM SC Last administered on 08/06/16 09:07; Admin Dose 20 UNIT; Start 08/05/16 at 09:00; Status Future Hold Pantoprazole (Protonix Tab) 40 mg DAILY@06 PO Last administered on 08/07/16 05 :08; Admin Dose 40 MG; Start 08/05/16 at 06:00 Insulin Aspart (Novolog Insulin Pen) NOVOLOG *MILD* ALGORI... Q4 SC Last administered on 08/07/16 12:51; Admin Dose 2 UNIT; Start 08/04/16 at 17:00 Miscellaneous Information 1 ea NOTE XX ; Start 08/04/16 at 14:30 Glucose (Glutose) 15 gm Q15M PRN PO DECREASED GLUCOSE; Start 08/04/16 at 14:30 Glucose (Glutose) 22.5 gm Q15M PRN PO DECREASED GLUCOSE; Start 08/04/16 at 14: 30 Dextrose (D50w Syringe) 25 ml Q15M PRN IV DECREASED GLUCOSE; Start 08/04/16 at 14:30 Dextrose (D50w Syringe) 50 ml Q15M PRN IV DECREASED GLUCOSE; Start 08/04/16 at 14:30 Glucagon (Glucagen) 1 mg Q15M PRN IM DECREASED GLUCOSE; Start 08/04/16 at 14:30 Glucose (Glutose) 15 gm Q15M PRN BUCCAL DECREASED GLUCOSE; Start 08/04/16 at 14 :30 Loperamide HCl (Imodium Cap) 2 mg QID PRN PO DIARRHEA; Start 08/04/16 at 15:00 Gabapentin 200 mg 200 mg TID PO Last administered on 08/07/16 12:48; Admin Dose 200 MG; Start 08/04/16 at 21:00 Dextrose/Sodium Chloride (D5-NS) 1,000 ml @ 100 mls/hr Q10H IV Last administered on 08/07/16 08:58; Admin Dose 100 MLS/HR; Start 08/07/16 at 09:00 Lactulose 20 gm 20 gm Q6 NGT Last administered on 08/07/16 12:48; Admin Dose 20 GM; Start 08/07/16 at 12:00 Norepinephrine (Levophed) 250 ml @ 1.875 mls/ hr TITRATE IV ; Start 08/07/16 at 12:00 KEVIN CARRINGTON Aug 07, 2016 15:34
--- NOTE | 2016-08-07 15:39 | RADRPT ---
PROCEDURE: CT Head without. CLINICAL INDICATION: Altered mental status. Of note, the patient was unable to remain still due to altered mental status. The examination was important. TECHNIQUE: The study was performed utilizing a multi-slice, multidetector CT scanner. Direct spira l 1 mm axial sections were obtained through the head without the use of intravenous contrast materia l. 1 or more of the following dose reduction techniques were utilized: Automated exposure control, adjustment of the mA and/or kV according to patient's size, iterative reconstruction technique. Co lizbeth and sagittal reformations were obtained. The images were reviewed on a PACS workstation. RADIATION DOSE: Not available COMPARISON: No prior studies are available for comparison. FINDINGS: Several images of the head demonstrated severe motion artifact, with no diagnostic utility. IMPRESSION: 1. Unable to incomplete examination due to altered mental status. Repeat examination with sedation would be helpful for further evaluation. RPTAT: HGAS .Hai Payne MD, MD Date Time Electronically viewed and signed by .Hai Payne MD, MD on 08/07/2016 15:39 .S/
--- NOTE | 2016-08-07 17:27 | PN ---
Date/Time of Note Date/Time of Note DATE: 08/07/16 TIME: 17:22 Assessment/Plan VTE Prophylaxis VTE Prophylaxis Intervention: other (per primary) Lines/Catheters IV Catheter Type (from Nrs): Peripheral IV Urinary Cath still in place: Yes Reason Cath still needed: terminal illness/intractable pain Assessment/Plan Assessment/Plan Pt has high ammonia consistent with liver failure. He is also azotemic. Cytology from paracentesis is not done yet. Even if malignancy were found, he is not a candidate for chemotherapy. Dr. Bearden was proposing hospice but no formal decision has yet been made. I would agree with comfort care, however. Subjective 24 Hr Interval Summary Free Text/Dictation Pt transferred to ICU for altered level of consciousness. He had paracentesis done yesterday. Unable to converse with him. Subjective hx not possible: pt non-verbal Exam/Review of Systems Vital Signs Vitals Vital Signs Date Time Temp Pulse Resp B/P Pulse Ox O2 Delivery O2 Flow Rate FiO2 08/07/16 16:00 79 08/07/16 15:45 24 127/82 99 Nasal Cannula 2.0 08/07/16 12:00 98.7 Intake and Output 08/06/16 08/06/16 08/07/16 15:00 23:00 07:00 Intake Total 1400 ml 1550 ml Output Total 400 ml 700 ml Balance 1000 ml 850 ml Exam Head: normocephalic Respiratory: clear to auscultation, diminished breath sounds Cardiovascular: regular rate and rhythm Gastrointestinal: soft Results Result Diagram: 08/07/16 0450 08/07/16 0450 Results 24 hrs Laboratory Tests Test 08/06/16 20:36 08/07/16 00:41 08/07/16 04:50 08/07/16 05:08 Bedside Glucose 146 172 180 Anion Gap 16 Basophils # 0.0 Basophils % 0.3 Blood Morphology Comment Blood Urea Nitrogen 94 H Calcium Level 7.3 L Carbon Dioxide Level 20 L Chloride Level 102 Creatinine 2.97 H Eosinophils # 0.0 Eosinophils % 0.3 Glucose Level 119 Hematocrit 42.9 Hemoglobin 14.7 Lymphocytes # 2.2 Lymphocytes % 18.4 Magnesium Level 2.8 H Mean Corpuscular Hemoglobin 29.9 Mean Corpuscular Hemoglobin Concent 34.3 Mean Corpuscular Volume 87.3 Mean Platelet Volume 9.1 Monocytes # 0.9 Monocytes % 7.5 Neutrophils # 8.7 H Neutrophils % 73.5 Nucleated Red Blood Cells # 0.0 Nucleated Red Blood Cells % 0.0 Phosphorus Level 3.5 Platelet Count 91 L Potassium Level 4.6 Red Blood Count 4.92 Red Cell Distribution Width 15.2 H Sodium Level 133 L White Blood Count 11.8 H Test 08/07/16 07:07 08/07/16 08:47 08/07/16 09:00 08/07/16 09:58 Bedside Glucose 137 145 Arterial Blood HCO3 16.6 L Arterial Blood Base Excess -4.6 L Arterial Blood Oxygen Saturation 96.0 Sanjeev Test ACCEPTAB Arterial Blood Gas Puncture Site Right Radial Arterial Blood Carboxyhemoglobin 0.5 Arterial Blood Date Drawn 08/07/2016 9:04:32 AM Arterial Blood Methemoglobin 0.4 Arterial Blood pCO2 (Temp correct) 22.6 L Arterial Blood pH (Temp corrected) 7.483 H Arterial Blood pO2 (Temp corrected) 80.0 Blood Gas A-a O2 Differential 128.9 H Blood Gas Modality NASAL CANNULA Blood Gas Notified Time 08/07/2016 9:16:14 AM Blood Gas Notified Whom JLD Blood Gas Specimen Source Blood arterial Blood Gas Temperature 37.0 FiO2 33.0 Oxyhemoglobin Percent 95.1 Total Hemoglobin 15.2 Lab Scanned Report REFERENCE LAB Test 08/07/16 12:19 08/07/16 14:25 Bedside Glucose 209 Ammonia 53 #H Medications Medications Current Medications Ondansetron HCl (Zofran Inj) 4 mg Q6H PRN IV NAUSEA AND/OR VOMITING; Start at 14:00 Acetaminophen (Tylenol Tab) 650 mg Q6H PRN PO PAIN LEVEL 1-3 OR FEVER; Start at 14:00 Acetaminophen/ Hydrocodone Bitart ([place] (5/325)) 1 tab Q6H PRN PO MODERATE PAIN LEVEL 4-6; Start 08/04/16 at 14:00 Docusate Sodium (Colace) 100 mg Q12H PRN PO CONSTIPATION; Start 08/04/16 at 14: 00 Magnesium Hydroxide (Milk Of Mag) 30 ml DAILY PRN PO CONSTIPATION; Start at 14:00 Sodium Biphosphate/ Sodium Phosphate (Fleet Enema) 133 ml DAILY PRN [place] CONSTIPATION; Start 08/04/16 at 14:00 Lorazepam (Ativan) 0.5 mg Q6H PRN IV ANXIETY; Start 08/04/16 at 14:00 Hydralazine HCl (Apresoline) 10 mg Q6H PRN IV ELEVATED BLOOD PRESSURE; Start at 14:00 Nitroglycerin (Nitroglycerin (Sl Tab) 0.4 Mg) 1 tab Q5M PRN SL ANGINA; Start at 14:00 Insulin Glargine (Lantus) 20 unit QAM SC Last administered on 08/06/16 09:07; Admin Dose 20 UNIT; Start 08/05/16 at 09:00; Status Future Hold Pantoprazole (Protonix Tab) 40 mg DAILY@06 PO Last administered on 08/07/16 05 :08; Admin Dose 40 MG; Start 08/05/16 at 06:00 Insulin Aspart (Novolog Insulin Pen) NOVOLOG *MILD* ALGORI... Q4 SC Last administered on 08/07/16 12:51; Admin Dose 2 UNIT; Start 08/04/16 at 17:00 Miscellaneous Information 1 ea NOTE XX ; Start 08/04/16 at 14:30 Glucose (Glutose) 15 gm Q15M PRN PO DECREASED GLUCOSE; Start 08/04/16 at 14:30 Glucose (Glutose) 22.5 gm Q15M PRN PO DECREASED GLUCOSE; Start 08/04/16 at 14: 30 Dextrose (D50w Syringe) 25 ml Q15M PRN IV DECREASED GLUCOSE; Start 08/04/16 at 14:30 Dextrose (D50w Syringe) 50 ml Q15M PRN IV DECREASED GLUCOSE; Start 08/04/16 at 14:30 Glucagon (Glucagen) 1 mg Q15M PRN IM DECREASED GLUCOSE; Start 08/04/16 at 14:30 Glucose (Glutose) 15 gm Q15M PRN BUCCAL DECREASED GLUCOSE; Start 08/04/16 at 14 :30 Loperamide HCl (Imodium Cap) 2 mg QID PRN PO DIARRHEA; Start 08/04/16 at 15:00 Gabapentin 200 mg 200 mg TID PO Last administered on 08/07/16 12:48; Admin Dose 200 MG; Start 08/04/16 at 21:00 Dextrose/Sodium Chloride (D5-NS) 1,000 ml @ 100 mls/hr Q10H IV Last administered on 08/07/16 08:58; Admin Dose 100 MLS/HR; Start 08/07/16 at 09:00 Lactulose 20 gm 20 gm Q6 NGT Last administered on 08/07/16 12:48; Admin Dose 20 GM; Start 08/07/16 at 12:00 Norepinephrine (Levophed) 250 ml @ 1.875 mls/ hr TITRATE IV ; Start 08/07/16 at 12:00 PARI MCCARTHY MD Aug 07, 2016 17:27
[2016-08-08] VITALS (24 sets, daily range): BP systolic 81–124; BP diastolic 55–79; PULSE 73–95; RESP 15–27
[2016-08-08] MEDS: INSULIN ASPART [NOVOLOG] 3 ML PEN SC SCH ×6 (00:44→21:28)
[2016-08-08] MEDS: DEXTROSE 5%-0.9% NACL 1,000 ML IV SCH ×2 (04:23→18:41)
[2016-08-08] MEDS: LACTULOSE 30ML CUP NGT SCH ×4 (06:14→23:56)
[2016-08-08] MEDS: PANTOPRAZOLE (EC) 40 MG TAB PO SCH (06:14)
[2016-08-08 06:29] LABS: POTASSIUM 4.1 mmol/L (3.5-5.1)
[2016-08-08 06:31] LABS: CREATININE 2.68 mg/dl (0.61-1.24)
[2016-08-08 06:32] LABS: CALCIUM 7.5 mg/dl (8.4-10.2)
--- NOTE | 2016-08-08 07:59 | CONS ---
Date/Time of Note Date/Time of Note DATE: 08/08/16 TIME: 07:55 Assessment/Plan Assessment/Plan Additional Assessment/Plan 1. 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 2. Await ascitic fluid cytology. 3. Lethargic, ammonia level inc yesterday, ct scan of brain report noted. 4. Consider palliative care consult. Consultation Date/Type/Reason Admit Date/Time Aug 04, 2016 at 13:11 Type of Consultation: Gastroenterology Referring Provider: AMADOR MONGE 24 HR Interval Summary Subjective hx not possible: other (Lethargic and responds to name) Exam/Review of Systems Vital Signs Vitals Vital Signs Date Time Temp Pulse Resp B/P Pulse Ox O2 Delivery O2 Flow Rate FiO2 08/08/16 07:00 85 15 98/67 97 Nasal Cannula 08/08/16 04:00 97.9 08/07/16 22:00 2.0 Intake and Output 08/07/16 08/07/16 08/08/16 15:00 23:00 07:00 Intake Total 633.750 ml 907.497 ml 960 ml Output Total 700 ml 230 ml Balance 633.750 ml 207.497 ml 730 ml Exam Neck: No jvd Respiratory: diminished breath sounds Gastrointestinal: other (ascites present without organomegaly or mass), No tender Extremities: No edema Neurological: other (no lat weakness, lethargic) Results Result Diagram: 08/07/16 0450 08/08/16 0555 Results 24 hrs Laboratory Tests Test 08/07/16 08:47 08/07/16 09:00 08/07/16 09:58 08/07/16 12:19 Bedside Glucose 145 209 Arterial Blood HCO3 16.6 L Arterial Blood Base Excess -4.6 L Arterial Blood Oxygen Saturation 96.0 Sanjeev Test ACCEPTAB Arterial Blood Gas Puncture Site Right Radial Arterial Blood Carboxyhemoglobin 0.5 Arterial Blood Date Drawn 08/07/2016 9:04:32 AM Arterial Blood Methemoglobin 0.4 Arterial Blood pCO2 (Temp correct) 22.6 L Arterial Blood pH (Temp corrected) 7.483 H Arterial Blood pO2 (Temp corrected) 80.0 Blood Gas A-a O2 Differential 128.9 H Blood Gas Modality NASAL CANNULA Blood Gas Notified Time 08/07/2016 9:16:14 AM Blood Gas Notified Whom JLD Blood Gas Specimen Source Blood arterial Blood Gas Temperature 37.0 FiO2 33.0 Oxyhemoglobin Percent 95.1 Total Hemoglobin 15.2 Lab Scanned Report REFERENCE LAB Test 08/07/16 14:25 08/07/16 17:29 08/07/16 21:00 08/08/16 00:41 Ammonia 53 #H Bedside Glucose 204 277 H 191 Test 08/08/16 04:49 08/08/16 05:55 Bedside Glucose 196 Anion Gap 15 Blood Urea Nitrogen 92 H Calcium Level 7.5 L Carbon Dioxide Level 19 L Chloride Level 108 Creatinine 2.68 H Glucose Level 202 Potassium Level 4.1 Sodium Level 138 Medications Medications Current Medications Ondansetron HCl (Zofran Inj) 4 mg Q6H PRN IV NAUSEA AND/OR VOMITING; Start at 14:00 Acetaminophen (Tylenol Tab) 650 mg Q6H PRN PO PAIN LEVEL 1-3 OR FEVER; Start at 14:00 Acetaminophen/ Hydrocodone Bitart ([place] (5/325)) 1 tab Q6H PRN PO MODERATE PAIN LEVEL 4-6; Start 08/04/16 at 14:00 Docusate Sodium (Colace) 100 mg Q12H PRN PO CONSTIPATION; Start 08/04/16 at 14: 00 Magnesium Hydroxide (Milk Of Mag) 30 ml DAILY PRN PO CONSTIPATION; Start at 14:00 Sodium Biphosphate/ Sodium Phosphate (Fleet Enema) 133 ml DAILY PRN [place] CONSTIPATION; Start 08/04/16 at 14:00 Lorazepam (Ativan) 0.5 mg Q6H PRN IV ANXIETY; Start 08/04/16 at 14:00 Hydralazine HCl (Apresoline) 10 mg Q6H PRN IV ELEVATED BLOOD PRESSURE; Start at 14:00 Nitroglycerin (Nitroglycerin (Sl Tab) 0.4 Mg) 1 tab Q5M PRN SL ANGINA; Start at 14:00 Insulin Glargine (Lantus) 20 unit QAM SC Last administered on 08/06/16t 09:07; Admin Dose 20 UNIT; Start 08/05/16 at 09:00; Status Future Hold Pantoprazole (Protonix Tab) 40 mg DAILY@06 PO Last administered on 08/08/16 06 :14; Admin Dose 40 MG; Start 08/05/16 at 06:00 Insulin Aspart (Novolog Insulin Pen) NOVOLOG *MILD* ALGORI... Q4 SC Last administered on 08/08/16 04:52; Admin Dose 2 UNIT; Start 08/04/16 at 17:00 Miscellaneous Information 1 ea NOTE XX ; Start 08/04/16 at 14:30 Glucose (Glutose) 15 gm Q15M PRN PO DECREASED GLUCOSE; Start 08/04/16 at 14:30 Glucose (Glutose) 22.5 gm Q15M PRN PO DECREASED GLUCOSE; Start 08/04/16 at 14: 30 Dextrose (D50w Syringe) 25 ml Q15M PRN IV DECREASED GLUCOSE; Start 08/04/16 at 14:30 Dextrose (D50w Syringe) 50 ml Q15M PRN IV DECREASED GLUCOSE; Start 08/04/16 at 14:30 Glucagon (Glucagen) 1 mg Q15M PRN IM DECREASED GLUCOSE; Start 08/04/16 at 14:30 Glucose (Glutose) 15 gm Q15M PRN BUCCAL DECREASED GLUCOSE; Start 08/04/16 at 14 :30 Loperamide HCl (Imodium Cap) 2 mg QID PRN PO DIARRHEA; Start 08/04/16 at 15:00 Gabapentin 200 mg 200 mg TID PO Last administered on 08/07/16 21:01; Admin Dose 200 MG; Start 08/04/16 at 21:00 Dextrose/Sodium Chloride (D5-NS) 1,000 ml @ 100 mls/hr Q10H IV Last administered on 08/08/16 04:23; Admin Dose 100 MLS/HR; Start 08/07/16 at 09:00 Lactulose 20 gm 20 gm Q6 NGT Last administered on 08/08/16 06:14; Admin Dose 20 GM; Start 08/07/16 at 12:00 Norepinephrine (Levophed) 250 ml @ 1.875 mls/ hr TITRATE IV Last administered on 08/07/16 11:00; Admin Dose 9.375 MLS/HR; Start 08/07/16 at 12:00 PARI SIEGEL MD Aug 08, 2016 07:58
[2016-08-08] MEDS: GABAPENTIN 100 MG CAP PO SCH ×3 (08:46→21:33)
[2016-08-08] MEDS: INSULIN GLARGINE [LANtus] 3 ML PEN SC SCH (08:58)
[2016-08-08 09:29] LABS: BASOPHILS % 0.3 % (0.0-2.0); EOSINOPHILS # 0.1 10^3/ul (0.0-0.5); EOSINOPHILS % 0.6 % (0.0-7.0); HEMATOCRIT 43.1 % (42.0-52.0); HEMOGLOBIN 14.6 g/dl (14.0-18.0); LYMPHOCYTES # 1.6 10^3/ul (0.8-2.9); LYMPHOCYTES % 14.4 % (15.0-51.0); MEAN CORPUSCULAR HEMOGLOBIN 29.7 pg (29.0-33.0); MEAN CORPUSCULAR HGB CONC 33.9 g/dl (32.0-37.0); MEAN CORPUSCULAR VOLUME 87.7 fl (82.0-101.0); MEAN PLATELET VOLUME 9.5 fl (7.4-10.4); MONOCYTE # 1.2 10^3/ul (0.3-0.9); MONOCYTES % 10.4 % (0.0-11.0); NEUTROPHIL # 8.3 10^3/ul (1.6-7.5); NEUTROPHILS % 74.3 % (39.0-77.0); PLATELET COUNT 89 10^3/UL (140-440); RED BLOOD COUNT 4.92 10^6/ul (4.70-6.10); RED CELL DISTRIBUTION WIDTH 15.3 % (11.5-14.5); UNCORRECTED WBC 11.1 10^3/ul (4.8-10.8); WHITE BLOOD COUNT 11.1 10^3/ul (4.8-10.8)
--- NOTE | 2016-08-08 09:29 | CONS ---
Date/Time of Note Date/Time of Note DATE: 08/08/16 TIME: 09:20 Assessment/Plan Assessment/Plan Additional Assessment/Plan . History of hepatitis C and perhaps hepatitis B. 2. 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 Likely metastatic HCC 4. Stage IV chronic kidney disease. 5. Diarrhea, improving, C diff neg 6. Squamous cell carcinoma of the skin previously. 7. Plaque psoriasis. 8. Above-mentioned history of alcohol abuse (potential). 9. Status post inguinal hernia repair. 10. Status post multiple skin grafts. Recommendations: 1. consider ascitic fluid tap and cytology and if nondiagnostic consider liver biopsy by Dr. Ohara if heme/onc consultants deem indicated 2. As it is likely metastatic HCC, will defer to heme/onc whether palliative care eval is appropriate Further recommendations depend on clinical course Patient seen in collaboration with Dr. Hoffman Consultation Date/Type/Reason Admit Date/Time Aug 04, 2016 at 13:11 Initial Consult Date 08/05/16 Type of Consultation: Gastroenterology Referring Provider: AMADOR MONGE 24 HR Interval Summary Free Text/Dictation Hemoglobin stable Pt non verbal at present Exam/Review of Systems Vital Signs Vitals Vital Signs Date Time Temp Pulse Resp B/P Pulse Ox O2 Delivery O2 Flow Rate FiO2 08/08/16 08:00 Nasal Cannula 2.0 08/08/16 08:00 98.7 84 25 113/76 100 Intake and Output 08/07/16 08/07/16 08/08/16 15:00 23:00 07:00 Intake Total 633.750 ml 907.497 ml 960 ml Output Total 700 ml 230 ml Balance 633.750 ml 207.497 ml 730 ml Exam Constitutional: alert, frail Psych: depression Head: atraumatic, normocephalic Eyes: nl conjunctiva ENMT: nl external ears & nose Neck: non-tender, supple Respiratory: clear to auscultation Cardiovascular: nl pulses, regular rate and rhythm Gastrointestinal: soft Musculoskeletal: nl extremities to inspection, nl gait and stance Extremities: normal pulses Results Result Diagram: 08/07/16 0450 08/08/16 0555 Results 24 hrs Laboratory Tests Test 08/07/16 09:58 08/07/16 12:19 08/07/16 14:25 08/07/16 17:29 Lab Scanned Report REFERENCE LAB Bedside Glucose 209 204 Ammonia 53 #H Test 08/07/16 21:00 08/08/16 00:41 08/08/16 04:49 08/08/16 05:55 Bedside Glucose 277 H 191 196 Anion Gap 15 Blood Urea Nitrogen 92 H Calcium Level 7.5 L Carbon Dioxide Level 19 L Chloride Level 108 Creatinine 2.68 H Glucose Level 202 Potassium Level 4.1 Sodium Level 138 Test 08/08/16 08:54 Bedside Glucose 202 Medications Medications Current Medications Ondansetron HCl (Zofran Inj) 4 mg Q6H PRN IV NAUSEA AND/OR VOMITING; Start at 14:00 Acetaminophen (Tylenol Tab) 650 mg Q6H PRN PO PAIN LEVEL 1-3 OR FEVER; Start at 14:00 Acetaminophen/ Hydrocodone Bitart ([place] (5/325)) 1 tab Q6H PRN PO MODERATE PAIN LEVEL 4-6; Start 08/04/16 at 14:00 Docusate Sodium (Colace) 100 mg Q12H PRN PO CONSTIPATION; Start 08/04/16 at 14: 00 Magnesium Hydroxide (Milk Of Mag) 30 ml DAILY PRN PO CONSTIPATION; Start at 14:00 Sodium Biphosphate/ Sodium Phosphate (Fleet Enema) 133 ml DAILY PRN [place] CONSTIPATION; Start 08/04/16 at 14:00 Lorazepam (Ativan) 0.5 mg Q6H PRN IV ANXIETY; Start 08/04/16 at 14:00 Hydralazine HCl (Apresoline) 10 mg Q6H PRN IV ELEVATED BLOOD PRESSURE; Start at 14:00 Nitroglycerin (Nitroglycerin (Sl Tab) 0.4 Mg) 1 tab Q5M PRN SL ANGINA; Start at 14:00 Insulin Glargine (Lantus) 20 unit QAM SC Last administered on 08/06/16 09:07; Admin Dose 20 UNIT; Start 08/05/16 at 09:00; Status Future Hold Pantoprazole (Protonix Tab) 40 mg DAILY@06 PO Last administered on 08/08/16 06 :14; Admin Dose 40 MG; Start 08/05/16 at 06:00 Insulin Aspart (Novolog Insulin Pen) NOVOLOG *MILD* ALGORI... Q4 SC Last administered on 08/08/16 08:57; Admin Dose 2 UNIT; Start 08/04/16 at 17:00 Miscellaneous Information 1 ea NOTE XX ; Start 08/04/16 at 14:30 Glucose (Glutose) 15 gm Q15M PRN PO DECREASED GLUCOSE; Start 08/04/16 at 14:30 Glucose (Glutose) 22.5 gm Q15M PRN PO DECREASED GLUCOSE; Start 08/04/16 at 14: 30 Dextrose (D50w Syringe) 25 ml Q15M PRN IV DECREASED GLUCOSE; Start 08/04/16 at 14:30 Dextrose (D50w Syringe) 50 ml Q15M PRN IV DECREASED GLUCOSE; Start 08/04/16 at 14:30 Glucagon (Glucagen) 1 mg Q15M PRN IM DECREASED GLUCOSE; Start 08/04/16 at 14:30 Glucose (Glutose) 15 gm Q15M PRN BUCCAL DECREASED GLUCOSE; Start 08/04/16 at 14 :30 Loperamide HCl (Imodium Cap) 2 mg QID PRN PO DIARRHEA; Start 08/04/16 at 15:00 Gabapentin 200 mg 200 mg TID PO Last administered on 08/08/16 08:46; Admin Dose 200 MG; Start 08/04/16 at 21:00 Dextrose/Sodium Chloride (D5-NS) 1,000 ml @ 70 mls/hr [id number] IV Last administered on 08/08/16 04:23; Admin Dose 100 MLS/HR; Start 08/07/16 at 09:00 Lactulose 20 gm 20 gm Q6 NGT Last administered on 08/08/16 06:14; Admin Dose 20 GM; Start 08/07/16 at 12:00 Norepinephrine (Levophed) 250 ml @ 1.875 mls/ hr TITRATE IV Last administered on 08/07/16 11:00; Admin Dose 9.375 MLS/HR; Start 08/07/16 at 12:00 KEVIN CARRINGTON Aug 08, 2016 09:29
[2016-08-08 09:31] LABS: CONDITION 1; LH ANALYZER COMMENTS 1
--- NOTE | 2016-08-08 11:10 | SP ---
DATE OF PROCEDURE: 08/07/2016 INDICATION: A 61-year-old gentleman with encephalopathy. DESCRIPTION OF PROCEDURE: EEG was recorded digitally. [id number] and scalp -to-ear montages were recorded and reviewed. All impedances were measured and recorded. Cap electrodes were placed in accordance with International 10-20 system of electrode placement. FINDINGS: Symmetrically distributed background activity of medium amplitude ranging in frequency between 4 to 6 cycles per second was seen throughout the recording. There are intermittent, not rhythmical sharp waves which are relatively frequent at times with triphasic morphology, this activity in bipolar transverse montage seemed to originate from the right frontal central parietal region, at times seems to be generalized. No response to photic stimulation. No ongoing seizure activity. IMPRESSION: Abnormal study secondary to background slowing which could reflect presence of encephalopathy. Frequent not rhythmical sharp waves could be epileptogenic in proper context. At times they seem to originate from the right frontoparietal area. Please correlate with brain imaging. At times, this activity seemed to be triphasic and triphasic waves usually reflect toxic metabolic encephalopathy. Though given possibility for this activity to be epileptogenic, I think it is reasonable to use seizure prophylaxis. Dictated By: OLIVIA ADAMS/RAFAEL Conf#: [id number] DID#: [id number] AUGUSTINE
--- NOTE | 2016-08-08 12:15 | PN ---
Date/Time of Note Date/Time of Note DATE: 08/08/16 TIME: 12:14 Assessment/Plan VTE Prophylaxis VTE Prophylaxis Intervention: SCD's Lines/Catheters IV Catheter Type (from Nrs): Peripheral IV Urinary Cath still in place: Yes Reason Cath still needed: terminal illness/intractable pain Assessment/Plan Assessment/Plan 61-year-old male who comes in with weakness and diarrhea with a past history of cirrhosis and alcohol abuse, and questionable hepatocellular carcinoma and possible cancer metastasis. 1 Acute encephalopathy: * Likely hepatic from exam 2. Weakness and diarrhea. * No further diarrhea so far 2. Acute on chronic renal insufficiency * His baseline creatinine appears to be in the 2.7 to 2.8 range 3. 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 Type 2 diabetes - A1c = 7.1 5. Liver and lung masses with elevated AFP and CA-125 PLAN: * IVF bolus and Albumin for volume expansion * Continue Lactulose via NGT / commence diet if cleared by ST/ add Rifaximin to regimen * F/u Path report from Ascitic fluid * Continue pain control/ antiemetics/ antipyretics/ supportive care * Continue Lantus/SSI once back on a diet * Per Oncology, patient is an extremely poor candidate for Chemo d/t debility and lack of support if Liver mass is diagnosed as cancer and hence will not be started on chemo if no change in current state of affairs * Oncology recommends Hospice eval and patient was agreeable / Palliative Care consult as well PROPHYLAXIS: PPI / SCDs CRITICAL CARE TIME: >35 mins Subjective 24 Hr Interval Summary Free Text/Dictation Patient has significantly improved, complains only of thirst But still intermittently altered and lethargic, nursing concerned about low BP. Not on pressor support Exam/Review of Systems Vital Signs Vitals Vital Signs Date Time Temp Pulse Resp B/P Pulse Ox O2 Delivery O2 Flow Rate FiO2 08/08/16 08:00 Nasal Cannula 2.0 08/08/16 08:00 98.7 84 25 113/76 100 Intake and Output 08/07/16 08/07/16 08/08/16 14:59 22:59 06:59 Intake Total 528.125 ml 1013.122 ml 860 ml Output Total 650 ml 280 ml Balance 528.125 ml 363.122 ml 580 ml Exam Constitutional: frail, oriented (x2), other (very lethargic), No distress Head: normocephalic Eyes: PERRL, icteric ENMT: No mucosa pink and moist Respiratory: clear to auscultation, diminished breath sounds Cardiovascular: regular rate and rhythm, No murmurs/extra sounds Gastrointestinal: bowel sounds, non-tender, soft Neurological: lethargic, No confused, No focal weakness Results Result Diagram: 08/08/16 0555 08/08/16 0555 Results 24 hrs Laboratory Tests Test 08/07/16 12:19 08/07/16 14:25 08/07/16 17:29 08/07/16 21:00 Bedside Glucose 209 204 277 H Ammonia 53 #H Test 08/08/16 00:41 08/08/16 04:49 08/08/16 05:55 08/08/16 08:54 Bedside Glucose 191 196 202 Anion Gap 15 Basophils # 0.0 Basophils % 0.3 Blood Morphology Comment Blood Urea Nitrogen 92 H Calcium Level 7.5 L Carbon Dioxide Level 19 L Chloride Level 108 Creatinine 2.68 H Eosinophils # 0.1 Eosinophils % 0.6 Glucose Level 202 Hematocrit 43.1 Hemoglobin 14.6 Lymphocytes # 1.6 Lymphocytes % 14.4 L Mean Corpuscular Hemoglobin 29.7 Mean Corpuscular Hemoglobin Concent 33.9 Mean Corpuscular Volume 87.7 Mean Platelet Volume 9.5 Monocytes # 1.2 H Monocytes % 10.4 Neutrophils # 8.3 H Neutrophils % 74.3 Nucleated Red Blood Cells # 0.0 Nucleated Red Blood Cells % 0.0 Platelet Count 89 L Potassium Level 4.1 Red Blood Count 4.92 Red Cell Distribution Width 15.3 H Sodium Level 138 White Blood Count 11.1 H Medications Medications Current Medications Ondansetron HCl (Zofran Inj) 4 mg Q6H PRN IV NAUSEA AND/OR VOMITING; Start at 14:00 Acetaminophen (Tylenol Tab) 650 mg Q6H PRN PO PAIN LEVEL 1-3 OR FEVER; Start at 14:00 Acetaminophen/ Hydrocodone Bitart ([place] (5/325)) 1 tab Q6H PRN PO MODERATE PAIN LEVEL 4-6; Start 08/04/16 at 14:00 Docusate Sodium (Colace) 100 mg Q12H PRN PO CONSTIPATION; Start 08/04/16 at 14: 00 Magnesium Hydroxide (Milk Of Mag) 30 ml DAILY PRN PO CONSTIPATION; Start at 14:00 Sodium Biphosphate/ Sodium Phosphate (Fleet Enema) 133 ml DAILY PRN [place] CONSTIPATION; Start 08/04/16 at 14:00 Lorazepam (Ativan) 0.5 mg Q6H PRN IV ANXIETY; Start 08/04/16 at 14:00 Hydralazine HCl (Apresoline) 10 mg Q6H PRN IV ELEVATED BLOOD PRESSURE; Start at 14:00 Nitroglycerin (Nitroglycerin (Sl Tab) 0.4 Mg) 1 tab Q5M PRN SL ANGINA; Start at 14:00 Insulin Glargine (Lantus) 20 unit QAM SC Last administered on 08/06/16 09:07; Admin Dose 20 UNIT; Start 08/05/16 at 09:00; Status Future Hold Pantoprazole (Protonix Tab) 40 mg DAILY@06 PO Last administered on 08/08/16 06 :14; Admin Dose 40 MG; Start 08/05/16 at 06:00 Insulin Aspart (Novolog Insulin Pen) NOVOLOG *MILD* ALGORI... Q4 SC Last administered on 08/08/16 08:57; Admin Dose 2 UNIT; Start 08/04/16 at 17:00 Miscellaneous Information 1 ea NOTE XX ; Start 08/04/16 at 14:30 Glucose (Glutose) 15 gm Q15M PRN PO DECREASED GLUCOSE; Start 08/04/16 at 14:30 Glucose (Glutose) 22.5 gm Q15M PRN PO DECREASED GLUCOSE; Start 08/04/16 at 14: 30 Dextrose (D50w Syringe) 25 ml Q15M PRN IV DECREASED GLUCOSE; Start 08/04/16 at 14:30 Dextrose (D50w Syringe) 50 ml Q15M PRN IV DECREASED GLUCOSE; Start 08/04/16 at 14:30 Glucagon (Glucagen) 1 mg Q15M PRN IM DECREASED GLUCOSE; Start 08/04/16 at 14:30 Glucose (Glutose) 15 gm Q15M PRN BUCCAL DECREASED GLUCOSE; Start 08/04/16 at 14 :30 Loperamide HCl (Imodium Cap) 2 mg QID PRN PO DIARRHEA; Start 08/04/16 at 15:00 Gabapentin 200 mg 200 mg TID PO Last administered on 08/08/16 08:46; Admin Dose 200 MG; Start 08/04/16 at 21:00 Dextrose/Sodium Chloride (D5-NS) 1,000 ml @ 70 mls/hr [id number] IV Last administered on 08/08/16 04:23; Admin Dose 100 MLS/HR; Start 08/07/16 at 09:00 Lactulose 20 gm 20 gm Q6 NGT Last administered on 08/08/16 06:14; Admin Dose 20 GM; Start 08/07/16 at 12:00 Norepinephrine (Levophed) 250 ml @ 1.875 mls/ hr TITRATE IV Last administered on 08/07/16 11:00; Admin Dose 9.375 MLS/HR; Start 08/07/16 at 12:00 Procedures Procedures PROCEDURE: CT Head without. CLINICAL INDICATION: Altered mental status. Of note, the patient was unable to remain still due to altered mental status. The examination was important. TECHNIQUE: The study was performed utilizing a multi-slice, multidetector CT scanner. Direct spiral 1 mm axial sections were obtained through the head without the use of intravenous contrast material. 1 or more of the following dose reduction techniques were utilized: Automated exposure control, adjustment of the mA and/or kV according to patient's size, iterative reconstruction technique. Coronal and sagittal reformations were obtained. The images were reviewed on a PACS workstation. RADIATION DOSE: Not available COMPARISON: No prior studies are available for comparison. FINDINGS: Several images of the head demonstrated severe motion artifact, with no diagnostic utility. IMPRESSION: 1. Unable to incomplete examination due to altered mental status. Repeat examination with sedation would be helpful for further evaluation. RPTAT: HGAS .Hai Payne MD, MD Date Time Electronically viewed and signed by .Hai Payne MD, on 08/07/2016 15: 39 .S/ CC: JORDAN COMBS DATE OF PROCEDURE: 08/07/2016 INDICATION: A 61-year-old gentleman with encephalopathy. DESCRIPTION OF PROCEDURE: EEG was recorded digitally. [id number] and scalp -to-ear montages were recorded and reviewed. All impedances were measured and recorded. Cap electrodes were placed in accordance with International 10-20 system of electrode placement. FINDINGS: Symmetrically distributed background activity of medium amplitude ranging in frequency between 4 to 6 cycles per second was seen throughout the recording. They are intermittent, not rhythmical sharp waves which are relatively frequent at times with triphasic morphology, this activity in bipolar transverse montage seemed to originate from the right frontal central parietal region, at times seems to be generalized. No response to photic stimulation. No ongoing seizure activity. IMPRESSION: Abnormal study secondary to background slowing which could reflect presence of encephalopathy. Frequent not rhythmical sharp waves could be epileptogenic in proper context. At times they seem to originate from the right frontoparietal area. Could please correlate with brain imaging. At times , this activity seemed to be triphasic and triphasic waves usually reflect toxic metabolic encephalopathy. He ____. though given possibility for this activity to be epileptogenic, I think it is reasonable to use seizure prophylaxis. Dictated By: JORDAN LOREDO MD Aug 08, 2016 12:15
--- NOTE | 2016-08-08 12:19 | CONS ---
Date/Time of Note Date/Time of Note DATE: 08/08/16 TIME: 12:14 Assessment/Plan Assessment/Plan Chief Complaint/Hosp Course 61 yo with # Liver mass - concerning for HCC with slight high AFP. During last admission, per radiology it was determined that a liver or lung biopsy would be unsafe in this cirrhotic patient. At that time a paracentesis was done which was negative for malignancy and therefore non diagnostic. WE will therefore re attempt to make a diagnosis with a paracentesis and cytology evaluation of pleural fluid. If we are not able to make a diagnosis would not pursue a risky liver or lung biopsy. Pt is extremely weak and cachetic and would not tolerate aggressive chemotherapy. Furthermore, patient has stated he has no family near by to help him and is amenable to supportive care and hospice. He understands that he would likely not tolerate chemotherapy -cytology from ascitic fluid 08/06/16 pending to help make diagnosis. Cytology from paracentesis is stll pending. Even if malignancy were found, he is not a candidate for chemotherapy. Dr. Bearden was proposing hospice but no formal decision has yet been made. -agree with palliative care involved because of multiple comorbid issues and deteriorating PS. #Thrombocytopenia -secondary to liver failure, no intervention unless needed for a procedure. Stable. # Liver cirrhosis- secondary to Hepatitis -continue to monitor counts #Acute on chronic renal failure -baseline creat around 2.7, stable Problems: Consultation Date/Type/Reason Admit Date/Time Aug 04, 2016 at 13:11 Initial Consult Date 08/05/16 Type of Consultation: Hematology/Oncology Referring Provider: AMADOR MONGE 24 HR Interval Summary Free Text/Dictation Patient states that he needs Ensure but per nursing has not yet been cleared for oral intake. Otherwise he is being monitored in the ICU for hypotension. Exam/Review of Systems Vital Signs Vitals Vital Signs Date Time Temp Pulse Resp B/P Pulse Ox O2 Delivery O2 Flow Rate FiO2 08/08/16 08:00 Nasal Cannula 2.0 08/08/16 08:00 98.7 84 25 113/76 100 Intake and Output 08/07/16 08/07/16 08/08/16 15:00 23:00 07:00 Intake Total 633.750 ml 907.497 ml 960 ml Output Total 700 ml 230 ml Balance 633.750 ml 207.497 ml 730 ml Exam Constitutional: alert, frail Psych: depression Head: atraumatic, normocephalic Eyes: nl conjunctiva ENMT: nl external ears & nose Neck: non-tender, supple Respiratory: clear to auscultation Cardiovascular: nl pulses, regular rate and rhythm Gastrointestinal: soft Musculoskeletal: nl extremities to inspection, nl gait and stance Extremities: normal pulses Results Result Diagram: 08/08/16 0555 08/08/16 0555 Results 24 hrs Laboratory Tests Test 08/07/16 12:19 08/07/16 14:25 08/07/16 17:29 08/07/16 21:00 Bedside Glucose 209 204 277 H Ammonia 53 #H Test 08/08/16 00:41 08/08/16 04:49 08/08/16 05:55 08/08/16 08:54 Bedside Glucose 191 196 202 Anion Gap 15 Basophils # 0.0 Basophils % 0.3 Blood Morphology Comment Blood Urea Nitrogen 92 H Calcium Level 7.5 L Carbon Dioxide Level 19 L Chloride Level 108 Creatinine 2.68 H Eosinophils # 0.1 Eosinophils % 0.6 Glucose Level 202 Hematocrit 43.1 Hemoglobin 14.6 Lymphocytes # 1.6 Lymphocytes % 14.4 L Mean Corpuscular Hemoglobin 29.7 Mean Corpuscular Hemoglobin Concent 33.9 Mean Corpuscular Volume 87.7 Mean Platelet Volume 9.5 Monocytes # 1.2 H Monocytes % 10.4 Neutrophils # 8.3 H Neutrophils % 74.3 Nucleated Red Blood Cells # 0.0 Nucleated Red Blood Cells % 0.0 Platelet Count 89 L Potassium Level 4.1 Red Blood Count 4.92 Red Cell Distribution Width 15.3 H Sodium Level 138 White Blood Count 11.1 H Medications Medications Current Medications Ondansetron HCl (Zofran Inj) 4 mg Q6H PRN IV NAUSEA AND/OR VOMITING; Start at 14:00 Acetaminophen (Tylenol Tab) 650 mg Q6H PRN PO PAIN LEVEL 1-3 OR FEVER; Start at 14:00 Acetaminophen/ Hydrocodone Bitart ([place] (5/325)) 1 tab Q6H PRN PO MODERATE PAIN LEVEL 4-6; Start 08/04/16 at 14:00 Docusate Sodium (Colace) 100 mg Q12H PRN PO CONSTIPATION; Start 08/04/16 at 14: 00 Magnesium Hydroxide (Milk Of Mag) 30 ml DAILY PRN PO CONSTIPATION; Start at 14:00 Sodium Biphosphate/ Sodium Phosphate (Fleet Enema) 133 ml DAILY PRN [place] CONSTIPATION; Start 08/04/16 at 14:00 Lorazepam (Ativan) 0.5 mg Q6H PRN IV ANXIETY; Start 08/04/16 at 14:00 Hydralazine HCl (Apresoline) 10 mg Q6H PRN IV ELEVATED BLOOD PRESSURE; Start at 14:00 Nitroglycerin (Nitroglycerin (Sl Tab) 0.4 Mg) 1 tab Q5M PRN SL ANGINA; Start at 14:00 Insulin Glargine (Lantus) 20 unit QAM SC Last administered on 08/06/16 09:07; Admin Dose 20 UNIT; Start 08/05/16 at 09:00; Status Future Hold Pantoprazole (Protonix Tab) 40 mg DAILY@06 PO Last administered on 08/08/16 06 :14; Admin Dose 40 MG; Start 08/05/16 at 06:00 Insulin Aspart (Novolog Insulin Pen) NOVOLOG *MILD* ALGORI... Q4 SC Last administered on 08/08/16 08:57; Admin Dose 2 UNIT; Start 08/04/16 at 17:00 Miscellaneous Information 1 ea NOTE XX ; Start 08/04/16 at 14:30 Glucose (Glutose) 15 gm Q15M PRN PO DECREASED GLUCOSE; Start 08/04/16 at 14:30 Glucose (Glutose) 22.5 gm Q15M PRN PO DECREASED GLUCOSE; Start 08/04/16 at 14: 30 Dextrose (D50w Syringe) 25 ml Q15M PRN IV DECREASED GLUCOSE; Start 08/04/16 at 14:30 Dextrose (D50w Syringe) 50 ml Q15M PRN IV DECREASED GLUCOSE; Start 08/04/16 at 14:30 Glucagon (Glucagen) 1 mg Q15M PRN IM DECREASED GLUCOSE; Start 08/04/16 at 14:30 Glucose (Glutose) 15 gm Q15M PRN BUCCAL DECREASED GLUCOSE; Start 08/04/16 at 14 :30 Loperamide HCl (Imodium Cap) 2 mg QID PRN PO DIARRHEA; Start 08/04/16 at 15:00 Gabapentin 200 mg 200 mg TID PO Last administered on 08/08/16 08:46; Admin Dose 200 MG; Start 08/04/16 at 21:00 Dextrose/Sodium Chloride (D5-NS) 1,000 ml @ 70 mls/hr [id number] IV Last administered on 08/08/16 04:23; Admin Dose 100 MLS/HR; Start 08/07/16 at 09:00 Lactulose 20 gm 20 gm Q6 NGT Last administered on 08/08/16 06:14; Admin Dose 20 GM; Start 08/07/16 at 12:00 Norepinephrine (Levophed) 250 ml @ 1.875 mls/ hr TITRATE IV Last administered on 08/07/16 11:00; Admin Dose 9.375 MLS/HR; Start 08/07/16 at 12:00 TOJUDY MD Aug 08, 2016 12:19
[2016-08-08] MEDS ORDERED: SOD CHLORIDE 0.9% 1,000 ML IV ONE (14:30)
[2016-08-08] MEDS: ALBUMIN HUMAN 25% 100 ML IV SCH ×2 (14:52→23:48)
[2016-08-08] MEDS ORDERED: LEVETIRACETAM IV 1,000 MG in DEXTROSE 5% 100 ML IVPB ONE (15:30)
[2016-08-08] MEDS: RIFAXIMIN 550 MG TAB PO SCH (21:32)
[2016-08-09] VITALS (20 sets, daily range): BP systolic 89–144; BP diastolic 52–115; PULSE 73–101; RESP 14–21
[2016-08-09] MEDS: INSULIN ASPART [NOVOLOG] 3 ML PEN SC SCH ×6 (01:14→21:13)
[2016-08-09 05:03] LABS: BASOPHILS % 0.2 % (0.0-2.0); EOSINOPHILS # 0.1 10^3/ul (0.0-0.5); EOSINOPHILS % 0.8 % (0.0-7.0); HEMATOCRIT 39.8 % (42.0-52.0); LYMPHOCYTES # 1.7 10^3/ul (0.8-2.9); LYMPHOCYTES % 18.7 % (15.0-51.0); MEAN CORPUSCULAR HEMOGLOBIN 29.2 pg (29.0-33.0); MEAN CORPUSCULAR HGB CONC 32.8 g/dl (32.0-37.0); MONOCYTE # 0.8 10^3/ul (0.3-0.9); MONOCYTES % 8.6 % (0.0-11.0); NEUTROPHIL # 6.3 10^3/ul (1.6-7.5); NEUTROPHILS % 71.7 % (39.0-77.0); PLATELET COUNT 88 10^3/UL (140-440); RED BLOOD COUNT 4.47 10^6/ul (4.70-6.10); RED CELL DISTRIBUTION WIDTH 16.7 % (11.5-14.5); UNCORRECTED WBC 8.8 10^3/ul (4.8-10.8); WHITE BLOOD COUNT 8.8 10^3/ul (4.8-10.8)
[2016-08-09 05:04] LABS: CONDITION 1; LH ANALYZER COMMENTS 1
[2016-08-09 05:14] LABS: POTASSIUM 3.8 mmol/L (3.5-5.1)
[2016-08-09 05:16] LABS: CREATININE 2.37 mg/dl (0.61-1.24); PHOSPHORUS 3.8 mg/dl (2.5-4.9)
[2016-08-09 05:17] LABS: CALCIUM 7.8 mg/dl (8.4-10.2); MAGNESIUM 2.5 mg/dl (1.7-2.5)
[2016-08-09] MEDS: LACTULOSE 30ML CUP NGT SCH ×3 (06:00→21:29)
[2016-08-09] MEDS: PANTOPRAZOLE (EC) 40 MG TAB PO SCH (06:00)
[2016-08-09] MEDS: ALBUMIN HUMAN 25% 100 ML IV SCH (06:08)
--- NOTE | 2016-08-09 08:06 | CONS ---
Date/Time of Note Date/Time of Note DATE: 08/09/16 TIME: 08:04 Assessment/Plan Assessment/Plan Additional Assessment/Plan 1. Renal fx is sl better, IV fluids modified. 2. Await ascitic fluid cytology. 3. Cognition is sl better, NH3 level noted, ?dc ng tube Consultation Date/Type/Reason Admit Date/Time Aug 04, 2016 at 13:11 Type of Consultation: Hematology/Oncology Referring Provider: AMADOR MONGE Detailed Summary Respiratory: shortness of breath (mild) Cardiovascular: No chest pain Gastrointestinal: pain (mild poorly localized) Genitourinary: other (cheek in place) Exam/Review of Systems Vital Signs Vitals Vital Signs Date Time Temp Pulse Resp B/P Pulse Ox O2 Delivery O2 Flow Rate FiO2 08/09/16 07:00 78 15 92/52 98 Nasal Cannula 08/09/16 04:00 98.5 08/09/16 00:15 2.0 Intake and Output 08/08/16 08/08/16 08/09/16 15:00 23:00 07:00 Intake Total 600 ml 760 ml 660 ml Output Total 245 ml 400 ml 830 ml Balance 355 ml 360 ml -170 ml Exam Neck: No jvd Respiratory: clear to auscultation Cardiovascular: regular rate and rhythm Gastrointestinal: other (ascites is present and not tend), soft Extremities: No edema Results Result Diagram: 08/09/16 0430 08/09/16 0430 Results 24 hrs Laboratory Tests Test 08/08/16 08:54 08/08/16 12:24 08/08/16 17:24 08/08/16 21:25 Bedside Glucose 202 201 162 170 Test 08/09/16 01:10 08/09/16 04:30 08/09/16 05:14 Bedside Glucose 203 166 Ammonia < 9 #L Anion Gap 17 H Basophils # 0.0 Basophils % 0.2 Blood Morphology Comment Blood Urea Nitrogen 82 H Calcium Level 7.8 L Carbon Dioxide Level 18 L Chloride Level 114 H Creatinine 2.37 H Eosinophils # 0.1 Eosinophils % 0.8 Glucose Level 180 Hematocrit 39.8 L Hemoglobin 13.0 L Lymphocytes # 1.7 Lymphocytes % 18.7 Magnesium Level 2.5 Mean Corpuscular Hemoglobin 29.2 Mean Corpuscular Hemoglobin Concent 32.8 Mean Corpuscular Volume 89.0 Mean Platelet Volume 9.0 Monocytes # 0.8 Monocytes % 8.6 Neutrophils # 6.3 Neutrophils % 71.7 Nucleated Red Blood Cells # 0.0 Nucleated Red Blood Cells % 0.0 Phosphorus Level 3.8 Platelet Count 88 L Potassium Level 3.8 Red Blood Count 4.47 L Red Cell Distribution Width 16.7 H Sodium Level 145 H White Blood Count 8.8 # Medications Medications Current Medications Ondansetron HCl (Zofran Inj) 4 mg Q6H PRN IV NAUSEA AND/OR VOMITING; Start at 14:00 Acetaminophen (Tylenol Tab) 650 mg Q6H PRN PO PAIN LEVEL 1-3 OR FEVER; Start at 14:00 Acetaminophen/ Hydrocodone Bitart ([place] (5/325)) 1 tab Q6H PRN PO MODERATE PAIN LEVEL 4-6; Start 08/04/16 at 14:00 Docusate Sodium (Colace) 100 mg Q12H PRN PO CONSTIPATION; Start 08/04/16 at 14: 00 Magnesium Hydroxide (Milk Of Mag) 30 ml DAILY PRN PO CONSTIPATION; Start at 14:00 Sodium Biphosphate/ Sodium Phosphate (Fleet Enema) 133 ml DAILY PRN [place] CONSTIPATION; Start 08/04/16 at 14:00 Lorazepam (Ativan) 0.5 mg Q6H PRN IV ANXIETY; Start 08/04/16 at 14:00 Hydralazine HCl (Apresoline) 10 mg Q6H PRN IV ELEVATED BLOOD PRESSURE; Start at 14:00 Nitroglycerin (Nitroglycerin (Sl Tab) 0.4 Mg) 1 tab Q5M PRN SL ANGINA; Start at 14:00 Insulin Glargine (Lantus) 20 unit QAM SC Last administered on 08/06/16 09:07; Admin Dose 20 UNIT; Start 08/05/16 at 09:00; Status Future Hold Pantoprazole (Protonix Tab) 40 mg DAILY@06 PO Last administered on 08/08/16 06 :14; Admin Dose 40 MG; Start 08/05/16 at 06:00 Insulin Aspart (Novolog Insulin Pen) NOVOLOG *MILD* ALGORI... Q4 SC Last administered on 08/09/16 05:16; Admin Dose 1 UNIT; Start 08/04/16 at 17:00 Miscellaneous Information 1 ea NOTE XX ; Start 08/04/16 at 14:30 Glucose (Glutose) 15 gm Q15M PRN PO DECREASED GLUCOSE; Start 08/04/16 at 14:30 Glucose (Glutose) 22.5 gm Q15M PRN PO DECREASED GLUCOSE; Start 08/04/16 at 14: 30 Dextrose (D50w Syringe) 25 ml Q15M PRN IV DECREASED GLUCOSE; Start 08/04/16 at 14:30 Dextrose (D50w Syringe) 50 ml Q15M PRN IV DECREASED GLUCOSE; Start 08/04/16 at 14:30 Glucagon (Glucagen) 1 mg Q15M PRN IM DECREASED GLUCOSE; Start 08/04/16 at 14:30 Glucose (Glutose) 15 gm Q15M PRN BUCCAL DECREASED GLUCOSE; Start 08/04/16 at 14 :30 Loperamide HCl (Imodium Cap) 2 mg QID PRN PO DIARRHEA; Start 08/04/16 at 15:00 Gabapentin 200 mg 200 mg TID PO Last administered on 08/08/16 21:33; Admin Dose 200 MG; Start 08/04/16 at 21:00 Dextrose/Sodium Chloride (D5-NS) 1,000 ml @ 70 mls/hr [id number] IV Last administered on 08/08/16 18:41; Admin Dose 70 MLS/HR; Start 08/07/16 at 09:00 Lactulose 20 gm 20 gm Q6 NGT Last administered on 08/08/16 23:56; Admin Dose 20 GM; Start 08/07/16 at 12:00 Norepinephrine (Levophed) 250 ml @ 1.875 mls/ hr TITRATE IV Last administered on 08/07/16 11:00; Admin Dose 9.375 MLS/HR; Start 08/07/16 at 12:00 Rifaximin 550 mg 550 mg BID PO Last administered on 08/08/16 21:32; Admin Dose 550 MG; Start 08/08/16 at 21:00 Levetiracetam/ Sodium Chloride (Keppra Iv/NS) 105 ml @ 420 mls/hr Q12 IVPB ; Start 08/09/16 at 09:00 PARI SIEGEL MD Aug 09, 2016 08:06
[2016-08-09] MEDS: DEXTROSE 5%-0.9% NACL 1,000 ML IV SCH (08:18)
--- NOTE | 2016-08-09 08:41 | PN ---
Date/Time of Note Date/Time of Note DATE: 08/09/16 TIME: 08:39 Assessment/Plan VTE Prophylaxis VTE Prophylaxis Intervention: SCD's VTE Contraindication Reason: thrombocytopenia Lines/Catheters IV Catheter Type (from Nrsg): Peripheral IV Urinary Cath still in place: Yes Reason Cath still needed: other (indicate) Assessment/Plan Assessment/Plan 61-year-old male who comes in with weakness and diarrhea with a past history of cirrhosis and alcohol abuse, and questionable hepatocellular carcinoma and possible cancer metastasis. 1 Acute encephalopathy: * Likely hepatic from exam 2. Weakness and diarrhea. * No further diarrhea so far 2. Acute on chronic renal insufficiency * His baseline creatinine appears to be in the 2.7 to 2.8 range 3. 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 Type 2 diabetes - A1c = 7.1 5. Liver and lung masses with elevated AFP and CA-125 PLAN: * IVF bolus and Albumin for volume expansion * Continue Lactulose via NGT / commence diet if cleared by ST/ add Rifaximin to regimen * F/u Path report from Ascitic fluid * Continue pain control/ antiemetics/ antipyretics/ supportive care * Continue Lantus/SSI once back on a diet * Per Oncology, patient is an extremely poor candidate for Chemo d/t debility and lack of support if Liver mass is diagnosed as cancer and hence will not be started on chemo if no change in current state of affairs * Oncology recommends Hospice eval and patient was agreeable / Palliative Care consult as well PROPHYLAXIS: PPI / SCDs CRITICAL CARE TIME: >35 mins Subjective 24 Hr Interval Summary Free Text/Dictation more alert, following commands Exam/Review of Systems Vital Signs Vitals Vital Signs Date Time Temp Pulse Resp B/P Pulse Ox O2 Delivery O2 Flow Rate FiO2 08/09/16 07:00 78 15 92/52 98 Nasal Cannula 08/09/16 04:00 98.5 08/09/16 00:15 2.0 Intake and Output 08/08/16 08/08/16 08/09/16 15:00 23:00 07:00 Intake Total 600 ml 760 ml 660 ml Output Total 245 ml 400 ml 830 ml Balance 355 ml 360 ml -170 ml Exam Constitutional: frail, oriented (x2), other (very lethargic), No distress Head: normocephalic Eyes: PERRL, icteric ENMT: No mucosa pink and moist Respiratory: clear to auscultation, diminished breath sounds Cardiovascular: regular rate and rhythm, No murmurs/extra sounds Gastrointestinal: bowel sounds, non-tender, soft Neurological: lethargic, No confused, No focal weakness Results Result Diagram: 08/09/16 0430 08/09/16 0430 Results 24 hrs Laboratory Tests Test 08/08/16 08:54 08/08/16 12:24 08/08/16 17:24 08/08/16 21:25 Bedside Glucose 202 201 162 170 Test 08/09/16 01:10 08/09/16 04:30 08/09/16 05:14 Bedside Glucose 203 166 Ammonia < 9 #L Anion Gap 17 H Basophils # 0.0 Basophils % 0.2 Blood Morphology Comment Blood Urea Nitrogen 82 H Calcium Level 7.8 L Carbon Dioxide Level 18 L Chloride Level 114 H Creatinine 2.37 H Eosinophils # 0.1 Eosinophils % 0.8 Glucose Level 180 Hematocrit 39.8 L Hemoglobin 13.0 L Lymphocytes # 1.7 Lymphocytes % 18.7 Magnesium Level 2.5 Mean Corpuscular Hemoglobin 29.2 Mean Corpuscular Hemoglobin Concent 32.8 Mean Corpuscular Volume 89.0 Mean Platelet Volume 9.0 Monocytes # 0.8 Monocytes % 8.6 Neutrophils # 6.3 Neutrophils % 71.7 Nucleated Red Blood Cells # 0.0 Nucleated Red Blood Cells % 0.0 Phosphorus Level 3.8 Platelet Count 88 L Potassium Level 3.8 Red Blood Count 4.47 L Red Cell Distribution Width 16.7 H Sodium Level 145 H White Blood Count 8.8 # Medications Medications Current Medications Ondansetron HCl (Zofran Inj) 4 mg Q6H PRN IV NAUSEA AND/OR VOMITING; Start at 14:00 Acetaminophen (Tylenol Tab) 650 mg Q6H PRN PO PAIN LEVEL 1-3 OR FEVER; Start at 14:00 Acetaminophen/ Hydrocodone Bitart ([place] (5/325)) 1 tab Q6H PRN PO MODERATE PAIN LEVEL 4-6; Start 08/04/16 at 14:00 Docusate Sodium (Colace) 100 mg Q12H PRN PO CONSTIPATION; Start 08/04/16 at 14: 00 Magnesium Hydroxide (Milk Of Mag) 30 ml DAILY PRN PO CONSTIPATION; Start at 14:00 Sodium Biphosphate/ Sodium Phosphate (Fleet Enema) 133 ml DAILY PRN [place] CONSTIPATION; Start 08/04/16 at 14:00 Lorazepam (Ativan) 0.5 mg Q6H PRN IV ANXIETY; Start 08/04/16 at 14:00 Hydralazine HCl (Apresoline) 10 mg Q6H PRN IV ELEVATED BLOOD PRESSURE; Start at 14:00 Nitroglycerin (Nitroglycerin (Sl Tab) 0.4 Mg) 1 tab Q5M PRN SL ANGINA; Start at 14:00 Insulin Glargine (Lantus) 20 unit QAM SC Last administered on 08/06/16 09:07; Admin Dose 20 UNIT; Start 08/05/16 at 09:00; Status Future Hold Pantoprazole (Protonix Tab) 40 mg DAILY@06 PO Last administered on 08/08/16 06 :14; Admin Dose 40 MG; Start 08/05/16 at 06:00 Insulin Aspart (Novolog Insulin Pen) NOVOLOG *MILD* ALGORI... Q4 SC Last administered on 08/09/16 05:16; Admin Dose 1 UNIT; Start 08/04/16 at 17:00 Miscellaneous Information 1 ea NOTE XX ; Start 08/04/16 at 14:30 Glucose (Glutose) 15 gm Q15M PRN PO DECREASED GLUCOSE; Start 08/04/16 at 14:30 Glucose (Glutose) 22.5 gm Q15M PRN PO DECREASED GLUCOSE; Start 08/04/16 at 14: 30 Dextrose (D50w Syringe) 25 ml Q15M PRN IV DECREASED GLUCOSE; Start 08/04/16 at 14:30 Dextrose (D50w Syringe) 50 ml Q15M PRN IV DECREASED GLUCOSE; Start 08/04/16 at 14:30 Glucagon (Glucagen) 1 mg Q15M PRN IM DECREASED GLUCOSE; Start 08/04/16 at 14:30 Glucose (Glutose) 15 gm Q15M PRN BUCCAL DECREASED GLUCOSE; Start 08/04/16 at 14 :30 Loperamide HCl (Imodium Cap) 2 mg QID PRN PO DIARRHEA; Start 08/04/16 at 15:00 Gabapentin (Neurontin) 200 mg TID PO Last administered on 08/08/16 21:33; Admin Dose 200 MG; Start 08/04/16 at 21:00 Lactulose 20 gm 20 gm Q6 NGT Last administered on 08/08/16 23:56; Admin Dose 20 GM; Start 08/07/16 at 12:00 Norepinephrine (Levophed) 250 ml @ 1.875 mls/ hr TITRATE IV Last administered on 08/07/16 11:00; Admin Dose 9.375 MLS/HR; Start 08/07/16 at 12:00 Rifaximin 550 mg 550 mg BID PO Last administered on 08/08/16 21:32; Admin Dose 550 MG; Start 08/08/16 at 21:00 Levetiracetam 500 mg/Sodium Chloride 105 ml @ 420 mls/hr Q12 IVPB ; Start 08/09 at 09:00 Dextrose/Sodium Chloride (D5-1/4ns) 1,000 ml @ 75 mls/hr [id number] IV ; Start at 08:30 JORDAN COMBS Aug 09, 2016 08:41
[2016-08-09] MEDS: RIFAXIMIN 550 MG TAB PO SCH ×2 (09:15→20:54)
[2016-08-09] MEDS: GABAPENTIN 100 MG CAP PO SCH ×3 (09:15→20:55)
[2016-08-09] MEDS: LEVETIRACETAM IV 500 MG in SOD CHLORIDE 0.9% 100 ML IVPB SCH ×2 (09:21→20:55)
[2016-08-09] MEDS: DEXTROSE 5%-0.225% NACL 1,000 ML IV SCH ×2 (09:57→21:32)
--- NOTE | 2016-08-09 11:00 | CONS ---
Date/Time of Note Date/Time of Note DATE: 08/09/16 TIME: 10:52 Assessment/Plan Assessment/Plan Additional Assessment/Plan 1. History of hepatitis C and perhaps hepatitis B. 2. 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 Likely metastatic HCC 4. Stage IV chronic kidney disease. 5. Diarrhea, improving, C diff neg 6. Squamous cell carcinoma of the skin previously. 7. Plaque psoriasis. 8. Above-mentioned history of alcohol abuse (potential). 9. Status post inguinal hernia repair. 10. Status post multiple skin grafts. Recommendations: 1. Heme/onc following 2. As it is likely metastatic HCC, will defer to heme/onc whether palliative care eval is appropriate Further recommendations depend on clinical course Patient seen in collaboration with Dr. Hoffman Consultation Date/Type/Reason Admit Date/Time Aug 04, 2016 at 13:11 Initial Consult Date 08/05/16 Type of Consultation: GI Referring Provider: AMADOR MONGE 24 HR Interval Summary Free Text/Dictation NG tube d/c Pt more alert Swallow eval planned Exam/Review of Systems Vital Signs Vitals Vital Signs Date Time Temp Pulse Resp B/P Pulse Ox O2 Delivery O2 Flow Rate FiO2 08/09/16 08:00 78 08/09/16 07:00 15 92/52 98 Nasal Cannula 08/09/16 04:00 98.5 08/09/16 00:15 2.0 Intake and Output 08/08/16 08/08/16 08/09/16 15:00 23:00 07:00 Intake Total 600 ml 760 ml 660 ml Output Total 245 ml 400 ml 830 ml Balance 355 ml 360 ml -170 ml Exam Constitutional: alert & orientated, frail Psych: depression Head: atraumatic, normocephalic Eyes: nl conjunctiva ENMT: nl external ears & nose Neck: non-tender, supple Respiratory: clear to auscultation Cardiovascular: nl pulses, regular rate and rhythm Gastrointestinal: soft, distended Musculoskeletal: nl extremities to inspection, nl gait and stance Extremities: normal pulses Results Result Diagram: 08/09/16 0430 08/09/16 0430 Results 24 hrs Laboratory Tests Test 08/08/16 12:24 08/08/16 17:24 08/08/16 21:25 08/09/16 01:10 Bedside Glucose 201 162 170 203 Test 08/09/16 04:30 08/09/16 05:14 08/09/16 09:11 Ammonia < 9 #L Anion Gap 17 H Basophils # 0.0 Basophils % 0.2 Blood Morphology Comment Blood Urea Nitrogen 82 H Calcium Level 7.8 L Carbon Dioxide Level 18 L Chloride Level 114 H Creatinine 2.37 H Eosinophils # 0.1 Eosinophils % 0.8 Glucose Level 180 Hematocrit 39.8 L Hemoglobin 13.0 L Lymphocytes # 1.7 Lymphocytes % 18.7 Magnesium Level 2.5 Mean Corpuscular Hemoglobin 29.2 Mean Corpuscular Hemoglobin Concent 32.8 Mean Corpuscular Volume 89.0 Mean Platelet Volume 9.0 Monocytes # 0.8 Monocytes % 8.6 Neutrophils # 6.3 Neutrophils % 71.7 Nucleated Red Blood Cells # 0.0 Nucleated Red Blood Cells % 0.0 Phosphorus Level 3.8 Platelet Count 88 L Potassium Level 3.8 Red Blood Count 4.47 L Red Cell Distribution Width 16.7 H Sodium Level 145 H White Blood Count 8.8 # Bedside Glucose 166 183 Medications Medications Current Medications Ondansetron HCl (Zofran Inj) 4 mg Q6H PRN IV NAUSEA AND/OR VOMITING; Start at 14:00 Acetaminophen (Tylenol Tab) 650 mg Q6H PRN PO PAIN LEVEL 1-3 OR FEVER; Start at 14:00 Acetaminophen/ Hydrocodone Bitart ([place] (5/325)) 1 tab Q6H PRN PO MODERATE PAIN LEVEL 4-6; Start 08/04/16 at 14:00 Docusate Sodium (Colace) 100 mg Q12H PRN PO CONSTIPATION; Start 08/04/16 at 14: 00 Magnesium Hydroxide (Milk Of Mag) 30 ml DAILY PRN PO CONSTIPATION; Start at 14:00 Sodium Biphosphate/ Sodium Phosphate (Fleet Enema) 133 ml DAILY PRN [place] CONSTIPATION; Start 08/04/16 at 14:00 Lorazepam (Ativan) 0.5 mg Q6H PRN IV ANXIETY; Start 08/04/16 at 14:00 Hydralazine HCl (Apresoline) 10 mg Q6H PRN IV ELEVATED BLOOD PRESSURE; Start at 14:00 Nitroglycerin (Nitroglycerin (Sl Tab) 0.4 Mg) 1 tab Q5M PRN SL ANGINA; Start at 14:00 Insulin Glargine (Lantus) 20 unit QAM SC Last administered on 08/06/16 09:07; Admin Dose 20 UNIT; Start 08/05/16 at 09:00; Status Future Hold Pantoprazole (Protonix Tab) 40 mg DAILY@06 PO Last administered on 08/08/16 06 :14; Admin Dose 40 MG; Start 08/05/16 at 06:00 Insulin Aspart (Novolog Insulin Pen) NOVOLOG *MILD* ALGORI... Q4 SC Last administered on 08/09/16 09:28; Admin Dose 2 UNIT; Start 08/04/16 at 17:00 Miscellaneous Information 1 ea NOTE XX ; Start 08/04/16 at 14:30 Glucose (Glutose) 15 gm Q15M PRN PO DECREASED GLUCOSE; Start 08/04/16 at 14:30 Glucose (Glutose) 22.5 gm Q15M PRN PO DECREASED GLUCOSE; Start 08/04/16 at 14: 30 Dextrose (D50w Syringe) 25 ml Q15M PRN IV DECREASED GLUCOSE; Start 08/04/16 at 14:30 Dextrose (D50w Syringe) 50 ml Q15M PRN IV DECREASED GLUCOSE; Start 08/04/16 at 14:30 Glucagon (Glucagen) 1 mg Q15M PRN IM DECREASED GLUCOSE; Start 08/04/16 at 14:30 Glucose (Glutose) 15 gm Q15M PRN BUCCAL DECREASED GLUCOSE; Start 08/04/16 at 14 :30 Loperamide HCl (Imodium Cap) 2 mg QID PRN PO DIARRHEA; Start 08/04/16 at 15:00 Gabapentin 200 mg 200 mg TID PO Last administered on 08/09/16 09:15; Admin Dose 200 MG; Start 08/04/16 at 21:00 Norepinephrine (Levophed) 250 ml @ 1.875 mls/ hr TITRATE IV Last administered on 08/07/16 11:00; Admin Dose 9.375 MLS/HR; Start 08/07/16 at 12:00 Rifaximin 550 mg 550 mg BID PO Last administered on 08/09/16 09:15; Admin Dose 550 MG; Start 08/08/16 at 21:00 Levetiracetam 500 mg/Sodium Chloride 105 ml @ 420 mls/hr Q12 IVPB Last administered on 08/09/16 09:21; Admin Dose 420 MLS/HR; Start 08/09/16 at 09:00 Dextrose/Sodium Chloride (D5-1/4ns) 1,000 ml @ 75 mls/hr [id number] IV Last administered on 08/09/16 09:57; Admin Dose 75 MLS/HR; Start 08/09/16 at 08:30 Lactulose (Enulose) 20 gm Q8 NGT ; Start 08/09/16 at 14:00 KEVIN CARRINGTON Aug 09, 2016 11:00
--- NOTE | 2016-08-09 15:18 | CONS ---
Date/Time of Note Date/Time of Note DATE: 08/09/16 TIME: 15:17 Assessment/Plan Assessment/Plan Chief Complaint/Hosp Course 61 yo with # Liver mass - concerning for HCC with slight high AFP. During last admission, per radiology it was determined that a liver or lung biopsy would be unsafe in this cirrhotic patient. At that time a paracentesis was done which was negative for malignancy and therefore non diagnostic. WE will therefore re attempt to make a diagnosis with a paracentesis and cytology evaluation of pleural fluid. If we are not able to make a diagnosis would not pursue a risky liver or lung biopsy. Pt is extremely weak and cachetic and would not tolerate aggressive chemotherapy. Furthermore, patient has stated he has no family near by to help him and is amenable to supportive care and hospice. He understands that he would likely not tolerate chemotherapy -cytology from ascitic fluid 08/06/16 negative. In any case, even if diagnosis were made, he is not a candidate for chemotherapy. Dr. Bearden was proposing hospice but no formal decision has yet been made. -agree with palliative care involved because of multiple comorbid issues and deteriorating PS. #Thrombocytopenia -secondary to liver failure, no intervention unless needed for a procedure. Stable. # Liver cirrhosis- secondary to Hepatitis -continue to monitor counts #Acute on chronic renal failure -baseline creat around 2.7, improved at 2.37 Problems: Consultation Date/Type/Reason Admit Date/Time Aug 04, 2016 at 13:11 Initial Consult Date 08/05/16 Type of Consultation: Hematology/Oncology Referring Provider: AMADOR MONGE 24 HR Interval Summary Free Text/Dictation Patient has no complaints. He is going to be moved out of the ICU. No further hypotension per nursing. Exam/Review of Systems Vital Signs Vitals Vital Signs Date Time Temp Pulse Resp B/P Pulse Ox O2 Delivery O2 Flow Rate FiO2 08/09/16 14:00 91 21 144/115 08/09/16 12:00 97.5 08/09/16 11:00 98 08/09/16 08:45 Nasal Cannula 2.0 Intake and Output 08/08/16 08/08/16 08/09/16 15:00 23:00 07:00 Intake Total 600 ml 760 ml 660 ml Output Total 245 ml 400 ml 830 ml Balance 355 ml 360 ml -170 ml Exam Constitutional: alert, frail Psych: depression Head: atraumatic, normocephalic Eyes: nl conjunctiva ENMT: nl external ears & nose Neck: non-tender, supple Respiratory: clear to auscultation Cardiovascular: nl pulses, regular rate and rhythm Gastrointestinal: soft Musculoskeletal: nl extremities to inspection, nl gait and stance Extremities: normal pulses Results Result Diagram: 08/09/16 0430 08/09/16 0430 Results 24 hrs Laboratory Tests Test 08/08/16 17:24 08/08/16 21:25 08/09/16 01:10 08/09/16 04:30 Bedside Glucose 162 170 203 Ammonia < 9 #L Anion Gap 17 H Basophils # 0.0 Basophils % 0.2 Blood Morphology Comment Blood Urea Nitrogen 82 H Calcium Level 7.8 L Carbon Dioxide Level 18 L Chloride Level 114 H Creatinine 2.37 H Eosinophils # 0.1 Eosinophils % 0.8 Glucose Level 180 Hematocrit 39.8 L Hemoglobin 13.0 L Lymphocytes # 1.7 Lymphocytes % 18.7 Magnesium Level 2.5 Mean Corpuscular Hemoglobin 29.2 Mean Corpuscular Hemoglobin Concent 32.8 Mean Corpuscular Volume 89.0 Mean Platelet Volume 9.0 Monocytes # 0.8 Monocytes % 8.6 Neutrophils # 6.3 Neutrophils % 71.7 Nucleated Red Blood Cells # 0.0 Nucleated Red Blood Cells % 0.0 Phosphorus Level 3.8 Platelet Count 88 L Potassium Level 3.8 Red Blood Count 4.47 L Red Cell Distribution Width 16.7 H Sodium Level 145 H White Blood Count 8.8 # Test 08/09/16 05:14 08/09/16 09:11 08/09/16 12:18 Bedside Glucose 166 183 233 H Medications Medications Current Medications Ondansetron HCl (Zofran Inj) 4 mg Q6H PRN IV NAUSEA AND/OR VOMITING; Start at 14:00 Acetaminophen (Tylenol Tab) 650 mg Q6H PRN PO PAIN LEVEL 1-3 OR FEVER; Start at 14:00 Acetaminophen/ Hydrocodone Bitart ([place] (5/325)) 1 tab Q6H PRN PO MODERATE PAIN LEVEL 4-6; Start 08/04/16 at 14:00 Docusate Sodium (Colace) 100 mg Q12H PRN PO CONSTIPATION; Start 08/04/16 at 14: 00 Magnesium Hydroxide (Milk Of Mag) 30 ml DAILY PRN PO CONSTIPATION; Start at 14:00 Sodium Biphosphate/ Sodium Phosphate (Fleet Enema) 133 ml DAILY PRN [place] CONSTIPATION; Start 08/04/16 at 14:00 Lorazepam (Ativan) 0.5 mg Q6H PRN IV ANXIETY; Start 08/04/16 at 14:00 Hydralazine HCl (Apresoline) 10 mg Q6H PRN IV ELEVATED BLOOD PRESSURE; Start at 14:00 Nitroglycerin (Nitroglycerin (Sl Tab) 0.4 Mg) 1 tab Q5M PRN SL ANGINA; Start at 14:00 Insulin Glargine (Lantus) 20 unit QAM SC Last administered on 08/06/16 09:07; Admin Dose 20 UNIT; Start 08/05/16 at 09:00; Status Future Hold Pantoprazole (Protonix Tab) 40 mg DAILY@06 PO Last administered on 08/08/16 06 :14; Admin Dose 40 MG; Start 08/05/16 at 06:00 Insulin Aspart (Novolog Insulin Pen) NOVOLOG *MILD* ALGORI... Q4 SC Last administered on 08/09/16 12:27; Admin Dose 3 UNIT; Start 08/04/16 at 17:00 Miscellaneous Information 1 ea NOTE XX ; Start 08/04/16 at 14:30 Glucose (Glutose) 15 gm Q15M PRN PO DECREASED GLUCOSE; Start 08/04/16 at 14:30 Glucose (Glutose) 22.5 gm Q15M PRN PO DECREASED GLUCOSE; Start 08/04/16 at 14: 30 Dextrose (D50w Syringe) 25 ml Q15M PRN IV DECREASED GLUCOSE; Start 08/04/16 at 14:30 Dextrose (D50w Syringe) 50 ml Q15M PRN IV DECREASED GLUCOSE; Start 08/04/16 at 14:30 Glucagon (Glucagen) 1 mg Q15M PRN IM DECREASED GLUCOSE; Start 08/04/16 at 14:30 Glucose (Glutose) 15 gm Q15M PRN BUCCAL DECREASED GLUCOSE; Start 08/04/16 at 14 :30 Loperamide HCl (Imodium Cap) 2 mg QID PRN PO DIARRHEA; Start 08/04/16 at 15:00 Gabapentin 200 mg 200 mg TID PO Last administered on 08/09/16 09:15; Admin Dose 200 MG; Start 08/04/16 at 21:00 Norepinephrine (Levophed) 250 ml @ 1.875 mls/ hr TITRATE IV Last administered on 08/07/16 11:00; Admin Dose 9.375 MLS/HR; Start 08/07/16 at 12:00 Rifaximin 550 mg 550 mg BID PO Last administered on 08/09/16 09:15; Admin Dose 550 MG; Start 08/08/16 at 21:00 Levetiracetam 500 mg/Sodium Chloride 105 ml @ 420 mls/hr Q12 IVPB Last administered on 08/09/16 09:21; Admin Dose 420 MLS/HR; Start 08/09/16 at 09:00 Dextrose/Sodium Chloride (D5-1/4ns) 1,000 ml @ 75 mls/hr [id number] IV Last administered on 08/09/16 09:57; Admin Dose 75 MLS/HR; Start 08/09/16 at 08:30 Lactulose (Enulose) 20 gm Q8 NGT Last administered on 08/09/16 14:54; Admin Dose 20 GM; Start 08/09/16 at 14:00 TOJUDY MD Aug 09, 2016 15:18
[2016-08-10] VITALS (13 sets, daily range): BP systolic 97–112; BP diastolic 57–83; PULSE 79–100; RESP 16–18
[2016-08-10] MEDS: ACCUCHECK AT 2AM (Patients on SS coverage) XX SCH (02:24)
[2016-08-10] MEDS: PANTOPRAZOLE (EC) 40 MG TAB PO SCH (05:27)
[2016-08-10] MEDS: LACTULOSE 30ML CUP NGT SCH ×3 (05:27→22:00)
[2016-08-10] MEDS ORDERED: **FLU VACCINE PREVIOUSLY DISPENSED XX PRN (07:30)
--- NOTE | 2016-08-10 08:02 | CONS ---
Date/Time of Note Date/Time of Note DATE: 08/10/16 TIME: 07:59 Assessment/Plan Assessment/Plan Additional Assessment/Plan 1. CKD, stable 2. Ascitic fluid cytology is negative, heme comments noted. 3. Await for decision regarding palliative care. Consultation Date/Type/Reason Admit Date/Time Aug 04, 2016 at 13:11 Type of Consultation: Hematology/Oncology Referring Provider: AMADOR MONGE Detailed Summary Respiratory: No cough, No shortness of breath Cardiovascular: No chest pain Gastrointestinal: other (mild abd discomfort) Genitourinary: other (cheek in place) Exam/Review of Systems Vital Signs Vitals Vital Signs Date Time Temp Pulse Resp B/P Pulse Ox O2 Delivery O2 Flow Rate FiO2 08/10/16 04:38 79 08/10/16 04:13 98.0 18 99/59 97 08/09/16 20:00 Nasal Cannula 2.0 Intake and Output 08/09/16 08/09/16 08/10/16 15:00 23:00 07:00 Intake Total 600 ml Output Total 1000 ml Balance -400 ml Exam Neck: No jvd Respiratory: clear to auscultation Cardiovascular: regular rate and rhythm Gastrointestinal: No distended (ascites present without tenderness) Extremities: No edema Results Result Diagram: 08/09/16 0430 08/09/16 0430 Results 24 hrs Laboratory Tests Test 08/09/16 09:11 08/09/16 12:18 08/09/16 18:03 08/09/16 20:57 Bedside Glucose 183 233 H 213 212 Test 08/10/16 02:19 Bedside Glucose 274 H Medications Medications Current Medications Ondansetron HCl (Zofran Inj) 4 mg Q6H PRN IV NAUSEA AND/OR VOMITING; Start at 14:00 Acetaminophen (Tylenol Tab) 650 mg Q6H PRN PO PAIN LEVEL 1-3 OR FEVER; Start at 14:00 Acetaminophen/ Hydrocodone Bitart ([place] (5/325)) 1 tab Q6H PRN PO MODERATE PAIN LEVEL 4-6; Start 08/04/16 at 14:00 Docusate Sodium (Colace) 100 mg Q12H PRN PO CONSTIPATION; Start 08/04/16 at 14: 00 Magnesium Hydroxide (Milk Of Mag) 30 ml DAILY PRN PO CONSTIPATION; Start at 14:00 Sodium Biphosphate/ Sodium Phosphate (Fleet Enema) 133 ml DAILY PRN [place] CONSTIPATION; Start 08/04/16 at 14:00 Lorazepam (Ativan) 0.5 mg Q6H PRN IV ANXIETY; Start 08/04/16 at 14:00 Hydralazine HCl (Apresoline) 10 mg Q6H PRN IV ELEVATED BLOOD PRESSURE; Start at 14:00 Nitroglycerin (Nitroglycerin (Sl Tab) 0.4 Mg) 1 tab Q5M PRN SL ANGINA; Start at 14:00 Insulin Glargine (Lantus) 20 unit QAM SC Last administered on 08/06/16 09:07; Admin Dose 20 UNIT; Start 08/05/16 at 09:00; Status Future Hold Pantoprazole (Protonix Tab) 40 mg DAILY@06 PO Last administered on 08/10/16 05 :27; Admin Dose 40 MG; Start 08/05/16 at 06:00 Miscellaneous Information 1 ea NOTE XX ; Start 08/04/16 at 14:30 Glucose (Glutose) 15 gm Q15M PRN PO DECREASED GLUCOSE; Start 08/04/16 at 14:30 Glucose (Glutose) 22.5 gm Q15M PRN PO DECREASED GLUCOSE; Start 08/04/16 at 14: 30 Dextrose (D50w Syringe) 25 ml Q15M PRN IV DECREASED GLUCOSE; Start 08/04/16 at 14:30 Dextrose (D50w Syringe) 50 ml Q15M PRN IV DECREASED GLUCOSE; Start 08/04/16 at 14:30 Glucagon (Glucagen) 1 mg Q15M PRN IM DECREASED GLUCOSE; Start 08/04/16 at 14:30 Glucose (Glutose) 15 gm Q15M PRN BUCCAL DECREASED GLUCOSE; Start 08/04/16 at 14 :30 Loperamide HCl (Imodium Cap) 2 mg QID PRN PO DIARRHEA; Start 08/04/16 at 15:00 Gabapentin (Neurontin) 200 mg TID PO Last administered on 08/09/16 20:55; Admin Dose 200 MG; Start 08/04/16 at 21:00 Rifaximin 550 mg 550 mg BID PO Last administered on 08/09/16 20:54; Admin Dose 550 MG; Start 08/08/16 at 21:00 Levetiracetam 500 mg/Sodium Chloride 105 ml @ 420 mls/hr Q12 IVPB Last administered on 08/09/16 20:55; Admin Dose 420 MLS/HR; Start 08/09/16 at 09:00 Dextrose/Sodium Chloride (D5-1/4ns) 1,000 ml @ 75 mls/hr [id number] IV Last administered on 08/09/16 21:32; Admin Dose 75 MLS/HR; Start 08/09/16 at 08:30 Lactulose (Enulose) 20 gm Q8 NGT Last administered on 08/10/16 05:27; Admin Dose 20 GM; Start 08/09/16 at 14:00 Diagnostic Test (Pha) (Accucheck) 1 ea 02 XX Last administered on 08/10/16 02: 24; Admin Dose 1 EA; Start 08/10/16 at 02:00 Miscellaneous Information (Flu Vaccine Previously Dispensed) FLU VACCINE PREVIOU... NOTE PRN XX NOTE; Start 08/10/16 at 07:30 PARI SIEGEL MD Aug 10, 2016 08:02
[2016-08-10] MEDS: LEVETIRACETAM IV 500 MG in SOD CHLORIDE 0.9% 100 ML IVPB SCH ×2 (08:16→22:13)
[2016-08-10] MEDS: RIFAXIMIN 550 MG TAB PO SCH ×2 (08:17→22:23)
[2016-08-10] MEDS: GABAPENTIN 100 MG CAP PO SCH ×3 (08:17→22:23)
[2016-08-10] MEDS: INSULIN ASPART [NOVOLOG] 3 ML PEN SC SCH ×4 (08:20→22:27)
[2016-08-10 09:45] LABS: ADD SCAN DIFF NO
[2016-08-10 09:52] LABS: ABNORMAL IP MESSAGE 1; BASOPHIL # 0.1 10^3/ul (0.0-0.1); BASOPHILS % 0.4 % (0.0-2.0); EOSINOPHILS # 0.1 10^3/ul (0.0-0.5); HEMATOCRIT 44.5 % (42.0-52.0); HEMOGLOBIN 14.1 g/dl (14.0-18.0); LYMPHOCYTES # 2.1 10^3/ul (0.8-2.9); LYMPHOCYTES % 16.8 % (15.0-51.0); MEAN CORPUSCULAR HEMOGLOBIN 28.6 pg (29.0-33.0); MEAN CORPUSCULAR HGB CONC 31.7 g/dl (32.0-37.0); MEAN CORPUSCULAR VOLUME 90.3 fl (82.0-101.0); MONOCYTE # 0.9 10^3/ul (0.3-0.9); MONOCYTES % 7.2 % (0.0-11.0); NEUTROPHIL # 9.2 10^3/ul (1.6-7.5); NEUTROPHILS % 74.1 % (39.0-77.0); RED BLOOD COUNT 4.93 10^6/ul (4.70-6.10); RED CELL DISTRIBUTION WIDTH 15.8 % (11.5-14.5); WHITE BLOOD COUNT 12.4 10^3/ul (4.8-10.8)
[2016-08-10 09:59] LABS: CREATININE 2.12 mg/dl (0.61-1.24)
[2016-08-10 10:00] LABS: CALCIUM 7.8 mg/dl (8.4-10.2)
[2016-08-10 10:10] LABS: PLATELET COUNT 92 10^3/UL (140-415)
--- NOTE | 2016-08-10 11:11 | CONS ---
Date/Time of Note Date/Time of Note DATE: 08/10/16 TIME: 11:07 Assessment/Plan Assessment/Plan Additional Assessment/Plan 1. History of hepatitis C and perhaps hepatitis B. 2. 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 Likely metastatic HCC 4. Stage IV chronic kidney disease. 5. Diarrhea, improving, C diff neg 6. Squamous cell carcinoma of the skin previously. 7. Plaque psoriasis. 8. Above-mentioned history of alcohol abuse (potential). 9. Status post inguinal hernia repair. 10. Status post multiple skin grafts. Recommendations: 1. Heme/onc following 2. As it is likely metastatic HCC, will defer to heme/onc whether palliative care eval is appropriate 3. No further GI interventions required. GI sign off, available prn Further recommendations depend on clinical course Patient seen in collaboration with Dr. Hoffman Consultation Date/Type/Reason Admit Date/Time Aug 04, 2016 at 13:11 Initial Consult Date 08/05/16 Type of Consultation: GI Referring Provider: AMADOR MONGE 24 HR Interval Summary Free Text/Dictation Loose stool in rectal tube Repeat C Diff analysis in process If neg again, will start Imodium Palliative consult in process Exam/Review of Systems Vital Signs Vitals Vital Signs Date Time Temp Pulse Resp B/P Pulse Ox O2 Delivery O2 Flow Rate FiO2 08/10/16 09:01 Nasal Cannula 2.0 08/10/16 08:48 97.4 86 18 97/57 94 Intake and Output 08/09/16 08/09/16 08/10/16 15:00 23:00 07:00 Intake Total 600 ml Output Total 1000 ml Balance -400 ml Exam Constitutional: alert & orientated, frail Psych: depression Head: atraumatic, normocephalic Eyes: nl conjunctiva ENMT: nl external ears & nose Neck: non-tender, supple Respiratory: clear to auscultation Cardiovascular: nl pulses, regular rate and rhythm Gastrointestinal: soft, distended Musculoskeletal: nl extremities to inspection, nl gait and stance Extremities: normal pulses Results Result Diagram: 08/10/1691608/10/16916 Results 24 hrs Laboratory Tests Test 08/09/16 12:18 08/09/16 18:03 08/09/16 20:57 08/10/16 02:19 Bedside Glucose 233 H 213 212 274 H Test 08/10/16 08:04 08/10/16 09:17 Bedside Glucose 199 Ammonia < 9 L Anion Gap 17 H Basophils # 0.1 Basophils % 0.4 Blood Urea Nitrogen 67 H Calcium Level 7.8 L Carbon Dioxide Level 19 L Chloride Level 102 # Creatinine 2.12 H Eosinophils # 0.1 Eosinophils % 1.0 Glucose Level 236 H Hematocrit 44.5 Hemoglobin 14.1 Lymphocytes # 2.1 Lymphocytes % 16.8 Mean Corpuscular Hemoglobin 28.6 L Mean Corpuscular Hemoglobin Concent 31.7 L Mean Corpuscular Volume 90.3 Mean Platelet Volume 11.0 #H Monocytes # 0.9 Monocytes % 7.2 Neutrophils # 9.2 H Neutrophils % 74.1 Nucleated Red Blood Cells # 0.0 Nucleated Red Blood Cells % 0.0 Platelet Count 92 L Potassium Level 4.0 Red Blood Count 4.93 Red Cell Distribution Width 15.8 H Sodium Level 134 L White Blood Count 12.4 #H Medications Medications Current Medications Ondansetron HCl (Zofran Inj) 4 mg Q6H PRN IV NAUSEA AND/OR VOMITING; Start at 14:00 Acetaminophen (Tylenol Tab) 650 mg Q6H PRN PO PAIN LEVEL 1-3 OR FEVER; Start at 14:00 Acetaminophen/ Hydrocodone Bitart ([place] (5/325)) 1 tab Q6H PRN PO MODERATE PAIN LEVEL 4-6; Start 08/04/16 at 14:00 Docusate Sodium (Colace) 100 mg Q12H PRN PO CONSTIPATION; Start 08/04/16 at 14: 00 Magnesium Hydroxide (Milk Of Mag) 30 ml DAILY PRN PO CONSTIPATION; Start at 14:00 Sodium Biphosphate/ Sodium Phosphate (Fleet Enema) 133 ml DAILY PRN [place] CONSTIPATION; Start 08/04/16 at 14:00 Lorazepam (Ativan) 0.5 mg Q6H PRN IV ANXIETY; Start 08/04/16 at 14:00 Hydralazine HCl (Apresoline) 10 mg Q6H PRN IV ELEVATED BLOOD PRESSURE; Start at 14:00 Nitroglycerin (Nitroglycerin (Sl Tab) 0.4 Mg) 1 tab Q5M PRN SL ANGINA; Start at 14:00 Insulin Glargine (Lantus) 20 unit QAM SC Last administered on 08/06/16 09:07; Admin Dose 20 UNIT; Start 08/05/16 at 09:00; Status Future Hold Pantoprazole (Protonix Tab) 40 mg DAILY@06 PO Last administered on 08/10/16 05 :27; Admin Dose 40 MG; Start 08/05/16 at 06:00 Miscellaneous Information 1 ea NOTE XX ; Start 08/04/16 at 14:30 Glucose (Glutose) 15 gm Q15M PRN PO DECREASED GLUCOSE; Start 08/04/16 at 14:30 Glucose (Glutose) 22.5 gm Q15M PRN PO DECREASED GLUCOSE; Start 08/04/16 at 14: 30 Dextrose (D50w Syringe) 25 ml Q15M PRN IV DECREASED GLUCOSE; Start 08/04/16 at 14:30 Dextrose (D50w Syringe) 50 ml Q15M PRN IV DECREASED GLUCOSE; Start 08/04/16 at 14:30 Glucagon (Glucagen) 1 mg Q15M PRN IM DECREASED GLUCOSE; Start 08/04/16 at 14:30 Glucose (Glutose) 15 gm Q15M PRN BUCCAL DECREASED GLUCOSE; Start 08/04/16 at 14 :30 Loperamide HCl (Imodium Cap) 2 mg QID PRN PO DIARRHEA; Start 08/04/16 at 15:00 Gabapentin (Neurontin) 200 mg TID PO Last administered on 08/10/16 08:17; Admin Dose 200 MG; Start 08/04/16 at 21:00 Rifaximin 550 mg 550 mg BID PO Last administered on 08/10/16 08:17; Admin Dose 550 MG; Start 08/08/16 at 21:00 Levetiracetam 500 mg/Sodium Chloride 105 ml @ 420 mls/hr Q12 IVPB Last administered on 08/10/16 08:16; Admin Dose 420 MLS/HR; Start 08/09/16 at 09:00 Dextrose/Sodium Chloride (D5-1/4ns) 1,000 ml @ 75 mls/hr [id number] IV Last administered on 08/09/16 21:32; Admin Dose 75 MLS/HR; Start 08/09/16 at 08:30 Lactulose (Enulose) 20 gm Q8 NGT Last administered on 08/10/16 05:27; Admin Dose 20 GM; Start 08/09/16 at 14:00 Diagnostic Test (Pha) (Accucheck) 1 ea 02 XX Last administered on 08/10/16 02: 24; Admin Dose 1 EA; Start 08/10/16 at 02:00 Miscellaneous Information (Flu Vaccine Previously Dispensed) FLU VACCINE PREVIOU... NOTE PRN XX NOTE; Start 08/10/16 at 07:30 KEVIN CARRINGTON Aug 10, 2016 11:11
[2016-08-10] MEDS: DEXTROSE 5%-0.225% NACL 1,000 ML IV SCH (12:08)
--- NOTE | 2016-08-10 14:40 | PN ---
Date/Time of Note Date/Time of Note DATE: 08/10/16 TIME: 14:24 Assessment/Plan VTE Prophylaxis VTE Prophylaxis Intervention: SCD's Lines/Catheters IV Catheter Type (from Nrs): Saline Lock Urinary Cath still in place: Yes Reason Cath still needed: other (indicate) Assessment/Plan Assessment/Plan 61-year-old male who comes in with weakness and diarrhea with a past history of cirrhosis and alcohol abuse, and questionable hepatocellular carcinoma and possible cancer metastasis. 1 Acute encephalopathy, hepatic, follow up with GI 2. Weakness and diarrhea.negative for C. Diff 3. Acute on chronic renal insufficiency stable 4. 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 Type 2 diabetes - A1c = 7.1 6. Liver and lung masses with elevated AFP and CA-125 negative cytology from paracentesis, follow up with oncology Subjective 24 Hr Interval Summary Free Text/Dictation lethargic. Exam/Review of Systems Vital Signs Vitals Vital Signs Date Time Temp Pulse Resp B/P Pulse Ox O2 Delivery O2 Flow Rate FiO2 08/10/16 12:19 88 08/10/16 09:01 Nasal Cannula 2.0 08/10/16 08:48 97.4 18 97/57 94 Intake and Output 08/09/16 08/09/16 08/10/16 14:59 22:59 06:59 Intake Total 70 ml 600 ml Output Total 1000 ml Balance 70 ml -400 ml Exam Constitutional: alert Head: atraumatic, normocephalic Eyes: EOMI, nl conjunctiva, nl lids ENMT: mucosa pink and moist, nl external ears & nose, nl lips & teeth, nl nasal mucosa & septum Neck: non-tender, supple Respiratory: clear to auscultation, normal air movement, No congested cough, No crackles/rales, No diminished breath sounds, No intercostal retraction, No labored breathing, No other, No respirations, No tactile fremitus, No wheezing Cardiovascular: nl pulses, regular rate and rhythm, No S3, No S4, No bruits, No diastolic murmur, No edema, No gallop, No irregular rhythm, No jugular venous distention (JVD), No murmurs/extra sounds, No other, No rub, No systolic murmur Gastrointestinal: ascites, nl liver, spleen, non-tender, soft Musculoskeletal: nl extremities to inspection Extremities: normal pulses, No calf tenderness, No clubbing, No cyanosis, No edema, No other, No palpable cord, No pitting pedal edema, No tenderness Neurological: [employer] II-XII intact, nl speech, nl strength Results Result Diagram: 08/10/1617 08/10/16 0917 Results 24 hrs Laboratory Tests Test 08/09/16 18:03 08/09/16 20:57 08/10/16 02:19 08/10/16 08:04 Bedside Glucose 213 212 274 H 199 Test 08/10/16 09:17 08/10/16 11:49 Ammonia < 9 L Anion Gap 17 H Basophils # 0.1 Basophils % 0.4 Blood Urea Nitrogen 67 H Calcium Level 7.8 L Carbon Dioxide Level 19 L Chloride Level 102 # Creatinine 2.12 H Eosinophils # 0.1 Eosinophils % 1.0 Glucose Level 236 H Hematocrit 44.5 Hemoglobin 14.1 Lymphocytes # 2.1 Lymphocytes % 16.8 Mean Corpuscular Hemoglobin 28.6 L Mean Corpuscular Hemoglobin Concent 31.7 L Mean Corpuscular Volume 90.3 Mean Platelet Volume 11.0 #H Monocytes # 0.9 Monocytes % 7.2 Neutrophils # 9.2 H Neutrophils % 74.1 Nucleated Red Blood Cells # 0.0 Nucleated Red Blood Cells % 0.0 Platelet Count 92 L Potassium Level 4.0 Red Blood Count 4.93 Red Cell Distribution Width 15.8 H Sodium Level 134 L White Blood Count 12.4 #H Bedside Glucose 250 H Medications Medications Current Medications Ondansetron HCl (Zofran Inj) 4 mg Q6H PRN IV NAUSEA AND/OR VOMITING; Start at 14:00 Acetaminophen (Tylenol Tab) 650 mg Q6H PRN PO PAIN LEVEL 1-3 OR FEVER; Start at 14:00 Acetaminophen/ Hydrocodone Bitart ([place] (5/325)) 1 tab Q6H PRN PO MODERATE PAIN LEVEL 4-6; Start 08/04/16 at 14:00 Docusate Sodium (Colace) 100 mg Q12H PRN PO CONSTIPATION; Start 08/04/16 at 14: 00 Magnesium Hydroxide (Milk Of Mag) 30 ml DAILY PRN PO CONSTIPATION; Start at 14:00 Sodium Biphosphate/ Sodium Phosphate (Fleet Enema) 133 ml DAILY PRN [place] CONSTIPATION; Start 08/04/16 at 14:00 Lorazepam (Ativan) 0.5 mg Q6H PRN IV ANXIETY; Start 08/04/16 at 14:00 Hydralazine HCl (Apresoline) 10 mg Q6H PRN IV ELEVATED BLOOD PRESSURE; Start at 14:00 Nitroglycerin (Nitroglycerin (Sl Tab) 0.4 Mg) 1 tab Q5M PRN SL ANGINA; Start at 14:00 Insulin Glargine (Lantus) 20 unit QAM SC Last administered on 08/06/16 09:07; Admin Dose 20 UNIT; Start 08/05/16 at 09:00; Status Future hold Pantoprazole (Protonix Tab) 40 mg DAILY@06 PO Last administered on 08/10/16 05 :27; Admin Dose 40 MG; Start 08/05/16 at 06:00 Miscellaneous Information 1 ea NOTE XX ; Start 08/04/16 at 14:30 Glucose (Glutose) 15 gm Q15M PRN PO DECREASED GLUCOSE; Start 08/04/16 at 14:30 Glucose (Glutose) 22.5 gm Q15M PRN PO DECREASED GLUCOSE; Start 08/04/16 at 14: 30 Dextrose (D50w Syringe) 25 ml Q15M PRN IV DECREASED GLUCOSE; Start 08/04/16 at 14:30 Dextrose (D50w Syringe) 50 ml Q15M PRN IV DECREASED GLUCOSE; Start 08/04/16 at 14:30 Glucagon (Glucagen) 1 mg Q15M PRN IM DECREASED GLUCOSE; Start 08/04/16 at 14:30 Glucose (Glutose) 15 gm Q15M PRN BUCCAL DECREASED GLUCOSE; Start 08/04/16 at 14 :30 Loperamide HCl (Imodium Cap) 2 mg QID PRN PO DIARRHEA; Start 08/04/16 at 15:00 Gabapentin (Neurontin) 200 mg TID PO Last administered on 08/10/16 12:08; Admin Dose 200 MG; Start 08/04/16 at 21:00 Rifaximin 550 mg 550 mg BID PO Last administered on 08/10/16 08:17; Admin Dose 550 MG; Start 2/22/17 at 21:00 Levetiracetam/ Sodium Chloride (Keppra Iv/NS) 105 ml @ 420 mls/hr Q12 IVPB Last administered on 08/10/16 08:16; Admin Dose 420 MLS/HR; Start 08/09/16 at 09:00 Lactulose (Enulose) 20 gm Q8 NGT Last administered on 08/10/16 05:27; Admin Dose 20 GM; Start 08/09/16 at 14:00 Diagnostic Test (Pha) (Accucheck) 1 ea 02 XX Last administered on 08/10/16 02: 24; Admin Dose 1 EA; Start 08/10/16 at 02:00 Miscellaneous Information (Flu Vaccine Previously Dispensed) FLU VACCINE PREVIOU... NOTE PRN XX NOTE; Start 08/10/16 at 07:30 LIZ GUERRA MD Aug 10, 2016 14:36
--- NOTE | 2016-08-10 16:55 | CONS ---
Date/Time of Note Date/Time of Note DATE: 08/10/16 TIME: 16:53 Assessment/Plan Assessment/Plan Chief Complaint/Hosp Course 61 yo with # Liver mass - concerning for HCC with slight high AFP. During last admission, per radiology it was determined that a liver or lung biopsy would be unsafe in this cirrhotic patient. At that time a paracentesis was done which was negative for malignancy and therefore non diagnostic. WE will therefore re attempt to make a diagnosis with a paracentesis and cytology evaluation of pleural fluid. If we are not able to make a diagnosis would not pursue a risky liver or lung biopsy. Pt is extremely weak and cachetic and would not tolerate aggressive chemotherapy. Furthermore, patient has stated he has no family near by to help him and is amenable to supportive care and hospice. He understands that he would likely not tolerate chemotherapy -cytology from ascitic fluid 08/06/16 negative. In any case, even if diagnosis were made, he is not a candidate for chemotherapy. Dr. Bearden was proposing hospice but no formal decision has yet been made. -agree with palliative care involved because of multiple comorbid issues and deteriorating PS. #Thrombocytopenia -secondary to liver failure, no intervention unless needed for a procedure. Stable. # Liver cirrhosis- secondary to Hepatitis -continue to monitor counts #Acute on chronic renal failure -baseline creat around 2.7, improved at 2.12 Problems: Consultation Date/Type/Reason Admit Date/Time Aug 04, 2016 at 13:11 Initial Consult Date 08/05/16 Type of Consultation: Hematology/Oncology Referring Provider: AMADOR MONGE 24 HR Interval Summary Free Text/Dictation The patient states that he feels "fair" and has been eating. No other events. Exam/Review of Systems Vital Signs Vitals Vital Signs Date Time Temp Pulse Resp B/P Pulse Ox O2 Delivery O2 Flow Rate FiO2 08/10/16 16:52 97.8 97 18 106/69 95 08/10/16 12:00 Room Air 08/10/16 09:01 2.0 Intake and Output 08/09/16 08/09/16 08/10/16 15:00 23:00 07:00 Intake Total 600 ml Output Total 1000 ml Balance -400 ml Exam Constitutional: alert, frail Psych: depression Head: atraumatic, normocephalic Eyes: nl conjunctiva ENMT: nl external ears & nose Neck: non-tender, supple Respiratory: clear to auscultation Cardiovascular: nl pulses, regular rate and rhythm Gastrointestinal: soft, distended Musculoskeletal: nl extremities to inspection, nl gait and stance Extremities: normal pulses Results Result Diagram: 08/10/1691608/10/1617 Results 24 hrs Laboratory Tests Test 08/09/16 18:03 08/09/16 20:57 08/10/16 02:19 08/10/16 08:04 Bedside Glucose 213 212 274 H 199 Test 08/10/16 09:17 08/10/16 11:49 Ammonia < 9 L Anion Gap 17 H Basophils # 0.1 Basophils % 0.4 Blood Urea Nitrogen 67 H Calcium Level 7.8 L Carbon Dioxide Level 19 L Chloride Level 102 # Creatinine 2.12 H Eosinophils # 0.1 Eosinophils % 1.0 Glucose Level 236 H Hematocrit 44.5 Hemoglobin 14.1 Lymphocytes # 2.1 Lymphocytes % 16.8 Mean Corpuscular Hemoglobin 28.6 L Mean Corpuscular Hemoglobin Concent 31.7 L Mean Corpuscular Volume 90.3 Mean Platelet Volume 11.0 #H Monocytes # 0.9 Monocytes % 7.2 Neutrophils # 9.2 H Neutrophils % 74.1 Nucleated Red Blood Cells # 0.0 Nucleated Red Blood Cells % 0.0 Platelet Count 92 L Potassium Level 4.0 Red Blood Count 4.93 Red Cell Distribution Width 15.8 H Sodium Level 134 L White Blood Count 12.4 #H Bedside Glucose 250 H Medications Medications Current Medications Ondansetron HCl (Zofran Inj) 4 mg Q6H PRN IV NAUSEA AND/OR VOMITING; Start at 14:00 Acetaminophen (Tylenol Tab) 650 mg Q6H PRN PO PAIN LEVEL 1-3 OR FEVER; Start at 14:00 Acetaminophen/ Hydrocodone Bitart ([place] (5/325)) 1 tab Q6H PRN PO MODERATE PAIN LEVEL 4-6; Start 08/04/16 at 14:00 Docusate Sodium (Colace) 100 mg Q12H PRN PO CONSTIPATION; Start 08/04/16 at 14: 00 Magnesium Hydroxide (Milk Of Mag) 30 ml DAILY PRN PO CONSTIPATION; Start at 14:00 Sodium Biphosphate/ Sodium Phosphate (Fleet Enema) 133 ml DAILY PRN [place] CONSTIPATION; Start 08/04/16 at 14:00 Lorazepam (Ativan) 0.5 mg Q6H PRN IV ANXIETY; Start 08/04/16 at 14:00 Hydralazine HCl (Apresoline) 10 mg Q6H PRN IV ELEVATED BLOOD PRESSURE; Start at 14:00 Nitroglycerin (Nitroglycerin (Sl Tab) 0.4 Mg) 1 tab Q5M PRN SL ANGINA; Start at 14:00 Insulin Glargine (Lantus) 20 unit QAM SC Last administered on 08/06/16 09:07; Admin Dose 20 UNIT; Start 08/05/16 at 09:00; Status Future hold Pantoprazole (Protonix Tab) 40 mg DAILY@06 PO Last administered on 08/10/16 05 :27; Admin Dose 40 MG; Start 08/05/16 at 06:00 Miscellaneous Information 1 ea NOTE XX ; Start 08/04/16 at 14:30 Glucose (Glutose) 15 gm Q15M PRN PO DECREASED GLUCOSE; Start 08/04/16 at 14:30 Glucose (Glutose) 22.5 gm Q15M PRN PO DECREASED GLUCOSE; Start 08/04/16 at 14: 30 Dextrose (D50w Syringe) 25 ml Q15M PRN IV DECREASED GLUCOSE; Start 08/04/16 at 14:30 Dextrose (D50w Syringe) 50 ml Q15M PRN IV DECREASED GLUCOSE; Start 08/04/16 at 14:30 Glucagon (Glucagen) 1 mg Q15M PRN IM DECREASED GLUCOSE; Start 08/04/16 at 14:30 Glucose (Glutose) 15 gm Q15M PRN BUCCAL DECREASED GLUCOSE; Start 08/04/16 at 14 :30 Loperamide HCl (Imodium Cap) 2 mg QID PRN PO DIARRHEA; Start 08/04/16 at 15:00 Gabapentin (Neurontin) 200 mg TID PO Last administered on 08/10/16 12:08; Admin Dose 200 MG; Start 08/04/16 at 21:00 Rifaximin 550 mg 550 mg BID PO Last administered on 08/10/16 08:17; Admin Dose 550 MG; Start 08/08/16 at 21:00 Levetiracetam/ Sodium Chloride (Keppra Iv/NS) 105 ml @ 420 mls/hr Q12 IVPB Last administered on 08/10/16 08:16; Admin Dose 420 MLS/HR; Start 08/09/16 at 09:00 Lactulose (Enulose) 20 gm Q8 NGT Last administered on 08/10/16 05:27; Admin Dose 20 GM; Start 08/09/16 at 14:00 Diagnostic Test (Pha) (Accucheck) 1 ea 02 XX Last administered on 08/10/16 02: 24; Admin Dose 1 EA; Start 08/10/16 at 02:00 Miscellaneous Information (Flu Vaccine Previously Dispensed) FLU VACCINE PREVIOU... NOTE PRN XX NOTE; Start 08/10/16 at 07:30 TOJUDY MD Aug 10, 2016 16:55
--- NOTE | 2016-08-10 19:04 | PN ---
Date/Time of Note Date/Time of Note DATE: 08/10/16 TIME: 19:01 Assessment/Plan VTE Prophylaxis VTE Prophylaxis Intervention: SCD's Lines/Catheters [facility] Saline Lock Urinary Cath still in place: Yes Reason Cath still needed: other (indicate) Assessment/Plan Assessment/Plan 61-year-old male who comes in with weakness and diarrhea with a past history of cirrhosis and alcohol abuse, and questionable hepatocellular carcinoma and possible cancer metastasis. 1 Acute encephalopathy: improved * Likely hepatic from exam 2. Weakness and diarrhea. * No further diarrhea so far 2. Acute on chronic renal insufficiency * His baseline creatinine appears to be in the 2.7 to 2.8 range 3. 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 Type 2 diabetes - A1c = 7.1 5. Liver and lung masses with elevated AFP and CA-125 PLAN: * Continue Lactulose via NGT / Continue Rifaximin * Continue pain control/ antiemetics/ antipyretics/ supportive care * Continue Lantus/SSI once * Per Oncology, patient is an extremely poor candidate for Chemo d/t debility and lack of support if Liver mass is diagnosed as cancer and hence will not be started on chemo if no change in current state of affairs * Oncology recommends Hospice eval and patient was agreeable / Palliative Care consult as well PROPHYLAXIS: PPI / SCDs Subjective 24 Hr Interval Summary Free Text/Dictation * Lethargic * Path negative for malignancy Exam/Review of Systems Vital Signs Vitals Vital Signs Date Time Temp Pulse Resp B/P Pulse Ox O2 Delivery O2 Flow Rate FiO2 08/10/16 16:52 97.8 97 18 106/69 95 08/10/16 12:00 Room Air 08/10/16 09:01 2.0 Intake and Output 08/09/16 08/09/16 08/10/16 15:00 23:00 07:00 Intake Total 600 ml Output Total 1000 ml Balance -400 ml Exam Constitutional: frail, oriented (x2), other (very lethargic), No distress Head: normocephalic Eyes: PERRL, icteric ENMT: No mucosa pink and moist Respiratory: clear to auscultation, diminished breath sounds Cardiovascular: regular rate and rhythm, No murmurs/extra sounds Gastrointestinal: bowel sounds, non-tender, soft Neurological: lethargic, No confused, No focal weakness Results Result Diagram: 08/10/1691608/10/16 0917 Results 24 hrs Laboratory Tests Test 08/09/16 20:57 08/10/16 02:19 08/10/16 08:04 08/10/16 09:17 Bedside Glucose 212 274 H 199 Ammonia < 9 L Anion Gap 17 H Basophils # 0.1 Basophils % 0.4 Blood Urea Nitrogen 67 H Calcium Level 7.8 L Carbon Dioxide Level 19 L Chloride Level 102 # Creatinine 2.12 H Eosinophils # 0.1 Eosinophils % 1.0 Glucose Level 236 H Hematocrit 44.5 Hemoglobin 14.1 Lymphocytes # 2.1 Lymphocytes % 16.8 Mean Corpuscular Hemoglobin 28.6 L Mean Corpuscular Hemoglobin Concent 31.7 L Mean Corpuscular Volume 90.3 Mean Platelet Volume 11.0 #H Monocytes # 0.9 Monocytes % 7.2 Neutrophils # 9.2 H Neutrophils % 74.1 Nucleated Red Blood Cells # 0.0 Nucleated Red Blood Cells % 0.0 Platelet Count 92 L Potassium Level 4.0 Red Blood Count 4.93 Red Cell Distribution Width 15.8 H Sodium Level 134 L White Blood Count 12.4 #H Test 08/10/16 11:49 08/10/16 17:20 Bedside Glucose 250 H 305 H Medications Medications Current Medications Ondansetron HCl (Zofran Inj) 4 mg Q6H PRN IV NAUSEA AND/OR VOMITING; Start at 14:00 Acetaminophen (Tylenol Tab) 650 mg Q6H PRN PO PAIN LEVEL 1-3 OR FEVER; Start at 14:00 Acetaminophen/ Hydrocodone Bitart ([place] (5/325)) 1 tab Q6H PRN PO MODERATE PAIN LEVEL 4-6; Start 08/04/16 at 14:00 Docusate Sodium (Colace) 100 mg Q12H PRN PO CONSTIPATION; Start 08/04/16 at 14: 00 Magnesium Hydroxide (Milk Of Mag) 30 ml DAILY PRN PO CONSTIPATION; Start at 14:00 Sodium Biphosphate/ Sodium Phosphate (Fleet Enema) 133 ml DAILY PRN [place] CONSTIPATION; Start 08/04/16 at 14:00 Lorazepam (Ativan) 0.5 mg Q6H PRN IV ANXIETY; Start 08/04/16 at 14:00 Hydralazine HCl (Apresoline) 10 mg Q6H PRN IV ELEVATED BLOOD PRESSURE; Start at 14:00 Nitroglycerin (Nitroglycerin (Sl Tab) 0.4 Mg) 1 tab Q5M PRN SL ANGINA; Start at 14:00 Insulin Glargine (Lantus) 20 unit QAM SC Last administered on 08/06/16 09:07; Admin Dose 20 UNIT; Start 08/05/16 at 09:00; Status Future hold Pantoprazole (Protonix Tab) 40 mg DAILY@06 PO Last administered on 08/10/16 05 :27; Admin Dose 40 MG; Start 08/05/16 at 06:00 Miscellaneous Information 1 ea NOTE XX ; Start 08/04/16 at 14:30 Glucose (Glutose) 15 gm Q15M PRN PO DECREASED GLUCOSE; Start 08/04/16 at 14:30 Glucose (Glutose) 22.5 gm Q15M PRN PO DECREASED GLUCOSE; Start 08/04/16 at 14: 30 Dextrose (D50w Syringe) 25 ml Q15M PRN IV DECREASED GLUCOSE; Start 08/04/16 at 14:30 Dextrose (D50w Syringe) 50 ml Q15M PRN IV DECREASED GLUCOSE; Start 08/04/16 at 14:30 Glucagon (Glucagen) 1 mg Q15M PRN IM DECREASED GLUCOSE; Start 08/04/16 at 14:30 Glucose (Glutose) 15 gm Q15M PRN BUCCAL DECREASED GLUCOSE; Start 08/04/16 at 14 :30 Loperamide HCl (Imodium Cap) 2 mg QID PRN PO DIARRHEA; Start 08/04/16 at 15:00 Gabapentin (Neurontin) 200 mg TID PO Last administered on 08/10/16 12:08; Admin Dose 200 MG; Start 08/04/16 at 21:00 Rifaximin 550 mg 550 mg BID PO Last administered on 08/10/16 08:17; Admin Dose 550 MG; Start 08/08/16 at 21:00 Levetiracetam/ Sodium Chloride (Keppra Iv/NS) 105 ml @ 420 mls/hr Q12 IVPB Last administered on 08/10/16 08:16; Admin Dose 420 MLS/HR; Start 08/09/16 at 09:00 Lactulose (Enulose) 20 gm Q8 NGT Last administered on 08/10/16 05:27; Admin Dose 20 GM; Start 08/09/16 at 14:00 Diagnostic Test (Pha) (Accucheck) 1 ea 02 XX Last administered on 08/10/16 02: 24; Admin Dose 1 EA; Start 08/10/16 at 02:00 Miscellaneous Information (Flu Vaccine Previously Dispensed) FLU VACCINE PREVIOU... NOTE PRN XX NOTE; Start 08/10/16 at 07:30 JORDAN COMBS Aug 10, 2016 19:04
[2016-08-10] MEDS: HYDROCODONE/APAP (5/325) TAB PO PRN (22:12)
[2016-08-10] MEDS: LORAZEPAM 2 MG INJ IV PRN (22:50)
[2016-08-11] VITALS (12 sets, daily range): BP systolic 92–110; BP diastolic 50–62; PULSE 77–95; RESP 17–19
[2016-08-11] MEDS: ACCUCHECK AT 2AM (Patients on SS coverage) XX SCH (02:55)
[2016-08-11] MEDS: LACTULOSE 30ML CUP NGT SCH ×3 (05:08→22:08)
[2016-08-11] MEDS: PANTOPRAZOLE (EC) 40 MG TAB PO SCH (05:21)
[2016-08-11] MEDS: RIFAXIMIN 550 MG TAB PO SCH ×2 (09:13→21:01)
[2016-08-11] MEDS: LEVETIRACETAM IV 500 MG in SOD CHLORIDE 0.9% 100 ML IVPB SCH ×2 (09:14→21:08)
[2016-08-11] MEDS: INSULIN ASPART [NOVOLOG] 3 ML PEN SC SCH ×4 (09:15→20:59)
[2016-08-11] MEDS: GABAPENTIN 100 MG CAP PO SCH (09:19)
[2016-08-11 10:22] LABS: ADD SCAN DIFF NO
[2016-08-11 10:30] LABS: BASOPHILS % 0.3 % (0.0-2.0); EOSINOPHILS # 0.1 10^3/ul (0.0-0.5); EOSINOPHILS % 0.9 % (0.0-7.0); HEMATOCRIT 43.6 % (42.0-52.0); HEMOGLOBIN 14.1 g/dl (14.0-18.0); LYMPHOCYTES # 2.5 10^3/ul (0.8-2.9); LYMPHOCYTES % 15.7 % (15.0-51.0); MEAN CORPUSCULAR HEMOGLOBIN 28.7 pg (29.0-33.0); MEAN CORPUSCULAR HGB CONC 32.3 g/dl (32.0-37.0); MEAN CORPUSCULAR VOLUME 88.8 fl (82.0-101.0); MEAN PLATELET VOLUME 10.6 fl (7.4-10.4); MONOCYTES % 6.2 % (0.0-11.0); NEUTROPHIL # 12.2 10^3/ul (1.6-7.5); NEUTROPHILS % 76.3 % (39.0-77.0); PLATELET COUNT 115 10^3/UL (140-415); RED BLOOD COUNT 4.91 10^6/ul (4.70-6.10); RED CELL DISTRIBUTION WIDTH 15.9 % (11.5-14.5); WHITE BLOOD COUNT 15.9 10^3/ul (4.8-10.8)
[2016-08-11] MEDS: INSULIN GLARGINE [LANtus] 3 ML PEN SC SCH (10:33)
[2016-08-11 10:46] LABS: CREATININE 2.65 mg/dl (0.61-1.24)
[2016-08-11 10:47] LABS: CALCIUM 7.6 mg/dl (8.4-10.2)
[2016-08-11] MEDS ORDERED: INSULIN GLARGINE [LANtus] 3 ML PEN SC ONE (12:30)
--- NOTE | 2016-08-11 12:31 | PN ---
Date/Time of Note Date/Time of Note DATE: 08/11/16 TIME: 12:28 Assessment/Plan VTE Prophylaxis VTE Prophylaxis Intervention: other Lines/Catheters [facility] Saline Lock Urinary Cath still in place: Yes Reason Cath still needed: urinary retention Assessment/Plan Problems: (1) Cirrhosis Status: Chronic Comment: He is already had paracentesis which did give him some relief but was not diagnostic for malignant cells again. I suspect the ascites is actually on the basis of his cirrhosis and on on the basis of the mass in the liver or in the lung. Continue treatment. Please note that this gives him a poor prognosis Qualifiers: Hepatic cirrhosis type: alcoholic cirrhosis Ascites presence: with ascites Qualified Code: K70.31 - Alcoholic cirrhosis of liver with ascites (2) Liver mass Status: Chronic Comment: Please see the notes from oncologist. I am in concurrence that attempting to biopsy this would most likely lead to his immediate demise. It would be an appropriate consideration for palliative care and also to change his CODE STATUS. (3) Thrombocytopenia Status: Chronic Comment: Due to cirrhosis (4) Diabetes mellitus type 2 in nonobese Status: Chronic Comment: Adjust medicines to get better control (5) Acute on chronic renal failure Status: Acute Comment: Noted Subjective 24 Hr Interval Summary Free Text/Dictation Patient sleeping in bed arouses with some difficulty Constitutional: no complaints Respiratory: no complaints Cardiovascular: no complaints Exam/Review of Systems Vital Signs Vitals Vital Signs Date Time Temp Pulse Resp B/P Pulse Ox O2 Delivery O2 Flow Rate FiO2 08/11/16 12:26 86 08/11/16 11:59 98.7 19 93/50 97 08/11/16 08:30 Nasal Cannula 2.0 Intake and Output 08/10/16 08/10/16 08/11/16 15:00 23:00 07:00 Intake Total 950 ml 160 ml Output Total 1000 ml 500 ml Balance -50 ml -340 ml Exam Neck: non-tender, supple Respiratory: clear to auscultation, normal air movement Cardiovascular: nl pulses, regular rate and rhythm Gastrointestinal: distended Results Result Diagram: 08/11/16 0950 08/11/16 0950 Results 24 hrs Laboratory Tests Test 08/10/16 17:20 08/10/16 22:11 08/11/16 07:54 08/11/16 09:50 Bedside Glucose 305 H 283 H 212 Anion Gap 18 H Basophils # 0.0 Basophils % 0.3 Blood Urea Nitrogen 72 H Calcium Level 7.6 L Carbon Dioxide Level 16 L Chloride Level 100 Creatinine 2.65 H Eosinophils # 0.1 Eosinophils % 0.9 Glucose Level 254 H Hematocrit 43.6 Hemoglobin 14.1 Lymphocytes # 2.5 Lymphocytes % 15.7 Mean Corpuscular Hemoglobin 28.7 L Mean Corpuscular Hemoglobin Concent 32.3 Mean Corpuscular Volume 88.8 Mean Platelet Volume 10.6 H Monocytes # 1.0 H Monocytes % 6.2 Neutrophils # 12.2 H Neutrophils % 76.3 Nucleated Red Blood Cells # 0.0 Nucleated Red Blood Cells % 0.0 Platelet Count 115 #L Potassium Level 4.0 Red Blood Count 4.91 Red Cell Distribution Width 15.9 H Sodium Level 130 L White Blood Count 15.9 #H Test 08/11/16 11:41 Bedside Glucose 251 H Medications Medications Current Medications Ondansetron HCl (Zofran Inj) 4 mg Q6H PRN IV NAUSEA AND/OR VOMITING; Start at 14:00 Acetaminophen (Tylenol Tab) 650 mg Q6H PRN PO PAIN LEVEL 1-3 OR FEVER; Start at 14:00 Acetaminophen/ Hydrocodone Bitart ([place] (5/325)) 1 tab Q6H PRN PO MODERATE PAIN LEVEL 4-6 Last administered on 08/10/16 22:12; Admin Dose 1 TAB; Start at 14:00 Docusate Sodium (Colace) 100 mg Q12H PRN PO CONSTIPATION; Start 08/04/16 at 14: 00 Magnesium Hydroxide (Milk Of Mag) 30 ml DAILY PRN PO CONSTIPATION; Start at 14:00 Sodium Biphosphate/ Sodium Phosphate (Fleet Enema) 133 ml DAILY PRN [place] CONSTIPATION; Start 08/04/16 at 14:00 Lorazepam (Ativan) 0.5 mg Q6H PRN IV ANXIETY Last administered on 08/10/16 22: 50; Admin Dose 0.5 MG; Start 08/04/16 at 14:00 Hydralazine HCl (Apresoline) 10 mg Q6H PRN IV ELEVATED BLOOD PRESSURE; Start at 14:00 Nitroglycerin (Nitroglycerin (Sl Tab) 0.4 Mg) 1 tab Q5M PRN SL ANGINA; Start at 14:00 Insulin Glargine (Lantus) 20 unit QAM SC Last administered on 08/11/16 10:33; Admin Dose 20 UNIT; Start 08/05/16 at 09:00; Status Future hold Pantoprazole (Protonix Tab) 40 mg DAILY@06 PO Last administered on 08/11/16 05 :21; Admin Dose 40 MG; Start 08/05/16 at 06:00 Miscellaneous Information 1 ea NOTE XX ; Start 08/04/16 at 14:30 Glucose (Glutose) 15 gm Q15M PRN PO DECREASED GLUCOSE; Start 08/04/16 at 14:30 Glucose (Glutose) 22.5 gm Q15M PRN PO DECREASED GLUCOSE; Start 08/04/16 at 14: 30 Dextrose (D50w Syringe) 25 ml Q15M PRN IV DECREASED GLUCOSE; Start 08/04/16 at 14:30 Dextrose (D50w Syringe) 50 ml Q15M PRN IV DECREASED GLUCOSE; Start 08/04/16 at 14:30 Glucagon (Glucagen) 1 mg Q15M PRN IM DECREASED GLUCOSE; Start 08/04/16 at 14:30 Glucose (Glutose) 15 gm Q15M PRN BUCCAL DECREASED GLUCOSE; Start 08/04/16 at 14 :30 Loperamide HCl (Imodium Cap) 2 mg QID PRN PO DIARRHEA; Start 08/04/16 at 15:00 Gabapentin (Neurontin) 200 mg TID PO Last administered on 08/11/16 09:19; Admin Dose 200 MG; Start 08/04/16 at 21:00 Rifaximin 550 mg 550 mg BID PO Last administered on 08/11/16 09:13; Admin Dose 550 MG; Start 08/08/16 at 21:00 Levetiracetam/ Sodium Chloride (Keppra Iv/NS) 105 ml @ 420 mls/hr Q12 IVPB Last administered on 08/11/16 09:14; Admin Dose 420 MLS/HR; Start 08/09/16 at 09:00 Lactulose (Enulose) 20 gm Q8 NGT Last administered on 08/10/16 05:27; Admin Dose 20 GM; Start 08/09/16 at 14:00 Diagnostic Test (Pha) (Accucheck) 1 ea 02 XX Last administered on 08/11/16t 02: 55; Admin Dose 1 EA; Start 08/10/16 at 02:00 Miscellaneous Information (Flu Vaccine Previously Dispensed) FLU VACCINE PREVIOU... NOTE PRN XX NOTE; Start 08/10/16 at 07:30 TWILA RICHEY MD Aug 11, 2016 12:30
[2016-08-11] MEDS: GABAPENTIN 300 MG CAP PO SCH ×2 (13:19→21:01)
--- NOTE | 2016-08-11 15:55 | CONS ---
Date/Time of Note Date/Time of Note DATE: 08/11/16 TIME: 15:54 Assessment/Plan Assessment/Plan Chief Complaint/Hosp Course 61 yo with # Liver mass - concerning for HCC with slight high AFP. During last admission, per radiology it was determined that a liver or lung biopsy would be unsafe in this cirrhotic patient. At that time a paracentesis was done which was negative for malignancy and therefore non diagnostic. WE will therefore re attempt to make a diagnosis with a paracentesis and cytology evaluation of pleural fluid. If we are not able to make a diagnosis would not pursue a risky liver or lung biopsy. Pt is extremely weak and cachetic and would not tolerate aggressive chemotherapy. Furthermore, patient has stated he has no family near by to help him and is amenable to supportive care and hospice. He understands that he would likely not tolerate chemotherapy -cytology from ascitic fluid 08/06/16 negative. In any case, even if diagnosis were made, he is not a candidate for chemotherapy. Dr. Bearden was proposing hospice but no formal decision has yet been made. -agree with palliative care involved because of multiple comorbid issues and deteriorating PS. #Thrombocytopenia -secondary to liver failure, no intervention unless needed for a procedure. Improved t 115,000. # Liver cirrhosis- secondary to Hepatitis -continue to monitor counts #Acute on chronic renal failure -baseline creat around 2.7, now 2.65 Problems: Consultation Date/Type/Reason Admit Date/Time Aug 04, 2016 at 13:11 Initial Consult Date 08/05/16 Type of Consultation: Hematology/Oncology Referring Provider: AMADOR MONGE 24 HR Interval Summary Free Text/Dictation Patient quite congested sounded, but denies shortness of breath. RN to notify primary team. Exam/Review of Systems Vital Signs Vitals Vital Signs Date Time Temp Pulse Resp B/P Pulse Ox O2 Delivery O2 Flow Rate FiO2 08/11/16 12:26 86 08/11/16 11:59 98.7 19 93/50 97 08/11/16 08:30 Nasal Cannula 2.0 Intake and Output 08/10/16 08/10/16 08/11/16 15:00 23:00 07:00 Intake Total 950 ml 160 ml Output Total 1000 ml 500 ml Balance -50 ml -340 ml Exam Constitutional: alert, frail Psych: depression Head: atraumatic, normocephalic Eyes: nl conjunctiva ENMT: nl external ears & nose Neck: non-tender, supple Respiratory: rhonchi bilaterally Cardiovascular: nl pulses, regular rate and rhythm Gastrointestinal: soft, distended Musculoskeletal: nl extremities to inspection, nl gait and stance Extremities: normal pulses Results Result Diagram: 08/11/16 0950 08/11/16 0950 Results 24 hrs Laboratory Tests Test 08/10/16 17:20 08/10/16 22:11 08/11/16 07:54 08/11/16 09:50 Bedside Glucose 305 H 283 H 212 Anion Gap 18 H Basophils # 0.0 Basophils % 0.3 Blood Urea Nitrogen 72 H Calcium Level 7.6 L Carbon Dioxide Level 16 L Chloride Level 100 Creatinine 2.65 H Eosinophils # 0.1 Eosinophils % 0.9 Glucose Level 254 H Hematocrit 43.6 Hemoglobin 14.1 Lymphocytes # 2.5 Lymphocytes % 15.7 Mean Corpuscular Hemoglobin 28.7 L Mean Corpuscular Hemoglobin Concent 32.3 Mean Corpuscular Volume 88.8 Mean Platelet Volume 10.6 H Monocytes # 1.0 H Monocytes % 6.2 Neutrophils # 12.2 H Neutrophils % 76.3 Nucleated Red Blood Cells # 0.0 Nucleated Red Blood Cells % 0.0 Platelet Count 115 #L Potassium Level 4.0 Red Blood Count 4.91 Red Cell Distribution Width 15.9 H Sodium Level 130 L White Blood Count 15.9 #H Test 08/11/16 11:41 Bedside Glucose 251 H Medications Medications Current Medications Ondansetron HCl (Zofran Inj) 4 mg Q6H PRN IV NAUSEA AND/OR VOMITING; Start at 14:00 Acetaminophen (Tylenol Tab) 650 mg Q6H PRN PO PAIN LEVEL 1-3 OR FEVER; Start at 14:00 Acetaminophen/ Hydrocodone Bitart ([place] (5/325)) 1 tab Q6H PRN PO MODERATE PAIN LEVEL 4-6 Last administered on 08/10/16t 22:12; Admin Dose 1 TAB; Start at 14:00 Docusate Sodium (Colace) 100 mg Q12H PRN PO CONSTIPATION; Start 08/04/16 at 14: 00 Magnesium Hydroxide (Milk Of Mag) 30 ml DAILY PRN PO CONSTIPATION; Start at 14:00 Sodium Biphosphate/ Sodium Phosphate (Fleet Enema) 133 ml DAILY PRN [place] CONSTIPATION; Start 08/04/16 at 14:00 Lorazepam (Ativan) 0.5 mg Q6H PRN IV ANXIETY Last administered on 08/10/16 22: 50; Admin Dose 0.5 MG; Start 08/04/16 at 14:00 Hydralazine HCl (Apresoline) 10 mg Q6H PRN IV ELEVATED BLOOD PRESSURE; Start at 14:00 Nitroglycerin (Nitroglycerin (Sl Tab) 0.4 Mg) 1 tab Q5M PRN SL ANGINA; Start at 14:00 Pantoprazole (Protonix Tab) 40 mg DAILY@06 PO Last administered on 08/11/16 05 :21; Admin Dose 40 MG; Start 08/05/16 at 06:00 Miscellaneous Information 1 ea NOTE XX ; Start 08/04/16 at 14:30 Glucose (Glutose) 15 gm Q15M PRN PO DECREASED GLUCOSE; Start 08/04/16 at 14:30 Glucose (Glutose) 22.5 gm Q15M PRN PO DECREASED GLUCOSE; Start 08/04/16 at 14: 30 Dextrose (D50w Syringe) 25 ml Q15M PRN IV DECREASED GLUCOSE; Start 08/04/16 at 14:30 Dextrose (D50w Syringe) 50 ml Q15M PRN IV DECREASED GLUCOSE; Start 08/04/16 at 14:30 Glucagon (Glucagen) 1 mg Q15M PRN IM DECREASED GLUCOSE; Start 08/04/16 at 14:30 Glucose (Glutose) 15 gm Q15M PRN BUCCAL DECREASED GLUCOSE; Start 08/04/16 at 14 :30 Loperamide HCl (Imodium Cap) 2 mg QID PRN PO DIARRHEA; Start 08/04/16 at 15:00 Rifaximin 550 mg 550 mg BID PO Last administered on 08/11/16 09:13; Admin Dose 550 MG; Start 08/08/16 at 21:00 Levetiracetam/ Sodium Chloride (Keppra Iv/NS) 105 ml @ 420 mls/hr Q12 IVPB Last administered on 08/11/16 09:14; Admin Dose 420 MLS/HR; Start 08/09/16 at 09:00 Lactulose (Enulose) 20 gm Q8 NGT Last administered on 08/11/16 13:19; Admin Dose 20 GM; Start 08/09/16 at 14:00 Diagnostic Test (Pha) (Accucheck) 1 ea 02 XX Last administered on 08/11/16 02: 55; Admin Dose 1 EA; Start 08/10/16 at 02:00 Miscellaneous Information (Flu Vaccine Previously Dispensed) FLU VACCINE PREVIOU... NOTE PRN XX NOTE; Start 08/10/16 at 07:30 Gabapentin (Neurontin) 300 mg TID PO Last administered on 08/11/16 13:19; Admin Dose 300 MG; Start 08/11/16 at 13:00 Insulin Glargine (Lantus) 26 unit QAM SC ; Start 08/12/16 at 09:00 TOJUDY MD Aug 11, 2016 15:55
--- NOTE | 2016-08-11 17:48 | RADRPT ---
PROCEDURE: XR Chest. CLINICAL INDICATION: Shortness of breath. TECHNIQUE: A single portable view of the chest was obtained. COMPARISON: 08/04/2016 FINDINGS: The aorta is tortuous and atherosclerotic. The cardiomediastinal silhouette is otherwise within norm al limits. The lung volumes are low with bibasilar compressive atelectasis. The remaining lungs and pleural spaces are clear. The soft tissues and osseous structures demonstrate benign age related sen escent changes. IMPRESSION: Low lung volumes with bibasilar compressive atelectasis, not significantly changed. RPTAT: AA .Stan Miller MD, Date Time Electronically viewed and signed by .Stan Miller MD, on 08/11/2016 17:47 .A/
[2016-08-11] MEDS: LORAZEPAM 2 MG INJ IV PRN (21:01)
[2016-08-12] VITALS (13 sets, daily range): BP systolic 90–106; BP diastolic 50–63; PULSE 80–100; RESP 18–20
[2016-08-12] MEDS: ACCUCHECK AT 2AM (Patients on SS coverage) XX SCH ×2 (02:37→22:30)
[2016-08-12] MEDS: LACTULOSE 30ML CUP NGT SCH ×3 (06:39→22:22)
[2016-08-12] MEDS: PANTOPRAZOLE (EC) 40 MG TAB PO SCH (06:39)
[2016-08-12] MEDS: RIFAXIMIN 550 MG TAB PO SCH ×2 (09:04→22:23)
[2016-08-12] MEDS: LEVETIRACETAM IV 500 MG in SOD CHLORIDE 0.9% 100 ML IVPB SCH ×2 (09:04→22:23)
[2016-08-12] MEDS: GABAPENTIN 300 MG CAP PO SCH ×3 (09:04→22:22)
[2016-08-12] MEDS: INSULIN ASPART [NOVOLOG] 3 ML PEN SC SCH ×4 (09:06→22:28)
[2016-08-12] MEDS: INSULIN GLARGINE [LANtus] 3 ML PEN SC SCH (09:07)
[2016-08-12] MEDS ORDERED: FUROSEMIDE 40 MG INJ IV ONE (09:30)
[2016-08-12 11:35] LABS: ADD SCAN DIFF NO
[2016-08-12 11:43] LABS: BASOPHIL # 0.1 10^3/ul (0.0-0.1); BASOPHILS % 0.3 % (0.0-2.0); EOSINOPHILS # 0.1 10^3/ul (0.0-0.5); EOSINOPHILS % 0.8 % (0.0-7.0); HEMATOCRIT 44.4 % (42.0-52.0); HEMOGLOBIN 14.7 g/dl (14.0-18.0); LYMPHOCYTES # 2.1 10^3/ul (0.8-2.9); LYMPHOCYTES % 13.1 % (15.0-51.0); MEAN CORPUSCULAR HEMOGLOBIN 29.4 pg (29.0-33.0); MEAN CORPUSCULAR HGB CONC 33.1 g/dl (32.0-37.0); MEAN CORPUSCULAR VOLUME 88.8 fl (82.0-101.0); MEAN PLATELET VOLUME 11.4 fl (7.4-10.4); MONOCYTES % 6.5 % (0.0-11.0); NEUTROPHIL # 12.5 10^3/ul (1.6-7.5); NEUTROPHILS % 78.5 % (39.0-77.0); PLATELET COUNT 116 10^3/UL (140-415); RED CELL DISTRIBUTION WIDTH 15.7 % (11.5-14.5); WHITE BLOOD COUNT 15.9 10^3/ul (4.8-10.8)
[2016-08-12 11:52] LABS: POTASSIUM 4.4 mmol/L (3.5-5.1)
[2016-08-12 11:55] LABS: CREATININE 3.25 mg/dl (0.61-1.24)
[2016-08-12 11:56] LABS: CALCIUM 7.8 mg/dl (8.4-10.2)
--- NOTE | 2016-08-12 12:25 | PN ---
Date/Time of Note Date/Time of Note DATE: 08/12/16 TIME: 12:22 Assessment/Plan VTE Prophylaxis VTE Prophylaxis Intervention: other Lines/Catheters [facility] Saline Lock Urinary Cath still in place: Yes Reason Cath still needed: urinary retention Assessment/Plan Problems: (1) Liver cirrhosis Status: Acute Comment: He is not progressing well with this issue. He is becoming somewhat hyponatremic. In addition his renal function is destabilizing. Overall we will try and work with him as best we can to optimize Qualifiers: Hepatic cirrhosis type: unspecified hepatic cirrhosis Ascites presence: with ascites Qualified Code: K74.60 - Cirrhosis of liver with ascites, unspecified hepatic cirrhosis type (2) Hepatitis C Status: Acute Comment: Noted he is not a candidate for intervention using the Harvoni treatment Qualifiers: Viral hepatitis chronicity: unspecified Hepatic coma status: without hepatic coma Qualified Code: B19.20 - Hepatitis C virus infection without hepatic coma, unspecified chronicity (3) Liver mass Status: Chronic Comment: As documented previously given his overall status attempts doing a percutaneous biopsy this would likely kill the patient. As such we will continue to observe (4) Lesion of lung Status: Chronic Comment: As above attempts of biopsy of this will be inappropriate and contraindicated (5) Diabetes mellitus type 2 in nonobese Status: Chronic Comment: Well-controlled Assessment/Plan I had an extensive discussion with the patient. He indicates to me that he does not wish to have heroic efforts engaged. Specifically does not wish to be intubated or have mechanical ventilation he does want chest compressions that he does not want cardioversion or DC shock to the chest. I confirmed that he was doing this mentally competently because I asked him in a way that he would have to disagree with me and he disagreed with me stating he does not wish to have these interventions. As such she is now DNR status. Subjective 24 Hr Interval Summary Free Text/Dictation Patient awakens with some difficulty but able to carry on a meaningful conversation Constitutional: no complaints Cardiovascular: no complaints Gastrointestinal: no complaints Genitourinary: no complaints Exam/Review of Systems Vital Signs Vitals Vital Signs Date Time Temp Pulse Resp B/P Pulse Ox O2 Delivery O2 Flow Rate FiO2 08/12/16 11:49 97.8 89 20 90/62 94 08/12/16 08:16 Nasal Cannula 2.0 Intake and Output 08/11/16 08/11/16 08/12/16 15:00 23:00 07:00 Intake Total 105 ml 450 ml 100 ml Output Total 180 ml 100 ml Balance 105 ml 270 ml 0 ml Exam Constitutional: alert, oriented Neck: non-tender, supple Respiratory: clear to auscultation Cardiovascular: nl pulses, regular rate and rhythm Gastrointestinal: ascites Results Result Diagram: 08/12/16 1124 08/12/16 1124 Results 24 hrs Laboratory Tests Test 08/11/16 17:11 08/11/16 20:54 08/12/16 02:33 08/12/16 07:39 Bedside Glucose 192 204 142 148 Test 08/12/16 11:24 Anion Gap 16 Basophils # 0.1 Basophils % 0.3 Blood Urea Nitrogen 79 H Calcium Level 7.8 L Carbon Dioxide Level 14 L Chloride Level 101 Creatinine 3.25 H Eosinophils # 0.1 Eosinophils % 0.8 Glucose Level 180 Hematocrit 44.4 Hemoglobin 14.7 Lymphocytes # 2.1 Lymphocytes % 13.1 L Mean Corpuscular Hemoglobin 29.4 Mean Corpuscular Hemoglobin Concent 33.1 Mean Corpuscular Volume 88.8 Mean Platelet Volume 11.4 H Monocytes # 1.0 H Monocytes % 6.5 Neutrophils # 12.5 H Neutrophils % 78.5 H Nucleated Red Blood Cells # 0.0 Nucleated Red Blood Cells % 0.0 Platelet Count 116 L Potassium Level 4.4 Red Blood Count 5.00 Red Cell Distribution Width 15.7 H Sodium Level 127 L White Blood Count 15.9 H Medications Medications Current Medications Ondansetron HCl (Zofran Inj) 4 mg Q6H PRN IV NAUSEA AND/OR VOMITING; Start at 14:00 Acetaminophen (Tylenol Tab) 650 mg Q6H PRN PO PAIN LEVEL 1-3 OR FEVER; Start at 14:00 Acetaminophen/ Hydrocodone Bitart ([place] (5/325)) 1 tab Q6H PRN PO MODERATE PAIN LEVEL 4-6 Last administered on 08/10/16t 22:12; Admin Dose 1 TAB; Start at 14:00 Docusate Sodium (Colace) 100 mg Q12H PRN PO CONSTIPATION; Start 08/04/16 at 14: 00 Magnesium Hydroxide (Milk Of Mag) 30 ml DAILY PRN PO CONSTIPATION; Start at 14:00 Sodium Biphosphate/ Sodium Phosphate (Fleet Enema) 133 ml DAILY PRN [place] CONSTIPATION; Start 08/04/16 at 14:00 Lorazepam (Ativan) 0.5 mg Q6H PRN IV ANXIETY Last administered on 08/11/16 21: 01; Admin Dose 0.5 MG; Start 08/04/16 at 14:00 Hydralazine HCl (Apresoline) 10 mg Q6H PRN IV ELEVATED BLOOD PRESSURE; Start at 14:00 Nitroglycerin (Nitroglycerin (Sl Tab) 0.4 Mg) 1 tab Q5M PRN SL ANGINA; Start at 14:00 Pantoprazole (Protonix Tab) 40 mg DAILY@06 PO Last administered on 08/12/16 06 :39; Admin Dose 40 MG; Start 08/05/16 at 06:00 Miscellaneous Information 1 ea NOTE XX ; Start 08/04/16 at 14:30 Glucose (Glutose) 15 gm Q15M PRN PO DECREASED GLUCOSE; Start 08/04/16 at 14:30 Glucose (Glutose) 22.5 gm Q15M PRN PO DECREASED GLUCOSE; Start 08/04/16 at 14: 30 Dextrose (D50w Syringe) 25 ml Q15M PRN IV DECREASED GLUCOSE; Start 08/04/16 at 14:30 Dextrose (D50w Syringe) 50 ml Q15M PRN IV DECREASED GLUCOSE; Start 08/04/16 at 14:30 Glucagon (Glucagen) 1 mg Q15M PRN IM DECREASED GLUCOSE; Start 08/04/16 at 14:30 Glucose (Glutose) 15 gm Q15M PRN BUCCAL DECREASED GLUCOSE; Start 08/04/16 at 14 :30 Loperamide HCl (Imodium Cap) 2 mg QID PRN PO DIARRHEA; Start 08/04/16 at 15:00 Rifaximin 550 mg 550 mg BID PO Last administered on 08/12/16 09:04; Admin Dose 550 MG; Start 08/08/16 at 21:00 Levetiracetam/ Sodium Chloride (Keppra Iv/NS) 105 ml @ 420 mls/hr Q12 IVPB Last administered on 08/12/16 09:04; Admin Dose 420 MLS/HR; Start 08/09/16 at 09:00 Lactulose (Enulose) 20 gm Q8 NGT Last administered on 08/12/16 06:39; Admin Dose 20 GM; Start 08/09/16 at 14:00 Diagnostic Test (Pha) (Accucheck) 1 ea 02 XX Last administered on 08/12/16 02: 37; Admin Dose 1 EA; Start 08/10/16 at 02:00 Miscellaneous Information (Flu Vaccine Previously Dispensed) FLU VACCINE PREVIOU... NOTE PRN XX NOTE; Start 08/10/16 at 07:30 Gabapentin (Neurontin) 300 mg TID PO Last administered on 08/12/16 09:04; Admin Dose 300 MG; Start 08/11/16 at 13:00 Insulin Glargine (Lantus) 26 unit QAM SC Last administered on 08/12/16 09:07; Admin Dose 26 UNIT; Start 08/12/16 at 09:00 TWILA RICHEY MD Aug 12, 2016 12:25
[2016-08-13] VITALS (12 sets, daily range): BP systolic 86–120; BP diastolic 53–73; PULSE 82–96; RESP 16–20
[2016-08-13] MEDS: LACTULOSE 30ML CUP NGT SCH (05:58)
[2016-08-13] MEDS: PANTOPRAZOLE (EC) 40 MG TAB PO SCH (05:58)
[2016-08-13 07:40] LABS: ADD SCAN DIFF NO
[2016-08-13 07:55] LABS: BASOPHIL # 0.1 10^3/ul (0.0-0.1); BASOPHILS % 0.3 % (0.0-2.0); EOSINOPHILS # 0.2 10^3/ul (0.0-0.5); EOSINOPHILS % 1.1 % (0.0-7.0); HEMATOCRIT 44.2 % (42.0-52.0); HEMOGLOBIN 14.4 g/dl (14.0-18.0); LYMPHOCYTES # 2.7 10^3/ul (0.8-2.9); LYMPHOCYTES % 16.4 % (15.0-51.0); MEAN CORPUSCULAR HEMOGLOBIN 28.3 pg (29.0-33.0); MEAN CORPUSCULAR HGB CONC 32.6 g/dl (32.0-37.0); MEAN CORPUSCULAR VOLUME 86.8 fl (82.0-101.0); MEAN PLATELET VOLUME 10.7 fl (7.4-10.4); MONOCYTE # 1.1 10^3/ul (0.3-0.9); MONOCYTES % 6.7 % (0.0-11.0); NEUTROPHIL # 12.2 10^3/ul (1.6-7.5); NEUTROPHILS % 74.8 % (39.0-77.0); PLATELET COUNT 127 10^3/UL (140-415); RED BLOOD COUNT 5.09 10^6/ul (4.70-6.10); RED CELL DISTRIBUTION WIDTH 15.7 % (11.5-14.5); WHITE BLOOD COUNT 16.3 10^3/ul (4.8-10.8)
[2016-08-13 08:54] LABS: POTASSIUM 4.6 mmol/L (3.5-5.1)
[2016-08-13 08:57] LABS: CALCIUM 8.2 mg/dl (8.4-10.2); CREATININE 3.67 mg/dl (0.61-1.24)
[2016-08-13] MEDS: LEVETIRACETAM IV 500 MG in SOD CHLORIDE 0.9% 100 ML IVPB SCH ×2 (09:09→21:16)
[2016-08-13] MEDS: RIFAXIMIN 550 MG TAB PO SCH ×2 (09:09→21:16)
[2016-08-13] MEDS: GABAPENTIN 300 MG CAP PO SCH ×3 (09:09→21:16)
[2016-08-13] MEDS: INSULIN ASPART [NOVOLOG] 3 ML PEN SC SCH ×4 (09:10→21:00)
[2016-08-13] MEDS: INSULIN GLARGINE [LANtus] 3 ML PEN SC SCH (09:10)
--- NOTE | 2016-08-13 12:35 | PN ---
Date/Time of Note Date/Time of Note DATE: 08/13/16 TIME: 12:21 Assessment/Plan VTE Prophylaxis VTE Prophylaxis Intervention: SCD's Lines/Catheters IV Catheter Type (from Nrs): Saline Lock Urinary Cath still in place: Yes Reason Cath still needed: other (indicate) Assessment/Plan Assessment/Plan 1 Acute encephalopathy, hepatic, follow up with GI 2. Weakness and diarrhea.negative for C. Diff, lactulose related, decrease lactulose to daily 3. Acute on chronic renal insufficiency stable 4. 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 Type 2 diabetes, on insulin 6. Liver and lung masses with elevated AFP and CA-125 negative cytology from paracentesis, follow up with oncology 7. Hyponatremia, stable 8. Leukocytosis, levaquin, likely pulmonary, send UA Subjective 24 Hr Interval Summary Free Text/Dictation lethargic, but may give good history, weak Exam/Review of Systems Vital Signs Vitals Vital Signs Date Time Temp Pulse Resp B/P Pulse Ox O2 Delivery O2 Flow Rate FiO2 08/13/16 08:55 96 08/13/16 08:40 90/56 08/13/16 08:07 96.7 17 93 08/13/16 07:43 Nasal Cannula 3.0 Intake and Output 08/12/16 08/12/16 08/13/16 15:00 23:00 07:00 Intake Total 105 ml 425 ml Output Total 250 ml Balance 105 ml 175 ml Exam Constitutional: oriented Head: atraumatic, normocephalic Eyes: EOMI, PERRL, nl conjunctiva, nl lids ENMT: mucosa pink and moist, nl external ears & nose, nl lips & teeth, nl nasal mucosa & septum Neck: non-tender, supple Respiratory: normal air movement, other (some rhonchi) Cardiovascular: nl pulses, regular rate and rhythm, No S3, No S4, No bruits, No diastolic murmur, No edema, No gallop, No irregular rhythm, No jugular venous distention (JVD), No murmurs/extra sounds, No other, No rub, No systolic murmur Gastrointestinal: distended, soft Musculoskeletal: nl extremities to inspection Neurological: CRYSTAL LAPPER II-XII intact, nl mental status, nl speech, nl strength Results Result Diagram: 08/13/16 0645 08/13/16 0820 Results 24 hrs Laboratory Tests Test 08/12/16 17:29 08/12/16 22:25 08/13/16 06:45 08/13/16 07:39 Bedside Glucose 191 180 207 Basophils # 0.1 Basophils % 0.3 Eosinophils # 0.2 Eosinophils % 1.1 Hematocrit 44.2 Hemoglobin 14.4 Lymphocytes # 2.7 Lymphocytes % 16.4 Mean Corpuscular Hemoglobin 28.3 L Mean Corpuscular Hemoglobin Concent 32.6 Mean Corpuscular Volume 86.8 Mean Platelet Volume 10.7 H Monocytes # 1.1 H Monocytes % 6.7 Neutrophils # 12.2 H Neutrophils % 74.8 Nucleated Red Blood Cells # 0.0 Nucleated Red Blood Cells % 0.0 Platelet Count 127 L Red Blood Count 5.09 Red Cell Distribution Width 15.7 H White Blood Count 16.3 H Test 08/13/16 08:20 08/13/16 11:39 Anion Gap 20 H Blood Urea Nitrogen 86 H Calcium Level 8.2 L Carbon Dioxide Level 13 L Chloride Level 100 Creatinine 3.67 H Glucose Level 165 Potassium Level 4.6 Sodium Level 128 L Bedside Glucose 174 Medications Medications Current Medications Ondansetron HCl (Zofran Inj) 4 mg Q6H PRN IV NAUSEA AND/OR VOMITING; Start at 14:00 Acetaminophen (Tylenol Tab) 650 mg Q6H PRN PO PAIN LEVEL 1-3 OR FEVER; Start at 14:00 Acetaminophen/ Hydrocodone Bitart ([place] (5/325)) 1 tab Q6H PRN PO MODERATE PAIN LEVEL 4-6 Last administered on 08/10/16 22:12; Admin Dose 1 TAB; Start at 14:00 Docusate Sodium (Colace) 100 mg Q12H PRN PO CONSTIPATION; Start 08/04/16 at 14: 00 Magnesium Hydroxide (Milk Of Mag) 30 ml DAILY PRN PO CONSTIPATION; Start at 14:00 Sodium Biphosphate/ Sodium Phosphate (Fleet Enema) 133 ml DAILY PRN [place] CONSTIPATION; Start 08/04/16 at 14:00 Lorazepam (Ativan) 0.5 mg Q6H PRN IV ANXIETY Last administered on 08/11/16 21: 01; Admin Dose 0.5 MG; Start 08/04/16 at 14:00 Hydralazine HCl (Apresoline) 10 mg Q6H PRN IV ELEVATED BLOOD PRESSURE; Start at 14:00 Nitroglycerin (Nitroglycerin (Sl Tab) 0.4 Mg) 1 tab Q5M PRN SL ANGINA; Start at 14:00 Pantoprazole (Protonix Tab) 40 mg DAILY@06 PO Last administered on 08/13/16 05 :58; Admin Dose 40 MG; Start 08/05/16 at 06:00 Miscellaneous Information 1 ea NOTE XX ; Start 08/04/16 at 14:30 Glucose (Glutose) 15 gm Q15M PRN PO DECREASED GLUCOSE; Start 08/04/16 at 14:30 Glucose (Glutose) 22.5 gm Q15M PRN PO DECREASED GLUCOSE; Start 08/04/16 at 14: 30 Dextrose (D50w Syringe) 25 ml Q15M PRN IV DECREASED GLUCOSE; Start 08/04/16 at 14:30 Dextrose (D50w Syringe) 50 ml Q15M PRN IV DECREASED GLUCOSE; Start 08/04/16 at 14:30 Glucagon (Glucagen) 1 mg Q15M PRN IM DECREASED GLUCOSE; Start 08/04/16 at 14:30 Glucose (Glutose) 15 gm Q15M PRN BUCCAL DECREASED GLUCOSE; Start 08/04/16 at 14 :30 Loperamide HCl (Imodium Cap) 2 mg QID PRN PO DIARRHEA; Start 08/04/16 at 15:00 Rifaximin 550 mg 550 mg BID PO Last administered on 08/13/16 09:09; Admin Dose 550 MG; Start 08/08/16 at 21:00 Levetiracetam/ Sodium Chloride (Keppra Iv/NS) 105 ml @ 420 mls/hr Q12 IVPB Last administered on 08/13/16 09:09; Admin Dose 420 MLS/HR; Start 08/09/16 at 09:00 Lactulose (Enulose) 20 gm Q8 NGT Last administered on 08/13/16 05:58; Admin Dose 20 GM; Start 08/09/16 at 14:00 Diagnostic Test (Pha) (Accucheck) 1 ea 02 XX Last administered on 08/12/16 02: 37; Admin Dose 1 EA; Start 08/10/16 at 02:00 Miscellaneous Information (Flu Vaccine Previously Dispensed) FLU VACCINE PREVIOU... NOTE PRN XX NOTE; Start 08/10/16 at 07:30 Gabapentin (Neurontin) 300 mg TID PO Last administered on 08/13/16 09:09; Admin Dose 300 MG; Start 08/11/16 at 13:00 Insulin Glargine (Lantus) 26 unit QAM SC Last administered on 08/13/16 09:10; Admin Dose 26 UNIT; Start 08/12/16 at 09:00 LIZ GUERRA MD Aug 13, 2016 12:32
[2016-08-13] MEDS: CEFTRIAXONE 1 GM/50 ML (PMX) 50 ML IVPB SCH (14:13)
--- NOTE | 2016-08-13 16:14 | CONS ---
Date/Time of Note Date/Time of Note DATE: 08/13/16 TIME: 16:12 Assessment/Plan Assessment/Plan Chief Complaint/Hosp Course 61 yo with # Liver mass - concerning for HCC with slight high AFP. During last admission, per radiology it was determined that a liver or lung biopsy would be unsafe in this cirrhotic patient. At that time a paracentesis was done which was negative for malignancy and therefore non diagnostic. WE will therefore re attempt to make a diagnosis with a paracentesis and cytology evaluation of pleural fluid. If we are not able to make a diagnosis would not pursue a risky liver or lung biopsy. Pt is extremely weak and cachetic and would not tolerate aggressive chemotherapy. Furthermore, patient has stated he has no family near by to help him and is amenable to supportive care and hospice. He understands that he would likely not tolerate chemotherapy -ascitic fluid tap and cytology to start with -agree with palliative care involved because of multiple comorbid issues and deteriorating PS. -hospice consultation placed #Thrombocytopenia -secondary to liver failure, no intervention unless needed for a procedure. .Platelets now 127 # Liver cirrhosis- secondary to Hepatitis -continue to monitor counts #Acute on chronic renal failure -baseline creat around 2.7 and has been hydrated overnight with improvement. Approximately 40 min were spent at patient's bedside and in coordination of his care Problems: Consultation Date/Type/Reason Admit Date/Time Aug 04, 2016 at 13:11 Initial Consult Date 08/05/16 Type of Consultation: Hematology/Oncology Reason for Consultation metastatic cancer Referring Provider: AMADOR MONGE 24 HR Interval Summary Free Text/Dictation no acute overnight events. patient's clinical status continues to decline Constitutional: poor po Exam/Review of Systems Vital Signs Vitals Vital Signs Date Time Temp Pulse Resp B/P Pulse Ox O2 Delivery O2 Flow Rate FiO2 08/13/16 12:38 82 08/13/16 12:24 98.6 19 103/65 95 08/13/16 07:43 Nasal Cannula 3.0 Intake and Output 08/12/16 08/12/16 08/13/16 15:00 23:00 07:00 Intake Total 105 ml 425 ml Output Total 250 ml Balance 105 ml 175 ml Exam Constitutional: alert, distress, frail, other (lethargic) Psych: depression Head: atraumatic, normocephalic Eyes: nl conjunctiva ENMT: nl external ears & nose, nl lips & teeth Neck: non-tender, supple Respiratory: clear to auscultation, normal air movement Cardiovascular: regular rate and rhythm Gastrointestinal: ascites Musculoskeletal: nl extremities to inspection, nl gait and stance Extremities: normal pulses Results Result Diagram: 08/13/16 0645 08/13/16 0820 Results 24 hrs Laboratory Tests Test 08/12/16 17:29 08/12/16 22:25 08/13/16 06:45 08/13/16 07:39 Bedside Glucose 191 180 207 Basophils # 0.1 Basophils % 0.3 Eosinophils # 0.2 Eosinophils % 1.1 Hematocrit 44.2 Hemoglobin 14.4 Lymphocytes # 2.7 Lymphocytes % 16.4 Mean Corpuscular Hemoglobin 28.3 L Mean Corpuscular Hemoglobin Concent 32.6 Mean Corpuscular Volume 86.8 Mean Platelet Volume 10.7 H Monocytes # 1.1 H Monocytes % 6.7 Neutrophils # 12.2 H Neutrophils % 74.8 Nucleated Red Blood Cells # 0.0 Nucleated Red Blood Cells % 0.0 Platelet Count 127 L Red Blood Count 5.09 Red Cell Distribution Width 15.7 H White Blood Count 16.3 H Test 08/13/16 08:20 08/13/16 11:39 Anion Gap 20 H Blood Urea Nitrogen 86 H Calcium Level 8.2 L Carbon Dioxide Level 13 L Chloride Level 100 Creatinine 3.67 H Glucose Level 165 Potassium Level 4.6 Sodium Level 128 L Bedside Glucose 174 Medications Medications Current Medications Ondansetron HCl (Zofran Inj) 4 mg Q6H PRN IV NAUSEA AND/OR VOMITING; Start at 14:00 Acetaminophen (Tylenol Tab) 650 mg Q6H PRN PO PAIN LEVEL 1-3 OR FEVER; Start at 14:00 Acetaminophen/ Hydrocodone Bitart ([place] (5/325)) 1 tab Q6H PRN PO MODERATE PAIN LEVEL 4-6 Last administered on 08/10/16t 22:12; Admin Dose 1 TAB; Start at 14:00 Docusate Sodium (Colace) 100 mg Q12H PRN PO CONSTIPATION; Start 08/04/16 at 14: 00 Magnesium Hydroxide (Milk Of Mag) 30 ml DAILY PRN PO CONSTIPATION; Start at 14:00 Sodium Biphosphate/ Sodium Phosphate (Fleet Enema) 133 ml DAILY PRN [place] CONSTIPATION; Start 08/04/16 at 14:00 Lorazepam (Ativan) 0.5 mg Q6H PRN IV ANXIETY Last administered on 08/11/16 21: 01; Admin Dose 0.5 MG; Start 08/04/16 at 14:00 Hydralazine HCl (Apresoline) 10 mg Q6H PRN IV ELEVATED BLOOD PRESSURE; Start at 14:00 Nitroglycerin (Nitroglycerin (Sl Tab) 0.4 Mg) 1 tab Q5M PRN SL ANGINA; Start at 14:00 Pantoprazole (Protonix Tab) 40 mg DAILY@06 PO Last administered on 08/13/16 05 :58; Admin Dose 40 MG; Start 08/05/16 at 06:00 Miscellaneous Information 1 ea NOTE XX ; Start 08/04/16 at 14:30 Glucose (Glutose) 15 gm Q15M PRN PO DECREASED GLUCOSE; Start 08/04/16 at 14:30 Glucose (Glutose) 22.5 gm Q15M PRN PO DECREASED GLUCOSE; Start 08/04/16 at 14: 30 Dextrose (D50w Syringe) 25 ml Q15M PRN IV DECREASED GLUCOSE; Start 08/04/16 at 14:30 Dextrose (D50w Syringe) 50 ml Q15M PRN IV DECREASED GLUCOSE; Start 08/04/16 at 14:30 Glucagon (Glucagen) 1 mg Q15M PRN IM DECREASED GLUCOSE; Start 08/04/16 at 14:30 Glucose (Glutose) 15 gm Q15M PRN BUCCAL DECREASED GLUCOSE; Start 08/04/16 at 14 :30 Loperamide HCl (Imodium Cap) 2 mg QID PRN PO DIARRHEA; Start 08/04/16 at 15:00 Rifaximin 550 mg 550 mg BID PO Last administered on 08/13/16 09:09; Admin Dose 550 MG; Start 08/08/16 at 21:00 Levetiracetam/ Sodium Chloride (Keppra Iv/NS) 105 ml @ 420 mls/hr Q12 IVPB Last administered on 08/13/16 09:09; Admin Dose 420 MLS/HR; Start 08/09/16 at 09:00 Diagnostic Test (Pha) (Accucheck) 1 ea 02 XX Last administered on 08/12/16 02: 37; Admin Dose 1 EA; Start 08/10/16 at 02:00 Miscellaneous Information (Flu Vaccine Previously Dispensed) FLU VACCINE PREVIOU... NOTE PRN XX NOTE; Start 08/10/16 at 07:30 Gabapentin (Neurontin) 300 mg TID PO Last administered on 08/13/16 12:42; Admin Dose 300 MG; Start 08/11/16 at 13:00 Insulin Glargine (Lantus) 26 unit QAM SC Last administered on 08/13/16 09:10; Admin Dose 26 UNIT; Start 08/12/16 at 09:00 Lactulose 20 gm 20 gm DAILY PO ; Start 08/14/16 at 09:00 Ceftriaxone Sodium (Rocephin) 50 ml @ 100 mls/hr Q24H IVPB Last administered on 08/13/16 14:13; Admin Dose 100 MLS/HR; Start 08/13/16 at 14:00 ROWAN GARCIA M.D. Aug 13, 2016 16:13
[2016-08-13 17:56] LABS: ADD UMIC YES; URINE BILIRUBIN (Dip) 1+ (NEGATIVE); URINE BLOOD (Dip) 3+ (NEGATIVE); URINE GLUCOSE (Dip) NEGATIVE (NEGATIVE); URINE KETONES (Dip) TRACE (NEGATIVE); URINE LEUKOCYTE ESTERASE (Dip) 2+ (NEGATIVE); URINE NITRITE (Dip) NEGATIVE (NEGATIVE); URINE TOTAL PROTEIN (Dip) 2+ (NEGATIVE); URINE UROBILINOGEN (Dip) 1.0 E.U./dL (0.1-1.0)
[2016-08-13 18:23] LABS: URINE COLOR DARK YELLOW (YELLOW)
--- NOTE | 2016-08-13 19:22 | CONS ---
DATE OF ADMISSION: 08/04/2016 DATE OF CONSULTATION: 08/13/2016 TYPE OF CONSULTATION: Infectious disease. REASON FOR CONSULTATION: Antibiotic management. HISTORY OF PRESENT ILLNESS: Ottoniel Justice is a 61-year-old male transferred from outside hospital on the with generalized weakness and diarrhea. His past problems include: 1. Prior history of malaise and diarrhea. 2. Liver masses with multiple lung masses and lymphadenopathy consistent with hepatocellular carcin olamide. 3. Hepatitis C. 4. Alcohol abuse. 5. Questionable hepatitis B. 6. Thrombocytopenia secondary to liver disease. 7. Essential hypertension. 8. Adult-onset diabetes mellitus. 9. Renal insufficiency. 10. Right inguinal hernia. 11. Cirrhosis of liver. The patient has had general weakness for at least 2 or 3 weeks and diarrhea 3 to 4 times a day prior to admission. He also complains of peripheral neuropathy. On presentation to the outside hospital , he was hypotensive, was given IV boluses and then transferred to [facility]. He was here at the end of June, beginning of July. He was supposed to undergo liver biopsy and was disc harged to schedule for outpatient liver biopsy, which apparently he never got. HOSPITAL COURSE: On admission, his white count was 10.4, H and H of 14 and 41.4, platelet count 135 ,000. BUN and creatinine 110/3.55. LFTs were, on admission, bilirubin 1.4, alkaline phosphatase 21 4, ALT 30, AST 101. Lipase 35. The patient was seen by multiple consultants. He was seen by ____, who noted history of hepatit is C, perhaps hepatitis B with cirrhosis, stage IV chronic kidney disease, benign prostatic hypertro phy, squamous cell carcinoma of the skin previously, plaque psoriasis, alcohol abuse, status post in guinal hernia repair, status post multiple skin grafts. As it is likely metastatic hepatocellular c arcinoma, will defer to hematology/oncology whether palliative care is appropriate. Consider liver biopsy by Dr. Ohara. The patient was seen by Dr. Berenice Bearden. Liver mass concerning for HCC with slight high alpha-fetoprotein. During last admission, it was determined that a liver biopsy or eleno g biopsy would be unsafe in this cirrhotic patient. Paracentesis was done, was negative for maligna ncy. Reattempt at paracentesis and cytology was therefore considered. I agree with palliative care because of multiple comorbid issues. PAST MEDICAL HISTORY: Operations as outlined. FAMILY HISTORY: Noncontributory. SOCIAL HISTORY: He is a longstanding alcoholic, former cocaine user, smoked for 50 pack of cigarett es a day. MEDICATIONS: Per chart. REVIEW OF SYSTEMS: Noncontributory. PHYSICAL EXAMINATION: GENERAL: The patient is a cachectic-appearing male who is awake, responsive, in no acute distress. VITAL SIGNS: Stable. He is afebrile. SKIN: Without generalized rash. Slight icterus. HEENT: Within normal limits. NECK: Supple. LYMPH NODES: None palpable. CHEST: Decreased breath sounds at the bases. HEART: Without murmur or gallop. ABDOMEN: Soft, nontender without organosplenomegaly or masses. EXTREMITIES: Without cyanosis, clubbing, or edema. RECTAL AND GENITAL: Deferred. NEUROLOGIC: No focal neurological abnormalities. LABORATORY DATA: On the , white count was 16.3, H and H of 14.4/44.2, platelet count 127,000. BUN and creatinine 86/3.67. The patient is on Rifaximin. Chest x-ray: Bibasilar compressive atele ctasis, not significantly changed. MICROBIOLOGY: C. difficile is negative. His MRSA screen is negative. As noted, his cytology from the paracentesis previously was negative. IMPRESSION AND PLAN: The patient is on ceftriaxone and rifaximin. It is unclear at this point what we are treating. It is obvious we need some kind of a diagnostic procedure whether he has cirrhosi s or not. We will continue him on the ceftriaxone for the time being. I will dictate my findings t o the hospitalist and to Dr. Bearden. According to Dr. Ohara, regardless of the findings of biopsy, the patient is not eligible for any surgical intervention given the amount of cirrhosis and likely m etastatic disease process. Palliative care, it seems, should be considered. Dictated By: YVONNE VARELA MD, JD/RAFAEL Conf#: [id number] DID#: [id number] CC: AMADOR MONGE;*EndCC*
[2016-08-13 19:28] LABS: BACTERIA,URINE MANY; ICTOTEST NEGATIVE (NEGATIVE)
[2016-08-13 19:29] LABS: TRANSITIONAL EPI CELLS,URINE FEW; URINE RBCS >50 /HPF (0)
[2016-08-13] MEDS: ACCUCHECK AT 2AM (Patients on SS coverage) XX SCH (21:47)
[2016-08-14] VITALS (12 sets, daily range): BP systolic 90–119; BP diastolic 56–74; PULSE 76–88; RESP 18–22
[2016-08-14] MEDS: PANTOPRAZOLE (EC) 40 MG TAB PO SCH (06:07)
[2016-08-14 07:00] LABS: ADD SCAN DIFF NO
[2016-08-14 07:08] LABS: BASOPHILS % 0.3 % (0.0-2.0); EOSINOPHILS # 0.1 10^3/ul (0.0-0.5); EOSINOPHILS % 0.8 % (0.0-7.0); HEMATOCRIT 42.5 % (42.0-52.0); HEMOGLOBIN 14.2 g/dl (14.0-18.0); LYMPHOCYTES # 2.4 10^3/ul (0.8-2.9); LYMPHOCYTES % 16.9 % (15.0-51.0); MEAN CORPUSCULAR HEMOGLOBIN 28.9 pg (29.0-33.0); MEAN CORPUSCULAR HGB CONC 33.4 g/dl (32.0-37.0); MEAN CORPUSCULAR VOLUME 86.4 fl (82.0-101.0); MEAN PLATELET VOLUME 10.6 fl (7.4-10.4); MONOCYTE # 0.9 10^3/ul (0.3-0.9); MONOCYTES % 6.5 % (0.0-11.0); NEUTROPHIL # 10.5 10^3/ul (1.6-7.5); NEUTROPHILS % 75.1 % (39.0-77.0); PLATELET COUNT 117 10^3/UL (140-415); RED BLOOD COUNT 4.92 10^6/ul (4.70-6.10); RED CELL DISTRIBUTION WIDTH 15.4 % (11.5-14.5); WHITE BLOOD COUNT 13.9 10^3/ul (4.8-10.8)
[2016-08-14 07:11] LABS: ALBUMIN 2.7 g/dl (3.3-4.9)
[2016-08-14 07:12] LABS: POTASSIUM 4.9 mmol/L (3.5-5.1)
[2016-08-14 07:14] LABS: ALBUMIN/GLOBULIN RATIO 0.57; BILIRUBIN,INDIRECT 0.4 mg/dl (0-1.1); BILIRUBIN,TOTAL 0.4 mg/dl (0.2-1.3); CREATININE 4.32 mg/dl (0.61-1.24); TOTAL PROTEIN 7.4 g/dl (6.1-8.1)
[2016-08-14 07:15] LABS: CALCIUM 8.5 mg/dl (8.4-10.2)
[2016-08-14] MEDS: INSULIN ASPART [NOVOLOG] 3 ML PEN SC SCH ×4 (08:00→20:51)
[2016-08-14] MEDS: GABAPENTIN 300 MG CAP PO SCH ×3 (09:39→20:42)
[2016-08-14] MEDS: LEVETIRACETAM IV 500 MG in SOD CHLORIDE 0.9% 100 ML IVPB SCH ×2 (09:39→20:47)
[2016-08-14] MEDS: LACTULOSE 30ML CUP PO SCH (09:39)
[2016-08-14] MEDS: RIFAXIMIN 550 MG TAB PO SCH ×2 (09:40→20:42)
[2016-08-14] MEDS: INSULIN GLARGINE [LANtus] 3 ML PEN SC SCH (09:41)
--- NOTE | 2016-08-14 12:46 | PN ---
DATE: 08/14/2016 SUBJECTIVE: No events overnight. No fevers. The patient is awake, lying comfortably in bed. LABORATORY DATA: WBC today 13.9, platelets 117, no shift, no bands. BUN 97, creatinine 4.32. INDWELLINGS: Aiken catheter. ANTIMICROBIALS: The patient is on Rocephin, started yesterday. Urinalysis from yesterday was positive for leukocyte esterase, WBCs, and many bacteria. PHYSICAL EXAMINATION: GENERAL: This is a chronically ill-appearing, fragile, elderly man who is lying comfortably in bed. HEENT: Head atraumatic, normocephalic. Sclerae anicteric. Buccal mucosa dry. NECK: Supple. CHEST: Rise symmetrical. Breath sounds diminished to bases. HEART: S1, S2. ABDOMEN: Obese, distended with bowel sounds hypoactive. EXTREMITIES: Without cyanosis. ASSESSMENT: 1. Systemic inflammatory response syndrome with persistent leukocytosis, likely multifactorial. 2. Urinary tract infection as per urinalysis. 3. Hepatocellular carcinoma. 4. Liver cirrhosis. 5. Acute on chronic kidney disease, possibly hepatorenal syndrome. 6. Cachexia. PLAN: The patient remains clinically unchanged. Pending urine culture. He is being seen by yenni vinson who recommends hospice evaluation given poor prognosis. Dictated By: KANDICE FLOWERS HE[employer] INTERPRETER for YVONNE COMER/RAFAEL Conf#: [id number] DID#: [id number]
[2016-08-14] MEDS: CEFTRIAXONE 1 GM/50 ML (PMX) 50 ML IVPB SCH (13:46)
[2016-08-14] MEDS: HYDROCODONE/APAP (5/325) TAB PO PRN ×2 (13:49→19:29)
--- NOTE | 2016-08-14 13:56 | DS ---
Date/Time of Note Date/Time of Note DATE: 08/14/16 TIME: 13:49 Discharge Summary Admission/Discharge Info Admit Date/Time Aug 04, 2016 at 13:11 Discharge Date/Time Final Diagnosis 1 Acute encephalopathy, hepatic, follow up with GI 2. Weakness and diarrhea.negative for C. Diff, on imodium prn 3. Acute on chronic renal insufficiency, worsening 4. 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 Type 2 diabetes, on insulin 6. Liver and lung masses with elevated AFP and CA-125 negative cytology from paracentesis 7. Hyponatremia, from chronic liver disease 8. UTI, on rocephin 9. Hospice care Patient Condition: Serious Hospital Course A 61-year-old male with past medical history of prior malaise and diarrhea, liver masses with multiple lung masses and lymphadenopathy concerning for HCC, history of hepatitis C and alcohol abuse, questionable hepatitis B, thrombocytopenia secondary to liver disease, essential hypertension, type 2 diabetes, renal insufficiency, right inguinal hernia and liver cirrhosis, who was transferred from outside hospital earlier today. The patient presented there after complaining of 2 weeks of generalized weakness. He has also been having diarrhea 3 to 4 times per day. Also complaining of peripheral neuropathy. He went to his primary care doctor apparently 2 days ago and was told he had metabolic acidosis. He goes to [facility] locally. He does not remember his doctor's name. When he presented to the outside hospital today, his sodium was 130. He was hypotensive as well. He was given IV fluid boluses and due to insurance purposes was transferred over here. When the patient came in, he also was found with elevated BUN of 110 and elevated creatinine of 3.5. Patient has end stage of liver disease with large, recurrent ascites, he also has chronic diarrhea. His liver lesions are not safe to biopsy per radiology. Consider patient's condition and poor prognosis, hospice care is recommended and patient signed up with hospice care today. Patient has leukocytosis, UA indicates UTI. He is on rocephin since 08/13/2016. Home Meds Active Scripts Losartan Potassium* (Losartan Potassium*) 100 Mg Tablet, 100 MG ORAL DAILY, #30 5 Refills Prov:AMADOR MONGE 07/20/16 Pantoprazole* (Pantoprazole*) 40 Mg Tablet.dr, 40 MG PO DAILY, #30 3 Refills Prov:AMADOR MONGE S. 07/20/16 Furosemide* (Furosemide*) 40 Mg Tablet, 40 MG PO DAILY, #30 2 Refills Prov:AMADOR MONGE S. 07/20/16 Reported Medications Docusate Sodium* (Docusate Sodium*) 100 Mg Capsule, 100 MG PO BID, #60 CAP 08/04/16 Insulin Glargine* (Lantus*) 100 Unit/Ml Soln, 20 UNIT SC QAM, #1 VIAL 08/04/16 Insulin Lispro (Humalog Kwikpen) 200 Unit/1 Ml Insuln.pen, 3 UNIT SQ TID, EA 08/04/16 Follow-up Plan Follow up with hospice care Pending Labs Laboratory Tests Test 08/13/16 17:19 08/13/16 21:18 08/14/16 06:12 08/14/16 08:26 Bedside Glucose 212mg/dL (70-220) 172mg/dL (70-220) 93mg/dL (70-220) Alanine Aminotransferase (ALT/SGPT) 44IU/L (13-69) Albumin 2.7g/dl (3.3-4.9) Albumin/Globulin Ratio 0.57 Alkaline Phosphatase 262IU/L (42-121) Anion Gap 19 (8-16) Aspartate Amino Transf (AST/SGOT) 97IU/L (15-46) Basophils # 0.010^3/ul (0.0-0.1) Basophils % 0.3% (0.0-2.0) Blood Urea Nitrogen 97mg/dl (7-20) Calcium Level 8.5mg/dl (8.4-10.2) Carbon Dioxide Level 15mmol/L (21-31) Chloride Level 100mmol/L (97-110) Creatinine 4.32mg/dl (0.61-1.24) Direct Bilirubin 0.00mg/dl (0.00-0.20) Eosinophils # 0.110^3/ul (0.0-0.5) Eosinophils % 0.8% (0.0-7.0) Globulin 4.70g/dl (1.3-3.2) Glucose Level 105mg/dl (70-220) Hematocrit 42.5% (42.0-52.0) Hemoglobin 14.2g/dl (14.0-18.0) Indirect Bilirubin 0.4mg/dl (0-1.1) Lymphocytes # 2.410^3/ul (0.8-2.9) Lymphocytes % 16.9% (15.0-51.0) Mean Corpuscular Hemoglobin 28.9pg (29.0-33.0) Mean Corpuscular Hemoglobin Concent 33.4g/dl (32.0-37.0) Mean Corpuscular Volume 86.4fl (82.0-101.0) Mean Platelet Volume 10.6fl (7.4-10.4) Monocytes # 0.910^3/ul (0.3-0.9) Monocytes % 6.5% (0.0-11.0) Neutrophils # 10.510^3/ul (1.6-7.5) Neutrophils % 75.1% (39.0-77.0) Nucleated Red Blood Cells # 0.010^3/ul (0.0-0.0) Nucleated Red Blood Cells % 0.0/100WBC (0.0-0.0) Platelet Count 03436^3/UL (140-415) Potassium Level 4.9mmol/L (3.5-5.1) Red Blood Count 4.9210^6/ul (4.70-6.10) Red Cell Distribution Width 15.4% (11.5-14.5) Sodium Level 129mmol/L (135-144) Total Bilirubin 0.4mg/dl (0.2-1.3) Total Protein 7.4g/dl (6.1-8.1) White Blood Count 13.910^3/ul (4.8-10.8) Test 08/14/16 12:28 08/14/16 12:29 Bedside Glucose 377mg/dL (70-220) 173mg/dL (70-220) LIZ GUERRA MD Aug 14, 2016 13:56
[2016-08-15] VITALS (12 sets, daily range): BP systolic 96–120; BP diastolic 55–69; PULSE 77–90; RESP 18–19
[2016-08-15] MEDS: ACCUCHECK AT 2AM (Patients on SS coverage) XX SCH (02:00)
[2016-08-15] MEDS: PANTOPRAZOLE (EC) 40 MG TAB PO SCH (05:20)
[2016-08-15] MEDS ORDERED: SOD CHLORIDE 0.9% 500 ML IV ONE (07:00)
[2016-08-15] MEDS: INSULIN ASPART [NOVOLOG] 3 ML PEN SC SCH ×4 (07:52→20:58)
[2016-08-15 08:27] LABS: ADD SCAN DIFF NO
[2016-08-15] MEDS: RIFAXIMIN 550 MG TAB PO SCH ×2 (08:29→20:58)
[2016-08-15] MEDS: GABAPENTIN 300 MG CAP PO SCH ×3 (08:29→20:58)
[2016-08-15] MEDS: HYDROCODONE/APAP (5/325) TAB PO PRN ×2 (08:29→20:59)
[2016-08-15] MEDS: LACTULOSE 30ML CUP PO SCH (08:29)
[2016-08-15] MEDS: INSULIN GLARGINE [LANtus] 3 ML PEN SC SCH (08:31)
[2016-08-15] MEDS: LEVETIRACETAM IV 500 MG in SOD CHLORIDE 0.9% 100 ML IVPB SCH ×2 (08:33→20:58)
[2016-08-15 08:42] LABS: BASOPHILS % 0.2 % (0.0-2.0); EOSINOPHILS # 0.2 10^3/ul (0.0-0.5); EOSINOPHILS % 1.1 % (0.0-7.0); HEMOGLOBIN 14.4 g/dl (14.0-18.0); LYMPHOCYTES # 1.9 10^3/ul (0.8-2.9); LYMPHOCYTES % 12.9 % (15.0-51.0); MEAN CORPUSCULAR HEMOGLOBIN 28.9 pg (29.0-33.0); MEAN CORPUSCULAR HGB CONC 33.5 g/dl (32.0-37.0); MEAN CORPUSCULAR VOLUME 86.2 fl (82.0-101.0); MEAN PLATELET VOLUME 9.7 fl (7.4-10.4); MONOCYTE # 0.9 10^3/ul (0.3-0.9); NEUTROPHIL # 11.9 10^3/ul (1.6-7.5); NEUTROPHILS % 79.1 % (39.0-77.0); PLATELET COUNT 125 10^3/UL (140-415); RED BLOOD COUNT 4.99 10^6/ul (4.70-6.10); RED CELL DISTRIBUTION WIDTH 15.9 % (11.5-14.5)
[2016-08-15 08:44] LABS: POTASSIUM 5.3 mmol/L (3.5-5.1)
[2016-08-15 08:48] LABS: CALCIUM 8.1 mg/dl (8.4-10.2)
[2016-08-15 08:55] LABS: CREATININE 4.26 mg/dl (0.61-1.24)
--- NOTE | 2016-08-15 13:28 | PN ---
Date/Time of Note Date/Time of Note DATE: 08/15/16 TIME: 13:24 Assessment/Plan VTE Prophylaxis VTE Prophylaxis Intervention: heparin Lines/Catheters IV [facility]from [facility] [place] [facility] Urinary Cath still in place: Yes Reason Cath still needed: other (indicate) Assessment/Plan Chief Complaint/Hosp Course A 61-year-old male with past medical history of prior malaise and diarrhea, liver masses with multiple lung masses and lymphadenopathy concerning for HCC, history of hepatitis C and alcohol abuse, questionable hepatitis B, thrombocytopenia secondary to liver disease, essential hypertension, type 2 diabetes, renal insufficiency, right inguinal hernia and liver cirrhosis, who was transferred from outside hospital earlier today. The patient presented there after complaining of 2 weeks of generalized weakness. He has also been having diarrhea 3 to 4 times per day. Also complaining of peripheral neuropathy. He went to his primary care doctor apparently 2 days ago and was told he had metabolic acidosis. He goes to [facility] locally. He does not remember his doctor's name. When he presented to the outside hospital today, his sodium was 130. He was hypotensive as well. He was given IV fluid boluses and due to insurance purposes was transferred over here. When the patient came in, he also was found with elevated BUN of 110 and elevated creatinine of 3.5. Patient has end stage of liver disease with large, recurrent ascites, he also has chronic diarrhea. His liver lesions are not safe to biopsy per radiology. Consider patient's condition and poor prognosis, hospice care is recommended and patient signed up with hospice care today. Patient has leukocytosis, UA indicates UTI. He is on rocephin since 08/13/2016. Problems: Assessment/Plan 1 Acute encephalopathy, hepatic, follow up with GI 2. Weakness and diarrhea.negative for C. Diff, on imodium prn 3. Acute on chronic renal insufficiency, worsening 4. 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 Type 2 diabetes, on insulin 6. Liver and lung masses with elevated AFP and CA-125 negative cytology from paracentesis 7. Hyponatremia, from chronic liver disease 8. UTI, on rocephin 9. Hyperkalemia, renal failure related, kayexalate 10. Thrombocytopenia, from chronic liver disease 11. Patient agrees to hospice care, awaiting for placement Subjective 24 Hr Interval Summary Free Text/Dictation WEAK, NO FEVER Exam/Review of Systems Vital Signs Vitals Vital Signs Date Time Temp Pulse Resp B/P Pulse Ox O2 Delivery O2 Flow Rate FiO2 08/15/16 12:15 77 08/15/16 12:10 97.9 19 96/59 89 08/15/16 08:30 Nasal Cannula 3.0 Intake and Output 08/14/16 08/14/16 08/15/16 15:00 23:00 07:00 Intake Total 505 ml 360 ml Output Total 200 ml 150 ml Balance 305 ml 210 ml Exam Constitutional: alert, frail, oriented Psych: nl mood/affect, no complaints Head: atraumatic, normocephalic Eyes: EOMI, PERRL, nl conjunctiva, nl lids ENMT: nl external ears & nose, nl lips & teeth, nl nasal mucosa & septum Neck: non-tender, supple Respiratory: clear to auscultation, No congested cough, No crackles/rales, No diminished breath sounds, No intercostal retraction, No labored breathing, No normal air movement, No other, No respirations, No tactile fremitus, No wheezing Cardiovascular: nl pulses, regular rate and rhythm, No S3, No S4, No bruits, No diastolic murmur, No edema, No gallop, No irregular rhythm, No jugular venous distention (JVD), No murmurs/extra sounds, No other, No rub, No systolic murmur Gastrointestinal: distended, tender (diffuse) Musculoskeletal: nl extremities to inspection Extremities: edema Neurological: CARPENTER SUPERVISOR II-XII intact, nl mental status, nl speech, nl strength Results Result Diagram: 08/15/16 0800 08/15/16 0800 Results 24 hrs Laboratory Tests Test 08/14/16 16:51 08/14/16 20:50 08/15/16 07:51 08/15/16 08:00 Bedside Glucose 158 153 106 Anion Gap 19 H Basophils # 0.0 Basophils % 0.2 Blood Urea Nitrogen 102 H Calcium Level 8.1 L Carbon Dioxide Level 13 L Chloride Level 100 Creatinine 4.26 H Eosinophils # 0.2 Eosinophils % 1.1 Glucose Level 94 Hematocrit 43.0 Hemoglobin 14.4 Lymphocytes # 1.9 Lymphocytes % 12.9 L Mean Corpuscular Hemoglobin 28.9 L Mean Corpuscular Hemoglobin Concent 33.5 Mean Corpuscular Volume 86.2 Mean Platelet Volume 9.7 Monocytes # 0.9 Monocytes % 6.0 Neutrophils # 11.9 H Neutrophils % 79.1 H Nucleated Red Blood Cells # 0.0 Nucleated Red Blood Cells % 0.0 Platelet Count 125 L Potassium Level 5.3 H Red Blood Count 4.99 Red Cell Distribution Width 15.9 H Sodium Level 127 L White Blood Count 15.0 H Test 08/15/16 12:10 Bedside Glucose 103 Medications Medications Current Medications Ondansetron HCl (Zofran Inj) 4 mg Q6H PRN IV NAUSEA AND/OR VOMITING; Start at 14:00 Acetaminophen (Tylenol Tab) 650 mg Q6H PRN PO PAIN LEVEL 1-3 OR FEVER; Start at 14:00 Acetaminophen/ Hydrocodone Bitart ([place] (5/325)) 1 tab Q6H PRN PO MODERATE PAIN LEVEL 4-6 Last administered on 08/15/16 08:29; Admin Dose 1 TAB; Start at 14:00 Docusate Sodium (Colace) 100 mg Q12H PRN PO CONSTIPATION; Start 08/04/16 at 14: 00 Magnesium Hydroxide (Milk Of Mag) 30 ml DAILY PRN PO CONSTIPATION; Start at 14:00 Sodium Biphosphate/ Sodium Phosphate (Fleet Enema) 133 ml DAILY PRN [place] CONSTIPATION; Start 08/04/16 at 14:00 Lorazepam (Ativan) 0.5 mg Q6H PRN IV ANXIETY Last administered on 08/11/16 21: 01; Admin Dose 0.5 MG; Start 08/04/16 at 14:00 Hydralazine HCl (Apresoline) 10 mg Q6H PRN IV ELEVATED BLOOD PRESSURE; Start at 14:00 Nitroglycerin (Nitroglycerin (Sl Tab) 0.4 Mg) 1 tab Q5M PRN SL ANGINA; Start at 14:00 Pantoprazole (Protonix Tab) 40 mg DAILY@06 PO Last administered on 08/15/16 05: 20; Admin Dose 40 MG; Start 08/05/16 at 06:00 Miscellaneous Information 1 ea NOTE XX ; Start 08/04/16 at 14:30 Glucose (Glutose) 15 gm Q15M PRN PO DECREASED GLUCOSE; Start 08/04/16 at 14:30 Glucose (Glutose) 22.5 gm Q15M PRN PO DECREASED GLUCOSE; Start 08/04/16 at 14: 30 Dextrose (D50w Syringe) 25 ml Q15M PRN IV DECREASED GLUCOSE; Start 08/04/16 at 14:30 Dextrose (D50w Syringe) 50 ml Q15M PRN IV DECREASED GLUCOSE; Start 08/04/16 at 14:30 Glucagon (Glucagen) 1 mg Q15M PRN IM DECREASED GLUCOSE; Start 08/04/16 at 14:30 Glucose (Glutose) 15 gm Q15M PRN BUCCAL DECREASED GLUCOSE; Start 08/04/16 at 14 :30 Loperamide HCl (Imodium Cap) 2 mg QID PRN PO DIARRHEA; Start 08/04/16 at 15:00 Rifaximin 550 mg 550 mg BID PO Last administered on 08/15/16 08:29; Admin Dose 550 MG; Start 08/08/16 at 21:00 Levetiracetam/ Sodium Chloride (Keppra Iv/NS) 105 ml @ 420 mls/hr Q12 IVPB Last administered on 08/15/16 08:33; Admin Dose 420 MLS/HR; Start 08/09/16 at 09 :00 Diagnostic Test (Pha) (Accucheck) 1 ea 02 XX Last administered on 08/12/16 02: 37; Admin Dose 1 EA; Start 08/10/16 at 02:00 Miscellaneous Information (Flu Vaccine Previously Dispensed) FLU VACCINE PREVIOU... NOTE PRN XX NOTE; Start 08/10/16 at 07:30 Gabapentin (Neurontin) 300 mg TID PO Last administered on 08/15/16 08:29; Admin Dose 300 MG; Start 08/11/16 at 13:00 Insulin Glargine (Lantus) 26 unit QAM SC Last administered on 08/15/16 08:31; Admin Dose 26 UNIT; Start 08/12/16 at 09:00 Lactulose 20 gm 20 gm DAILY PO Last administered on 08/15/16 08:29; Admin Dose 20 GM; Start 08/14/16 at 09:00 Ceftriaxone Sodium (Rocephin) 50 ml @ 100 mls/hr Q24H IVPB Last administered on 2/28/17at 13:46; Admin Dose 100 MLS/HR; Start 08/13/16 at 14:00 LIZ GUERRA MD Aug 15, 2016 13:28
[2016-08-15] MEDS ORDERED: NA POLYST SULFON 15 GM/60 ML BTL PO ONE (13:30)
[2016-08-15] MEDS: CEFTRIAXONE 1 GM/50 ML (PMX) 50 ML IVPB SCH (14:04)
--- NOTE | 2016-08-15 14:32 | DS ---
Date/Time of Note Date/Time of Note DATE: 08/15/16 TIME: 14:29 Discharge Summary Admission/Discharge Info Admit Date/Time Aug 04, 2016 at 13:11 Discharge Date/Time Final Diagnosis 1 Acute encephalopathy, hepatic, follow up with GI 2. Weakness and diarrhea.negative for C. Diff, on imodium prn 3. Acute on chronic renal insufficiency, worsening 4. 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 Type 2 diabetes, on insulin 6. Liver and lung masses with elevated AFP and CA-125 negative cytology from paracentesis 7. Hyponatremia, from chronic liver disease 8. UTI, on rocephin 9. Hyperkalemia, renal failure related, kayexalate given 10. Thrombocytopenia, from chronic liver disease 11. Hospice care Patient Condition: Guarded Hospital Course A 61-year-old male with past medical history of prior malaise and diarrhea, liver masses with multiple lung masses and lymphadenopathy concerning for HCC, history of hepatitis C and alcohol abuse, questionable hepatitis B, thrombocytopenia secondary to liver disease, essential hypertension, type 2 diabetes, renal insufficiency, right inguinal hernia and liver cirrhosis, who was transferred from outside hospital earlier today. The patient presented there after complaining of 2 weeks of generalized weakness. He has also been having diarrhea 3 to 4 times per day. Also complaining of peripheral neuropathy. He went to his primary care doctor apparently 2 days ago and was told he had metabolic acidosis. He goes to [facility] locally. He does not remember his doctor's name. When he presented to the outside hospital today, his sodium was 130. He was hypotensive as well. He was given IV fluid boluses and due to insurance purposes was transferred over here. When the patient came in, he also was found with elevated BUN of 110 and elevated creatinine of 3.5. Patient has end stage of liver disease with large, recurrent ascites, he also has chronic diarrhea. His liver lesions are not safe to biopsy per radiology. Consider patient's condition and poor prognosis, hospice care is recommended and patient signed up with hospice care. Patient has leukocytosis, UA indicates UTI. He is on rocephin since 2016.Last BUN/Cr 102/4.26 with K 5.3 on 08/15/2016. Patient got 15 grams of kayexalate orally. Home Meds Active Scripts Losartan Potassium* (Losartan Potassium*) 100 Mg Tablet, 100 MG ORAL DAILY, #30 5 Refills Prov:AMADOR MONGE S. 07/20/16 Pantoprazole* (Pantoprazole*) 40 Mg Tablet.dr, 40 MG PO DAILY, #30 3 Refills Prov:LULÚ MONGEP S. 07/20/16 Furosemide* (Furosemide*) 40 Mg Tablet, 40 MG PO DAILY, #30 2 Refills Prov:AMADOR MONGE S. 07/20/16 Reported Medications Docusate Sodium* (Docusate Sodium*) 100 Mg Capsule, 100 MG PO BID, #60 CAP 08/04/16 Insulin Glargine* (Lantus*) 100 Unit/Ml Soln, 20 UNIT SC QAM, #1 VIAL 08/04/16 Insulin Lispro (Humalog Kwikpen) 200 Unit/1 Ml Insuln.pen, 3 UNIT SQ TID, EA 08/04/16 Follow-up Plan follow up with Hospice care Pending Labs Laboratory Tests Test 08/14/16 16:51 08/14/16 20:50 08/15/16 07:51 08/15/16 08:00 Bedside Glucose 158mg/dL (70-220) 153mg/dL (70-220) 106mg/dL (70-220) Anion Gap 19 (8-16) Basophils # 0.010^3/ul (0.0-0.1) Basophils % 0.2% (0.0-2.0) Blood Urea Nitrogen 102mg/dl (7-20) Calcium Level 8.1mg/dl (8.4-10.2) Carbon Dioxide Level 13mmol/L (21-31) Chloride Level 100mmol/L (97-110) Creatinine 4.26mg/dl (0.61-1.24) Eosinophils # 0.210^3/ul (0.0-0.5) Eosinophils % 1.1% (0.0-7.0) Glucose Level 94mg/dl (70-220) Hematocrit 43.0% (42.0-52.0) Hemoglobin 14.4g/dl (14.0-18.0) Lymphocytes # 1.910^3/ul (0.8-2.9) Lymphocytes % 12.9% (15.0-51.0) Mean Corpuscular Hemoglobin 28.9pg (29.0-33.0) Mean Corpuscular Hemoglobin Concent 33.5g/dl (32.0-37.0) Mean Corpuscular Volume 86.2fl (82.0-101.0) Mean Platelet Volume 9.7fl (7.4-10.4) Monocytes # 0.910^3/ul (0.3-0.9) Monocytes % 6.0% (0.0-11.0) Neutrophils # 11.910^3/ul (1.6-7.5) Neutrophils % 79.1% (39.0-77.0) Nucleated Red Blood Cells # 0.010^3/ul (0.0-0.0) Nucleated Red Blood Cells % 0.0/100WBC (0.0-0.0) Platelet Count 15058^3/UL (140-415) Potassium Level 5.3mmol/L (3.5-5.1) Red Blood Count 4.9910^6/ul (4.70-6.10) Red Cell Distribution Width 15.9% (11.5-14.5) Sodium Level 127mmol/L (135-144) White Blood Count 15.010^3/ul (4.8-10.8) Test 08/15/16 12:10 Bedside Glucose 103mg/dL (70-220) LIZ GUERRA MD Aug 15, 2016 14:32
[2016-08-15] MEDS ORDERED: LACT20SO12 PO (14:36)
[2016-08-15] MEDS ORDERED: LANT3I SC (14:36)
[2016-08-15] MEDS ORDERED: GABA300C16 PO (14:36)
[2016-08-15] MEDS ORDERED: RIFA550T4 PO (14:36)
[2016-08-15] MEDS ORDERED: NOVO3I SC (14:36)
[2016-08-15] MEDS ORDERED: LEVE-5 PO (14:36)
--- NOTE | 2016-08-15 15:02 | CONS ---
Date/Time of Note Date/Time of Note DATE: 08/15/16 TIME: 15:01 Assessment/Plan Assessment/Plan Chief Complaint/Hosp Course SUBJECTIVE: No events overnight. No fevers. The patient is lying comfortably in bed. INDWELLINGS: Aiken catheter. ANTIMICROBIALS: Rocephin #3 Urinalysis from yesterday was positive for leukocyte esterase, WBCs, and many bacteria. PHYSICAL EXAMINATION: GENERAL: This is a chronically ill-appearing, fragile, elderly man who is lying comfortably in bed. HEENT: Head atraumatic, normocephalic. Sclerae anicteric. Buccal mucosa dry. NECK: Supple. CHEST: Rise symmetrical. Breath sounds diminished to bases. HEART: S1, S2. ABDOMEN: Obese, distended with bowel sounds hypoactive. EXTREMITIES: Without cyanosis. ASSESSMENT: 1. Systemic inflammatory response syndrome with persistent leukocytosis, likely multifactorial. 2. Urinary tract infection as per urinalysis. 3. Hepatocellular carcinoma. 4. Liver cirrhosis. 5. Acute on chronic kidney disease, possibly hepatorenal syndrome. 6. Cachexia. PLAN: The patient remains unchanged. Pending urine culture. He is being seen by oncology who recommends hospice evaluation given poor prognosis. dw staff Problems: Consultation Date/Type/Reason Admit Date/Time Aug 04, 2016 at 13:11 Initial Consult Date 08/05/16 Type of Consultation: ID Referring Provider: AMADOR MONGE Exam/Review of Systems Vital Signs Vitals Vital Signs Date Time Temp Pulse Resp B/P Pulse Ox O2 Delivery O2 Flow Rate FiO2 08/15/16 12:15 77 08/15/16 12:10 97.9 19 96/59 89 08/15/16 08:30 Nasal Cannula 3.0 Intake and Output 08/14/16 08/14/16 08/15/16 15:00 23:00 07:00 Intake Total 505 ml 360 ml Output Total 200 ml 150 ml Balance 305 ml 210 ml Results Result Diagram: 08/15/16 0800 08/15/16 0800 Results 24 hrs Laboratory Tests Test 08/14/16 16:51 08/14/16 20:50 08/15/16 07:51 08/15/16 08:00 Bedside Glucose 158 153 106 Anion Gap 19 H Basophils # 0.0 Basophils % 0.2 Blood Urea Nitrogen 102 H Calcium Level 8.1 L Carbon Dioxide Level 13 L Chloride Level 100 Creatinine 4.26 H Eosinophils # 0.2 Eosinophils % 1.1 Glucose Level 94 Hematocrit 43.0 Hemoglobin 14.4 Lymphocytes # 1.9 Lymphocytes % 12.9 L Mean Corpuscular Hemoglobin 28.9 L Mean Corpuscular Hemoglobin Concent 33.5 Mean Corpuscular Volume 86.2 Mean Platelet Volume 9.7 Monocytes # 0.9 Monocytes % 6.0 Neutrophils # 11.9 H Neutrophils % 79.1 H Nucleated Red Blood Cells # 0.0 Nucleated Red Blood Cells % 0.0 Platelet Count 125 L Potassium Level 5.3 H Red Blood Count 4.99 Red Cell Distribution Width 15.9 H Sodium Level 127 L White Blood Count 15.0 H Test 08/15/16 12:10 Bedside Glucose 103 Medications Medications Current Medications Ondansetron HCl (Zofran Inj) 4 mg Q6H PRN IV NAUSEA AND/OR VOMITING; Start at 14:00 Acetaminophen (Tylenol Tab) 650 mg Q6H PRN PO PAIN LEVEL 1-3 OR FEVER; Start at 14:00 Acetaminophen/ Hydrocodone Bitart ([place] (5/325)) 1 tab Q6H PRN PO MODERATE PAIN LEVEL 4-6 Last administered on 08/15/16 08:29; Admin Dose 1 TAB; Start at 14:00 Docusate Sodium (Colace) 100 mg Q12H PRN PO CONSTIPATION; Start 08/04/16 at 14: 00 Magnesium Hydroxide (Milk Of Mag) 30 ml DAILY PRN PO CONSTIPATION; Start at 14:00 Sodium Biphosphate/ Sodium Phosphate (Fleet Enema) 133 ml DAILY PRN [place] CONSTIPATION; Start 08/04/16 at 14:00 Lorazepam (Ativan) 0.5 mg Q6H PRN IV ANXIETY Last administered on 08/11/16 21: 01; Admin Dose 0.5 MG; Start 08/04/16 at 14:00 Hydralazine HCl (Apresoline) 10 mg Q6H PRN IV ELEVATED BLOOD PRESSURE; Start at 14:00 Nitroglycerin (Nitroglycerin (Sl Tab) 0.4 Mg) 1 tab Q5M PRN SL ANGINA; Start at 14:00 Pantoprazole (Protonix Tab) 40 mg DAILY@06 PO Last administered on 08/15/16 05: 20; Admin Dose 40 MG; Start 08/05/16 at 06:00 Miscellaneous Information 1 ea NOTE XX ; Start 08/04/16 at 14:30 Glucose (Glutose) 15 gm Q15M PRN PO DECREASED GLUCOSE; Start 08/04/16 at 14:30 Glucose (Glutose) 22.5 gm Q15M PRN PO DECREASED GLUCOSE; Start 08/04/16 at 14: 30 Dextrose (D50w Syringe) 25 ml Q15M PRN IV DECREASED GLUCOSE; Start 08/04/16 at 14:30 Dextrose (D50w Syringe) 50 ml Q15M PRN IV DECREASED GLUCOSE; Start 08/04/16 at 14:30 Glucagon (Glucagen) 1 mg Q15M PRN IM DECREASED GLUCOSE; Start 08/04/16 at 14:30 Glucose (Glutose) 15 gm Q15M PRN BUCCAL DECREASED GLUCOSE; Start 08/04/16 at 14 :30 Loperamide HCl (Imodium Cap) 2 mg QID PRN PO DIARRHEA; Start 08/04/16 at 15:00 Rifaximin 550 mg 550 mg BID PO Last administered on 08/15/16 08:29; Admin Dose 550 MG; Start 08/08/16 at 21:00 Levetiracetam/ Sodium Chloride (Keppra Iv/NS) 105 ml @ 420 mls/hr Q12 IVPB Last administered on 08/15/16 08:33; Admin Dose 420 MLS/HR; Start 08/09/16 at 09 :00 Diagnostic Test (Pha) (Accucheck) 1 ea 02 XX Last administered on 08/12/16 02: 37; Admin Dose 1 EA; Start 08/10/16 at 02:00 Miscellaneous Information (Flu Vaccine Previously Dispensed) FLU VACCINE PREVIOU... NOTE PRN XX NOTE; Start 08/10/16 at 07:30 Gabapentin (Neurontin) 300 mg TID PO Last administered on 08/15/16 14:00; Admin Dose 300 MG; Start 08/11/16 at 13:00 Insulin Glargine (Lantus) 26 unit QAM SC Last administered on 08/15/16 08:31; Admin Dose 26 UNIT; Start 08/12/16 at 09:00 Lactulose 20 gm 20 gm DAILY PO Last administered on 08/15/16 08:29; Admin Dose 20 GM; Start 08/14/16 at 09:00 Ceftriaxone Sodium (Rocephin) 50 ml @ 100 mls/hr Q24H IVPB Last administered on 08/15/16 14:04; Admin Dose 100 MLS/HR; Start 08/13/16 at 14:00 KANDICE FLOWERS NP Aug 15, 2016 15:01
[2016-08-16] VITALS: BP 92/52; PULSE 90; RESP 18
[2016-08-16] MEDS: ACCUCHECK AT 2AM (Patients on SS coverage) XX SCH (01:27)
[2016-08-16 04:00] VITALS: BP 93/55; RESP 18
[2016-08-16 04:02] VITALS: PULSE 90
[2016-08-16] MEDS: PANTOPRAZOLE (EC) 40 MG TAB PO SCH (05:24)
[2016-08-16] MEDS: HYDROCODONE/APAP (5/325) TAB PO PRN (06:11)
[2016-08-16 06:37] LABS: ADD SCAN DIFF NO
[2016-08-16 06:49] LABS: BASOPHILS % 0.1 % (0.0-2.0); EOSINOPHILS # 0.1 10^3/ul (0.0-0.5); EOSINOPHILS % 0.5 % (0.0-7.0); HEMATOCRIT 42.1 % (42.0-52.0); HEMOGLOBIN 14.4 g/dl (14.0-18.0); LYMPHOCYTES # 1.5 10^3/ul (0.8-2.9); MEAN CORPUSCULAR HEMOGLOBIN 29.2 pg (29.0-33.0); MEAN CORPUSCULAR HGB CONC 34.2 g/dl (32.0-37.0); MEAN CORPUSCULAR VOLUME 85.4 fl (82.0-101.0); MEAN PLATELET VOLUME 9.9 fl (7.4-10.4); MONOCYTE # 0.8 10^3/ul (0.3-0.9); MONOCYTES % 4.6 % (0.0-11.0); NEUTROPHILS % 85.1 % (39.0-77.0); PLATELET COUNT 139 10^3/UL (140-415); POTASSIUM 5.5 mmol/L (3.5-5.1); RED BLOOD COUNT 4.93 10^6/ul (4.70-6.10); RED CELL DISTRIBUTION WIDTH 15.9 % (11.5-14.5); WHITE BLOOD COUNT 16.5 10^3/ul (4.8-10.8)
[2016-08-16 07:00] LABS: CREATININE 4.47 mg/dl (0.61-1.24)
[2016-08-16 07:51] VITALS: BP 96/53; RESP 20
[2016-08-16] MEDS: INSULIN ASPART [NOVOLOG] 3 ML PEN SC SCH (08:00)
[2016-08-16 09:16] VITALS: PULSE 83
[2016-08-16] MEDS: GABAPENTIN 300 MG CAP PO SCH (09:27)
[2016-08-16] MEDS: RIFAXIMIN 550 MG TAB PO SCH (09:27)
[2016-08-16] MEDS: LACTULOSE 30ML CUP PO SCH (09:27)
[2016-08-16] MEDS: INSULIN GLARGINE [LANtus] 3 ML PEN SC SCH (09:27)
[2016-08-16] MEDS: LEVETIRACETAM IV 500 MG in SOD CHLORIDE 0.9% 100 ML IVPB SCH (09:27)
--- NOTE | 2016-08-16 11:48 | CONS ---
Date/Time of Note Date/Time of Note DATE: 08/16/16 TIME: 11:47 Assessment/Plan Assessment/Plan Chief Complaint/Hosp Course SUBJECTIVE: No events overnight. No fevers. The patient is lying comfortably in bed. ANTIMICROBIALS: Rocephin #4 Urinalysis from yesterday was positive for leukocyte esterase, WBCs, and many bacteria. PHYSICAL EXAMINATION: GENERAL: This is a chronically ill-appearing, fragile, elderly man who is lying comfortably in bed. HEENT: Head atraumatic, normocephalic. Sclerae anicteric. Buccal mucosa dry. NECK: Supple. CHEST: Rise symmetrical. Breath sounds diminished to bases. HEART: S1, S2. ABDOMEN: Obese, distended with bowel sounds hypoactive. EXTREMITIES: Without cyanosis. ASSESSMENT: 1. Systemic inflammatory response syndrome with persistent leukocytosis, likely multifactorial. 2. Urinary tract infection as per urinalysis. 3. Hepatocellular carcinoma. 4. Liver cirrhosis. 5. Acute on chronic kidney disease, possibly hepatorenal syndrome. 6. Cachexia. PLAN: The patient remains unchanged. He is being seen by oncology who recommends hospice evaluation given poor prognosis. Pending dc planning dw staff Problems: Consultation Date/Type/Reason Admit Date/Time Aug 04, 2016 at 13:11 Initial Consult Date 08/05/16 Type of Consultation: ID Referring Provider: AMADOR MONGE Exam/Review of Systems Vital Signs Vitals Vital Signs Date Time Temp Pulse Resp B/P Pulse Ox O2 Delivery O2 Flow Rate FiO2 08/16/16 09:16 83 08/16/16 09:02 Nasal Cannula 3.0 08/16/16 07:51 97.4 20 96/53 92 Intake and Output 08/15/16 08/15/16 08/16/16 15:00 23:00 07:00 Intake Total 245 ml 200 ml Output Total 240 ml 150 ml Balance 5 ml 50 ml Results Result Diagram: 08/16/16 0608/16/16604 Results 24 hrs Laboratory Tests Test 08/15/16 12:10 08/15/16 17:25 08/15/16 20:57 08/16/16 06:05 Bedside Glucose 103 128 112 Ammonia 41 #H Anion Gap 23 H Basophils # 0.0 Basophils % 0.1 Blood Urea Nitrogen 110 H Calcium Level 8.0 L Carbon Dioxide Level 12 L Chloride Level 99 Creatinine 4.47 H Eosinophils # 0.1 Eosinophils % 0.5 Glucose Level 86 Hematocrit 42.1 Hemoglobin 14.4 Lymphocytes # 1.5 Lymphocytes % 9.0 L Mean Corpuscular Hemoglobin 29.2 Mean Corpuscular Hemoglobin Concent 34.2 Mean Corpuscular Volume 85.4 Mean Platelet Volume 9.9 Monocytes # 0.8 Monocytes % 4.6 Neutrophils # 14.0 H Neutrophils % 85.1 H Nucleated Red Blood Cells # 0.0 Nucleated Red Blood Cells % 0.0 Platelet Count 139 L Potassium Level 5.5 H Red Blood Count 4.93 Red Cell Distribution Width 15.9 H Sodium Level 128 L White Blood Count 16.5 H Test 08/16/16 08:34 Bedside Glucose 84 Medications Medications Current Medications Ondansetron HCl (Zofran Inj) 4 mg Q6H PRN IV NAUSEA AND/OR VOMITING Last administered on 08/16/16 11:05; Admin Dose 4 MG; Start 08/04/16 at 14:00 Acetaminophen (Tylenol Tab) 650 mg Q6H PRN PO PAIN LEVEL 1-3 OR FEVER; Start at 14:00 Acetaminophen/ Hydrocodone Bitart ([place] (5/325)) 1 tab Q6H PRN PO MODERATE PAIN LEVEL 4-6 Last administered on 08/16/16 06:11; Admin Dose 1 TAB; Start at 14:00 Docusate Sodium (Colace) 100 mg Q12H PRN PO CONSTIPATION; Start 08/04/16 at 14: 00 Magnesium Hydroxide (Milk Of Mag) 30 ml DAILY PRN PO CONSTIPATION; Start at 14:00 Sodium Biphosphate/ Sodium Phosphate (Fleet Enema) 133 ml DAILY PRN DC CONSTIPATION; Start 08/04/16 at 14:00 Lorazepam (Ativan) 0.5 mg Q6H PRN IV ANXIETY Last administered on 08/11/16 21: 01; Admin Dose 0.5 MG; Start 08/04/16 at 14:00 Hydralazine HCl (Apresoline) 10 mg Q6H PRN IV ELEVATED BLOOD PRESSURE; Start at 14:00 Nitroglycerin (Nitroglycerin (Sl Tab) 0.4 Mg) 1 tab Q5M PRN SL ANGINA; Start at 14:00 Pantoprazole (Protonix Tab) 40 mg DAILY@06 PO Last administered on 08/16/16 05: 24; Admin Dose 40 MG; Start 08/05/16 at 06:00 Miscellaneous Information 1 ea NOTE XX ; Start 08/04/16 at 14:30 Glucose (Glutose) 15 gm Q15M PRN PO DECREASED GLUCOSE; Start 08/04/16 at 14:30 Glucose (Glutose) 22.5 gm Q15M PRN PO DECREASED GLUCOSE; Start 08/04/16 at 14: 30 Dextrose (D50w Syringe) 25 ml Q15M PRN IV DECREASED GLUCOSE; Start 08/04/16 at 14:30 Dextrose (D50w Syringe) 50 ml Q15M PRN IV DECREASED GLUCOSE; Start 08/04/16 at 14:30 Glucagon (Glucagen) 1 mg Q15M PRN IM DECREASED GLUCOSE; Start 08/04/16 at 14:30 Glucose (Glutose) 15 gm Q15M PRN BUCCAL DECREASED GLUCOSE; Start 08/04/16 at 14 :30 Loperamide HCl (Imodium Cap) 2 mg QID PRN PO DIARRHEA; Start 08/04/16 at 15:00 Rifaximin 550 mg 550 mg BID PO Last administered on 08/16/16 09:27; Admin Dose 550 MG; Start 08/08/16 at 21:00 Levetiracetam/ Sodium Chloride (Keppra Iv/NS) 105 ml @ 420 mls/hr Q12 IVPB Last administered on 08/16/16 09:27; Admin Dose 420 MLS/HR; Start 08/09/16 at 09 :00 Diagnostic Test (Pha) (Accucheck) 1 ea 02 XX Last administered on 08/12/16 02: 37; Admin Dose 1 EA; Start 08/10/16 at 02:00 Miscellaneous Information (Flu Vaccine Previously Dispensed) FLU VACCINE PREVIOU... NOTE PRN XX NOTE; Start 08/10/16 at 07:30 Gabapentin (Neurontin) 300 mg TID PO Last administered on 08/16/16 09:27; Admin Dose 300 MG; Start 08/11/16 at 13:00 Insulin Glargine (Lantus) 26 unit QAM SC Last administered on 08/16/16 09:27; Admin Dose 26 UNIT; Start 08/12/16 at 09:00 Lactulose 20 gm 20 gm DAILY PO Last administered on 08/16/16 09:27; Admin Dose 20 GM; Start 08/14/16 at 09:00 Ceftriaxone Sodium (Rocephin) 50 ml @ 100 mls/hr Q24H IVPB Last administered on 08/15/16 14:04; Admin Dose 100 MLS/HR; Start 08/13/16 at 14:00 KANDICE FLOWERS NP Aug 16, 2016 11:48
[2016-08-16 14:48] VITALS: BP 112/71; RESP 20
--- NOTE | 2016-08-16 15:33 | DS ---
Date/Time of Note Date/Time of Note DATE: 08/16/16 TIME: 15:30 Discharge Summary Admission/Discharge Info Admit Date/Time Aug 04, 2016 at 13:11 Discharge Date/Time Aug 16, 2016 at 14:58 Final Diagnosis 1 Acute encephalopathy, hepatic, follow up with GI 2. Weakness and diarrhea.negative for C. Diff, on imodium prn 3. Acute on chronic renal insufficiency, worsening 4. 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 Type 2 diabetes, on insulin 6. Liver and lung masses with elevated AFP and CA-125 negative cytology from paracentesis 7. Hyponatremia, from chronic liver disease 8. UTI, on rocephin 9. Hyperkalemia, renal failure related, kayexalate given 10. Thrombocytopenia, from chronic liver disease 11. Hospice care Patient Condition: Guarded Hospital Course A 61-year-old male with past medical history of prior malaise and diarrhea, liver masses with multiple lung masses and lymphadenopathy concerning for HCC, history of hepatitis C and alcohol abuse, questionable hepatitis B, thrombocytopenia secondary to liver disease, essential hypertension, type 2 diabetes, renal insufficiency, right inguinal hernia and liver cirrhosis, who was transferred from outside hospital earlier today. The patient presented there after complaining of 2 weeks of generalized weakness. He has also been having diarrhea 3 to 4 times per day. Also complaining of peripheral neuropathy. He went to his primary care doctor apparently 2 days ago and was told he had metabolic acidosis. He goes to [facility] locally. He does not remember his doctor's name. When he presented to the outside hospital today, his sodium was 130. He was hypotensive as well. He was given IV fluid boluses and due to insurance purposes was transferred over here. When the patient came in, he also was found with elevated BUN of 110 and elevated creatinine of 3.5. Patient has end stage of liver disease with large, recurrent ascites, he also has chronic diarrhea. His liver lesions are not safe to biopsy per radiology. Consider patient's condition and poor prognosis, hospice care is recommended and patient signed up with hospice care. Patient has leukocytosis, UA indicates UTI. He is on rocephin since 2016.Last BUN/Cr 102/4.26 with K 5.3 on 08/15/2016. Patient got 15 grams of kayexalate orally. K was 5.5 on 08/16/2016, it is due to renal failure. Kayexalate can be given as needed. Home Meds Active Scripts Gabapentin* (Gabapentin*) 300 Mg Capsule, 300 MG PO TID for 30 Days, CAP Prov:LIZ GUERRA MD 08/15/16 Lactulose* (Cephulac*) 20 Gm/30 Ml Soln, 20 GM PO DAILY for 30 Days Prov:LIZ GUERRA MD 08/15/16 Levetiracetam* (Keppra*) 500 Mg Tablet, 500 MG PO BID for 30 Days, TAB Prov:LIZ GUERRA MD 08/15/16 Rifaximin* (Xifaxan*) 550 Mg Tablet, 550 MG PO BID for 30 Days, TAB Prov:LIZ GUERRA MD 08/15/16 Insulin Glargine* (Lantus*) 100 Unit/Ml Soln, 26 UNIT SC QAM for 30 Days Prov:LIZ GUERRA MD 08/15/16 Insulin Aspart* (Novolog Insulin Pen*) 100 Unit/Ml Soln, 0 UNIT SC WITH MEALS BEDTIME for 30 Days Prov:LIZ GUERRA MD 08/15/16 Pantoprazole* (Pantoprazole*) 40 Mg Tablet.dr, 40 MG PO DAILY, #30 3 Refills Prov:AMADOR MONGE. 07/20/16 Discontinued Reported Medications Docusate Sodium* (Docusate Sodium*) 100 Mg Capsule, 100 MG PO BID, #60 CAP 08/04/16 Insulin Glargine* (Lantus*) 100 Unit/Ml Soln, 20 UNIT SC QAM, #1 VIAL 08/04/16 Insulin Lispro (Humalog Kwikpen) 200 Unit/1 Ml Insuln.pen, 3 UNIT SQ TID, EA 08/04/16 Discontinued Scripts Losartan Potassium* (Losartan Potassium*) 100 Mg Tablet, 100 MG ORAL DAILY, #30 5 Refills Prov:AMADOR MONGE. 07/20/16 Furosemide* (Furosemide*) 40 Mg Tablet, 40 MG PO DAILY, #30 2 Refills Prov:AMADOR MONGE S. 07/20/16 Follow-up Plan follow up with hospice care Pending Labs Laboratory Tests Test 08/15/16 17:25 08/15/16 20:57 08/16/16 06:05 08/16/16 08:34 Bedside Glucose 128mg/dL (70-220) 112mg/dL (70-220) 84mg/dL (70-220) Ammonia 41umol/l (9-30) Anion Gap 23 (8-16) Basophils # 0.010^3/ul (0.0-0.1) Basophils % 0.1% (0.0-2.0) Blood Urea Nitrogen 110mg/dl (7-20) Calcium Level 8.0mg/dl (8.4-10.2) Carbon Dioxide Level 12mmol/L (21-31) Chloride Level 99mmol/L (97-110) Creatinine 4.47mg/dl (0.61-1.24) Eosinophils # 0.110^3/ul (0.0-0.5) Eosinophils % 0.5% (0.0-7.0) Glucose Level 86mg/dl (70-220) Hematocrit 42.1% (42.0-52.0) Hemoglobin 14.4g/dl (14.0-18.0) Lymphocytes # 1.510^3/ul (0.8-2.9) Lymphocytes % 9.0% (15.0-51.0) Mean Corpuscular Hemoglobin 29.2pg (29.0-33.0) Mean Corpuscular Hemoglobin Concent 34.2g/dl (32.0-37.0) Mean Corpuscular Volume 85.4fl (82.0-101.0) Mean Platelet Volume 9.9fl (7.4-10.4) Monocytes # 0.810^3/ul (0.3-0.9) Monocytes % 4.6% (0.0-11.0) Neutrophils # 14.010^3/ul (1.6-7.5) Neutrophils % 85.1% (39.0-77.0) Nucleated Red Blood Cells # 0.010^3/ul (0.0-0.0) Nucleated Red Blood Cells % 0.0/100WBC (0.0-0.0) Platelet Count 44029^3/UL (140-415) Potassium Level 5.5mmol/L (3.5-5.1) Red Blood Count 4.9310^6/ul (4.70-6.10) Red Cell Distribution Width 15.9% (11.5-14.5) Sodium Level 128mmol/L (135-144) White Blood Count 16.510^3/ul (4.8-10.8) LIZ GUERRA MD Aug 16, 2016 15:33
== END 2016-08-16 14:58 | DRG 433 ==
LOC: E/R 08:50 → MS1 13:11 → ICU 08-07 08:11 → MS4 08-09 17:57
PROVIDERS: ADMIT Hospitalist; ATTEND Hospitalist
PROC: 4A033R1 Measurement of Arterial Saturation, Peripheral, Percutaneous Approach (ICD-10-PCS; 2016-08-05)
PROC: 0W9G3ZX Drainage of Peritoneal Cavity, Percutaneous Approach, Diagnostic (ICD-10-PCS; principal; 2016-08-06)
PROC: 4A00X4Z Measurement of Central Nervous Electrical Activity, External Approach (ICD-10-PCS; 2016-08-07)
PROC: 3E0234Z Introduction of Serum, Toxoid and Vaccine into Muscle, Percutaneous Approach (ICD-10-PCS; 2016-08-07)
DX: K70.31 Alcoholic cirrhosis of liver with ascites (principal); R64 Cachexia; C78.00 Secondary malignant neoplasm of unspecified lung; E87.2 Acidosis; K76.6 Portal hypertension; N17.9 Acute kidney failure, unspecified; C22.0 Liver cell carcinoma; N18.4 Chronic kidney disease, stage 4 (severe); B18.1 Chronic viral hepatitis B without delta-agent; E87.1 Hypo-osmolality and hyponatremia; R65.10 Systemic inflammatory response syndrome (SIRS) of non-infectious origin without acute organ dysfunction; N39.0 Urinary tract infection, site not specified; R19.7 Diarrhea, unspecified; K72.90 Hepatic failure, unspecified without coma; B18.2 Chronic viral hepatitis C; Z66 Do not resuscitate; E87.5 Hyperkalemia; E86.0 Dehydration; E11.22 Type 2 diabetes mellitus with diabetic chronic kidney disease; I12.9 Hypertensive chronic kidney disease with stage 1 through stage 4 chronic kidney disease, or unspecified chronic kidney disease; E11.42 Type 2 diabetes mellitus with diabetic polyneuropathy; F17.210 Nicotine dependence, cigarettes, uncomplicated; F14.90 Cocaine use, unspecified, uncomplicated; F10.10 Alcohol abuse, uncomplicated; D69.59 Other secondary thrombocytopenia; N40.0 Benign prostatic hyperplasia without lower urinary tract symptoms; L40.0 Psoriasis vulgaris; R59.1 Generalized enlarged lymph nodes; Z68.23 Body mass index [BMI] 23.0-23.9, adult; Z79.4 Long term (current) use of insulin; Z85.828 Personal history of other malignant neoplasm of skin; Z23 Encounter for immunization
CPT/HCPCS: 36600; 70450; 71010; 76705; 80048; 80053; 80061; 80306; 80307; 81001; 81003; 82140; 82570; 82668; 82803; 82962; 83036; 83735; 84100; 84300; 84439; 84443; 84484; 85025; 85610; 85730; 87075; 87081; 87086; 88104; 88305; 90686; 92610; 93005; 95819; 97162; J0696; J1815; J1940; J1953; J2060; J2405; J7030; J7040; J7042; P9047